=== PATIENT | male | born 1940 | race Caucasian/White ===

== ENCOUNTER 2017-12-25 03:54 | Inpatient (IN) | payer MEDICARE, OTHER ==
[~2017-12-25] VITALS: Ht 182.9 cm; Wt 98.6 kg
[~2017-12-25 03:54] MED LIST: ASPI-1265 PO; ATOR20TA66 PO; Clopidogrel Bisulfate PO; HUM7525 SQ; LANTUS SUBCUT; METO25TA6 PO; MULT-1179 PO; NITR0.4T51 SL
[2017-12-25] MEDS ORDERED: aspirin 81mg tab.chew PO ONE (04:05)
[2017-12-25] MEDS ORDERED: nitroGLYCERIN 0.4mg SUBLingual tab SL PRN (04:05)
[2017-12-25] MEDS ORDERED: iohexol 350MG/ML 100ml bottle IV ONE (04:28)
[2017-12-25 04:35] LABS: BASOPHILS % (AUTO) 0 % (0-1); EOSINOPHILS # (AUTO) 0.2 X10'3 (0-0.9); EOSINOPHILS % (AUTO) 1.7 % (0-6); HEMATOCRIT 45.3 % (42.0-52.0); HEMOGLOBIN 15.8 g/dl (14.0-17.9); LYMPHOCYTES # (AUTO) 2.6 X10'3 (1.1-4.8); LYMPHOCYTES % (AUTO) 23.7 % (21-51); MEAN CORPUSCULAR HEMOGLOBIN 31.3 PG (27.0-31.0); MEAN CORPUSCULAR VOLUME 89.5 FL (78-98); MEAN PLATELET VOLUME 9.8 FL (7.4-10.4); MONOCYTES # (AUTO) 0.8 X10'3 (0-0.9); NEUTROPHILS # (AUTO) 7.3 X10'3 (1.8-7.7); NEUTROPHILS % (AUTO) 67.6 % (42-75); PLATELET COUNT 217 X10'3 (140-440); RED BLOOD COUNT 5.06 X10'6 (4.70-6.10); RED CELL DISTRIBUTION WIDTH 13.4 % (11.5-14.5); WHITE BLOOD COUNT 10.9 X10'3 (4.5-11.0)
[2017-12-25 05:09] LABS: ALANINE AMINOTRANSFERASE 20 U/L (12-78); ALBUMIN 2.9 G/DL (3.4-5.0); ALBUMIN/GLOBULIN RATIO 0.8 (1.1-1.5); ALKALINE PHOSPHATASE 81 IU/L (46-116); ANION GAP 10 (8-16); ASPARTATE AMINO TRANSFERASE 38 U/L (10-37); BILIRUBIN,TOTAL 0.7 MG/DL (0.1-1.0); BLOOD UREA NITROGEN 15 MG/DL (7-18); CALCIUM 8.3 MG/DL (8.5-10.1); CHLORIDE 95 MMOL/L (99-107); CREATININE 1.15 MG/DL (0.60-1.10); GLUCOSE 384 MG/DL (70-104); POTASSIUM 3.7 MMOL/L (3.5-5.1); SODIUM 130 MMOL/L (135-145); TOTAL CARBON DIOXIDE 24.6 MMOL/L (24-32); TOTAL PROTEIN 6.4 G/DL (6.4-8.2); eGFR 62 ML/MIN
[2017-12-25] MEDS ORDERED: heparin 10,000 units/1 ML INJ IV ONE (05:40)
[2017-12-25] MEDS ORDERED: MESSAGE TO PHARMACY PO ONE (05:50)
[2017-12-25] MEDS ORDERED: bisacodyl 10mg suppository rectal RC PRN (05:50)
[2017-12-25] MEDS ORDERED: mag hydrox/Alum hydrox/simeth 30ml oral suspension PO PRN (05:50)
[2017-12-25] MEDS ORDERED: magnesium hydroxide 30ml (MOM) UD suspension PO PRN (05:50)
[2017-12-25] MEDS ORDERED: acetaminophen 650mg rectal suppository RC PRN (05:50)
[2017-12-25] MEDS ORDERED: metoclopramide 5 mg/ml inj IV PRN (05:50)
[2017-12-25] MEDS ORDERED: HYDROmorphone inj. 0.5 MG/0.5 ML DISP.SYRIN IV PRN ×2 (05:50)
[2017-12-25] MEDS ORDERED: acetaminophen 325mg tablet PO PRN ×2 (05:50)
[2017-12-25] MEDS ORDERED: ondansetron/PF 4mg/2ml inj IV PRN (05:50)
[2017-12-25] MEDS ORDERED: dextrose ORAL solution 15 GM/59 ML bottle PO PRN ×2 (05:50)
[2017-12-25] MEDS ORDERED: HYDROcodone/acetaminophen 10/325mg tab PO PRN (05:50)
[2017-12-25] MEDS ORDERED: morphine 2 MG/ML inj. syringe IV PRN ×2 (05:50)
[2017-12-25] MEDS ORDERED: dextrose 50%-water 50ml dispensing syringe IV PRN ×2 (05:50)
[2017-12-25] MEDS ORDERED: diphenhydrAMINE 50 mg/ml inj IV PRN (05:50)
[2017-12-25] MEDS ORDERED: diphenhydrAMINE 25mg capsule PO PRN (05:50)
[2017-12-25] MEDS ORDERED: glucagon, human recombinant 1mg kit SUBCUT PRN (05:50)
[2017-12-25] MEDS: normal saline 1000ml 1,000 ML IV SCH ×2 (05:59→15:46)
[2017-12-25] MEDS ORDERED: atorvastatin 20mg tablet PO SCH (08:00)
[2017-12-25] MEDS: docusate sod 100mg capsule PO SCH ×2 (08:34→19:45)
[2017-12-25] MEDS: pantoprazole 40 MG vial IV SCH (08:35)
[2017-12-25] MEDS ORDERED: NO HOME MEDS (08:37)
[2017-12-25 08:39] LABS: CLARITY,URINE CLEAR (Clear); COLOR,URINE YELLOW (Yellow); GLUCOSE, URINE >=1000 mg/dl (Neg); KETONES,URINE 15 mg/dl (Neg); LEUKOCYTE ESTERASE ,URINE NEGATIVE (Neg); NITRITES, URINE NEGATIVE (Neg); OCCULT BLOOD,URINE NEGATIVE (Neg); PH,URINE 5.5 (4.8-8.0); PROTEIN,URINE NEGATIVE (Neg); UROBILINOGEN,URINE 0.2 E.U/dL (0.2-1.0)
[2017-12-25 08:41] LABS: UA COLLECTION TYPE CLN CATCH MIDSTREAM
[2017-12-25 08:46] LABS: MAGNESIUM 1.6 MG/DL (1.5-2.4); PHOSPHORUS 3.1 MG/DL (2.3-4.5)
[2017-12-25 09:08] LABS: MUCUS STRANDS FEW /LPF (Neg); SQUAMOUS EPITHELIAL CELL,UR MANY /LPF (FEW)
[2017-12-25 09:10] LABS: BACTERIA,URINE FEW /HPF (Neg); RBC,URINE 0-2 /HPF (0-2); WBC,URINE 0-4 /HPF (0-4)
[2017-12-25 09:11] LABS: YEAST FEW /HPF (NEGATIVE)
[2017-12-25 09:17] LABS: HEMOGLOBIN A1C 10.7 % (4.5-6.2)
[2017-12-25] MEDS: insulin Lispro (HumaLOG) vial - multi-dose SQ SCH ×3 (09:29→22:19)
[2017-12-25 11:38] LABS: PROTHROMBIN TIME 10.4 SECONDS (9.0-12.0)
[2017-12-25 12:35] VITALS: BP 122/80
[2017-12-25 15:00] VITALS: BP 114/79
[2017-12-25 19:00] VITALS: BP 115/82
[2017-12-25] MEDS: heparin 10,000 units/1 ML INJ IV PRN (19:42)
[2017-12-25] MEDS ORDERED: temazepam 15mg capsule PO PRN (21:00)
[2017-12-25] MEDS: sodium chloride 0.45% 1,000 ML IV SCH (22:21)
[2017-12-25 23:00] VITALS: BP 117/78
[2017-12-26] MEDS: HYDROcodone/acetaminophen 5mg/325mg tablet PO PRN ×2 (01:40→08:23)
[2017-12-26 03:00] VITALS: BP 126/89
[2017-12-26] MEDS: sodium chloride 0.45% 1,000 ML IV SCH ×3 (03:00→10:48)
[2017-12-26] MEDS: heparin 10,000 units/1 ML INJ IV PRN ×2 (03:00→10:41)
[2017-12-26 06:00] VITALS: BP 108/75
[2017-12-26 06:11] LABS: BASOPHILS % (AUTO) 0.3 % (0-1); EOSINOPHILS # (AUTO) 0.1 X10'3 (0-0.9); EOSINOPHILS % (AUTO) 1.4 % (0-6); HEMATOCRIT 39.7 % (42.0-52.0); HEMOGLOBIN 13.6 g/dl (14.0-17.9); LYMPHOCYTES % (AUTO) 23.4 % (21-51); MEAN CORPUSCULAR HEMOGLOBIN 31.2 PG (27.0-31.0); MEAN CORPUSCULAR HGB CONC 34.2 % (33.0-36.5); MEAN CORPUSCULAR VOLUME 91.3 FL (78-98); MEAN PLATELET VOLUME 10.8 FL (7.4-10.4); MONOCYTES # (AUTO) 0.8 X10'3 (0-0.9); MONOCYTES % (AUTO) 8.7 % (2-12); NEUTROPHILS # (AUTO) 5.8 X10'3 (1.8-7.7); NEUTROPHILS % (AUTO) 66.2 % (42-75); PLATELET COUNT 199 X10'3 (140-440); RED BLOOD COUNT 4.35 X10'6 (4.70-6.10); RED CELL DISTRIBUTION WIDTH 14.1 % (11.5-14.5); WHITE BLOOD COUNT 8.7 X10'3 (4.5-11.0)
[2017-12-26 06:26] LABS: ALANINE AMINOTRANSFERASE 21 U/L (12-78); ALBUMIN 2.7 G/DL (3.4-5.0); ALBUMIN/GLOBULIN RATIO 0.7 (1.1-1.5); ALKALINE PHOSPHATASE 64 IU/L (46-116); ANION GAP 12 (8-16); ASPARTATE AMINO TRANSFERASE 30 U/L (10-37); BILIRUBIN,TOTAL 0.9 MG/DL (0.1-1.0); BLOOD UREA NITROGEN 13 MG/DL (7-18); BUN/CREATININE RATIO 12.9 (5.4-32.0); CALCIUM 8.8 MG/DL (8.5-10.1); CHLORIDE 99 MMOL/L (99-107); CHOL/HDL RATIO 2.8 (0.00-4.99); CHOLESTEROL 185 MG/DL (0-200); CREATININE 1.01 MG/DL (0.60-1.10); GLUCOSE 267 MG/DL (70-104); HDL CHOLESTEROL 66 MG/DL (35-60); LDL CHOLESTEROL 113 MG/DL (50-100); POTASSIUM 3.7 MMOL/L (3.5-5.1); SODIUM 133 MMOL/L (135-145); TOTAL CARBON DIOXIDE 22.3 MMOL/L (24-32); TOTAL PROTEIN 6.4 G/DL (6.4-8.2); TRIGLYCERIDES 73 MG/DL (20-135); eGFR 72 ML/MIN
[2017-12-26] MEDS ORDERED: atorvastatin 20mg tablet PO SCH (07:10)
[2017-12-26] MEDS ORDERED: metoprolol tartrate 12.5mg (1/2 tablet) PO SCH (08:00)
[2017-12-26] MEDS: aspirin 81mg tab.chew PO SCH (08:19)
[2017-12-26] MEDS: clopidogrel 75mg tablet PO SCH (08:20)
[2017-12-26] MEDS: docusate sod 100mg capsule PO SCH ×2 (08:21→20:00)
[2017-12-26] MEDS: pantoprazole 40 MG vial IV SCH (08:24)
[2017-12-26] MEDS: insulin Lispro (HumaLOG) vial - multi-dose SQ SCH ×3 (08:29→19:54)
[2017-12-26 09:49] LABS: PARTIAL THROMBOPLASTIN TIME 44 SECONDS (22-32)
[2017-12-26 11:00] VITALS: BP 91/62
[2017-12-26 15:00] VITALS: BP 111/72
[2017-12-26 19:00] VITALS: BP 173/80
[2017-12-26] MEDS: carVEDilol 3.125mg tablet PO SCH (19:43)
[2017-12-26] MEDS ORDERED: lisinopril 5mg tablet PO SCH (21:00)
[2017-12-26 23:00] VITALS: BP 103/69
[2017-12-27 03:00] VITALS: BP 82/58
[2017-12-27 07:00] VITALS: BP 94/63
[2017-12-27 07:19] LABS: BASOPHILS # (AUTO) 0.1 X10'3 (0-0.2); BASOPHILS % (AUTO) 1.9 % (0-1); EOSINOPHILS # (AUTO) 0.1 X10'3 (0-0.9); EOSINOPHILS % (AUTO) 1.9 % (0-6); HEMOGLOBIN 12.7 g/dl (14.0-17.9); LYMPHOCYTES # (AUTO) 1.8 X10'3 (1.1-4.8); LYMPHOCYTES % (AUTO) 24.9 % (21-51); MEAN CORPUSCULAR HGB CONC 34.3 % (33.0-36.5); MEAN CORPUSCULAR VOLUME 90.3 FL (78-98); MEAN PLATELET VOLUME 10.4 FL (7.4-10.4); MONOCYTES # (AUTO) 0.8 X10'3 (0-0.9); MONOCYTES % (AUTO) 10.7 % (2-12); NEUTROPHILS # (AUTO) 4.3 X10'3 (1.8-7.7); NEUTROPHILS % (AUTO) 60.6 % (42-75); PLATELET COUNT 196 X10'3 (140-440); RED CELL DISTRIBUTION WIDTH 13.7 % (11.5-14.5)
[2017-12-27 07:40] LABS: ALANINE AMINOTRANSFERASE 27 U/L (12-78); ALBUMIN 2.4 G/DL (3.4-5.0); ALBUMIN/GLOBULIN RATIO 0.6 (1.1-1.5); ALKALINE PHOSPHATASE 100 IU/L (46-116); ANION GAP 12 (8-16); ASPARTATE AMINO TRANSFERASE 22 U/L (10-37); BILIRUBIN,TOTAL 0.7 MG/DL (0.1-1.0); BLOOD UREA NITROGEN 18 MG/DL (7-18); BUN/CREATININE RATIO 13.2 (5.4-32.0); CALCIUM 8.8 MG/DL (8.5-10.1); CHLORIDE 101 MMOL/L (99-107); CREATININE 1.36 MG/DL (0.60-1.10); GLUCOSE 194 MG/DL (70-104); POTASSIUM 3.8 MMOL/L (3.5-5.1); SODIUM 135 MMOL/L (135-145); TOTAL CARBON DIOXIDE 21.9 MMOL/L (24-32); TOTAL PROTEIN 6.3 G/DL (6.4-8.2); eGFR 51 ML/MIN
[2017-12-27] MEDS ORDERED: atorvastatin 20mg tablet PO SCH (08:00)
[2017-12-27] MEDS: carVEDilol 3.125mg tablet PO SCH (08:00)
[2017-12-27] MEDS: insulin Lispro (HumaLOG) vial - multi-dose SQ SCH ×2 (08:15→14:12)
[2017-12-27] MEDS: pantoprazole 40 MG vial IV SCH (08:16)
[2017-12-27] MEDS: docusate sod 100mg capsule PO SCH (08:16)
[2017-12-27] MEDS: aspirin 81mg tab.chew PO SCH (08:17)
[2017-12-27] MEDS: clopidogrel 75mg tablet PO SCH (08:18)
[2017-12-27 08:20] VITALS: BP 94/60
[2017-12-27 11:00] VITALS: BP 87/56
[2017-12-27] MEDS ORDERED: ASPI-1265 PO (11:54)
[2017-12-27] MEDS ORDERED: CLOP75TA35 PO (11:54)
[2017-12-27] MEDS ORDERED: COR3.125T PO (11:54)
[2017-12-27] MEDS ORDERED: LISI-642 PO (11:54)
[2017-12-27] MEDS ORDERED: ATOR20TA66 PO (11:54)
[2017-12-27] MEDS ORDERED: METF-950 PO (11:57)
[2017-12-27] MEDS ORDERED: GLIM1TAB PO (11:58)
[2017-12-27] MEDS ORDERED: SAXA5TAB PO (11:58)
== END 2017-12-27 14:40 | disposition home or self-care (01) | DRG 281 ==
LOC: ER 03:55 → ED HOLD 05:46 → PCU 3S 12:25 → CMPBEDREQ 12-26 19:43
PROVIDERS: ADMIT Family Medicine; ATTEND Family Medicine
PROC: B32T1ZZ Computerized Tomography (CT Scan) of Left Pulmonary Artery using Low Osmolar Contrast (ICD-10-PCS; principal; 2017-12-25)
PROC: B3201ZZ Computerized Tomography (CT Scan) of Thoracic Aorta using Low Osmolar Contrast (ICD-10-PCS; 2017-12-25)
PROC: B32S1ZZ Computerized Tomography (CT Scan) of Right Pulmonary Artery using Low Osmolar Contrast (ICD-10-PCS; 2017-12-25)
DX: I21.4 Non-ST elevation (NSTEMI) myocardial infarction (principal); E87.1 Hypo-osmolality and hyponatremia; E11.65 Type 2 diabetes mellitus with hyperglycemia; E78.5 Hyperlipidemia, unspecified; I08.3 Combined rheumatic disorders of mitral, aortic and tricuspid valves; I25.5 Ischemic cardiomyopathy; N28.9 Disorder of kidney and ureter, unspecified; G89.29 Other chronic pain; Z60.2 Problems related to living alone; Z53.20 Procedure and treatment not carried out because of patient's decision for unspecified reasons; M54.9 Dorsalgia, unspecified; I10 Essential (primary) hypertension; I25.10 Atherosclerotic heart disease of native coronary artery without angina pectoris; I25.2 Old myocardial infarction; Z79.4 Long term (current) use of insulin; Z91.14 Patient's other noncompliance with medication regimen; Z91.19 Patient's noncompliance with other medical treatment and regimen; Z79.899 Other long term (current) drug therapy; Z79.82 Long term (current) use of aspirin; Z79.84 Long term (current) use of oral hypoglycemic drugs; Z86.73 Personal history of transient ischemic attack (TIA), and cerebral infarction without residual deficits; Z82.49 Family history of ischemic heart disease and other diseases of the circulatory system
CPT/HCPCS: 36415; 71045; 71275; 74175; 80053; 80061; 81001; 82948; 83036; 83735; 83880; 84100; 84484; 85025; 85610; 85730; 87070; 93306; 99291; C9113; J1644; J7030; Q9967

== ENCOUNTER 2018-01-23 11:44 | Emergency (ER) | payer OTHER ==
[~2018-01-23] VITALS: Ht 185.4 cm; Wt 96.6 kg
[~2018-01-23 11:44] MED LIST changes: +CLOP75TA35 PO; +COR3.125T PO; -Clopidogrel Bisulfate PO; +GLIM1TAB PO; -HUM7525 SQ; -LANTUS SUBCUT; +LISI-642 PO; +METF-950 PO; -METO25TA6 PO; -MULT-1179 PO; -NITR0.4T51 SL; +SAXA5TAB PO
[2018-01-23 11:48] VITALS: BP 127/88
== END 2018-01-23 12:42 | disposition home or self-care (01) ==
LOC: ER 11:44
DX: I25.10 Atherosclerotic heart disease of native coronary artery without angina pectoris (principal); E78.00 Pure hypercholesterolemia, unspecified; I10 Essential (primary) hypertension; E11.9 Type 2 diabetes mellitus without complications; G89.29 Other chronic pain; I25.2 Old myocardial infarction; Z76.0 Encounter for issue of repeat prescription; Z79.82 Long term (current) use of aspirin; Z79.84 Long term (current) use of oral hypoglycemic drugs; Z79.899 Other long term (current) drug therapy
CPT/HCPCS: 99281

== ENCOUNTER 2018-12-30 00:15 | Inpatient (IN) | payer OTHER ==
[~2018-12-30] VITALS: Ht 182.9 cm; Wt 107.6 kg
[2018-12-30] VITALS (19 sets, daily range): BP systolic 74–100; BP diastolic 44–63
[~2018-12-30 00:15] MED LIST changes: -METF-950 PO
[2018-12-30] MEDS ORDERED: normal saline 1000ml 1,000 ML IV ONE (00:25)
[2018-12-30 00:58] LABS: PARTIAL THROMBOPLASTIN TIME 22 SECONDS (22-32)
[2018-12-30 01:01] LABS: LACTIC SEPSIS 2.4 MMOL/L (0.4-2.0)
[2018-12-30 01:05] LABS: BASOPHILS % (AUTO) 0.4 % (0-1); EOSINOPHILS % (AUTO) 0 % (0-6); HEMATOCRIT 49.4 % (42.0-52.0); HEMOGLOBIN 15.9 g/dl (14.0-17.9); LYMPHOCYTES # (AUTO) 0.5 X10'3 (1.1-4.8); LYMPHOCYTES % (AUTO) 4.9 % (21-51); MEAN CORPUSCULAR HEMOGLOBIN 31.2 PG (27.0-31.0); MEAN CORPUSCULAR HGB CONC 32.2 g/dL (33.0-36.5); MEAN CORPUSCULAR VOLUME 96.8 FL (78-98); MEAN PLATELET VOLUME 10.7 FL (7.4-10.4); MONOCYTES # (AUTO) 1.2 X10'3 (0-0.9); MONOCYTES % (AUTO) 11.5 % (2-12); NEUTROPHILS # (AUTO) 8.6 X10'3 (1.8-7.7); NEUTROPHILS % (AUTO) 83.2 % (42-75); PLATELET COUNT 179 X10'3 (140-440); RED CELL DISTRIBUTION WIDTH 15.2 % (11.5-14.5); WHITE BLOOD COUNT 10.3 X10'3 (4.5-11.0)
[2018-12-30 01:08] LABS: ALANINE AMINOTRANSFERASE 16 U/L (12-78); ALBUMIN 2.5 G/DL (3.4-5.0); ALBUMIN/GLOBULIN RATIO 0.6 (1.1-1.5); ALKALINE PHOSPHATASE 83 IU/L (46-116); ANION GAP 27 (8-16); ASPARTATE AMINO TRANSFERASE 12 U/L (10-37); BILIRUBIN,TOTAL 0.6 MG/DL (0.1-1.0); BLOOD UREA NITROGEN 133 MG/DL (7-18); BUN/CREATININE RATIO 23.9 (5.4-32.0); CALCIUM 8.3 MG/DL (8.5-10.1); CHLORIDE 112 MMOL/L (99-107); CREATINE KINASE 78 U/L (39-308); CREATININE 5.56 MG/DL (0.60-1.10); POTASSIUM 4.8 MMOL/L (3.5-5.1); SODIUM 148 MMOL/L (135-145); TOTAL PROTEIN 6.4 G/DL (6.4-8.2); TROPONIN I < 0.04 NG/ML (0.0-0.05); eGFR 10 ML/MIN
[2018-12-30 01:30] LABS: GLUCOSE 1144 MG/DL (70-104); TOTAL CARBON DIOXIDE 9.5 MMOL/L (24-32)
[2018-12-30] MEDS ORDERED: sodium bicarbonate (8.4%) inj. 100 MEQ in dextrose 5% water 500ml 500 ML IV PRN ×2 (01:32→02:58)
[2018-12-30] MEDS ORDERED: potassium CL 20mEq in D5-1/2NS 1,000 ML IV PRN ×2 (01:32→02:58)
[2018-12-30] MEDS ORDERED: sodium bicarbonate (8.4%) inj. 50 MEQ in dextrose 5% water 500ml 250 ML IV PRN ×2 (01:32→02:58)
[2018-12-30] MEDS ORDERED: normal saline 1000ml 1,000 ML IV SCH (01:32)
[2018-12-30] MEDS ORDERED: insulin regular, DKA only 100 UNIT in normal saline 100ml IV soln 99 ML IV ONE ×2 (01:32)
[2018-12-30] MEDS ORDERED: insulin regular, human 10 units/0.1 ml syringe IV PRN ×2 (01:35→03:00)
[2018-12-30] MEDS ORDERED: potassium Cl 20 mEq SR tablet PO PRN ×6 (01:35→03:00)
[2018-12-30] MEDS ORDERED: sodium phosphate inj. 30 MMOL in dextrose 5%-water 250 ML IV PRN ×2 (01:35→03:00)
[2018-12-30] MEDS ORDERED: sodium phosphate inj. 15 MMOL in dextrose 5%-water 150 ML IV PRN (01:35)
[2018-12-30] MEDS ORDERED: potassium CL 10mEq/100ml bag 100 ML IV PRN ×5 (01:35→03:00)
[2018-12-30] MEDS ORDERED: Neutra Phos packet PO PRN ×2 (01:35→03:00)
[2018-12-30 01:40] LABS: ABG HCO3 6.3 mmol/L (22.0-26.0); ABG OXYGEN SATURATION 95.8 % (95-98); ABG PCO2 (T) 14.8 mmHg (35.0-45.0); ABG PH (T) 7.247 (7.350-7.450); ABG PO2 (T) 88.5 mmHg (83-108); FCOHb 0.7 % (0.5-1.5); FLOW 4 L/min; FMetHb 0.4 % (0.3-1.12); FO2Hb 94.7 % (94-100); PATIENT TEMPERATURE 36.9; RESPIRATORY RATE (OBSERVED) 24 b/min
[2018-12-30] MEDS ORDERED: aspirin 300mg supp.rect RC ONE (02:35)
[2018-12-30 02:51] LABS: URINE AMPHETAMINE SCREEN NEGATIVE (Neg); URINE BARBITUATE SCREEN NEGATIVE (Neg); URINE BENZODIAZEPINES SCREEN NEGATIVE (Neg); URINE CANNABINOID SCREEN NEGATIVE (Neg); URINE COCAINE SCREEN NEGATIVE (Neg); URINE METHADONE SCREEN NEGATIVE (Neg); URINE OPIATE SCREEN NEGATIVE (Neg); URINE PHENCYCLIDINE SCREEN NEGATIVE (Neg)
[2018-12-30 02:53] LABS: CLARITY,URINE CLEAR (Clear); COLOR,URINE YELLOW (Yellow); GLUCOSE, URINE >=1000 mg/dl (Neg); KETONES,URINE 15 mg/dl (Neg); LEUKOCYTE ESTERASE ,URINE NEGATIVE (Neg); NITRITES, URINE NEGATIVE (Neg); OCCULT BLOOD,URINE LARGE (Neg); PH,URINE 5.5 (4.8-8.0); PROTEIN,URINE NEGATIVE (Neg); UROBILINOGEN,URINE 0.2 E.U/dL (0.2-1.0)
[2018-12-30] MEDS: normal saline 1000ml 1,000 ML IV SCH ×3 (02:58→11:17)
[2018-12-30] MEDS ORDERED: insulin regular, DKA only 100 UNIT in normal saline 100ml IV soln 99 ML IV SCH ×6 (02:58→19:20)
[2018-12-30 03:00] LABS: UA COLLECTION TYPE FOLEY CATH
[2018-12-30] MEDS ORDERED: acetaminophen 650mg rectal suppository RC PRN (03:00)
[2018-12-30] MEDS ORDERED: K, MAG and/or Phos replacement - Verify level? MC SCH (03:00)
[2018-12-30] MEDS ORDERED: morphine 4 MG/ML inj SYRINge IV PRN (03:00)
[2018-12-30] MEDS ORDERED: acetaminophen 325mg tablet PO PRN ×2 (03:00)
[2018-12-30] MEDS ORDERED: morphine 2 MG/ML inj. syringe IV PRN (03:00)
[2018-12-30 03:06] LABS: FINE GRANULAR CAST 0-3 /LPF (NEGATIVE); HYALINE CASTS 0-3 /LPF (NEGATIVE)
[2018-12-30 03:08] LABS: BACTERIA,URINE NONE SEEN /HPF (Neg); SQUAMOUS EPITHELIAL CELL,UR NONE SEEN /LPF (FEW); WBC,URINE 0-4 /HPF (0-4)
[2018-12-30 03:09] LABS: MUCUS STRANDS MODERATE /LPF (Neg)
[2018-12-30 03:42] LABS: ALBUMIN 2.7 G/DL (3.4-5.0); ANION GAP 28 (8-16); BLOOD UREA NITROGEN 133 MG/DL (7-18); BUN/CREATININE RATIO 24.7 (5.4-32.0); CALCIUM 8.7 MG/DL (8.5-10.1); CHLORIDE 113 MMOL/L (99-107); CREATININE 5.38 MG/DL (0.60-1.10); SODIUM 150 MMOL/L (135-145); eGFR 10 ML/MIN
[2018-12-30 03:46] LABS: POTASSIUM 4.4 MMOL/L (3.5-5.1)
[2018-12-30] MEDS ORDERED: albuterol 2.5 MG/3 ML nebule NEB PRN (03:55)
[2018-12-30 04:08] LABS: GLUCOSE 1001 MG/DL (70-104)
[2018-12-30 04:09] LABS: TOTAL CARBON DIOXIDE 8.7 MMOL/L (24-32)
[2018-12-30 04:34] LABS: BURR CELLS 1+; LARGE PLATELETS FEW; PLATELET ESTIMATE NORMAL
[2018-12-30 05:03] LABS: ALBUMIN 2.6 G/DL (3.4-5.0); ANION GAP 26 (8-16); BLOOD UREA NITROGEN 135 MG/DL (7-18); BUN/CREATININE RATIO 24.9 (5.4-32.0); CALCIUM 8.6 MG/DL (8.5-10.1); CHLORIDE 115 MMOL/L (99-107); CREATININE 5.42 MG/DL (0.60-1.10); POTASSIUM 3.7 MMOL/L (3.5-5.1); SODIUM 151 MMOL/L (135-145); eGFR 10 ML/MIN
[2018-12-30 05:08] LABS: GLUCOSE 911 MG/DL (70-104); TOTAL CARBON DIOXIDE 10.2 MMOL/L (24-32)
--- NOTE | 2018-12-30 05:15 | NUR ---
Patient in room ICU 2039. I have received report from ED RN Shanna and had the opportunity to ask questions and assume patient care. Pt arrived via gurney from ED with no belongings. Attached to bedside monitor, VSS, with NS infusing at 250 and Insulin at 5 units per DKA protocol through right AC PIV. Left sided facial droop noted with no noted movements with left sided arm or leg. Pt is moving right arm, squeezing with right hand and blinking eyes on command, PERRL at 3mm. No noted movements of right leg. Daughter and granddaughter at bedside, all questions and concerns addressed.
[2018-12-30 06:22] LABS: HEMOGLOBIN A1C 10.6 % (4.5-6.2)
--- NOTE | 2018-12-30 06:38 | NUR ---
Problems reprioritized. Patient report given, questions answered & plan of care reviewed with VLADISLAV Romero.
--- NOTE | 2018-12-30 06:46 | NUR ---
Patient in room ICU 2039. I have received report from VLADISLAV Hardy and had the opportunity to ask questions and assume patient care.
--- NOTE | 2018-12-30 06:48 | NUR ---
Contacted Nancy with Stroke Team to update her regarding patient deficit to left side. Not responding to questions and area of insult on head CT. She stated she will be in later and was rather irritated that this was non-emergent, as I woke her up with the page.
[2018-12-30] MEDS: potassium Cl 20mEq in NS 1,000 ML IV SCH ×2 (07:01→09:31)
--- NOTE | 2018-12-30 07:11 | NUR ---
Hiral called asking for the stroke nurse phone number. I informed him that I have already spoken to Nancy with Stroke Team and that she stated she will be in later to assess him. No further orders nor directions received.
[2018-12-30 07:55] LABS: ALBUMIN 2.6 G/DL (3.4-5.0); ANION GAP 24 (8-16); BLOOD UREA NITROGEN 132 MG/DL (7-18); BUN/CREATININE RATIO 24.1 (5.4-32.0); CALCIUM 8.7 MG/DL (8.5-10.1); CHLORIDE 117 MMOL/L (99-107); CREATININE 5.47 MG/DL (0.60-1.10); POTASSIUM 3.4 MMOL/L (3.5-5.1); SODIUM 154 MMOL/L (135-145); eGFR 10 ML/MIN
[2018-12-30] MEDS ORDERED: etomidate 2mg/ml inj. ONE ×3 (08:00)
[2018-12-30] MEDS ORDERED: sod chloride 0.9% 10ml flush syringe IV ONE (08:00)
[2018-12-30] MEDS ORDERED: rocuronium 10mg/ml inj IV ONE ×4 (08:00)
[2018-12-30] MEDS ORDERED: 0.9 % SODIUM CHLORIDE 10 ML VIAL ONE (08:00)
[2018-12-30] MEDS ORDERED: LIDOcaine 2% 5ml jelly ONE (08:00)
[2018-12-30] MEDS ORDERED: K and/or MAG REPLACEMENT MC SCH (08:00)
[2018-12-30] MEDS: K and/or MAG REPLACEMENT MC SCH (08:00)
[2018-12-30] MEDS ORDERED: LIDOcaine 2% (20 mg/ml) 5ml cardiac syringe ONE (08:00)
[2018-12-30 08:09] LABS: GLUCOSE 769 MG/DL (70-104); TOTAL CARBON DIOXIDE 13.3 MMOL/L (24-32)
[2018-12-30 08:39] LABS: ALBUMIN 2.7 G/DL (3.4-5.0); ANION GAP 20 (8-16); BLOOD UREA NITROGEN 130 MG/DL (7-18); BUN/CREATININE RATIO 23.7 (5.4-32.0); CALCIUM 8.7 MG/DL (8.5-10.1); CHLORIDE 119 MMOL/L (99-107); CREATININE 5.48 MG/DL (0.60-1.10); PHOSPHORUS 5.5 MG/DL (2.3-4.5); POTASSIUM 3.8 MMOL/L (3.5-5.1); SODIUM 153 MMOL/L (135-145); eGFR 10 ML/MIN
[2018-12-30] MEDS: pantoprazole 40 MG vial IV SCH (08:39)
[2018-12-30] MEDS: heparin, porcine 5000 units/ml vial SQ SCH ×2 (08:39→20:18)
[2018-12-30 08:41] LABS: GLUCOSE 685 MG/DL (70-104); TOTAL CARBON DIOXIDE 14.4 MMOL/L (24-32)
--- NOTE | 2018-12-30 09:46 | NUR ---
DM consult: Pt with A1c 10.6. Pt BIB EMS after being found in home by [employer] while performing a welfare check. 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 Pt nonverbal and obtunded per physical assessment, education not appropriate at this time. Noted that A1c is fairly stable with last documented A1c of 10.7 in December of last year. Pt currently NPO. Niranjan 12 however skin intact per physical assessment. No documented LBM at this time. Will continue to follow. Recommendations: 1) Advance to heart healthy CHO controlled diet as medically indicated 2) DM education prior to discharge once stable 3) Wt per rx Addendum: 12/30/18 at [address] Amended: Links added.
[2018-12-30] MEDS ORDERED: LISI-604 PO (10:21)
[2018-12-30] MEDS ORDERED: ATOR40TA71 PO (10:23)
[2018-12-30] MEDS ORDERED: CARV3.126 PO (10:23)
[2018-12-30] MEDS ORDERED: GLIM1TAB3 PO (10:23)
[2018-12-30] MEDS ORDERED: ASPI-611 PO (10:23)
[2018-12-30] MEDS ORDERED: CLOP75TA8 PO (10:25)
[2018-12-30] MEDS ORDERED: SAXA5TAB PO (10:25)
[2018-12-30 11:17] LABS: ALBUMIN 2.5 G/DL (3.4-5.0); ANION GAP 18 (8-16); BLOOD UREA NITROGEN 131 MG/DL (7-18); BUN/CREATININE RATIO 24.1 (5.4-32.0); CALCIUM 8.1 MG/DL (8.5-10.1); CHLORIDE 122 MMOL/L (99-107); CREATININE 5.43 MG/DL (0.60-1.10); POTASSIUM 4.1 MMOL/L (3.5-5.1); eGFR 10 ML/MIN
[2018-12-30 11:22] LABS: GLUCOSE 591 MG/DL (70-104); SODIUM 156 MMOL/L (135-145)
[2018-12-30] MEDS: sodium chloride 0.45% 1,000 ML IV SCH ×3 (12:25→23:38)
[2018-12-30 12:37] LABS: CLARITY,URINE CLOUDY (Clear); COLOR,URINE YELLOW (Yellow); GLUCOSE, URINE >=1000 mg/dl (Neg); KETONES,URINE TRACE mg/dl (Neg); LEUKOCYTE ESTERASE ,URINE NEGATIVE (Neg); NITRITES, URINE NEGATIVE (Neg); OCCULT BLOOD,URINE LARGE (Neg); PROTEIN,URINE 30 mg/dl (Neg)
[2018-12-30 12:39] LABS: UA COLLECTION TYPE NON-SPECIFIED
[2018-12-30 12:45] LABS: RBC,URINE 20-50 /HPF (0-2)
[2018-12-30 12:46] LABS: BACTERIA,URINE FEW /HPF (Neg); MUCUS STRANDS NONE SEEN /LPF (Neg); SQUAMOUS EPITHELIAL CELL,UR MODERATE /LPF (FEW); TRANSITIONAL EPI CELLS,URINE FEW /HPF
[2018-12-30 12:47] LABS: HYALINE CASTS 0-3 /LPF (NEGATIVE)
[2018-12-30 12:48] LABS: CELLULAR CAST 0-4 /LPF (NEGATIVE)
[2018-12-30 13:06] LABS: UA EOSINOPHILS NO EOS /HPF
[2018-12-30 14:47] LABS: ALBUMIN 2.4 G/DL (3.4-5.0); ANION GAP 17 (8-16); BLOOD UREA NITROGEN 131 MG/DL (7-18); BUN/CREATININE RATIO 24.8 (5.4-32.0); CALCIUM 8.5 MG/DL (8.5-10.1); CHLORIDE 123 MMOL/L (99-107); CREATININE 5.28 MG/DL (0.60-1.10); PHOSPHORUS 4.9 MG/DL (2.3-4.5); POTASSIUM 4.2 MMOL/L (3.5-5.1); TOTAL CARBON DIOXIDE 17.5 MMOL/L (24-32); eGFR 11 ML/MIN
[2018-12-30 14:53] LABS: GLUCOSE 475 MG/DL (70-104); SODIUM 157 MMOL/L (135-145)
--- NOTE | 2018-12-30 15:48 | NUR ---
Per Dr. Sykes, once BG gets below 250, okay to follow regular insulin gtt protocol. Per , pt not in DKA and does not want to follow DKA protocol
--- NOTE | 2018-12-30 15:51 | NUR ---
Dr. Sykes aware of increasing NA of 157. No new orders at this time.
[2018-12-30 17:05] LABS: ABG BASE EXCESS -8.9 mmol/L (-2.0-3.0); ABG HCO3 14.2 mmol/L (22.0-26.0); ABG PH (T) 7.371 (7.350-7.450); ABG PO2 (T) 80.7 mmHg (83-108); ALLEN'S TEST Positive; FCOHb 0.8 % (0.5-1.5); FLOW 5 L/min; FMetHb 0.4 % (0.3-1.12); FO2Hb 95.5 % (94-100)
[2018-12-30 17:06] LABS: ABG OXYGEN SATURATION 96.7 % (95-98)
[2018-12-30] MEDS ORDERED: midazolam 2 mg/2 ml injection ONE (17:34)
[2018-12-30] MEDS ORDERED: midazolam 100mg in NS 100ml 100 ML IV PRN (17:34)
[2018-12-30] MEDS ORDERED: FENTANYL-0.9 % NACL/PF 100 ML IV PRN (17:34)
[2018-12-30] MEDS ORDERED: fentaNYL/PF 50MCG/1 ML 2ML syringe IV PRN (17:35)
[2018-12-30] MEDS ORDERED: ipratropium/albuterol 3ml nebule NEB PRN (17:35)
[2018-12-30] MEDS ORDERED: etomidate 2mg/ml inj. IV ONE (17:35)
[2018-12-30] MEDS ORDERED: midazolam 2 mg/2 ml injection IV ONE (17:35)
--- NOTE | 2018-12-30 17:54 | NUR ---
1654: family at bedside, calling for RN because pt stopped breathing. Upon assessment, pt was apneic. Pt's eyes open but unresponsive to any stimuli. Code called, ambu bag initiated, pt spontaneously began breathing again. Lowest sat recorded 90%. Pt has been tachypneic all day with MD aware. ER MD at bedside and updated on pt. Lung sounds clear, CXR ordered and unremarkable. Dr. Sykes called and updated by Dr. Harris. Dr. Sykes came back to assess pt and decided to intubate to avoid respiratory fatigue. Intubation time 1745. 8 tube, 22 at the teeth. Pt given a total of 40mg etomidate. 250cc fluid bolus given for decreased BP. Fent and versed gtts ordered. Pt stable. Additional CXR obtained.
--- NOTE | 2018-12-30 18:24 | NUR ---
Problems reprioritized. Patient report given, questions answered & plan of care reviewed with VLADISALV Hardy.
--- NOTE | 2018-12-30 18:30 | NUR ---
Patient in room ICU 2039. I have received report from VLADISLAV Romero and had the opportunity to ask questions and assume patient care.
[2018-12-30 18:33] LABS: ALBUMIN 2.3 G/DL (3.4-5.0); ANION GAP 19 (8-16); BLOOD UREA NITROGEN 131 MG/DL (7-18); BUN/CREATININE RATIO 25.9 (5.4-32.0); CALCIUM 8.5 MG/DL (8.5-10.1); CHLORIDE 123 MMOL/L (99-107); CREATININE 5.06 MG/DL (0.60-1.10); GLUCOSE 358 MG/DL (70-104); POTASSIUM 4.4 MMOL/L (3.5-5.1); TOTAL CARBON DIOXIDE 16.4 MMOL/L (24-32); eGFR 11 ML/MIN
[2018-12-30 18:46] LABS: ABG BASE EXCESS -9.9 mmol/L (-2.0-3.0); ABG HCO3 13.7 mmol/L (22.0-26.0); ABG OXYGEN SATURATION 98.7 % (95-98); ABG PCO2 (T) 26.7 mmHg (35.0-45.0); ABG PH (T) 7.332 (7.350-7.450); ABG PO2 (T) 167.8 mmHg (83-108); ALLEN'S TEST Positive; FCOHb 0.3 % (0.5-1.5); FMetHb 0.5 % (0.3-1.12); FO2Hb 97.9 % (94-100); MINUTE VOLUME 14 L/min; PATIENT TEMPERATURE 37.9; PEEP 5 cm H2O; RESPIRATORY RATE 20 b/min; RESPIRATORY RATE (OBSERVED) 23 b/min; TIDAL VOLUME 400 mL; TOTAL HEMOGLOBIN 16.1 G/dl (14.0-17.9)
[2018-12-30 18:48] LABS: SODIUM 158 MMOL/L (135-145)
[2018-12-30] MEDS: ipratropium/albuterol 3ml nebule NEB SCH ×2 (18:48→22:47)
[2018-12-30] MEDS ORDERED: insulin Lispro (HumaLOG) vial - multi-dose SQ PRN (19:40)
[2018-12-30] MEDS: insulin regular, human 100 UNIT in normal saline 100ml IV soln 99 ML IV SCH ×2 (19:40)
[2018-12-30] MEDS ORDERED: dextrose 50%-water 50ml dispensing syringe IV PRN (19:40)
[2018-12-30] MEDS ORDERED: albumin (human) 25% 100 ML IV solution IV ONE (20:10)
[2018-12-30] MEDS ORDERED: albumin (human) 25% 100ml IV 200 ML IV ONE (20:10)
--- NOTE | 2018-12-30 21:09 | NUR ---
In to round on pt, he has deteriorated through out the day, requiring intubation this evening. Called Jacob Kruse to recommend repeat CT.
[2018-12-31] VITALS (24 sets, daily range): BP systolic 63–105; BP diastolic 39–63
[2018-12-31] MEDS ORDERED: NORepinephrine 8mg/ 250ml NS 250 ML IV ONE (00:06)
[2018-12-31] MEDS ORDERED: normal saline 1000ml 1,000 ML IVB ONE (00:28)
--- NOTE | 2018-12-31 01:45 | NUR ---
Per NICO Hope, tranfuse Levo through PIV to maintain BP
[2018-12-31] MEDS: NORepinephrine 8mg/ 250ml NS 250 ML IV PRN ×3 (01:57→20:19)
[2018-12-31 02:31] LABS: ABG BASE EXCESS -14.6 mmol/L (-2.0-3.0); ABG HCO3 10.8 mmol/L (22.0-26.0); ABG OXYGEN SATURATION 94.6 % (95-98); ABG PH (T) 7.253 (7.350-7.450); ABG PO2 (T) 74.9 mmHg (83-108); ALLEN'S TEST Positive; FCOHb 0.3 % (0.5-1.5); FMetHb 0.4 % (0.3-1.12); FO2Hb 93.9 % (94-100); MINUTE VOLUME 15 L/min; PATIENT TEMPERATURE 36.9; PEEP 5 cm H2O; RESPIRATORY RATE 20 b/min; RESPIRATORY RATE (OBSERVED) 36 b/min; TIDAL VOLUME 400 mL; TOTAL HEMOGLOBIN 13.7 G/dl (14.0-17.9)
[2018-12-31] MEDS ORDERED: sodium bicarbonate (8.4%) inj. 1 MEQ/ML ML ONE (02:35)
[2018-12-31] MEDS: ipratropium/albuterol 3ml nebule NEB SCH ×6 (02:39→23:19)
[2018-12-31] MEDS ORDERED: normal saline 500ml IV soln 500 ML IV ONE (02:45)
[2018-12-31] MEDS ORDERED: sodium bicarbonate (8.4%) 1 mEq/ml syringe IV ONE (02:45)
[2018-12-31 02:46] LABS: BASOPHILS % (AUTO) 0.2 % (0-1); EOSINOPHILS % (AUTO) 0.2 % (0-6); HEMATOCRIT 38.2 % (42.0-52.0); HEMOGLOBIN 12.8 g/dl (14.0-17.9); LYMPHOCYTES # (AUTO) 0.7 X10'3 (1.1-4.8); MEAN CORPUSCULAR HEMOGLOBIN 31.1 PG (27.0-31.0); MEAN CORPUSCULAR HGB CONC 33.6 g/dL (33.0-36.5); MEAN CORPUSCULAR VOLUME 92.4 FL (78-98); MEAN PLATELET VOLUME 9.8 FL (7.4-10.4); MONOCYTES # (AUTO) 0.3 X10'3 (0-0.9); MONOCYTES % (AUTO) 6.7 % (2-12); NEUTROPHILS # (AUTO) 3.8 X10'3 (1.8-7.7); NEUTROPHILS % (AUTO) 77.9 % (42-75); PLATELET COUNT 97 X10'3 (140-440); RED BLOOD COUNT 4.13 X10'6 (4.70-6.10); RED CELL DISTRIBUTION WIDTH 14.5 % (11.5-14.5); WHITE BLOOD COUNT 4.9 X10'3 (4.5-11.0)
[2018-12-31 02:56] LABS: GLUCOSE 206 MG/DL (70-104)
[2018-12-31 02:57] LABS: ALANINE AMINOTRANSFERASE 163 U/L (12-78); ALBUMIN 2.5 G/DL (3.4-5.0); ALBUMIN/GLOBULIN RATIO 0.9 (1.1-1.5); ALKALINE PHOSPHATASE 382 IU/L (46-116); ANION GAP 22 (8-16); ASPARTATE AMINO TRANSFERASE 482 U/L (10-37); BILIRUBIN,TOTAL 2.1 MG/DL (0.1-1.0); BLOOD UREA NITROGEN 125 MG/DL (7-18); BUN/CREATININE RATIO 23.5 (5.4-32.0); CALCIUM 7.7 MG/DL (8.5-10.1); CHLORIDE 122 MMOL/L (99-107); CREATININE 5.31 MG/DL (0.60-1.10); MAGNESIUM 2.4 MG/DL (1.5-2.4); PHOSPHORUS 4.6 MG/DL (2.3-4.5); POTASSIUM 3.4 MMOL/L (3.5-5.1); TOTAL PROTEIN 5.4 G/DL (6.4-8.2); eGFR 11 ML/MIN
[2018-12-31 03:08] LABS: SODIUM 156 MMOL/L (135-145); TOTAL CARBON DIOXIDE 11.6 MMOL/L (24-32)
--- NOTE | 2018-12-31 06:30 | NUR ---
Problems reprioritized. Patient report given, questions answered & plan of care reviewed with VLADISLAV Byrd.
--- NOTE | 2018-12-31 06:46 | NUR ---
Patient in room ICU 2039. I have received report from Hayley LOOMIS and had the opportunity to ask questions and assume patient care.
[2018-12-31] MEDS: heparin, porcine 5000 units/ml vial SQ SCH ×2 (07:23→21:01)
[2018-12-31] MEDS: pantoprazole 40 MG vial IV SCH (07:23)
[2018-12-31 07:39] LABS: ANISOCYTOSIS 1+; PLATELET ESTIMATE DECREASED; TOTAL CELLS COUNTED 100
--- NOTE | 2018-12-31 07:44 | NUR ---
Called daughter to obtain consent for CVL placement. Voicemail box is full.
[2018-12-31] MEDS: K and/or MAG REPLACEMENT MC SCH (08:00)
--- NOTE | 2018-12-31 08:14 | NUR ---
Telephone consent obtained from daughter Kamala Issa for CVL placement.
--- NOTE | 2018-12-31 09:38 | NUR ---
RIJ CVL placed by Dr. Sykes. Will replace K+ per Dr. Sykes.
[2018-12-31] MEDS: potassium CL 10mEq/100ml bag 100 ML IV PRN ×4 (09:42→14:46)
[2018-12-31] MEDS: sodium chloride 0.45% 1,000 ML IV SCH ×3 (09:43→21:02)
--- NOTE | 2018-12-31 10:31 | NUR ---
Dr. Sykes here
--- NOTE | 2018-12-31 10:31 | NUR ---
Dr. Sykes here to place dialysis catheter and art line.
--- NOTE | 2018-12-31 11:16 | NUR ---
TDC placed to right femoral per Dr. Sykes.
[2018-12-31 11:51] LABS: OXYGEN SATURATION (MIXED VEN) 80.3 % (60-80); PO2 MIXED VENOUS (TEMP COR) 44.9 mmHg (35-46)
[2018-12-31] MEDS: insulin regular, human 100 UNIT in normal saline 100ml IV soln 99 ML IV SCH ×2 (11:55)
[2018-12-31] MEDS ORDERED: calcium chloride inj. 1,000 MG in normal saline 100ml IV soln 100 ML IV PRN (12:30)
[2018-12-31] MEDS: Duosol 4K/3 Ca (w/calcium) 5,000 ML HE SCH ×3 (12:45→19:55)
[2018-12-31] MEDS ORDERED: vancomycin/NS 1 GM ADD-VANTAGE 250 ML IV PRN (13:25)
[2018-12-31] MEDS ORDERED: vancomycin/NS 1 GM ADD-VANTAGE 250 ML IV ONE (14:00)
[2018-12-31 14:17] LABS: BASOPHILS % (AUTO) 0.4 % (0-1); EOSINOPHILS # (AUTO) 0.1 X10'3 (0-0.9); EOSINOPHILS % (AUTO) 1.7 % (0-6); HEMATOCRIT 40.7 % (42.0-52.0); HEMOGLOBIN 13.6 g/dl (14.0-17.9); LYMPHOCYTES # (AUTO) 0.5 X10'3 (1.1-4.8); LYMPHOCYTES % (AUTO) 10.4 % (21-51); MEAN CORPUSCULAR HEMOGLOBIN 30.7 PG (27.0-31.0); MEAN CORPUSCULAR HGB CONC 33.4 g/dL (33.0-36.5); MEAN CORPUSCULAR VOLUME 92.1 FL (78-98); MONOCYTES # (AUTO) 0.2 X10'3 (0-0.9); MONOCYTES % (AUTO) 4.3 % (2-12); NEUTROPHILS # (AUTO) 3.9 X10'3 (1.8-7.7); NEUTROPHILS % (AUTO) 83.2 % (42-75); PLATELET COUNT 87 X10'3 (140-440); RED BLOOD COUNT 4.42 X10'6 (4.70-6.10); RED CELL DISTRIBUTION WIDTH 14.5 % (11.5-14.5); WHITE BLOOD COUNT 4.7 X10'3 (4.5-11.0)
[2018-12-31 14:29] LABS: ALBUMIN 2.4 G/DL (3.4-5.0); ANION GAP 19 (8-16); BLOOD UREA NITROGEN 119 MG/DL (7-18); BUN/CREATININE RATIO 24.4 (5.4-32.0); CALCIUM 7.7 MG/DL (8.5-10.1); CHLORIDE 120 MMOL/L (99-107); CREATININE 4.87 MG/DL (0.60-1.10); GLUCOSE 118 MG/DL (70-104); MAGNESIUM 2.3 MG/DL (1.5-2.4); SODIUM 154 MMOL/L (135-145); TOTAL CARBON DIOXIDE 15.4 MMOL/L (24-32); eGFR 12 ML/MIN
[2018-12-31 14:58] LABS: TOTAL CELLS COUNTED 100
[2018-12-31 14:59] LABS: LARGE PLATELETS FEW; PLATELET ESTIMATE DECREASED
[2018-12-31] MEDS: piperacillin/tazo 3.375gm/50ml 50 ML IV SCH ×2 (15:01→16:40)
[2018-12-31 15:27] LABS: BASOPHILS % (AUTO) 0.3 % (0-1); EOSINOPHILS # (AUTO) 0.1 X10'3 (0-0.9); EOSINOPHILS % (AUTO) 1.9 % (0-6); HEMATOCRIT 41.4 % (42.0-52.0); HEMOGLOBIN 13.8 g/dl (14.0-17.9); LYMPHOCYTES # (AUTO) 0.5 X10'3 (1.1-4.8); LYMPHOCYTES % (AUTO) 11.8 % (21-51); MEAN CORPUSCULAR HEMOGLOBIN 30.8 PG (27.0-31.0); MEAN CORPUSCULAR HGB CONC 33.4 g/dL (33.0-36.5); MEAN CORPUSCULAR VOLUME 92.1 FL (78-98); MEAN PLATELET VOLUME 10.1 FL (7.4-10.4); MONOCYTES # (AUTO) 0.2 X10'3 (0-0.9); MONOCYTES % (AUTO) 4.9 % (2-12); NEUTROPHILS # (AUTO) 3.2 X10'3 (1.8-7.7); NEUTROPHILS % (AUTO) 81.1 % (42-75); PLATELET COUNT 86 X10'3 (140-440); RED BLOOD COUNT 4.49 X10'6 (4.70-6.10); RED CELL DISTRIBUTION WIDTH 14.8 % (11.5-14.5); WHITE BLOOD COUNT 3.9 X10'3 (4.5-11.0)
[2018-12-31 15:33] LABS: ALBUMIN 2.4 G/DL (3.4-5.0); ANION GAP 16 (8-16); BLOOD UREA NITROGEN 112 MG/DL (7-18); BUN/CREATININE RATIO 23.3 (5.4-32.0); CALCIUM 7.5 MG/DL (8.5-10.1); CHLORIDE 120 MMOL/L (99-107); GLUCOSE 131 MG/DL (70-104); MAGNESIUM 2.1 MG/DL (1.5-2.4); PHOSPHORUS 4.4 MG/DL (2.3-4.5); POTASSIUM 4.2 MMOL/L (3.5-5.1); SODIUM 153 MMOL/L (135-145); TOTAL CARBON DIOXIDE 16.6 MMOL/L (24-32); eGFR 12 ML/MIN
[2018-12-31] MEDS: normal saline 1000ml 1,000 ML IV SCH ×8 (15:33→18:20)
--- NOTE | 2018-12-31 15:35 | NUR ---
2L NS boluses ordered. Pt. began to sound "wet" on right lung. Dr. Sykes notified. Stated to infuse the second NS 1L bag per order.
[2018-12-31 16:25] LABS: BASOPHILS % (AUTO) 0.2 % (0-1); EOSINOPHILS # (AUTO) 0.1 X10'3 (0-0.9); EOSINOPHILS % (AUTO) 1.8 % (0-6); HEMATOCRIT 41.2 % (42.0-52.0); HEMOGLOBIN 13.7 g/dl (14.0-17.9); LYMPHOCYTES # (AUTO) 0.4 X10'3 (1.1-4.8); LYMPHOCYTES % (AUTO) 11.1 % (21-51); MEAN CORPUSCULAR HEMOGLOBIN 30.6 PG (27.0-31.0); MEAN CORPUSCULAR HGB CONC 33.2 g/dL (33.0-36.5); MEAN CORPUSCULAR VOLUME 92.1 FL (78-98); MEAN PLATELET VOLUME 9.8 FL (7.4-10.4); MONOCYTES # (AUTO) 0.2 X10'3 (0-0.9); MONOCYTES % (AUTO) 6.2 % (2-12); NEUTROPHILS % (AUTO) 80.7 % (42-75); PLATELET COUNT 85 X10'3 (140-440); RED BLOOD COUNT 4.47 X10'6 (4.70-6.10); RED CELL DISTRIBUTION WIDTH 14.8 % (11.5-14.5); WHITE BLOOD COUNT 3.7 X10'3 (4.5-11.0)
[2018-12-31 16:29] LABS: ALBUMIN 2.2 G/DL (3.4-5.0); ANION GAP 16 (8-16); BLOOD UREA NITROGEN 104 MG/DL (7-18); BUN/CREATININE RATIO 23.5 (5.4-32.0); CALCIUM 7.2 MG/DL (8.5-10.1); CHLORIDE 120 MMOL/L (99-107); CREATININE 4.43 MG/DL (0.60-1.10); GLUCOSE 138 MG/DL (70-104); MAGNESIUM 1.9 MG/DL (1.5-2.4); PHOSPHORUS 4.5 MG/DL (2.3-4.5); POTASSIUM 4.2 MMOL/L (3.5-5.1); SODIUM 152 MMOL/L (135-145); TOTAL CARBON DIOXIDE 16.1 MMOL/L (24-32); eGFR 13 ML/MIN
[2018-12-31 17:45] LABS: ALBUMIN 2.2 G/DL (3.4-5.0); ANION GAP 17 (8-16); BLOOD UREA NITROGEN 99 MG/DL (7-18); CALCIUM 7.3 MG/DL (8.5-10.1); CHLORIDE 118 MMOL/L (99-107); CREATININE 4.12 MG/DL (0.60-1.10); GLUCOSE 148 MG/DL (70-104); MAGNESIUM 1.9 MG/DL (1.5-2.4); PHOSPHORUS 4.4 MG/DL (2.3-4.5); POTASSIUM 4.3 MMOL/L (3.5-5.1); SODIUM 151 MMOL/L (135-145); TOTAL CARBON DIOXIDE 16.1 MMOL/L (24-32); eGFR 14 ML/MIN
[2018-12-31 17:47] LABS: BASOPHILS % (AUTO) 0.3 % (0-1); EOSINOPHILS % (AUTO) 1.2 % (0-6); HEMATOCRIT 41.7 % (42.0-52.0); HEMOGLOBIN 13.8 g/dl (14.0-17.9); LYMPHOCYTES # (AUTO) 0.4 X10'3 (1.1-4.8); LYMPHOCYTES % (AUTO) 10.4 % (21-51); MEAN CORPUSCULAR HEMOGLOBIN 30.8 PG (27.0-31.0); MEAN CORPUSCULAR VOLUME 93.2 FL (78-98); MEAN PLATELET VOLUME 10.2 FL (7.4-10.4); MONOCYTES # (AUTO) 0.2 X10'3 (0-0.9); MONOCYTES % (AUTO) 7.1 % (2-12); NEUTROPHILS # (AUTO) 2.8 X10'3 (1.8-7.7); PLATELET COUNT 81 X10'3 (140-440); RED BLOOD COUNT 4.47 X10'6 (4.70-6.10); RED CELL DISTRIBUTION WIDTH 14.7 % (11.5-14.5); WHITE BLOOD COUNT 3.5 X10'3 (4.5-11.0)
--- NOTE | 2018-12-31 18:31 | NUR ---
Problems reprioritized. Patient report given, questions answered & plan of care reviewed with KP LOOMIS.
--- NOTE | 2018-12-31 18:32 | NUR ---
Problems reprioritized. Patient report given, questions answered & plan of care reviewed with Pilar Max.
[2018-12-31] MEDS: mineral oil/petrolatum ophthal oint EACHEYE SCH (21:10)
[2018-12-31 23:22] LABS: BASOPHILS % (AUTO) 0.5 % (0-1); EOSINOPHILS # (AUTO) 0.1 X10'3 (0-0.9); EOSINOPHILS % (AUTO) 3.8 % (0-6); HEMATOCRIT 42.9 % (42.0-52.0); HEMOGLOBIN 14.3 g/dl (14.0-17.9); LYMPHOCYTES # (AUTO) 0.3 X10'3 (1.1-4.8); LYMPHOCYTES % (AUTO) 13.9 % (21-51); MEAN CORPUSCULAR HEMOGLOBIN 30.5 PG (27.0-31.0); MEAN CORPUSCULAR HGB CONC 33.4 g/dL (33.0-36.5); MEAN CORPUSCULAR VOLUME 91.4 FL (78-98); MEAN PLATELET VOLUME 9.8 FL (7.4-10.4); MONOCYTES # (AUTO) 0.1 X10'3 (0-0.9); MONOCYTES % (AUTO) 3.8 % (2-12); NEUTROPHILS # (AUTO) 1.9 X10'3 (1.8-7.7); PLATELET COUNT 69 X10'3 (140-440); RED BLOOD COUNT 4.69 X10'6 (4.70-6.10); RED CELL DISTRIBUTION WIDTH 14.8 % (11.5-14.5); WHITE BLOOD COUNT 2.4 X10'3 (4.5-11.0)
[2018-12-31 23:24] LABS: ALBUMIN 2.1 G/DL (3.4-5.0); ANION GAP 15 (8-16); BLOOD UREA NITROGEN 75 MG/DL (7-18); BUN/CREATININE RATIO 23.4 (5.4-32.0); CALCIUM 7.6 MG/DL (8.5-10.1); CHLORIDE 114 MMOL/L (99-107); GLUCOSE 115 MG/DL (70-104); MAGNESIUM 1.8 MG/DL (1.5-2.4); POTASSIUM 4.3 MMOL/L (3.5-5.1); SODIUM 147 MMOL/L (135-145); TOTAL CARBON DIOXIDE 17.8 MMOL/L (24-32); eGFR 19 ML/MIN
[2019-01-01] VITALS (24 sets, daily range): BP systolic 10–102; BP diastolic 48–58
[2019-01-01] MEDS: piperacillin/tazo 3.375gm/50ml 50 ML IV SCH ×4 (00:56→23:55)
[2019-01-01] MEDS: NORepinephrine 8mg/ 250ml NS 250 ML IV PRN ×4 (02:10→20:27)
[2019-01-01] MEDS: sodium chloride 0.45% 1,000 ML IV SCH ×4 (02:10→17:58)
[2019-01-01] MEDS: mineral oil/petrolatum ophthal oint EACHEYE SCH ×4 (02:11→20:29)
[2019-01-01] MEDS: Duosol 4K/3 Ca (w/calcium) 5,000 ML HE SCH ×14 (02:11→20:28)
[2019-01-01] MEDS ORDERED: VANCOMYCIN LEVEL IV ONE (03:00)
[2019-01-01] MEDS: ipratropium/albuterol 3ml nebule NEB SCH ×6 (03:29→22:41)
[2019-01-01 03:46] LABS: ABG BASE EXCESS -9.8 mmol/L (-2.0-3.0); ABG OXYGEN SATURATION 93.3 % (95-98); ABG PCO2 (T) 29.4 mmHg (35.0-45.0); ABG PH (T) 7.322 (7.350-7.450); ABG PO2 (T) 59.1 mmHg (83-108); FCOHb 0.3 % (0.5-1.5); FMetHb 0.3 % (0.3-1.12); FO2Hb 92.7 % (94-100); MINUTE VOLUME 14 L/min; PEEP 5 cm H2O; RESPIRATORY RATE 20 b/min; RESPIRATORY RATE (OBSERVED) 26 b/min; TIDAL VOLUME 400 mL; TOTAL HEMOGLOBIN 15.8 G/dl (14.0-17.9)
[2019-01-01 05:24] LABS: ANION GAP 17 (8-16); BLOOD UREA NITROGEN 62 MG/DL (7-18); BUN/CREATININE RATIO 23.8 (5.4-32.0); CALCIUM 8.5 MG/DL (8.5-10.1); CHLORIDE 108 MMOL/L (99-107); GLUCOSE 159 MG/DL (70-104); MAGNESIUM 1.8 MG/DL (1.5-2.4); POTASSIUM 4.8 MMOL/L (3.5-5.1); SODIUM 143 MMOL/L (135-145); TOTAL CARBON DIOXIDE 17.6 MMOL/L (24-32); eGFR 24 ML/MIN
[2019-01-01 05:38] LABS: BASOPHILS % (AUTO) 0.2 % (0-1); EOSINOPHILS # (AUTO) 0.1 X10'3 (0-0.9); EOSINOPHILS % (AUTO) 4.1 % (0-6); HEMATOCRIT 41.2 % (42.0-52.0); HEMOGLOBIN 13.9 g/dl (14.0-17.9); LYMPHOCYTES # (AUTO) 0.4 X10'3 (1.1-4.8); LYMPHOCYTES % (AUTO) 13.3 % (21-51); MEAN CORPUSCULAR HEMOGLOBIN 30.8 PG (27.0-31.0); MEAN CORPUSCULAR HGB CONC 33.8 g/dL (33.0-36.5); MEAN CORPUSCULAR VOLUME 91.2 FL (78-98); MEAN PLATELET VOLUME 9.5 FL (7.4-10.4); MONOCYTES # (AUTO) 0.2 X10'3 (0-0.9); MONOCYTES % (AUTO) 6.3 % (2-12); NEUTROPHILS % (AUTO) 76.1 % (42-75); PLATELET COUNT 59 X10'3 (140-440); RED BLOOD COUNT 4.51 X10'6 (4.70-6.10); RED CELL DISTRIBUTION WIDTH 14.8 % (11.5-14.5); WHITE BLOOD COUNT 2.6 X10'3 (4.5-11.0)
--- NOTE | 2019-01-01 06:23 | NUR ---
Problems reprioritized. Patient report given, questions answered & plan of care reviewed with Lizzie/Rochelle RNs.
--- NOTE | 2019-01-01 07:10 | NUR ---
Patient in room ICU 2039. I have received report from Parisa LOOMIS and had the opportunity to ask questions and assume patient care. Addendum: 01/01/19 at 0710 by Rochelle Man RN Amended: Links added.
[2019-01-01] MEDS: K and/or MAG REPLACEMENT MC SCH (07:16)
[2019-01-01] MEDS: pantoprazole 40 MG vial IV SCH (07:20)
[2019-01-01 07:28] LABS: ALANINE AMINOTRANSFERASE 128 U/L (12-78); ALBUMIN/GLOBULIN RATIO 0.6 (1.1-1.5); ALKALINE PHOSPHATASE 347 IU/L (46-116); ASPARTATE AMINO TRANSFERASE 344 U/L (10-37); BILIRUBIN,TOTAL 4.1 MG/DL (0.1-1.0); TOTAL PROTEIN 5.4 G/DL (6.4-8.2); VANCOMYCIN,RANDOM 6.5 UG/ML
[2019-01-01] MEDS: heparin, porcine 5000 units/ml vial SQ SCH ×2 (08:00→18:54)
[2019-01-01 08:01] LABS: LARGE PLATELETS FEW; NUCLEATED RED BLOOD CELLS 3 /100WBC (0-0); PLATELET ESTIMATE DECREASED; TOTAL CELLS COUNTED 100
[2019-01-01 08:02] LABS: ANISOCYTOSIS 1+
[2019-01-01] MEDS ORDERED: vancomycin/NS 1 GM ADD-VANTAGE 250 ML IV ONE (09:00)
[2019-01-01] MEDS ORDERED: UNABLE TO OBTAIN (09:28)
--- NOTE | 2019-01-01 10:23 | NUR ---
Notes from rounds: MRI will be on hold for today. Insulin gtt will be stopped and pt. will start Hyperglycemia Protocol. Will start trickle tube feeds. Relistor will be added to meds, Heparin subcut. will be held due to platelets of 59.
--- NOTE | 2019-01-01 11:02 | NUR ---
TF Consult: Trickle TF to start today per MD at rounds using renal formula or equivalent on CVVH. Pt remains intubated MAP 62 on pressors. LBM 12/31. Per pharmacy pt has not had any meds refilled in a year. Daughter reports pt believes hermes will cure him instead of meds; upon home visit lots of ice cream and sugary foods in fridge. Bilateral pleural effusions present per RN. Changing from insulin drip to PO. Per MD relistor to start w/ nutrition since receiving opiates. Will monitor for trickle TF tolerance; recs below. Recommendations: 1. Trickle OGTF per MD using Vital High Protein at 30ml/hr goal; to provide 720ml fluid, 605ml free water, 702 kcals, and 63g protein. 2. additional free water per food cart attendant on CVVH 3. IF to advance TF; rec Vital High protein at 85ml/hr goal; to provide 2040ml fluid, 2040kcals, 1714ml free water, and 179g protein. 4. prealbumin Q /; daily wts 5. opioid antagonist per MD on opiates 6. routine bowel care 7. upon extubation; advance diet per MD to heart healthy/carb controlled Addendum: 01/01/19 at [address] Amended: Links added.
[2019-01-01 11:13] LABS: BASOPHILS % (AUTO) 0.3 % (0-1); EOSINOPHILS # (AUTO) 0.3 X10'3 (0-0.9); EOSINOPHILS % (AUTO) 6.3 % (0-6); HEMATOCRIT 39.4 % (42.0-52.0); HEMOGLOBIN 13.4 g/dl (14.0-17.9); LYMPHOCYTES # (AUTO) 0.5 X10'3 (1.1-4.8); LYMPHOCYTES % (AUTO) 12.1 % (21-51); MEAN CORPUSCULAR HEMOGLOBIN 31.1 PG (27.0-31.0); MEAN CORPUSCULAR VOLUME 91.5 FL (78-98); MEAN PLATELET VOLUME 9.3 FL (7.4-10.4); MONOCYTES # (AUTO) 0.2 X10'3 (0-0.9); MONOCYTES % (AUTO) 3.8 % (2-12); NEUTROPHILS # (AUTO) 3.3 X10'3 (1.8-7.7); NEUTROPHILS % (AUTO) 77.5 % (42-75); RED CELL DISTRIBUTION WIDTH 14.5 % (11.5-14.5); WHITE BLOOD COUNT 4.2 X10'3 (4.5-11.0)
[2019-01-01 11:26] LABS: ALBUMIN 1.8 G/DL (3.4-5.0); ANION GAP 15 (8-16); BLOOD UREA NITROGEN 48 MG/DL (7-18); BUN/CREATININE RATIO 21.1 (5.4-32.0); CALCIUM 7.5 MG/DL (8.5-10.1); CHLORIDE 107 MMOL/L (99-107); CREATININE 2.27 MG/DL (0.60-1.10); GLUCOSE 115 MG/DL (70-104); LDL CHOLESTEROL 45 MG/DL (50-100); MAGNESIUM 1.6 MG/DL (1.5-2.4); PHOSPHORUS 2.9 MG/DL (2.3-4.5); POTASSIUM 4.5 MMOL/L (3.5-5.1); SODIUM 142 MMOL/L (135-145); TOTAL CARBON DIOXIDE 19.9 MMOL/L (24-32); eGFR 28 ML/MIN
[2019-01-01 11:35] LABS: PLATELET COUNT 47 X10'3 (140-440)
[2019-01-01] MEDS ORDERED: acetaminophen 325mg tablet OGT PRN (11:40)
[2019-01-01] MEDS ORDERED: glucagon, human recombinant 1mg kit SUBCUT PRN (11:40)
[2019-01-01] MEDS ORDERED: dextrose ORAL solution 15 GM/59 ML bottle NG PRN ×2 (11:40)
--- NOTE | 2019-01-01 11:41 | NUR ---
TF started. Fentanyl and Versed have been off since 1029. Pt. is not waking up.
[2019-01-01] MEDS ORDERED: acetaminophen 325mg tablet NG PRN (11:43)
[2019-01-01] MEDS ORDERED: Neutra Phos packet NG PRN (11:51)
[2019-01-01] MEDS ORDERED: POTASSIUM BICARB 20meq eff tab 20 MEQ TABLET.EFF PO PRN (11:55)
[2019-01-01] MEDS ORDERED: POTASSIUM BICARB 20meq eff tab 20 MEQ TABLET.EFF NG PRN ×2 (11:55)
[2019-01-01] MEDS: methylnaltrexone br 12mg/0.6ml inj***SubQ only SQ SCH (11:56)
[2019-01-01 12:21] LABS: PREALBUMIN 9.6 MG/DL (19-36)
--- NOTE | 2019-01-01 13:20 | NUR ---
Dtr. at bedside. Reiterated to RN that she wants everything done for patient (her father) as "he is a fighter and not ready to give up." RN reminded dtr. that pt. is a full code.
--- NOTE | 2019-01-01 14:43 | NUR ---
Pt. remains off sedation (Fentanyl and Versed). Still remains unresponsive. CVVH continues. Dtr. and a niece at bedside. Weaning Levophed slowly.
[2019-01-01 17:20] LABS: BASOPHILS % (AUTO) 0.3 % (0-1); EOSINOPHILS # (AUTO) 0.2 X10'3 (0-0.9); EOSINOPHILS % (AUTO) 4.6 % (0-6); HEMATOCRIT 39.8 % (42.0-52.0); HEMOGLOBIN 13.3 g/dl (14.0-17.9); LYMPHOCYTES # (AUTO) 0.5 X10'3 (1.1-4.8); LYMPHOCYTES % (AUTO) 9.7 % (21-51); MEAN CORPUSCULAR HEMOGLOBIN 30.8 PG (27.0-31.0); MEAN CORPUSCULAR HGB CONC 33.6 g/dL (33.0-36.5); MEAN CORPUSCULAR VOLUME 91.7 FL (78-98); MONOCYTES # (AUTO) 0.3 X10'3 (0-0.9); MONOCYTES % (AUTO) 5.6 % (2-12); NEUTROPHILS # (AUTO) 4.1 X10'3 (1.8-7.7); NEUTROPHILS % (AUTO) 79.8 % (42-75); RED BLOOD COUNT 4.34 X10'6 (4.70-6.10); RED CELL DISTRIBUTION WIDTH 14.6 % (11.5-14.5); WHITE BLOOD COUNT 5.2 X10'3 (4.5-11.0)
[2019-01-01 17:21] LABS: ALBUMIN 1.8 G/DL (3.4-5.0); ANION GAP 16 (8-16); BLOOD UREA NITROGEN 40 MG/DL (7-18); BUN/CREATININE RATIO 20.1 (5.4-32.0); CALCIUM 7.7 MG/DL (8.5-10.1); CHLORIDE 105 MMOL/L (99-107); CREATININE 1.99 MG/DL (0.60-1.10); GLUCOSE 124 MG/DL (70-104); MAGNESIUM 1.6 MG/DL (1.5-2.4); PHOSPHORUS 3.2 MG/DL (2.3-4.5); POTASSIUM 5.1 MMOL/L (3.5-5.1); SODIUM 138 MMOL/L (135-145); TOTAL CARBON DIOXIDE 17.4 MMOL/L (24-32); eGFR 33 ML/MIN
[2019-01-01 17:46] LABS: PLATELET COUNT 43 X10'3 (140-440)
--- NOTE | 2019-01-01 18:34 | NUR ---
Patient in room ICU 2039. I have received report from Lizzie/Rochelle RNs and had the opportunity to ask questions and assume patient care. Patient in bed, intubated with all sedation off at this time. Patient not responsive to an stimulus, pupils pinpoint and sluggish. HR in 110s in sinus tachycardia, BP at 94/58 via arterial line and on 18mcg/kg/min of levophed. Patient on A/C VC mode on ventilator and saturating at 98% on 40% FIO2, breathing at 27 breaths/min. Will continue to monitor patient closely.
--- NOTE | 2019-01-01 19:34 | NUR ---
Daughter Kamala states that her cousin, Marjorie Eastman, is to be 2nd contact to make decisions if she (Kamala) is unable to be contacted. States family members may not visit or have patient information without password "[employer]". Marjorie' name and number in patient chart.
[2019-01-01] MEDS: insulin glargine (Lantus) pen - multi-dose SQ SCH (20:28)
--- NOTE | 2019-01-01 21:23 | NUR ---
Notified Jacob Uriah that patient's MAP is barely maintaining MAP of 60 on 25mcg of levophed. Informed him that pt's albumin has been 1.8. New orders received for albumin, will administer as ordered.
[2019-01-01] MEDS ORDERED: albumin (human) 25% 100 ML IV solution IV ONE (21:25)
[2019-01-01] MEDS ORDERED: albumin (human) 25% 100ml IV 200 ML IV ONE (21:27)
[2019-01-01 23:23] LABS: BASOPHILS % (AUTO) 0.5 % (0-1); EOSINOPHILS # (AUTO) 0.1 X10'3 (0-0.9); EOSINOPHILS % (AUTO) 1.4 % (0-6); HEMATOCRIT 36.9 % (42.0-52.0); HEMOGLOBIN 12.4 g/dl (14.0-17.9); LYMPHOCYTES # (AUTO) 0.3 X10'3 (1.1-4.8); LYMPHOCYTES % (AUTO) 4.7 % (21-51); MEAN CORPUSCULAR HEMOGLOBIN 30.7 PG (27.0-31.0); MEAN CORPUSCULAR HGB CONC 33.7 g/dL (33.0-36.5); MEAN CORPUSCULAR VOLUME 90.9 FL (78-98); MEAN PLATELET VOLUME 9.1 FL (7.4-10.4); MONOCYTES # (AUTO) 0.4 X10'3 (0-0.9); MONOCYTES % (AUTO) 6.2 % (2-12); NEUTROPHILS % (AUTO) 87.2 % (42-75); RED BLOOD COUNT 4.06 X10'6 (4.70-6.10); RED CELL DISTRIBUTION WIDTH 14.6 % (11.5-14.5); WHITE BLOOD COUNT 6.8 X10'3 (4.5-11.0)
[2019-01-01 23:33] LABS: ALBUMIN 2.6 G/DL (3.4-5.0); ANION GAP 21 (8-16); BLOOD UREA NITROGEN 34 MG/DL (7-18); BUN/CREATININE RATIO 18.1 (5.4-32.0); CHLORIDE 100 MMOL/L (99-107); CREATININE 1.88 MG/DL (0.60-1.10); GLUCOSE 128 MG/DL (70-104); MAGNESIUM 1.7 MG/DL (1.5-2.4); SODIUM 137 MMOL/L (135-145); TOTAL CARBON DIOXIDE 15.6 MMOL/L (24-32); eGFR 35 ML/MIN
[2019-01-01 23:36] LABS: PHOSPHORUS 3.1 MG/DL (2.3-4.5); POTASSIUM 5.5 MMOL/L (3.5-5.1)
[2019-01-01 23:37] LABS: PLATELET COUNT 38 X10'3 (140-440)
--- NOTE | 2019-01-01 23:50 | NUR ---
Notified Jacob Kruse that patient is now at 27mcg/hr of levophed with MAP maintaining below 65, currently 60-63. Informed him that CVP is now at 16 and that patient is being kept even for fluid removal. No new orders received at this time, will increase levophed to max dose of 30mcg/hr and monitor BP closely. Addendum: 01/02/19 at 0024 by Parisa Fischer RN Notified Jacob Kruse that levophed now at 30 mcg/hr and MAP maintaining below 65, currently at 61. New order received for vasopressin drip. Will administer as ordered.
[2019-01-02] VITALS (26 sets, daily range): BP systolic 81–107; BP diastolic 46–55
[2019-01-02] MEDS: vasopressin inj. 20 UNIT in normal saline 100ml IV soln 39 ML IV SCH ×3 (00:46→14:03)
[2019-01-02] MEDS: sodium chloride 0.45% 1,000 ML IV SCH ×2 (01:14→07:32)
[2019-01-02] MEDS: mineral oil/petrolatum ophthal oint EACHEYE SCH ×4 (02:41→20:22)
[2019-01-02] MEDS: VANCOMYCIN LEVEL IV SCH (02:42)
[2019-01-02] MEDS: ipratropium/albuterol 3ml nebule NEB SCH ×6 (03:21→22:54)
[2019-01-02 03:31] LABS: ABG BASE EXCESS -12.1 mmol/L (-2.0-3.0); ABG OXYGEN SATURATION 94.2 % (95-98); ABG PCO2 (T) 27.7 mmHg (35.0-45.0); ABG PH (T) 7.289 (7.350-7.450); FCOHb 0.5 % (0.5-1.5); FMetHb 0.1 % (0.3-1.12); FO2Hb 93.6 % (94-100); MINUTE VOLUME 13 L/min; PATIENT TEMPERATURE 36.6; PEEP 5 cm H2O; RESPIRATORY RATE 20 b/min; RESPIRATORY RATE (OBSERVED) 24 b/min; TIDAL VOLUME 400 mL; TOTAL HEMOGLOBIN 13.8 G/dl (14.0-17.9)
[2019-01-02] MEDS: Duosol 4K/3 Ca (w/calcium) 5,000 ML HE SCH ×4 (03:33→08:32)
[2019-01-02] MEDS ORDERED: metoprolol tartrate 1mg/ml inj IV ONE ×2 (03:50→03:51)
[2019-01-02] MEDS ORDERED: sodium bicarbonate (8.4%) inj. 1 MEQ/ML ML ONE (04:10)
--- NOTE | 2019-01-02 04:26 | NUR ---
0400:HR went into afib in 150s-160s, BP maintaining with MAP of 70. Notified Jacob Kruse, new order received for 4mg lopressor 0405:1mg lopressor given, BP dropped to 60s systolically. Vasopressin increased to 2.4mcg/hr, notified Jacob Kruse 0415:Order received for 1amp bicarb. Administered as ordered. 0420: BP now 84/54 with MAP 64 after bicarb administration. HR in atrial fibrillation in 110s-120s. Keeping fluid removal even on CVVH
[2019-01-02 04:32] LABS: BASOPHILS % (AUTO) 0.3 % (0-1); EOSINOPHILS # (AUTO) 0.1 X10'3 (0-0.9); EOSINOPHILS % (AUTO) 1.3 % (0-6); HEMATOCRIT 37.9 % (42.0-52.0); HEMOGLOBIN 12.6 g/dl (14.0-17.9); LYMPHOCYTES # (AUTO) 0.8 X10'3 (1.1-4.8); LYMPHOCYTES % (AUTO) 11.7 % (21-51); MEAN CORPUSCULAR HGB CONC 33.4 g/dL (33.0-36.5); MEAN CORPUSCULAR VOLUME 92.8 FL (78-98); MEAN PLATELET VOLUME 8.7 FL (7.4-10.4); MONOCYTES # (AUTO) 0.3 X10'3 (0-0.9); NEUTROPHILS # (AUTO) 5.7 X10'3 (1.8-7.7); NEUTROPHILS % (AUTO) 82.7 % (42-75); RED BLOOD COUNT 4.08 X10'6 (4.70-6.10); RED CELL DISTRIBUTION WIDTH 14.4 % (11.5-14.5); WHITE BLOOD COUNT 6.8 X10'3 (4.5-11.0)
[2019-01-02 04:38] LABS: ALANINE AMINOTRANSFERASE 93 U/L (12-78); ALBUMIN 2.4 G/DL (3.4-5.0); ALKALINE PHOSPHATASE 399 IU/L (46-116); ANION GAP 22 (8-16); ASPARTATE AMINO TRANSFERASE 212 U/L (10-37); BLOOD UREA NITROGEN 29 MG/DL (7-18); BUN/CREATININE RATIO 16.1 (5.4-32.0); CALCIUM 8.1 MG/DL (8.5-10.1); CHLORIDE 101 MMOL/L (99-107); GLUCOSE 143 MG/DL (70-104); MAGNESIUM 1.9 MG/DL (1.5-2.4); SODIUM 138 MMOL/L (135-145); VANCOMYCIN,RANDOM 8.1 UG/ML; eGFR 37 ML/MIN
[2019-01-02 04:42] LABS: ALBUMIN/GLOBULIN RATIO 0.7 (1.1-1.5); PHOSPHORUS 3.9 MG/DL (2.3-4.5); TOTAL PROTEIN 5.7 G/DL (6.4-8.2)
[2019-01-02 04:44] LABS: POTASSIUM 6.1 MMOL/L (3.5-5.1)
[2019-01-02 04:45] LABS: PLATELET COUNT 35 X10'3 (140-440); TOTAL CARBON DIOXIDE 14.7 MMOL/L (24-32)
[2019-01-02] MEDS: NORepinephrine 8mg/ 250ml NS 250 ML IV PRN ×6 (05:00→21:49)
--- NOTE | 2019-01-02 05:00 | NUR ---
Critical labs reviewed with Jacob Kruse (K 6.1, CO2 14.7, plt 35). Also informed Jacob that patient's HR remains in atrial fibrillation with rate between 110s to 150s. New order received to start amiodarone drip with initial loading dose, states to watch BP closely and to stop the infusion if BP drops. Will administer and monitor patient closely.
[2019-01-02] MEDS ORDERED: amiodarone/D5 360MG/200ML BAG 200 ML IV ONE (05:02)
[2019-01-02 05:04] LABS: TOTAL CELLS COUNTED 100
[2019-01-02] MEDS ORDERED: amiodarone 150mg/dext, iso-os 100 ML IV ONE ×2 (05:04→05:05)
[2019-01-02 05:05] LABS: NUCLEATED RED BLOOD CELLS 1 /100WBC (0-0); PLATELET ESTIMATE DECREASED
[2019-01-02 05:06] LABS: LARGE PLATELETS MODERATE
[2019-01-02] MEDS: amiodarone/D5 360MG/200ML BAG 200 ML IV SCH ×2 (05:15→11:05)
--- NOTE | 2019-01-02 05:41 | NUR ---
Patient's BP dropped to 70s/40s after initial bolus of amiodarone and during 2nd dose of amiodarone. Stopped infusion, notified Jacob Kruse that amiodarone had to be stopped. Informed him of current BP with MAP between 60-65 with HR still in atrial fibrillation with rate between 90s and 120s. No new orders received at this time, will continue to monitor patient.
--- NOTE | 2019-01-02 06:20 | NUR ---
Problems reprioritized. Patient report given, questions answered & plan of care reviewed with Kristina/Rochelle RNs. BP now at 98/52 still on max pressors, has converted back to sinus rhythm with HR in 90s.
--- NOTE | 2019-01-02 06:38 | NUR ---
Patient in room ICU 2039. I have received report from Parisa LOOMIS and had the opportunity to ask questions and assume patient care. Addendum: 01/02/19 at 0638 by Angelica Salmeron RN Amended: Links added.
[2019-01-02] MEDS ORDERED: vancomycin/NS 1 GM ADD-VANTAGE 250 ML IV ONE (06:55)
--- NOTE | 2019-01-02 06:56 | NUR ---
RN called dtr. re. pt's deteriorating condition.
[2019-01-02] MEDS: pantoprazole 40 MG vial IV SCH (07:16)
[2019-01-02] MEDS: K and/or MAG REPLACEMENT MC SCH (07:21)
[2019-01-02] MEDS: heparin, porcine 5000 units/ml vial SQ SCH ×2 (07:23→19:14)
[2019-01-02] MEDS: piperacillin/tazo 3.375gm/50ml 50 ML IV SCH ×2 (07:35→15:38)
--- NOTE | 2019-01-02 07:41 | NUR ---
Dtr. at bedside now.
--- NOTE | 2019-01-02 07:54 | NUR ---
Donor network notified Ref#[id number]
[2019-01-02] MEDS ORDERED: NORepinephrine 8mg/ 250ml NS 250 ML IV ONE ×4 (08:12→18:48)
[2019-01-02] MEDS: bicarb dialysis sol 2K+/3 Ca2+ 5,000 ML HE SCH ×9 (09:05→23:35)
--- NOTE | 2019-01-02 10:26 | NUR ---
industrial machine system technician here.
--- NOTE | 2019-01-02 10:28 | NUR ---
Patient's two nieces and a nephew were present for critical care rounds. Plan: obtain EEG, start Reglan as pt. is not tolerating his TF, continue other current treatment.
[2019-01-02] MEDS ORDERED: acetaminophen 325mg tablet NG PRN (10:33)
[2019-01-02 11:16] LABS: BASOPHILS % (AUTO) 0.2 % (0-1); EOSINOPHILS % (AUTO) 0.6 % (0-6); HEMATOCRIT 38.1 % (42.0-52.0); HEMOGLOBIN 12.7 g/dl (14.0-17.9); LYMPHOCYTES # (AUTO) 0.6 X10'3 (1.1-4.8); LYMPHOCYTES % (AUTO) 8.7 % (21-51); MEAN CORPUSCULAR HGB CONC 33.3 g/dL (33.0-36.5); MEAN CORPUSCULAR VOLUME 92.8 FL (78-98); MEAN PLATELET VOLUME 9.4 FL (7.4-10.4); MONOCYTES # (AUTO) 0.5 X10'3 (0-0.9); NEUTROPHILS # (AUTO) 5.4 X10'3 (1.8-7.7); NEUTROPHILS % (AUTO) 83.5 % (42-75); RED CELL DISTRIBUTION WIDTH 14.8 % (11.5-14.5); WHITE BLOOD COUNT 6.5 X10'3 (4.5-11.0)
[2019-01-02 11:19] LABS: ALBUMIN 2.3 G/DL (3.4-5.0); ANION GAP 23 (8-16); BLOOD UREA NITROGEN 29 MG/DL (7-18); BUN/CREATININE RATIO 16.1 (5.4-32.0); CALCIUM 8.1 MG/DL (8.5-10.1); CHLORIDE 100 MMOL/L (99-107); GLUCOSE 142 MG/DL (70-104); MAGNESIUM 2.4 MG/DL (1.5-2.4); PHOSPHORUS 4.4 MG/DL (2.3-4.5); POTASSIUM 5.5 MMOL/L (3.5-5.1); SODIUM 137 MMOL/L (135-145); eGFR 37 ML/MIN
[2019-01-02 11:20] LABS: PARTIAL THROMBOPLASTIN TIME 43 SECONDS (22-32); PLATELET COUNT 35 X10'3 (140-440)
[2019-01-02 11:23] LABS: TOTAL CARBON DIOXIDE 14.3 MMOL/L (24-32)
[2019-01-02] MEDS: metoclopramide 5 mg/ml inj IV SCH ×2 (13:47→20:21)
--- NOTE | 2019-01-02 14:18 | NUR ---
Tube feeding turned back on for residual <300.
--- NOTE | 2019-01-02 14:44 | NUR ---
Dtr. Wray at bedside. States patient's brother is coming to town to see him.
--- NOTE | 2019-01-02 14:59 | NUR ---
at bedside with daughter.
[2019-01-02 17:02] LABS: BASOPHILS % (AUTO) 0.6 % (0-1); EOSINOPHILS # (AUTO) 0.1 X10'3 (0-0.9); EOSINOPHILS % (AUTO) 1.7 % (0-6); HEMOGLOBIN 12.4 g/dl (14.0-17.9); LYMPHOCYTES # (AUTO) 0.4 X10'3 (1.1-4.8); LYMPHOCYTES % (AUTO) 5.8 % (21-51); MEAN CORPUSCULAR HEMOGLOBIN 30.6 PG (27.0-31.0); MEAN CORPUSCULAR HGB CONC 33.5 g/dL (33.0-36.5); MEAN CORPUSCULAR VOLUME 91.4 FL (78-98); MEAN PLATELET VOLUME 8.9 FL (7.4-10.4); MONOCYTES # (AUTO) 0.5 X10'3 (0-0.9); MONOCYTES % (AUTO) 6.9 % (2-12); NEUTROPHILS # (AUTO) 5.7 X10'3 (1.8-7.7); RED BLOOD COUNT 4.04 X10'6 (4.70-6.10); RED CELL DISTRIBUTION WIDTH 15.1 % (11.5-14.5); WHITE BLOOD COUNT 6.7 X10'3 (4.5-11.0)
[2019-01-02 17:08] LABS: ALBUMIN 2.1 G/DL (3.4-5.0); ANION GAP 23 (8-16); BLOOD UREA NITROGEN 29 MG/DL (7-18); BUN/CREATININE RATIO 16.5 (5.4-32.0); CHLORIDE 100 MMOL/L (99-107); CREATININE 1.76 MG/DL (0.60-1.10); GLUCOSE 172 MG/DL (70-104); SODIUM 136 MMOL/L (135-145); eGFR 38 ML/MIN
[2019-01-02 17:09] LABS: PLATELET COUNT 37 X10'3 (140-440)
[2019-01-02 17:10] LABS: PHOSPHORUS 4.4 MG/DL (2.3-4.5); POTASSIUM 5.1 MMOL/L (3.5-5.1)
[2019-01-02 17:12] LABS: TOTAL CARBON DIOXIDE 12.6 MMOL/L (24-32)
[2019-01-02 17:30] LABS: ABG BASE EXCESS -13.1 mmol/L (-2.0-3.0); ABG OXYGEN SATURATION 96.6 % (95-98); FCOHb 0.1 % (0.5-1.5); FMetHb 0.3 % (0.3-1.12); FO2Hb 96.2 % (94-100); MINUTE VOLUME 10 L/min; PEEP 5 cm H2O; RESPIRATORY RATE 20 b/min; RESPIRATORY RATE (OBSERVED) 25 b/min; TIDAL VOLUME 400 mL; TOTAL HEMOGLOBIN 13.1 G/dl (14.0-17.9)
[2019-01-02 17:48] LABS: D-DIMER 4.22 MG/L FEU (0-0.50); PARTIAL THROMBOPLASTIN TIME 42 SECONDS (22-32)
[2019-01-02 18:01] LABS: PLATELET COUNT 37 X10'3 (140-440)
--- NOTE | 2019-01-02 18:24 | NUR ---
Problems reprioritized. Patient report given, questions answered & plan of care reviewed with Parisa LOOMIS.
--- NOTE | 2019-01-02 18:30 | NUR ---
Patient in room ICU 2039. I have received report from Rochelle/Kristina RNs and had the opportunity to ask questions and assume patient care. Patient intubated, saturating at 99% on 40% FIO2 on A/C VC vent settings, breathing at 25 breaths/min. BP MAP between 60-65 on 45mcg/hr of levophed and 4.8 ml/hr of vasopressin. Patient not any sedation, not responding to any stimulus. Niece Kelle and her at bedside at this time. CVVH infusing without complications.
[2019-01-02] MEDS: pantoprazole 40MG/NS 100ML BAG 100 ML IV SCH (18:50)
[2019-01-02] MEDS: insulin glargine (Lantus) pen - multi-dose SQ SCH (21:00)
[2019-01-02 23:24] LABS: ALBUMIN 2.2 G/DL (3.4-5.0); ANION GAP 22 (8-16); BLOOD UREA NITROGEN 27 MG/DL (7-18); BUN/CREATININE RATIO 14.6 (5.4-32.0); CALCIUM 8.3 MG/DL (8.5-10.1); CHLORIDE 94 MMOL/L (99-107); CREATININE 1.85 MG/DL (0.60-1.10); GLUCOSE 156 MG/DL (70-104); SODIUM 131 MMOL/L (135-145); TOTAL CARBON DIOXIDE 15.4 MMOL/L (24-32); eGFR 36 ML/MIN
[2019-01-02 23:27] LABS: POTASSIUM 4.3 MMOL/L (3.5-5.1)
[2019-01-02 23:36] LABS: BASOPHILS % (AUTO) 0.5 % (0-1); EOSINOPHILS # (AUTO) 0.1 X10'3 (0-0.9); EOSINOPHILS % (AUTO) 1.1 % (0-6); HEMATOCRIT 36.1 % (42.0-52.0); LYMPHOCYTES # (AUTO) 0.5 X10'3 (1.1-4.8); LYMPHOCYTES % (AUTO) 6.7 % (21-51); MEAN CORPUSCULAR HEMOGLOBIN 30.6 PG (27.0-31.0); MEAN CORPUSCULAR HGB CONC 33.3 g/dL (33.0-36.5); MEAN PLATELET VOLUME 8.9 FL (7.4-10.4); MONOCYTES # (AUTO) 0.6 X10'3 (0-0.9); MONOCYTES % (AUTO) 8.1 % (2-12); NEUTROPHILS # (AUTO) 6.3 X10'3 (1.8-7.7); NEUTROPHILS % (AUTO) 83.6 % (42-75); PLATELET COUNT 116 X10'3 (140-440); RED BLOOD COUNT 3.92 X10'6 (4.70-6.10); RED CELL DISTRIBUTION WIDTH 14.8 % (11.5-14.5); WHITE BLOOD COUNT 7.5 X10'3 (4.5-11.0)
[2019-01-03] VITALS (24 sets, daily range): BP systolic 94–115; BP diastolic 46–60
[2019-01-03] MEDS: vasopressin inj. 20 UNIT in normal saline 100ml IV soln 39 ML IV SCH ×2 (00:26→19:18)
[2019-01-03] MEDS: piperacillin/tazo 3.375gm/50ml 50 ML IV SCH ×4 (00:27→23:42)
[2019-01-03] MEDS: NORepinephrine 8mg/ 250ml NS 250 ML IV PRN ×5 (00:51→19:18)
[2019-01-03] MEDS: mineral oil/petrolatum ophthal oint EACHEYE SCH ×4 (02:00→19:33)
[2019-01-03] MEDS: ipratropium/albuterol 3ml nebule NEB SCH ×6 (02:56→23:14)
[2019-01-03] MEDS: VANCOMYCIN LEVEL IV SCH (03:00)
[2019-01-03 03:11] LABS: ABG BASE EXCESS -14.1 mmol/L (-2.0-3.0); ABG HCO3 12.3 mmol/L (22.0-26.0); ABG OXYGEN SATURATION 96.7 % (95-98); ABG PCO2 (T) 30.8 mmHg (35.0-45.0); ABG PO2 (T) 95.6 mmHg (83-108); FCOHb 0.3 % (0.5-1.5); FMetHb 0.2 % (0.3-1.12); FO2Hb 96.2 % (94-100); MINUTE VOLUME 9 L/min; PATIENT TEMPERATURE 36.9; PEEP 5 cm H2O; RESPIRATORY RATE 20 b/min; RESPIRATORY RATE (OBSERVED) 23 b/min; TIDAL VOLUME 400 mL; TOTAL HEMOGLOBIN 12.9 G/dl (14.0-17.9)
[2019-01-03 04:38] LABS: BASOPHILS % (AUTO) 0.5 % (0-1); EOSINOPHILS # (AUTO) 0.1 X10'3 (0-0.9); HEMATOCRIT 36.6 % (42.0-52.0); HEMOGLOBIN 12.2 g/dl (14.0-17.9); LYMPHOCYTES # (AUTO) 0.9 X10'3 (1.1-4.8); LYMPHOCYTES % (AUTO) 10.1 % (21-51); MEAN CORPUSCULAR HGB CONC 33.3 g/dL (33.0-36.5); MEAN CORPUSCULAR VOLUME 93.1 FL (78-98); MEAN PLATELET VOLUME 8.9 FL (7.4-10.4); MONOCYTES # (AUTO) 0.8 X10'3 (0-0.9); MONOCYTES % (AUTO) 9.1 % (2-12); NEUTROPHILS # (AUTO) 6.8 X10'3 (1.8-7.7); NEUTROPHILS % (AUTO) 79.3 % (42-75); PLATELET COUNT 108 X10'3 (140-440); RED BLOOD COUNT 3.93 X10'6 (4.70-6.10); WHITE BLOOD COUNT 8.6 X10'3 (4.5-11.0)
[2019-01-03] MEDS: pantoprazole 40MG/NS 100ML BAG 100 ML IV SCH ×5 (04:50→20:50)
[2019-01-03 04:55] LABS: ALANINE AMINOTRANSFERASE 443 U/L (12-78); ALBUMIN 2.1 G/DL (3.4-5.0); ALKALINE PHOSPHATASE 596 IU/L (46-116); ANION GAP 25 (8-16); BLOOD UREA NITROGEN 26 MG/DL (7-18); BUN/CREATININE RATIO 14.7 (5.4-32.0); CALCIUM 8.5 MG/DL (8.5-10.1); CHLORIDE 99 MMOL/L (99-107); CREATININE 1.77 MG/DL (0.60-1.10); GLUCOSE 155 MG/DL (70-104); SODIUM 137 MMOL/L (135-145); eGFR 37 ML/MIN
[2019-01-03 04:59] LABS: ALBUMIN/GLOBULIN RATIO 0.6 (1.1-1.5); ASPARTATE AMINO TRANSFERASE 1221 U/L (10-37); PHOSPHORUS 4.1 MG/DL (2.3-4.5); POTASSIUM 4.4 MMOL/L (3.5-5.1); TOTAL PROTEIN 5.7 G/DL (6.4-8.2)
[2019-01-03 05:00] LABS: TOTAL CARBON DIOXIDE 13.4 MMOL/L (24-32)
--- NOTE | 2019-01-03 05:06 | NUR ---
Notified Jacob Kruse regarding patient's critical CO2 of 13.4. No new orders received at this time.
[2019-01-03 05:07] LABS: VANCOMYCIN,RANDOM 9.9 UG/ML
[2019-01-03] MEDS: metoclopramide 5 mg/ml inj IV SCH ×4 (05:27→19:32)
[2019-01-03] MEDS: bicarb dialysis sol 2K+/3 Ca2+ 5,000 ML HE SCH ×11 (05:59→23:47)
--- NOTE | 2019-01-03 06:31 | NUR ---
Problems reprioritized. Patient report given, questions answered & plan of care reviewed with Kristina LOOMIS.
--- NOTE | 2019-01-03 06:36 | NUR ---
Patient in room ICU 2039. I have received report from Parisa LOOMIS and had the opportunity to ask questions and assume patient care. Patient laying in bed with eyes closed, soto to gravity, CVVH running, vasopresin, protonix, and levophed infusing to L central line, art line in place dressing clean dry and intact, se in place dressing clean dry and intact. vital signs stable, no signs of distress will continue to monitor
[2019-01-03] MEDS ORDERED: vancomycin/NS 1 GM ADD-VANTAGE 250 ML IV ONE (06:50)
[2019-01-03] MEDS: methylnaltrexone br 12mg/0.6ml inj***SubQ only SQ SCH (07:54)
[2019-01-03] MEDS: heparin, porcine 5000 units/ml vial SQ SCH ×2 (07:55→20:00)
[2019-01-03] MEDS: K and/or MAG REPLACEMENT MC SCH (08:36)
[2019-01-03] MEDS ORDERED: bisacodyl 10mg suppository rectal RC STA (10:42)
[2019-01-03 11:37] LABS: BASOPHILS # (AUTO) 0.1 X10'3 (0-0.2); BASOPHILS % (AUTO) 0.5 % (0-1); EOSINOPHILS # (AUTO) 0.1 X10'3 (0-0.9); EOSINOPHILS % (AUTO) 0.7 % (0-6); HEMATOCRIT 36.7 % (42.0-52.0); HEMOGLOBIN 12.1 g/dl (14.0-17.9); LYMPHOCYTES # (AUTO) 1.2 X10'3 (1.1-4.8); LYMPHOCYTES % (AUTO) 12.8 % (21-51); MEAN CORPUSCULAR HEMOGLOBIN 30.9 PG (27.0-31.0); MEAN CORPUSCULAR VOLUME 93.6 FL (78-98); MEAN PLATELET VOLUME 9.2 FL (7.4-10.4); MONOCYTES # (AUTO) 0.7 X10'3 (0-0.9); MONOCYTES % (AUTO) 7.6 % (2-12); NEUTROPHILS # (AUTO) 7.5 X10'3 (1.8-7.7); NEUTROPHILS % (AUTO) 78.4 % (42-75); PLATELET COUNT 97 X10'3 (140-440); RED BLOOD COUNT 3.92 X10'6 (4.70-6.10); RED CELL DISTRIBUTION WIDTH 15.3 % (11.5-14.5); WHITE BLOOD COUNT 9.5 X10'3 (4.5-11.0)
[2019-01-03 11:48] LABS: ANION GAP 22 (8-16); BLOOD UREA NITROGEN 24 MG/DL (7-18); BUN/CREATININE RATIO 13.9 (5.4-32.0); CALCIUM 8.3 MG/DL (8.5-10.1); CHLORIDE 101 MMOL/L (99-107); CREATININE 1.73 MG/DL (0.60-1.10); GLUCOSE 154 MG/DL (70-104); MAGNESIUM 2.1 MG/DL (1.5-2.4); PHOSPHORUS 4.4 MG/DL (2.3-4.5); POTASSIUM 4.2 MMOL/L (3.5-5.1); SODIUM 136 MMOL/L (135-145); eGFR 38 ML/MIN
--- NOTE | 2019-01-03 11:56 | NUR ---
During rounds Dr. Haskins ordered and ammonia level, ducolax suppository, abdominal ultra sound and to start tube feeds at a trickle rate of 20ml/hr. no other new orders
[2019-01-03 11:57] LABS: TOTAL CARBON DIOXIDE 13.5 MMOL/L (24-32)
--- NOTE | 2019-01-03 12:18 | NUR ---
received a critical co2 level of 13.5, notified Dr. Haskins, he stated he will order a bicarb drip. No other new orders at this time
--- NOTE | 2019-01-03 12:35 | NUR ---
WOC attempted to see pt, was advised by primary RN pt is in highly volatile state and IV infusion line is tenuous. Was advised to not turn pt at this time but that pt would possibly be recieving suppository later today. Will attempt to visualize skin at that time.
[2019-01-03] MEDS: sodium bicarbonate inj. 50 ML in dextrose 5%-water 1,000 ML IV SCH (12:54)
[2019-01-03] MEDS: insulin regular, human vial - multi-dose SQ SCH ×2 (14:22→20:55)
--- NOTE | 2019-01-03 16:41 | NUR ---
tube feed residual 150, 10ml of tube feed,140 blood, notified Dr. Haskins he instructed me to stop the tube feed and draw an H/H. no other new orders at this time
[2019-01-03 16:49] LABS: BASOPHILS % (AUTO) 0.2 % (0-1); EOSINOPHILS # (AUTO) 0.1 X10'3 (0-0.9); HEMATOCRIT 36.7 % (42.0-52.0); HEMOGLOBIN 12.1 g/dl (14.0-17.9); LYMPHOCYTES % (AUTO) 10.3 % (21-51); MEAN CORPUSCULAR HEMOGLOBIN 30.8 PG (27.0-31.0); MEAN CORPUSCULAR HGB CONC 32.9 g/dL (33.0-36.5); MEAN CORPUSCULAR VOLUME 93.5 FL (78-98); MEAN PLATELET VOLUME 8.9 FL (7.4-10.4); MONOCYTES # (AUTO) 0.9 X10'3 (0-0.9); MONOCYTES % (AUTO) 9.5 % (2-12); NEUTROPHILS # (AUTO) 7.8 X10'3 (1.8-7.7); PLATELET COUNT 85 X10'3 (140-440); RED BLOOD COUNT 3.92 X10'6 (4.70-6.10); RED CELL DISTRIBUTION WIDTH 14.8 % (11.5-14.5); WHITE BLOOD COUNT 9.8 X10'3 (4.5-11.0)
[2019-01-03 16:53] LABS: ALBUMIN 1.9 G/DL (3.4-5.0); ANION GAP 24 (8-16); BLOOD UREA NITROGEN 23 MG/DL (7-18); BUN/CREATININE RATIO 12.7 (5.4-32.0); CALCIUM 8.5 MG/DL (8.5-10.1); CHLORIDE 100 MMOL/L (99-107); CREATININE 1.81 MG/DL (0.60-1.10); GLUCOSE 172 MG/DL (70-104); SODIUM 137 MMOL/L (135-145); eGFR 36 ML/MIN
[2019-01-03 16:54] LABS: PHOSPHORUS 4.5 MG/DL (2.3-4.5); POTASSIUM 4.2 MMOL/L (3.5-5.1)
[2019-01-03 17:45] LABS: ABG BASE EXCESS -13.7 mmol/L (-2.0-3.0); ABG HCO3 13.7 mmol/L (22.0-26.0); ABG OXYGEN SATURATION 96.3 % (95-98); ABG PCO2 (T) 37.4 mmHg (35.0-45.0); ABG PH (T) 7.183 (7.350-7.450); ABG PO2 (T) 91.9 mmHg (83-108); FCOHb 0.1 % (0.5-1.5); FMetHb 0.2 % (0.3-1.12); MINUTE VOLUME 9 L/min; PEEP 5 cm H2O; RESPIRATORY RATE 20 b/min; RESPIRATORY RATE (OBSERVED) 23 b/min; TIDAL VOLUME 400 mL; TOTAL HEMOGLOBIN 13.2 G/dl (14.0-17.9)
--- NOTE | 2019-01-03 18:49 | NUR ---
Patient in room ICU 2039. I have received report and had the opportunity to ask questions and assume patient care.
--- NOTE | 2019-01-03 18:49 | NUR ---
Patient in room ICU 2039. I have received report from richard morales and had the opportunity to ask questions and assume patient care.
[2019-01-03] MEDS ORDERED: fentaNYL/PF 50MCG/1 ML 2ML syringe ONE (19:03)
[2019-01-03] MEDS ORDERED: LIDOcaine Viscous 15ml cup ONE (19:03)
[2019-01-03] MEDS ORDERED: MIDAZolam 5mg/5ml vial ONE (19:03)
--- NOTE | 2019-01-03 19:20 | NUR ---
gi lab called for pt having endoscopy at bedside for bleeding. consent form in pt chart
[2019-01-03] MEDS: lactobacillus rhamnosus 10,000 MMU CELLS/CAPSULE PO SCH (19:33)
--- NOTE | 2019-01-03 20:15 | NUR ---
endoscopy cancelled per GI md. md stahl notified.
--- NOTE | 2019-01-03 20:30 | NUR ---
was told in report that mylamaryse wanted heparin held for today due to low platelet. no order to hold heparin recorded. clarified with TSERING Kruse to hold heparin for decreasing platelet count
[2019-01-03] MEDS: insulin glargine (Lantus) pen - multi-dose SQ SCH (20:56)
[2019-01-03 23:16] LABS: BASOPHILS % (AUTO) 0.2 % (0-1); EOSINOPHILS # (AUTO) 0.1 X10'3 (0-0.9); EOSINOPHILS % (AUTO) 0.6 % (0-6); HEMOGLOBIN 12.2 g/dl (14.0-17.9); LYMPHOCYTES # (AUTO) 0.7 X10'3 (1.1-4.8); MEAN CORPUSCULAR HEMOGLOBIN 30.7 PG (27.0-31.0); MEAN CORPUSCULAR VOLUME 93.1 FL (78-98); MONOCYTES # (AUTO) 0.9 X10'3 (0-0.9); MONOCYTES % (AUTO) 8.4 % (2-12); NEUTROPHILS # (AUTO) 8.9 X10'3 (1.8-7.7); NEUTROPHILS % (AUTO) 83.8 % (42-75); PLATELET COUNT 73 X10'3 (140-440); RED BLOOD COUNT 3.98 X10'6 (4.70-6.10); RED CELL DISTRIBUTION WIDTH 15.1 % (11.5-14.5); WHITE BLOOD COUNT 10.6 X10'3 (4.5-11.0)
[2019-01-03 23:27] LABS: ALBUMIN 1.9 G/DL (3.4-5.0); ANION GAP 23 (8-16); BLOOD UREA NITROGEN 23 MG/DL (7-18); BUN/CREATININE RATIO 13.2 (5.4-32.0); CALCIUM 8.3 MG/DL (8.5-10.1); CHLORIDE 99 MMOL/L (99-107); CREATININE 1.74 MG/DL (0.60-1.10); GLUCOSE 185 MG/DL (70-104); MAGNESIUM 1.9 MG/DL (1.5-2.4); SODIUM 136 MMOL/L (135-145); eGFR 38 ML/MIN
[2019-01-03 23:30] LABS: PHOSPHORUS 3.9 MG/DL (2.3-4.5); POTASSIUM 3.9 MMOL/L (3.5-5.1); TOTAL CARBON DIOXIDE 14.3 MMOL/L (24-32)
[2019-01-04] VITALS (24 sets, daily range): BP systolic 100–121; BP diastolic 55–66
[2019-01-04] MEDS: bicarb dialysis sol 2K+/3 Ca2+ 5,000 ML HE SCH ×15 (01:13→21:40)
[2019-01-04] MEDS: pantoprazole 40MG/NS 100ML BAG 100 ML IV SCH ×5 (01:33→23:00)
[2019-01-04] MEDS: mineral oil/petrolatum ophthal oint EACHEYE SCH ×4 (01:35→19:41)
[2019-01-04] MEDS: metoclopramide 5 mg/ml inj IV SCH ×4 (01:35→19:42)
[2019-01-04] MEDS: NORepinephrine 8mg/ 250ml NS 250 ML IV PRN ×5 (01:35→21:41)
[2019-01-04] MEDS: VANCOMYCIN LEVEL IV SCH (02:15)
[2019-01-04] MEDS: insulin regular, human vial - multi-dose SQ SCH (02:18)
--- NOTE | 2019-01-04 03:19 | NUR ---
cvvh filter clotted off. continuous miner operator helper dailysis nurse notified.
[2019-01-04] MEDS: ipratropium/albuterol 3ml nebule NEB SCH ×6 (03:31→23:03)
[2019-01-04] MEDS: vasopressin inj. 20 UNIT in normal saline 100ml IV soln 39 ML IV SCH (04:42)
[2019-01-04 05:41] LABS: ABG BASE EXCESS -12.2 mmol/L (-2.0-3.0); ABG HCO3 12.7 mmol/L (22.0-26.0); ABG OXYGEN SATURATION 97.3 % (95-98); ABG PH (T) 7.292 (7.350-7.450); ABG PO2 (T) 96.4 mmHg (83-108); FMetHb 0.3 % (0.3-1.12); MINUTE VOLUME 11 L/min; PATIENT TEMPERATURE 37.2; PEEP 5 cm H2O; RESPIRATORY RATE 20 b/min; RESPIRATORY RATE (OBSERVED) 25 b/min; TIDAL VOLUME 400 mL; TOTAL HEMOGLOBIN 12.4 G/dl (14.0-17.9)
[2019-01-04 06:10] LABS: BASOPHILS % (AUTO) 0.4 % (0-1); EOSINOPHILS # (AUTO) 0.1 X10'3 (0-0.9); EOSINOPHILS % (AUTO) 0.8 % (0-6); HEMATOCRIT 34.4 % (42.0-52.0); HEMOGLOBIN 11.5 g/dl (14.0-17.9); LYMPHOCYTES # (AUTO) 0.8 X10'3 (1.1-4.8); LYMPHOCYTES % (AUTO) 7.9 % (21-51); MEAN CORPUSCULAR HEMOGLOBIN 30.6 PG (27.0-31.0); MEAN CORPUSCULAR HGB CONC 33.4 g/dL (33.0-36.5); MEAN CORPUSCULAR VOLUME 91.7 FL (78-98); MEAN PLATELET VOLUME 8.9 FL (7.4-10.4); MONOCYTES % (AUTO) 9.6 % (2-12); NEUTROPHILS # (AUTO) 8.2 X10'3 (1.8-7.7); NEUTROPHILS % (AUTO) 81.3 % (42-75); PLATELET COUNT 61 X10'3 (140-440); RED BLOOD COUNT 3.76 X10'6 (4.70-6.10); RED CELL DISTRIBUTION WIDTH 14.6 % (11.5-14.5)
[2019-01-04 06:24] LABS: ALANINE AMINOTRANSFERASE 316 U/L (12-78); ALBUMIN 1.6 G/DL (3.4-5.0); ALBUMIN/GLOBULIN RATIO 0.5 (1.1-1.5); ALKALINE PHOSPHATASE 855 IU/L (46-116); ANION GAP 22 (8-16); ASPARTATE AMINO TRANSFERASE 630 U/L (10-37); BILIRUBIN,TOTAL 6.4 MG/DL (0.1-1.0); BLOOD UREA NITROGEN 25 MG/DL (7-18); BUN/CREATININE RATIO 12.6 (5.4-32.0); CALCIUM 7.7 MG/DL (8.5-10.1); CHLORIDE 101 MMOL/L (99-107); CREATININE 1.99 MG/DL (0.60-1.10); GLUCOSE 190 MG/DL (70-104); MAGNESIUM 1.8 MG/DL (1.5-2.4); PHOSPHORUS 3.4 MG/DL (2.3-4.5); POTASSIUM 3.7 MMOL/L (3.5-5.1); PREALBUMIN 4.7 MG/DL (19-36); SODIUM 136 MMOL/L (135-145); TOTAL PROTEIN 5.1 G/DL (6.4-8.2); eGFR 33 ML/MIN
--- NOTE | 2019-01-04 06:30 | NUR ---
Patient in room ICU 2039. I have received report from VLADISLAV Nur and had the opportunity to ask questions and assume patient care.
[2019-01-04 06:32] LABS: TOTAL CARBON DIOXIDE 12.8 MMOL/L (24-32)
[2019-01-04] MEDS: piperacillin/tazo 3.375gm/50ml 50 ML IV SCH ×3 (07:22→23:57)
[2019-01-04] MEDS: sodium bicarbonate inj. 50 ML in dextrose 5%-water 1,000 ML IV SCH ×2 (07:23→19:41)
[2019-01-04] MEDS: lactobacillus rhamnosus 10,000 MMU CELLS/CAPSULE PO SCH ×2 (07:23→19:42)
[2019-01-04] MEDS: heparin, porcine 5000 units/ml vial SQ SCH (08:00)
[2019-01-04] MEDS: K and/or MAG REPLACEMENT MC SCH (08:00)
[2019-01-04] MEDS: insulin Lispro (HumaLOG) vial - multi-dose SQ SCH ×3 (08:20→19:50)
[2019-01-04 08:51] LABS: NUCLEATED RED BLOOD CELLS 1 /100WBC (0-0); TOTAL CELLS COUNTED 100
[2019-01-04 08:58] LABS: HYPOGRANULAR PLATELETS FEW; LARGE PLATELETS FEW; PLATELET ESTIMATE DECREASED
[2019-01-04 08:59] LABS: TOXIC GRANULATION 1+
--- NOTE | 2019-01-04 09:00 | NUR ---
Dr. Haskins aware of critical CO2 12.8. Order to increase bicarb gtt to 100ml/hr
[2019-01-04 11:07] LABS: BASOPHILS % (AUTO) 0.3 % (0-1); EOSINOPHILS # (AUTO) 0.1 X10'3 (0-0.9); EOSINOPHILS % (AUTO) 0.9 % (0-6); HEMATOCRIT 34.7 % (42.0-52.0); HEMOGLOBIN 11.8 g/dl (14.0-17.9); LYMPHOCYTES # (AUTO) 0.5 X10'3 (1.1-4.8); LYMPHOCYTES % (AUTO) 5.7 % (21-51); MEAN CORPUSCULAR HEMOGLOBIN 30.8 PG (27.0-31.0); MEAN CORPUSCULAR HGB CONC 33.9 g/dL (33.0-36.5); MEAN CORPUSCULAR VOLUME 90.9 FL (78-98); MEAN PLATELET VOLUME 8.9 FL (7.4-10.4); MONOCYTES % (AUTO) 10.4 % (2-12); NEUTROPHILS # (AUTO) 7.9 X10'3 (1.8-7.7); NEUTROPHILS % (AUTO) 82.7 % (42-75); PLATELET COUNT 56 X10'3 (140-440); RED BLOOD COUNT 3.82 X10'6 (4.70-6.10); RED CELL DISTRIBUTION WIDTH 14.4 % (11.5-14.5); WHITE BLOOD COUNT 9.5 X10'3 (4.5-11.0)
[2019-01-04 11:24] LABS: ALBUMIN 1.7 G/DL (3.4-5.0); ANION GAP 21 (8-16); BLOOD UREA NITROGEN 22 MG/DL (7-18); BUN/CREATININE RATIO 12.7 (5.4-32.0); CHLORIDE 100 MMOL/L (99-107); CREATININE 1.73 MG/DL (0.60-1.10); GLUCOSE 181 MG/DL (70-104); MAGNESIUM 1.8 MG/DL (1.5-2.4); SODIUM 137 MMOL/L (135-145); TOTAL CARBON DIOXIDE 15.6 MMOL/L (24-32); eGFR 38 ML/MIN
[2019-01-04 11:31] LABS: PHOSPHORUS 2.8 MG/DL (2.3-4.5); POTASSIUM 3.3 MMOL/L (3.5-5.1)
[2019-01-04] MEDS: potassium Cl 20mEq/100mL bag 100 ML IV PRN ×4 (11:43→19:42)
[2019-01-04 17:24] LABS: EOSINOPHILS # (AUTO) 0.1 X10'3 (0-0.9); HEMOGLOBIN 11.8 g/dl (14.0-17.9); RED CELL DISTRIBUTION WIDTH 14.2 % (11.5-14.5)
[2019-01-04 17:26] LABS: BASOPHILS % (AUTO) 0.5 % (0-1); EOSINOPHILS % (AUTO) 0.8 % (0-6); HEMATOCRIT 34.2 % (42.0-52.0); LYMPHOCYTES # (AUTO) 1.1 X10'3 (1.1-4.8); LYMPHOCYTES % (AUTO) 11.1 % (21-51); MEAN CORPUSCULAR HEMOGLOBIN 31.3 PG (27.0-31.0); MEAN CORPUSCULAR HGB CONC 34.4 g/dL (33.0-36.5); MEAN CORPUSCULAR VOLUME 91.1 FL (78-98); MEAN PLATELET VOLUME 10.2 FL (7.4-10.4); MONOCYTES % (AUTO) 9.8 % (2-12); NEUTROPHILS # (AUTO) 7.7 X10'3 (1.8-7.7); NEUTROPHILS % (AUTO) 77.8 % (42-75); PLATELET COUNT 52 X10'3 (140-440); RED BLOOD COUNT 3.76 X10'6 (4.70-6.10); WHITE BLOOD COUNT 9.8 X10'3 (4.5-11.0)
[2019-01-04 17:36] LABS: ALBUMIN 1.6 G/DL (3.4-5.0); ANION GAP 15 (8-16); BLOOD UREA NITROGEN 21 MG/DL (7-18); BUN/CREATININE RATIO 12.8 (5.4-32.0); CALCIUM 8.1 MG/DL (8.5-10.1); CHLORIDE 100 MMOL/L (99-107); CREATININE 1.64 MG/DL (0.60-1.10); GLUCOSE 201 MG/DL (70-104); MAGNESIUM 1.6 MG/DL (1.5-2.4); SODIUM 134 MMOL/L (135-145); TOTAL CARBON DIOXIDE 18.8 MMOL/L (24-32); eGFR 41 ML/MIN
[2019-01-04 17:39] LABS: PHOSPHORUS 2.3 MG/DL (2.3-4.5); POTASSIUM 3.4 MMOL/L (3.5-5.1)
--- NOTE | 2019-01-04 18:05 | NUR ---
Problems reprioritized. Patient report given, questions answered & plan of care reviewed with VLADISLAV Nur.
--- NOTE | 2019-01-04 18:24 | NUR ---
Patient in room ICU 2039. I have received report from kenzie mroales and had the opportunity to ask questions and assume patient care.
--- NOTE | 2019-01-04 19:00 | NUR ---
pt is intubated and not on sedation. pt is unresponsive. cvvh running per md orders. art line and cvp transduced and zeroed with good waveform. vital signs are stable. will continue to monitor.
[2019-01-04] MEDS: insulin glargine (Lantus) pen - multi-dose SQ SCH (19:53)
[2019-01-04 23:06] LABS: BASOPHILS # (AUTO) 0.1 X10'3 (0-0.2); BASOPHILS % (AUTO) 0.8 % (0-1); EOSINOPHILS # (AUTO) 0.1 X10'3 (0-0.9); EOSINOPHILS % (AUTO) 0.8 % (0-6); HEMATOCRIT 34.1 % (42.0-52.0); HEMOGLOBIN 11.6 g/dl (14.0-17.9); LYMPHOCYTES # (AUTO) 0.9 X10'3 (1.1-4.8); LYMPHOCYTES % (AUTO) 9.5 % (21-51); MEAN CORPUSCULAR HEMOGLOBIN 30.6 PG (27.0-31.0); MEAN CORPUSCULAR VOLUME 89.9 FL (78-98); MEAN PLATELET VOLUME 9.5 FL (7.4-10.4); MONOCYTES # (AUTO) 0.7 X10'3 (0-0.9); MONOCYTES % (AUTO) 7.6 % (2-12); NEUTROPHILS # (AUTO) 7.3 X10'3 (1.8-7.7); NEUTROPHILS % (AUTO) 81.3 % (42-75); RED CELL DISTRIBUTION WIDTH 14.2 % (11.5-14.5)
[2019-01-04 23:08] LABS: PLATELET COUNT 49 X10'3 (140-440)
[2019-01-04 23:20] LABS: ALANINE AMINOTRANSFERASE 283 U/L (12-78); ALBUMIN 1.6 G/DL (3.4-5.0); ANION GAP 18 (8-16); ASPARTATE AMINO TRANSFERASE 517 U/L (10-37); BILIRUBIN,TOTAL 7.6 MG/DL (0.1-1.0); BLOOD UREA NITROGEN 20 MG/DL (7-18); CALCIUM 8.1 MG/DL (8.5-10.1); CHLORIDE 100 MMOL/L (99-107); CREATININE 1.66 MG/DL (0.60-1.10); GLUCOSE 187 MG/DL (70-104); SODIUM 136 MMOL/L (135-145); TOTAL CARBON DIOXIDE 18.5 MMOL/L (24-32); eGFR 40 ML/MIN
[2019-01-04 23:21] LABS: ALBUMIN/GLOBULIN RATIO 0.4 (1.1-1.5); POTASSIUM 3.5 MMOL/L (3.5-5.1); TOTAL PROTEIN 5.2 G/DL (6.4-8.2)
[2019-01-04 23:46] LABS: ALKALINE PHOSPHATASE 1069 IU/L (46-116)
[2019-01-05] VITALS (24 sets, daily range): BP systolic 99–113; BP diastolic 57–67
[2019-01-05] MEDS: bicarb dialysis sol 2K+/3 Ca2+ 5,000 ML HE SCH ×14 (00:09→19:28)
[2019-01-05] MEDS: pantoprazole 40MG/NS 100ML BAG 100 ML IV SCH ×5 (01:00→21:07)
[2019-01-05] MEDS: potassium Cl 20mEq/100mL bag 100 ML IV PRN ×4 (01:00→13:29)
[2019-01-05] MEDS: metoclopramide 5 mg/ml inj IV SCH ×4 (02:12→19:29)
[2019-01-05] MEDS: mineral oil/petrolatum ophthal oint EACHEYE SCH ×4 (02:12→19:29)
[2019-01-05] MEDS: insulin Lispro (HumaLOG) vial - multi-dose SQ SCH ×3 (02:20→14:08)
[2019-01-05] MEDS: ipratropium/albuterol 3ml nebule NEB SCH ×6 (02:57→23:49)
[2019-01-05] MEDS: VANCOMYCIN LEVEL IV SCH (03:00)
[2019-01-05 03:10] LABS: ABG BASE EXCESS -5.9 mmol/L (-2.0-3.0); ABG HCO3 17.1 mmol/L (22.0-26.0); ABG OXYGEN SATURATION 96.9 % (95-98); ABG PCO2 (T) 26.6 mmHg (35.0-45.0); ABG PH (T) 7.425 (7.350-7.450); ABG PO2 (T) 78.9 mmHg (83-108); FCOHb 0.4 % (0.5-1.5); FMetHb 0.1 % (0.3-1.12); FO2Hb 96.4 % (94-100); MINUTE VOLUME 12 L/min; PATIENT TEMPERATURE 36.6; PEEP 5 cm H2O; RESPIRATORY RATE 20 b/min; RESPIRATORY RATE (OBSERVED) 25 b/min; TIDAL VOLUME 400 mL; TOTAL HEMOGLOBIN 12.3 G/dl (14.0-17.9)
[2019-01-05] MEDS: NORepinephrine 8mg/ 250ml NS 250 ML IV PRN ×4 (04:03→20:14)
--- NOTE | 2019-01-05 04:20 | NUR ---
pt daughter called and requested that the pt wears his hat especially in the morning when they come to visit.
[2019-01-05 05:35] LABS: ALANINE AMINOTRANSFERASE 274 U/L (12-78); ALBUMIN 1.6 G/DL (3.4-5.0); ANION GAP 16 (8-16); ASPARTATE AMINO TRANSFERASE 496 U/L (10-37); BASOPHILS # (AUTO) 0.1 X10'3 (0-0.2); BASOPHILS % (AUTO) 0.6 % (0-1); BLOOD UREA NITROGEN 19 MG/DL (7-18); BUN/CREATININE RATIO 11.2 (5.4-32.0); CALCIUM 8.2 MG/DL (8.5-10.1); CHLORIDE 101 MMOL/L (99-107); EOSINOPHILS # (AUTO) 0.1 X10'3 (0-0.9); EOSINOPHILS % (AUTO) 0.7 % (0-6); GLUCOSE 182 MG/DL (70-104); HEMATOCRIT 33.2 % (42.0-52.0); HEMOGLOBIN 11.5 g/dl (14.0-17.9); LYMPHOCYTES % (AUTO) 10.3 % (21-51); MAGNESIUM 1.7 MG/DL (1.5-2.4); MEAN CORPUSCULAR HEMOGLOBIN 30.9 PG (27.0-31.0); MEAN CORPUSCULAR HGB CONC 34.8 g/dL (33.0-36.5); MEAN CORPUSCULAR VOLUME 88.8 FL (78-98); MEAN PLATELET VOLUME 9.3 FL (7.4-10.4); MONOCYTES # (AUTO) 0.7 X10'3 (0-0.9); MONOCYTES % (AUTO) 7.5 % (2-12); NEUTROPHILS # (AUTO) 7.7 X10'3 (1.8-7.7); NEUTROPHILS % (AUTO) 80.9 % (42-75); POTASSIUM 3.7 MMOL/L (3.5-5.1); RED BLOOD COUNT 3.73 X10'6 (4.70-6.10); RED CELL DISTRIBUTION WIDTH 14.1 % (11.5-14.5); SODIUM 136 MMOL/L (135-145); TOTAL CARBON DIOXIDE 19.5 MMOL/L (24-32); VANCOMYCIN,RANDOM 7.3 UG/ML; WHITE BLOOD COUNT 9.5 X10'3 (4.5-11.0); eGFR 39 ML/MIN
[2019-01-05 05:38] LABS: PLATELET COUNT 45 X10'3 (140-440)
[2019-01-05 05:52] LABS: ALBUMIN/GLOBULIN RATIO 0.5 (1.1-1.5); ALKALINE PHOSPHATASE 1196 IU/L (46-116); PHOSPHORUS 1.5 MG/DL (2.3-4.5); TOTAL PROTEIN 5.1 G/DL (6.4-8.2)
[2019-01-05] MEDS: sodium bicarbonate inj. 50 ML in dextrose 5%-water 1,000 ML IV SCH ×3 (06:05→17:04)
[2019-01-05] MEDS ORDERED: vancomycin/NS 1 GM ADD-VANTAGE 250 ML IV ONE (06:25)
[2019-01-05] MEDS: piperacillin/tazo 3.375gm/50ml 50 ML IV SCH (07:30)
[2019-01-05] MEDS: lactobacillus rhamnosus 10,000 MMU CELLS/CAPSULE PO SCH ×2 (07:30→19:29)
[2019-01-05] MEDS: methylnaltrexone br 12mg/0.6ml inj***SubQ only SQ SCH (07:31)
[2019-01-05] MEDS: K and/or MAG REPLACEMENT MC SCH (08:00)
[2019-01-05] MEDS: sodium phosphate inj. 30 MMOL in normal saline 250ml IV soln 250 ML IV PRN (08:09)
[2019-01-05 11:23] LABS: BASOPHILS # (AUTO) 0.1 X10'3 (0-0.2); BASOPHILS % (AUTO) 1.1 % (0-1); EOSINOPHILS # (AUTO) 0.1 X10'3 (0-0.9); HEMATOCRIT 33.8 % (42.0-52.0); HEMOGLOBIN 11.9 g/dl (14.0-17.9); LYMPHOCYTES # (AUTO) 2.1 X10'3 (1.1-4.8); LYMPHOCYTES % (AUTO) 21.4 % (21-51); MEAN CORPUSCULAR HEMOGLOBIN 31.3 PG (27.0-31.0); MEAN CORPUSCULAR HGB CONC 35.1 g/dL (33.0-36.5); MEAN CORPUSCULAR VOLUME 89.1 FL (78-98); MEAN PLATELET VOLUME 9.4 FL (7.4-10.4); MONOCYTES # (AUTO) 0.8 X10'3 (0-0.9); MONOCYTES % (AUTO) 7.8 % (2-12); NEUTROPHILS # (AUTO) 6.8 X10'3 (1.8-7.7); NEUTROPHILS % (AUTO) 68.7 % (42-75); RED BLOOD COUNT 3.79 X10'6 (4.70-6.10); WHITE BLOOD COUNT 9.8 X10'3 (4.5-11.0)
[2019-01-05 11:34] LABS: ALBUMIN 1.6 G/DL (3.4-5.0); ANION GAP 13 (8-16); BLOOD UREA NITROGEN 17 MG/DL (7-18); BUN/CREATININE RATIO 11.3 (5.4-32.0); CALCIUM 8.1 MG/DL (8.5-10.1); CHLORIDE 102 MMOL/L (99-107); GLUCOSE 165 MG/DL (70-104); MAGNESIUM 1.5 MG/DL (1.5-2.4); SODIUM 137 MMOL/L (135-145); TOTAL CARBON DIOXIDE 22.4 MMOL/L (24-32); eGFR 45 ML/MIN
[2019-01-05 11:39] LABS: PHOSPHORUS 2.1 MG/DL (2.3-4.5); POTASSIUM 3.1 MMOL/L (3.5-5.1)
[2019-01-05 11:57] LABS: PLATELET COUNT 43 X10'3 (140-440)
--- NOTE | 2019-01-05 14:12 | NUR ---
TF Consult for Trickle tube feeding to run at 10 ml/hr, discussed at rounds by bedside RN. Pt remains intubated, on pressors. Last BM was a smear on 01/04. Patient is receiving reglan and relistor, had also received dulcolax. Pt was having very high gastric residuals up to 650 ml, was 150 ml on last check 01/03. Patient has not been able to have nutrition needs met with tube feedings since admission six days ago. Recommend post pyloric tube feedings past the stomach to aid in TF tolerance, discussed with MD. Patient has very high protein needs in view of intubation and CVVH. If post pyloric feedings are not feasible patient would then benefit from TPN to meet needs. Recommendations: 1. Trickle OGTF per MD using Vital High Protein at 10ml/hr goal; to provide 240 ml volume, 175ml free water, 432 kcals, and 19g protein. 2. additional free water per drum cleaner on CVVH 3. When tube feeding is advanced past trickle rate, patient would benefit form Vital High protein at 85ml/hr goal; to provide 2040ml fluid, 2040kcals, 1714ml free water, and 179g protein. 4. prealbumin Q /; daily wts 5. routine bowel care 6. Patient may benefit form post pyloric tube feedings in view of unable to advance previously d/t high GRV Addendum: 01/05/19 at [address] Amended: Links added.
--- NOTE | 2019-01-05 16:00 | NUR ---
Pt's RR increased from low-mid 20s to low-mid 30s. Sustained for approx [address] Haskins at bedside to assess. No change in breath sounds. Unsure if it is CVA related or pt was waking up. 1mg ativan administered per MD orders for comfort. Got ABG, pt alkalotic. Serum CO2 increasing to normal range. No change in RR. Pt has continued to have elevated RR since 1600.
[2019-01-05] MEDS ORDERED: LORazepam 2 mg/ml vial IV ONE (16:50)
[2019-01-05 17:00] LABS: ABG BASE EXCESS -2.6 mmol/L (-2.0-3.0); ABG OXYGEN SATURATION 97.9 % (95-98); ABG PCO2 (T) 28.9 mmHg (35.0-45.0); ABG PH (T) 7.459 (7.350-7.450); ABG PO2 (T) 92.6 mmHg (83-108); FCOHb 0.5 % (0.5-1.5); FMetHb 0.1 % (0.3-1.12); FO2Hb 97.3 % (94-100); MINUTE VOLUME 15 L/min; PEEP 7 cm H2O; RESPIRATORY RATE 24 b/min; RESPIRATORY RATE (OBSERVED) 34 b/min; TIDAL VOLUME 471 mL; TOTAL HEMOGLOBIN 12.9 G/dl (14.0-17.9)
[2019-01-05 17:08] LABS: HEMOGLOBIN 12.1 g/dl (14.0-17.9)
[2019-01-05 17:10] LABS: HEMATOCRIT 34.7 % (42.0-52.0); MEAN CORPUSCULAR HEMOGLOBIN 31.3 PG (27.0-31.0); MEAN CORPUSCULAR VOLUME 89.4 FL (78-98); MEAN PLATELET VOLUME 9.6 FL (7.4-10.4); RED BLOOD COUNT 3.88 X10'6 (4.70-6.10); RED CELL DISTRIBUTION WIDTH 14.1 % (11.5-14.5); WHITE BLOOD COUNT 10.5 X10'3 (4.5-11.0)
[2019-01-05 17:19] LABS: ALBUMIN 1.7 G/DL (3.4-5.0); ANION GAP 15 (8-16); BLOOD UREA NITROGEN 17 MG/DL (7-18); BUN/CREATININE RATIO 11.3 (5.4-32.0); CALCIUM 8.2 MG/DL (8.5-10.1); CHLORIDE 100 MMOL/L (99-107); GLUCOSE 191 MG/DL (70-104); MAGNESIUM 1.6 MG/DL (1.5-2.4); SODIUM 137 MMOL/L (135-145); eGFR 45 ML/MIN
[2019-01-05 17:23] LABS: PHOSPHORUS 2.2 MG/DL (2.3-4.5); POTASSIUM 3.5 MMOL/L (3.5-5.1)
[2019-01-05 17:37] LABS: PLATELET COUNT 44 X10'3 (140-440)
[2019-01-05 18:20] LABS: TOTAL CELLS COUNTED 100
[2019-01-05 18:23] LABS: PLATELET ESTIMATE DECREASED
[2019-01-05 18:28] LABS: GIANT PLATELET FEW; LARGE PLATELETS FEW
--- NOTE | 2019-01-05 18:30 | NUR ---
Paged PICC RN x2 between approx 2-3pm once Dr Haskins had signed PICC consent. Did not get response. At 1645, called mau mann to see if PICC RN was in house today. According to mau mann, she left at 2pm and Genia, other PICC RN was covering until 1600. As of now, pt will be unable to get picc placed until tuesday.
--- NOTE | 2019-01-05 18:32 | NUR ---
Patient in room ICU 2039. I have received report and had the opportunity to ask questions and assume patient care.
--- NOTE | 2019-01-05 18:32 | NUR ---
Problems reprioritized. Patient report given, questions answered & plan of care reviewed with VLADISLAV Nur.
--- NOTE | 2019-01-05 19:09 | NUR ---
pt is intubated and not on sedation. pt is unresponsive. cvvh running per md orders. art line and cvp transduced and zeroed with good waveform. lung sounds are clear and diminished throughout. tube feeding started at a rate of 10 ml per hr. bowel sounds remain hypoactive, pt is passing flatus. linear DTI noted to medial back on day shift, wound care orders followed, continuing to turn pt q2h. vital signs are stable. will continue to monitor.
[2019-01-05] MEDS: insulin regular, human vial - multi-dose SQ SCH (19:44)
[2019-01-05] MEDS: insulin glargine (Lantus) pen - multi-dose SQ SCH (19:45)
[2019-01-05 23:21] LABS: BASOPHILS # (AUTO) 0.1 X10'3 (0-0.2); BASOPHILS % (AUTO) 0.6 % (0-1); EOSINOPHILS % (AUTO) 0.3 % (0-6); HEMATOCRIT 33.5 % (42.0-52.0); HEMOGLOBIN 11.7 g/dl (14.0-17.9); LYMPHOCYTES # (AUTO) 1.2 X10'3 (1.1-4.8); LYMPHOCYTES % (AUTO) 12.1 % (21-51); MEAN CORPUSCULAR HEMOGLOBIN 31.2 PG (27.0-31.0); MEAN CORPUSCULAR HGB CONC 34.8 g/dL (33.0-36.5); MEAN CORPUSCULAR VOLUME 89.5 FL (78-98); MEAN PLATELET VOLUME 10.2 FL (7.4-10.4); MONOCYTES # (AUTO) 0.5 X10'3 (0-0.9); MONOCYTES % (AUTO) 5.2 % (2-12); NEUTROPHILS # (AUTO) 8.3 X10'3 (1.8-7.7); NEUTROPHILS % (AUTO) 81.8 % (42-75); RED BLOOD COUNT 3.74 X10'6 (4.70-6.10); RED CELL DISTRIBUTION WIDTH 14.3 % (11.5-14.5); WHITE BLOOD COUNT 10.1 X10'3 (4.5-11.0)
[2019-01-05 23:26] LABS: PLATELET COUNT 41 X10'3 (140-440)
[2019-01-05 23:30] LABS: ALANINE AMINOTRANSFERASE 243 U/L (12-78); ALBUMIN 1.5 G/DL (3.4-5.0); ANION GAP 14 (8-16); ASPARTATE AMINO TRANSFERASE 412 U/L (10-37); BILIRUBIN,TOTAL 9.1 MG/DL (0.1-1.0); BLOOD UREA NITROGEN 17 MG/DL (7-18); BUN/CREATININE RATIO 11.3 (5.4-32.0); CHLORIDE 100 MMOL/L (99-107); CREATININE 1.51 MG/DL (0.60-1.10); GLUCOSE 192 MG/DL (70-104); SODIUM 136 MMOL/L (135-145); TOTAL CARBON DIOXIDE 21.7 MMOL/L (24-32); eGFR 45 ML/MIN
[2019-01-05 23:34] LABS: ALBUMIN/GLOBULIN RATIO 0.4 (1.1-1.5); POTASSIUM 3.4 MMOL/L (3.5-5.1); TOTAL PROTEIN 5.1 G/DL (6.4-8.2)
[2019-01-06] VITALS (24 sets, daily range): BP systolic 98–116; BP diastolic 42–69
[2019-01-06 00:08] LABS: ALKALINE PHOSPHATASE 1425 IU/L (46-116)
[2019-01-06] MEDS: metoclopramide 5 mg/ml inj IV SCH ×4 (01:07→20:51)
[2019-01-06] MEDS: mineral oil/petrolatum ophthal oint EACHEYE SCH ×4 (01:07→20:51)
[2019-01-06] MEDS: pantoprazole 40MG/NS 100ML BAG 100 ML IV SCH ×6 (01:07→20:59)
[2019-01-06] MEDS: potassium Cl 20mEq/100mL bag 100 ML IV PRN ×3 (01:07→18:13)
[2019-01-06] MEDS: insulin regular, human vial - multi-dose SQ SCH ×4 (02:14→20:55)
[2019-01-06] MEDS: bicarb dialysis sol 2K+/3 Ca2+ 5,000 ML HE SCH ×15 (02:15→23:27)
[2019-01-06] MEDS: ipratropium/albuterol 3ml nebule NEB SCH ×6 (03:06→23:34)
[2019-01-06 03:20] LABS: ABG BASE EXCESS -0.6 mmol/L (-2.0-3.0); ABG HCO3 22.1 mmol/L (22.0-26.0); ABG OXYGEN SATURATION 95.7 % (95-98); ABG PCO2 (T) 30.7 mmHg (35.0-45.0); ABG PH (T) 7.475 (7.350-7.450); FCOHb 0.9 % (0.5-1.5); FMetHb 0.1 % (0.3-1.12); FO2Hb 94.7 % (94-100); MINUTE VOLUME 12 L/min; PEEP 5 cm H2O; RESPIRATORY RATE 18 b/min; RESPIRATORY RATE (OBSERVED) 27 b/min; TIDAL VOLUME 400 mL; TOTAL HEMOGLOBIN 12.7 G/dl (14.0-17.9)
--- NOTE | 2019-01-06 03:38 | NUR ---
cvvh down due to clot. operations support manager dialysis nurse notified.
[2019-01-06] MEDS: vasopressin inj. 20 UNIT in normal saline 100ml IV soln 39 ML IV SCH (04:20)
--- NOTE | 2019-01-06 05:15 | NUR ---
numerical control operator dialysis nurse at bedside to replace cvvh filter
--- NOTE | 2019-01-06 06:21 | NUR ---
Patient in room ICU 2039. I have received report from Liudmila LOOMIS and had the opportunity to ask questions and assume patient care.
[2019-01-06 06:39] LABS: HEMATOCRIT 33.3 % (42.0-52.0); HEMOGLOBIN 11.6 g/dl (14.0-17.9)
[2019-01-06 06:42] LABS: ALANINE AMINOTRANSFERASE 233 U/L (12-78); ALBUMIN 1.5 G/DL (3.4-5.0); ANION GAP 11 (8-16); ASPARTATE AMINO TRANSFERASE 385 U/L (10-37); BILIRUBIN,TOTAL 9.4 MG/DL (0.1-1.0); BLOOD UREA NITROGEN 18 MG/DL (7-18); BUN/CREATININE RATIO 10.9 (5.4-32.0); CHLORIDE 101 MMOL/L (99-107); CREATININE 1.65 MG/DL (0.60-1.10); GLUCOSE 177 MG/DL (70-104); MAGNESIUM 1.6 MG/DL (1.5-2.4); MEAN CORPUSCULAR HEMOGLOBIN 30.6 PG (27.0-31.0); MEAN CORPUSCULAR HGB CONC 34.7 g/dL (33.0-36.5); MEAN CORPUSCULAR VOLUME 88.2 FL (78-98); MEAN PLATELET VOLUME 10.4 FL (7.4-10.4); RED BLOOD COUNT 3.78 X10'6 (4.70-6.10); RED CELL DISTRIBUTION WIDTH 14.6 % (11.5-14.5); SODIUM 134 MMOL/L (135-145); TOTAL CARBON DIOXIDE 22.5 MMOL/L (24-32); WHITE BLOOD COUNT 10.1 X10'3 (4.5-11.0); eGFR 41 ML/MIN
[2019-01-06 07:05] LABS: PLATELET COUNT 43 X10'3 (140-440)
[2019-01-06] MEDS: NORepinephrine 8mg/ 250ml NS 250 ML IV PRN ×2 (07:13→20:56)
[2019-01-06 07:28] LABS: ALBUMIN/GLOBULIN RATIO 0.4 (1.1-1.5); ALKALINE PHOSPHATASE 1402 IU/L (46-116); PHOSPHORUS 1.7 MG/DL (2.3-4.5); POTASSIUM 3.8 MMOL/L (3.5-5.1); TOTAL PROTEIN 5.1 G/DL (6.4-8.2)
[2019-01-06] MEDS: lactobacillus rhamnosus 10,000 MMU CELLS/CAPSULE PO SCH ×2 (07:37→20:51)
[2019-01-06 07:46] LABS: ANISOCYTOSIS 1+; PLATELET ESTIMATE DECREASED; TOTAL CELLS COUNTED 100; TOXIC GRANULATION 2+
[2019-01-06] MEDS: K and/or MAG REPLACEMENT MC SCH (08:00)
[2019-01-06] MEDS ORDERED: sodium phosphate inj. 15 MMOL in dextrose 5%-water 150 ML IV ONE (08:05)
[2019-01-06] MEDS ORDERED: sodium phosphate inj. 15 MMOL in dextrose 5%-water 250 ML IV ONE (09:05)
[2019-01-06 11:18] LABS: BASOPHILS # (AUTO) 0.1 X10'3 (0-0.2); HEMATOCRIT 33.8 % (42.0-52.0); WHITE BLOOD COUNT 11.2 X10'3 (4.5-11.0)
[2019-01-06 11:20] LABS: ALBUMIN 1.6 G/DL (3.4-5.0); ANION GAP 10 (8-16); BASOPHILS % (AUTO) 0.9 % (0-1); BLOOD UREA NITROGEN 17 MG/DL (7-18); BUN/CREATININE RATIO 10.8 (5.4-32.0); CALCIUM 8.1 MG/DL (8.5-10.1); CHLORIDE 100 MMOL/L (99-107); CREATININE 1.57 MG/DL (0.60-1.10); EOSINOPHILS # (AUTO) 0.1 X10'3 (0-0.9); EOSINOPHILS % (AUTO) 0.5 % (0-6); GLUCOSE 192 MG/DL (70-104); HEMOGLOBIN 11.7 g/dl (14.0-17.9); LYMPHOCYTES # (AUTO) 0.5 X10'3 (1.1-4.8); LYMPHOCYTES % (AUTO) 4.3 % (21-51); MAGNESIUM 1.4 MG/DL (1.5-2.4); MEAN CORPUSCULAR HEMOGLOBIN 30.7 PG (27.0-31.0); MEAN CORPUSCULAR HGB CONC 34.5 g/dL (33.0-36.5); MEAN CORPUSCULAR VOLUME 89.1 FL (78-98); MEAN PLATELET VOLUME 10.7 FL (7.4-10.4); MONOCYTES # (AUTO) 0.5 X10'3 (0-0.9); MONOCYTES % (AUTO) 4.8 % (2-12); NEUTROPHILS % (AUTO) 89.5 % (42-75); RED CELL DISTRIBUTION WIDTH 14.4 % (11.5-14.5); SODIUM 135 MMOL/L (135-145); TOTAL CARBON DIOXIDE 25.5 MMOL/L (24-32); eGFR 43 ML/MIN
[2019-01-06 11:21] LABS: PHOSPHORUS 1.8 MG/DL (2.3-4.5); POTASSIUM 3.4 MMOL/L (3.5-5.1)
[2019-01-06 11:22] LABS: PLATELET COUNT 45 X10'3 (140-440)
--- NOTE | 2019-01-06 11:28 | NUR ---
F/u: VAIBHAV d/w RN regarding post-pyloric feeds as well as stool softener per MD approval given GRV 275 on 10ml/hr trickle feeds. Post-pyloric feeds would improve TF tolerance. Will continue to monitor. Addendum: 01/06/19 at [address] Amended: Links added.
[2019-01-06 12:04] LABS: PLATELET ESTIMATE DECREASED; TOTAL CELLS COUNTED 100
[2019-01-06 12:05] LABS: HYPOCHROMASIA 1+; POLYCHROMASIA FEW
[2019-01-06] MEDS: sodium bicarbonate inj. 50 ML in dextrose 5%-water 1,000 ML IV SCH ×2 (12:55→23:03)
[2019-01-06] MEDS ORDERED: epiNEPHrine 1 mg/ml inj ONE (15:23)
[2019-01-06 16:43] LABS: BASOPHILS # (AUTO) 0.1 X10'3 (0-0.2); HEMOGLOBIN 11.3 g/dl (14.0-17.9); MEAN PLATELET VOLUME 10.4 FL (7.4-10.4); WHITE BLOOD COUNT 10.6 X10'3 (4.5-11.0)
[2019-01-06 16:45] LABS: BASOPHILS % (AUTO) 1.3 % (0-1); EOSINOPHILS # (AUTO) 0.1 X10'3 (0-0.9); EOSINOPHILS % (AUTO) 0.6 % (0-6); HEMATOCRIT 32.1 % (42.0-52.0); LYMPHOCYTES # (AUTO) 0.6 X10'3 (1.1-4.8); LYMPHOCYTES % (AUTO) 5.6 % (21-51); MEAN CORPUSCULAR HEMOGLOBIN 31.4 PG (27.0-31.0); MEAN CORPUSCULAR HGB CONC 35.3 g/dL (33.0-36.5); MEAN CORPUSCULAR VOLUME 89.2 FL (78-98); MONOCYTES # (AUTO) 0.6 X10'3 (0-0.9); MONOCYTES % (AUTO) 5.7 % (2-12); NEUTROPHILS # (AUTO) 9.2 X10'3 (1.8-7.7); NEUTROPHILS % (AUTO) 86.8 % (42-75); RED CELL DISTRIBUTION WIDTH 14.3 % (11.5-14.5)
[2019-01-06 16:54] LABS: PLATELET COUNT 44 X10'3 (140-440)
[2019-01-06 16:56] LABS: ALBUMIN 1.5 G/DL (3.4-5.0); ANION GAP 10 (8-16); BLOOD UREA NITROGEN 16 MG/DL (7-18); BUN/CREATININE RATIO 10.3 (5.4-32.0); CHLORIDE 100 MMOL/L (99-107); CREATININE 1.56 MG/DL (0.60-1.10); GLUCOSE 212 MG/DL (70-104); MAGNESIUM 1.5 MG/DL (1.5-2.4); SODIUM 135 MMOL/L (135-145); TOTAL CARBON DIOXIDE 25.5 MMOL/L (24-32); eGFR 43 ML/MIN
[2019-01-06 16:57] LABS: PHOSPHORUS 2.2 MG/DL (2.3-4.5); POTASSIUM 3.1 MMOL/L (3.5-5.1)
[2019-01-06] MEDS: insulin glargine (Lantus) pen - multi-dose SQ SCH (20:53)
--- NOTE | 2019-01-06 21:40 | NUR ---
1944..CVVH machine clotted, seamer panty hose notified.
--- NOTE | 2019-01-06 21:40 | NUR ---
183..Patient in room ICU 2039. I have received report from Beto LOOMIS and had the opportunity to ask questions and assume patient care.
--- NOTE | 2019-01-06 21:41 | NUR ---
1999..Assessment as noted. Family at bedside.
--- NOTE | 2019-01-06 21:42 | NUR ---
2100..CVVH in progress, no other changes noted.
[2019-01-06 23:32] LABS: HEMOGLOBIN 11.2 g/dl (14.0-17.9); WHITE BLOOD COUNT 11.1 X10'3 (4.5-11.0)
[2019-01-06 23:34] LABS: HEMATOCRIT 32.5 % (42.0-52.0); MEAN CORPUSCULAR HEMOGLOBIN 30.7 PG (27.0-31.0); MEAN CORPUSCULAR HGB CONC 34.4 g/dL (33.0-36.5); MEAN CORPUSCULAR VOLUME 89.2 FL (78-98); MEAN PLATELET VOLUME 10.7 FL (7.4-10.4); RED BLOOD COUNT 3.65 X10'6 (4.70-6.10); RED CELL DISTRIBUTION WIDTH 14.6 % (11.5-14.5)
[2019-01-06 23:37] LABS: PLATELET COUNT 47 X10'3 (140-440)
[2019-01-06 23:44] LABS: ALBUMIN 1.5 G/DL (3.4-5.0); ANION GAP 10 (8-16); BLOOD UREA NITROGEN 15 MG/DL (7-18); BUN/CREATININE RATIO 9.9 (5.4-32.0); CALCIUM 7.9 MG/DL (8.5-10.1); CHLORIDE 100 MMOL/L (99-107); CREATININE 1.51 MG/DL (0.60-1.10); GLUCOSE 184 MG/DL (70-104); MAGNESIUM 1.5 MG/DL (1.5-2.4); SODIUM 134 MMOL/L (135-145); TOTAL CARBON DIOXIDE 23.6 MMOL/L (24-32); eGFR 45 ML/MIN
[2019-01-06 23:52] LABS: PHOSPHORUS 1.8 MG/DL (2.3-4.5); PLATELET ESTIMATE DECREASED; POTASSIUM 3.5 MMOL/L (3.5-5.1); TOTAL CELLS COUNTED 100
[2019-01-06 23:53] LABS: ANISOCYTOSIS 1+; POLYCHROMASIA FEW
[2019-01-07] VITALS (23 sets, daily range): BP systolic 90–112; BP diastolic 53–67
[2019-01-07] MEDS: potassium Cl 20mEq/100mL bag 100 ML IV PRN ×5 (00:12→12:59)
--- NOTE | 2019-01-07 00:20 | NUR ---
0000..No changes noted, cvvh continues.
[2019-01-07] MEDS: bicarb dialysis sol 2K+/3 Ca2+ 5,000 ML HE SCH ×11 (01:10→17:04)
[2019-01-07] MEDS: pantoprazole 40MG/NS 100ML BAG 100 ML IV SCH ×4 (01:52→20:43)
[2019-01-07] MEDS: magnesium 4gm in 100ml NS 100 ML IV PRN (01:53)
[2019-01-07] MEDS: mineral oil/petrolatum ophthal oint EACHEYE SCH ×4 (01:54→20:44)
[2019-01-07] MEDS: metoclopramide 5 mg/ml inj IV SCH ×4 (01:56→20:43)
[2019-01-07] MEDS: insulin regular, human vial - multi-dose SQ SCH ×2 (02:05→09:03)
[2019-01-07] MEDS: ipratropium/albuterol 3ml nebule NEB SCH ×6 (03:22→23:18)
[2019-01-07 03:35] LABS: ABG HCO3 23.7 mmol/L (22.0-26.0); ABG OXYGEN SATURATION 93.7 % (95-98); ABG PCO2 (T) 33.5 mmHg (35.0-45.0); ABG PH (T) 7.463 (7.350-7.450); ABG PO2 (T) 58.8 mmHg (83-108); FCOHb 0.4 % (0.5-1.5); FMetHb 0.3 % (0.3-1.12); MINUTE VOLUME 10 L/min; PATIENT TEMPERATURE 35.8; PEEP 5 cm H2O; RESPIRATORY RATE 18 b/min; RESPIRATORY RATE (OBSERVED) 22 b/min; TIDAL VOLUME 400 mL
--- NOTE | 2019-01-07 04:49 | NUR ---
0400..No changes noted.
[2019-01-07 04:56] LABS: HEMATOCRIT 32.4 % (42.0-52.0); HEMOGLOBIN 11.3 g/dl (14.0-17.9); MEAN PLATELET VOLUME 10.7 FL (7.4-10.4); RED CELL DISTRIBUTION WIDTH 14.3 % (11.5-14.5)
[2019-01-07 04:58] LABS: MEAN CORPUSCULAR HEMOGLOBIN 30.8 PG (27.0-31.0); MEAN CORPUSCULAR HGB CONC 34.8 g/dL (33.0-36.5); MEAN CORPUSCULAR VOLUME 88.3 FL (78-98); PLATELET COUNT 54 X10'3 (140-440); RED BLOOD COUNT 3.67 X10'6 (4.70-6.10); WHITE BLOOD COUNT 12.2 X10'3 (4.5-11.0)
[2019-01-07 05:09] LABS: ALANINE AMINOTRANSFERASE 170 U/L (12-78); ALBUMIN 1.5 G/DL (3.4-5.0); ANION GAP 9 (8-16); ASPARTATE AMINO TRANSFERASE 216 U/L (10-37); BILIRUBIN,TOTAL 8.4 MG/DL (0.1-1.0); BLOOD UREA NITROGEN 14 MG/DL (7-18); BUN/CREATININE RATIO 9.7 (5.4-32.0); CHLORIDE 101 MMOL/L (99-107); CREATININE 1.45 MG/DL (0.60-1.10); GLUCOSE 160 MG/DL (70-104); MAGNESIUM 2.4 MG/DL (1.5-2.4); SODIUM 134 MMOL/L (135-145); TOTAL CARBON DIOXIDE 24.1 MMOL/L (24-32); eGFR 47 ML/MIN
[2019-01-07 05:14] LABS: ALBUMIN/GLOBULIN RATIO 0.4 (1.1-1.5); PHOSPHORUS 1.6 MG/DL (2.3-4.5); POTASSIUM 3.7 MMOL/L (3.5-5.1); TOTAL PROTEIN 5.1 G/DL (6.4-8.2)
[2019-01-07 05:23] LABS: ALKALINE PHOSPHATASE 1279 IU/L (46-116); ANISOCYTOSIS 1+; PLATELET ESTIMATE DECREASED; TOTAL CELLS COUNTED 100
[2019-01-07 05:24] LABS: POLYCHROMASIA FEW
--- NOTE | 2019-01-07 06:19 | NUR ---
9220..Problems reprioritized. Patient report given, questions answered & plan of care reviewed with Deep LOOMIS.
[2019-01-07] MEDS: sodium phosphate inj. 15 MMOL in dextrose 5%-water 150 ML IV PRN (07:59)
[2019-01-07] MEDS: lactobacillus rhamnosus 10,000 MMU CELLS/CAPSULE PO SCH ×2 (08:00→20:43)
[2019-01-07] MEDS: K and/or MAG REPLACEMENT MC SCH (08:00)
[2019-01-07] MEDS: methylnaltrexone br 12mg/0.6ml inj***SubQ only SQ SCH (08:56)
[2019-01-07] MEDS: sodium bicarbonate inj. 50 ML in dextrose 5%-water 1,000 ML IV SCH ×2 (09:05→19:01)
[2019-01-07 11:59] LABS: HEMOGLOBIN 11.6 g/dl (14.0-17.9); WHITE BLOOD COUNT 12.8 X10'3 (4.5-11.0)
[2019-01-07 12:01] LABS: HEMATOCRIT 34.3 % (42.0-52.0); MEAN CORPUSCULAR HEMOGLOBIN 29.9 PG (27.0-31.0); MEAN CORPUSCULAR HGB CONC 33.7 g/dL (33.0-36.5); MEAN CORPUSCULAR VOLUME 88.7 FL (78-98); MEAN PLATELET VOLUME 11.3 FL (7.4-10.4); RED BLOOD COUNT 3.86 X10'6 (4.70-6.10); RED CELL DISTRIBUTION WIDTH 14.6 % (11.5-14.5)
[2019-01-07 12:07] LABS: PLATELET COUNT 48 X10'3 (140-440)
[2019-01-07 12:14] LABS: ANION GAP 9 (8-16); CHLORIDE 100 MMOL/L (99-107); SODIUM 135 MMOL/L (135-145); TOTAL CARBON DIOXIDE 26.2 MMOL/L (24-32)
[2019-01-07 12:20] LABS: ANISOCYTOSIS 1+; LARGE PLATELETS FEW; NUCLEATED RED BLOOD CELLS 1 /100WBC (0-0); PLATELET ESTIMATE DECREASED; TOTAL CELLS COUNTED 100
[2019-01-07 12:37] LABS: ALBUMIN 1.4 G/DL (3.4-5.0); BLOOD UREA NITROGEN 13 MG/DL (7-18); BUN/CREATININE RATIO 9.9 (5.4-32.0); CALCIUM 7.9 MG/DL (8.5-10.1); CREATININE 1.31 MG/DL (0.60-1.10); GLUCOSE 178 MG/DL (70-104); MAGNESIUM 1.9 MG/DL (1.5-2.4); PHOSPHORUS 3.6 MG/DL (2.3-4.5); POTASSIUM 3.6 MMOL/L (3.5-5.1); eGFR 53 ML/MIN
[2019-01-07] MEDS: NORepinephrine 8mg/ 250ml NS 250 ML IV PRN (13:28)
[2019-01-07] MEDS: vasopressin inj. 20 UNIT in normal saline 100ml IV soln 39 ML IV SCH (13:40)
[2019-01-07 17:52] LABS: HEMOGLOBIN 11.1 g/dl (14.0-17.9); MEAN CORPUSCULAR HEMOGLOBIN 30.5 PG (27.0-31.0)
[2019-01-07 17:54] LABS: HEMATOCRIT 32.4 % (42.0-52.0); MEAN CORPUSCULAR HGB CONC 34.4 g/dL (33.0-36.5); MEAN CORPUSCULAR VOLUME 88.6 FL (78-98); MEAN PLATELET VOLUME 10.8 FL (7.4-10.4); RED BLOOD COUNT 3.65 X10'6 (4.70-6.10); RED CELL DISTRIBUTION WIDTH 14.4 % (11.5-14.5); WHITE BLOOD COUNT 15.3 X10'3 (4.5-11.0)
[2019-01-07 17:58] LABS: PLATELET COUNT 45 X10'3 (140-440)
[2019-01-07 18:09] LABS: ANISOCYTOSIS 1+; LARGE PLATELETS FEW; PLATELET ESTIMATE DECREASED; TOTAL CELLS COUNTED 100
[2019-01-07 18:14] LABS: ALBUMIN 1.4 G/DL (3.4-5.0); ANION GAP 8 (8-16); BLOOD UREA NITROGEN 13 MG/DL (7-18); BUN/CREATININE RATIO 9.4 (5.4-32.0); CALCIUM 7.8 MG/DL (8.5-10.1); CHLORIDE 101 MMOL/L (99-107); CREATININE 1.39 MG/DL (0.60-1.10); GLUCOSE 182 MG/DL (70-104); MAGNESIUM 1.8 MG/DL (1.5-2.4); SODIUM 134 MMOL/L (135-145); eGFR 49 ML/MIN
--- NOTE | 2019-01-07 18:30 | NUR ---
I have received report and assumed care of pt. pt resting in bed rise and fall of chest cavity equile and symmetrical, CVVH in place, Levophed drip in place to keep MAP greater then 65. pt does not seem to respond to verbal stimuli.
--- NOTE | 2019-01-07 18:35 | NUR ---
All vasoactive medication going threw CVL. CVP and Arterial lines are transduced wave form acceptable
[2019-01-07] MEDS: insulin glargine (Lantus) pen - multi-dose SQ SCH (21:00)
--- NOTE | 2019-01-07 21:15 | NUR ---
Spoke to Elizabeth Woodard Over OPHTHALMIC PATHOLOGIST regarding pts glucose coverage. Due to pts tube feedings being on hold secondary high residules, pt will not be covered with insulin until he meets protocol for coverage.
[2019-01-07] MEDS: [UNRECOGNIZED DRUG - REMARK] IV SCH ×3 (22:34→22:36)
[2019-01-07 23:26] LABS: HEMOGLOBIN 11.3 g/dl (14.0-17.9); MEAN CORPUSCULAR HEMOGLOBIN 30.2 PG (27.0-31.0); RED BLOOD COUNT 3.74 X10'6 (4.70-6.10)
[2019-01-07 23:28] LABS: HEMATOCRIT 33.2 % (42.0-52.0); MEAN CORPUSCULAR HGB CONC 34.1 g/dL (33.0-36.5); MEAN CORPUSCULAR VOLUME 88.8 FL (78-98); MEAN PLATELET VOLUME 10.3 FL (7.4-10.4); RED CELL DISTRIBUTION WIDTH 14.3 % (11.5-14.5); WHITE BLOOD COUNT 15.1 X10'3 (4.5-11.0)
[2019-01-07 23:34] LABS: ALBUMIN 1.4 G/DL (3.4-5.0); ANION GAP 10 (8-16); BLOOD UREA NITROGEN 12 MG/DL (7-18); BUN/CREATININE RATIO 9.8 (5.4-32.0); CALCIUM 7.8 MG/DL (8.5-10.1); CHLORIDE 100 MMOL/L (99-107); CREATININE 1.23 MG/DL (0.60-1.10); GLUCOSE 152 MG/DL (70-104); MAGNESIUM 1.7 MG/DL (1.5-2.4); SODIUM 135 MMOL/L (135-145); TOTAL CARBON DIOXIDE 25.5 MMOL/L (24-32); eGFR 57 ML/MIN
[2019-01-07 23:35] LABS: PLATELET COUNT 46 X10'3 (140-440)
[2019-01-07 23:38] LABS: PHOSPHORUS 3.1 MG/DL (2.3-4.5); POTASSIUM 3.5 MMOL/L (3.5-5.1)
[2019-01-08] VITALS (24 sets, daily range): BP systolic 87–107; BP diastolic 49–66
[2019-01-08 00:14] LABS: ANISOCYTOSIS 1+; LARGE PLATELETS FEW; NUCLEATED RED BLOOD CELLS 1 /100WBC (0-0); PLATELET ESTIMATE DECREASED; TOTAL CELLS COUNTED 100
[2019-01-08] MEDS: potassium Cl 20mEq/100mL bag 100 ML IV PRN ×3 (00:28→13:33)
[2019-01-08] MEDS: NORepinephrine 8mg/ 250ml NS 250 ML IV PRN ×3 (01:54→17:59)
[2019-01-08] MEDS: mineral oil/petrolatum ophthal oint EACHEYE SCH ×4 (02:00→19:53)
--- NOTE | 2019-01-08 02:55 | NUR ---
cvvh down rfp writer contacted and on her way in
[2019-01-08] MEDS: pantoprazole 40MG/NS 100ML BAG 100 ML IV SCH ×2 (03:15→07:58)
[2019-01-08] MEDS: [UNRECOGNIZED DRUG - REMARK] IV SCH ×6 (03:23→13:47)
[2019-01-08] MEDS: ipratropium/albuterol 3ml nebule NEB SCH ×6 (03:27→23:05)
[2019-01-08] MEDS: metoclopramide 5 mg/ml inj IV SCH ×4 (03:52→19:34)
--- NOTE | 2019-01-08 04:15 | NUR ---
cvvh back running. no changes in pts condition noted
[2019-01-08 04:21] LABS: ABG BASE EXCESS -2.1 mmol/L (-2.0-3.0); ABG OXYGEN SATURATION 95.3 % (95-98); ABG PH (T) 7.426 (7.350-7.450); ABG PO2 (T) 65.6 mmHg (83-108); FCOHb 0.4 % (0.5-1.5); FMetHb 0.3 % (0.3-1.12); FO2Hb 94.6 % (94-100); MINUTE VOLUME 12 L/min; PEEP 5 cm H2O; RESPIRATORY RATE 18 b/min; RESPIRATORY RATE (OBSERVED) 22 b/min; TIDAL VOLUME 500 mL; TOTAL HEMOGLOBIN 11.8 G/dl (14.0-17.9)
[2019-01-08 05:37] LABS: MEAN CORPUSCULAR HEMOGLOBIN 30.8 PG (27.0-31.0); MEAN CORPUSCULAR HGB CONC 34.5 g/dL (33.0-36.5); MEAN CORPUSCULAR VOLUME 89.4 FL (78-98); MEAN PLATELET VOLUME 10.6 FL (7.4-10.4); RED BLOOD COUNT 3.57 X10'6 (4.70-6.10); RED CELL DISTRIBUTION WIDTH 14.4 % (11.5-14.5); WHITE BLOOD COUNT 15.1 X10'3 (4.5-11.0)
[2019-01-08 05:39] LABS: PLATELET COUNT 43 X10'3 (140-440)
[2019-01-08 05:47] LABS: ALANINE AMINOTRANSFERASE 118 U/L (12-78); ALBUMIN 1.4 G/DL (3.4-5.0); ALKALINE PHOSPHATASE 997 IU/L (46-116); ANION GAP 12 (8-16); ASPARTATE AMINO TRANSFERASE 121 U/L (10-37); BILIRUBIN,TOTAL 7.6 MG/DL (0.1-1.0); BLOOD UREA NITROGEN 13 MG/DL (7-18); BUN/CREATININE RATIO 10.1 (5.4-32.0); CALCIUM 7.7 MG/DL (8.5-10.1); CHLORIDE 100 MMOL/L (99-107); CREATININE 1.29 MG/DL (0.60-1.10); GLUCOSE 174 MG/DL (70-104); MAGNESIUM 1.7 MG/DL (1.5-2.4); PREALBUMIN 7.5 MG/DL (19-36); SODIUM 135 MMOL/L (135-145); TOTAL CARBON DIOXIDE 23.5 MMOL/L (24-32); eGFR 54 ML/MIN
[2019-01-08 05:49] LABS: ALBUMIN/GLOBULIN RATIO 0.4 (1.1-1.5); PHOSPHORUS 2.8 MG/DL (2.3-4.5); POTASSIUM 4.1 MMOL/L (3.5-5.1); TOTAL PROTEIN 5.1 G/DL (6.4-8.2)
--- NOTE | 2019-01-08 06:17 | NUR ---
report given to rec rn plan of care reviewed
--- NOTE | 2019-01-08 06:30 | NUR ---
Received report and assumed care of patient. plan of care review
[2019-01-08 06:52] LABS: LARGE PLATELETS FEW; NUCLEATED RED BLOOD CELLS 2 /100WBC (0-0); PLATELET ESTIMATE DECREASED; TOTAL CELLS COUNTED 100
[2019-01-08 06:53] LABS: ANISOCYTOSIS 1+
[2019-01-08] MEDS: lactobacillus rhamnosus 10,000 MMU CELLS/CAPSULE PO SCH ×2 (07:53→19:34)
[2019-01-08] MEDS: K and/or MAG REPLACEMENT MC SCH (08:00)
[2019-01-08 11:39] LABS: HEMOGLOBIN 10.9 g/dl (14.0-17.9)
[2019-01-08 11:43] LABS: HEMATOCRIT 31.5 % (42.0-52.0); MEAN CORPUSCULAR HEMOGLOBIN 30.9 PG (27.0-31.0); MEAN CORPUSCULAR HGB CONC 34.6 g/dL (33.0-36.5); MEAN CORPUSCULAR VOLUME 89.3 FL (78-98); MEAN PLATELET VOLUME 10.7 FL (7.4-10.4); PLATELET COUNT 57 X10'3 (140-440); RED BLOOD COUNT 3.53 X10'6 (4.70-6.10); RED CELL DISTRIBUTION WIDTH 14.4 % (11.5-14.5); WHITE BLOOD COUNT 15.5 X10'3 (4.5-11.0)
[2019-01-08 11:45] LABS: ALBUMIN 1.4 G/DL (3.4-5.0); ANION GAP 9 (8-16); BLOOD UREA NITROGEN 12 MG/DL (7-18); BUN/CREATININE RATIO 8.7 (5.4-32.0); CALCIUM 7.9 MG/DL (8.5-10.1); CHLORIDE 99 MMOL/L (99-107); CREATININE 1.38 MG/DL (0.60-1.10); GLUCOSE 203 MG/DL (70-104); MAGNESIUM 1.7 MG/DL (1.5-2.4); SODIUM 134 MMOL/L (135-145); TOTAL CARBON DIOXIDE 25.8 MMOL/L (24-32); eGFR 50 ML/MIN
[2019-01-08 11:47] LABS: PHOSPHORUS 2.5 MG/DL (2.3-4.5); POTASSIUM 3.8 MMOL/L (3.5-5.1)
[2019-01-08] MEDS: SODIUM BICARBONATE IV SCH (12:00)
[2019-01-08] MEDS: DEXTROSE IV SCH (12:00)
[2019-01-08] MEDS: WATER IV SCH (12:00)
--- NOTE | 2019-01-08 12:20 | NUR ---
Reassessment: patient needs nutrition. Trickle tube feeding at 10 ml/hr not tolerated, not able to meet nutrition needs since admission. Patient intubated, on pressors. Yesterday maxed on both vasopressin and levophed. MAP is over 65 today. Receiving relistor and reglan. Last bowel movement 01/08 was a smear, had four smears since admission with no significant bowel movement, received one dose of dulcolax, may benefit from additional bowel. Continues to have high gasric residuals. Receiving sodium bicarbonate with dextrose. Pt was having high gastric residuals up to 450 ml, was 300 ml on last check 01/08. Recommend post pyloric tube feedings past the stomach to aid in TF tolerance, discussed with MD. Patient has very high protein needs in view of intubation and CVVH. If post pyloric feedings are not feasible patient would then benefit from TPN to meet needs. All discussed at rounds. Recommendations: 1. Trickle OGTF per MD using Vital High Protein at 10ml/hr goal; to provide 240 ml volume, 175ml free water, 432 kcals, and 19g protein. 2. additional free water per medical radiation therapist on CVVH 3. When tube feeding is advanced past trickle rate, patient would benefit from Vital High protein at 85ml/hr goal; to provide 2040ml fluid, 2040kcals, 1714ml free water, and 179g protein. 4. prealbumin Q /; daily wts 5. routine bowel care 6. Patient may benefit form post pyloric tube feedings in view of unable to advance previously d/t high GRV 7. If TPN, recommend continuous 2:1 TPN using Clinimix non-E at 120 ml/hr to provide total volume of 2880, 2045 cals, 144 gm protein, 432 gm dextrose, 2.95 mg/kg/min CHO loading. 8. IF TPN, recommend separate 20% intralipids to run for 12 hours daily to provide 15 ml/hr, 180 ml total and 36 grams lipids. Addendum: 01/08/19 at [address] Amended: Links added.
[2019-01-08] MEDS: magnesium 4gm in 100ml NS 100 ML IV PRN (12:48)
[2019-01-08 12:49] LABS: LARGE PLATELETS MODERATE; PLATELET ESTIMATE DECREASED
[2019-01-08] MEDS: insulin regular, human vial - multi-dose SQ SCH (14:55)
[2019-01-08 17:49] LABS: HEMOGLOBIN 10.7 g/dl (14.0-17.9); MEAN CORPUSCULAR VOLUME 89.9 FL (78-98)
[2019-01-08 17:51] LABS: HEMATOCRIT 31.1 % (42.0-52.0); MEAN CORPUSCULAR HEMOGLOBIN 30.8 PG (27.0-31.0); MEAN CORPUSCULAR HGB CONC 34.3 g/dL (33.0-36.5); MEAN PLATELET VOLUME 10.9 FL (7.4-10.4); PLATELET COUNT 65 X10'3 (140-440); RED BLOOD COUNT 3.47 X10'6 (4.70-6.10); RED CELL DISTRIBUTION WIDTH 14.8 % (11.5-14.5); WHITE BLOOD COUNT 14.6 X10'3 (4.5-11.0)
[2019-01-08 17:58] LABS: ALBUMIN 1.3 G/DL (3.4-5.0); ANION GAP 10 (8-16); BLOOD UREA NITROGEN 12 MG/DL (7-18); BUN/CREATININE RATIO 8.9 (5.4-32.0); CALCIUM 7.9 MG/DL (8.5-10.1); CHLORIDE 100 MMOL/L (99-107); CREATININE 1.35 MG/DL (0.60-1.10); GLUCOSE 196 MG/DL (70-104); MAGNESIUM 2.4 MG/DL (1.5-2.4); SODIUM 135 MMOL/L (135-145); TOTAL CARBON DIOXIDE 24.9 MMOL/L (24-32); eGFR 51 ML/MIN
[2019-01-08] MEDS: bicarb dialysis sol 2K+/3 Ca2+ 5,000 ML HE SCH ×5 (18:00→21:34)
[2019-01-08 18:16] LABS: GIANT PLATELET FEW; LARGE PLATELETS MODERATE; NUCLEATED RED BLOOD CELLS 7 /100WBC (0-0); PLATELET ESTIMATE DECREASED; TOTAL CELLS COUNTED 100; TOXIC GRANULATION 3+
[2019-01-08 18:17] LABS: ANISOCYTOSIS 1+
[2019-01-08 18:18] LABS: POLYCHROMASIA 1+; TARGET CELLS 1+
--- NOTE | 2019-01-08 18:25 | NUR ---
Patient in room ICU 2039. I have received report from Lizzie LOOMIS and had the opportunity to ask questions and assume patient care.
[2019-01-08] MEDS: sodium phosphate inj. 15 MMOL in dextrose 5%-water 150 ML IV PRN (19:26)
[2019-01-08] MEDS: pantoprazole 40 MG vial IV SCH (19:34)
[2019-01-08] MEDS: insulin glargine (Lantus) pen - multi-dose SQ SCH (20:50)
[2019-01-08] MEDS: insulin Lispro (HumaLOG) vial - multi-dose SQ SCH (20:52)
[2019-01-08 23:37] LABS: HEMOGLOBIN 10.5 g/dl (14.0-17.9)
[2019-01-08 23:39] LABS: HEMATOCRIT 30.2 % (42.0-52.0); MEAN CORPUSCULAR HEMOGLOBIN 30.8 PG (27.0-31.0); MEAN CORPUSCULAR HGB CONC 34.7 g/dL (33.0-36.5); MEAN CORPUSCULAR VOLUME 88.9 FL (78-98); MEAN PLATELET VOLUME 10.7 FL (7.4-10.4); PLATELET COUNT 62 X10'3 (140-440); RED CELL DISTRIBUTION WIDTH 14.8 % (11.5-14.5); WHITE BLOOD COUNT 13.9 X10'3 (4.5-11.0)
[2019-01-09] VITALS (25 sets, daily range): BP systolic 84–129; BP diastolic 45–77
[2019-01-09 00:11] LABS: TOTAL CELLS COUNTED 100
[2019-01-09 00:12] LABS: ANISOCYTOSIS 1+; PLATELET ESTIMATE DECREASED; POLYCHROMASIA 1+; TOXIC VACUOLATION 1+
[2019-01-09 00:13] LABS: GIANT PLATELET FEW; TARGET CELLS 2+; TOXIC GRANULATION 2+
[2019-01-09 00:14] LABS: LARGE PLATELETS MODERATE
[2019-01-09 00:21] LABS: ALBUMIN 1.3 G/DL (3.4-5.0); ANION GAP 10 (8-16); BLOOD UREA NITROGEN 11 MG/DL (7-18); BUN/CREATININE RATIO 9.1 (5.4-32.0); CALCIUM 7.6 MG/DL (8.5-10.1); CHLORIDE 100 MMOL/L (99-107); CREATININE 1.21 MG/DL (0.60-1.10); GLUCOSE 217 MG/DL (70-104); PHOSPHORUS 2.7 MG/DL (2.3-4.5); POTASSIUM 3.6 MMOL/L (3.5-5.1); SODIUM 134 MMOL/L (135-145); TOTAL CARBON DIOXIDE 24.4 MMOL/L (24-32); eGFR 58 ML/MIN
[2019-01-09] MEDS: NORepinephrine 8mg/ 250ml NS 250 ML IV PRN ×3 (00:22→18:47)
[2019-01-09] MEDS: DEXTROSE IV SCH ×3 (00:23→19:25)
[2019-01-09] MEDS: WATER IV SCH ×3 (00:23→19:25)
[2019-01-09] MEDS: SODIUM BICARBONATE IV SCH ×3 (00:23→19:25)
[2019-01-09] MEDS: potassium Cl 20mEq/100mL bag 100 ML IV PRN ×3 (00:53→07:11)
[2019-01-09] MEDS: mineral oil/petrolatum ophthal oint EACHEYE SCH ×4 (01:55→20:43)
[2019-01-09] MEDS: metoclopramide 5 mg/ml inj IV SCH ×4 (01:55→20:43)
[2019-01-09] MEDS: insulin Lispro (HumaLOG) vial - multi-dose SQ SCH (02:07)
[2019-01-09] MEDS: ipratropium/albuterol 3ml nebule NEB SCH ×6 (03:19→23:08)
[2019-01-09 03:31] LABS: ABG BASE EXCESS -1.3 mmol/L (-2.0-3.0); ABG HCO3 23.2 mmol/L (22.0-26.0); ABG OXYGEN SATURATION 93.5 % (95-98); ABG PCO2 (T) 36.9 mmHg (35.0-45.0); ABG PH (T) 7.413 (7.350-7.450); FCOHb 0.3 % (0.5-1.5); FO2Hb 93.2 % (94-100); MINUTE VOLUME 10 L/min; PATIENT TEMPERATURE 36.2; PEEP 5 cm H2O; RESPIRATORY RATE 18 b/min; RESPIRATORY RATE (OBSERVED) 22 b/min; TIDAL VOLUME 400 mL; TOTAL HEMOGLOBIN 11.2 G/dl (14.0-17.9)
[2019-01-09 05:32] LABS: HEMATOCRIT 29.7 % (42.0-52.0); HEMOGLOBIN 10.3 g/dl (14.0-17.9); MEAN CORPUSCULAR HGB CONC 34.5 g/dL (33.0-36.5); RED BLOOD COUNT 3.33 X10'6 (4.70-6.10)
[2019-01-09 05:36] LABS: BASOPHILS % (AUTO) 0.3 % (0-1); EOSINOPHILS % (AUTO) 0.1 % (0-6); LYMPHOCYTES # (AUTO) 0.3 X10'3 (1.1-4.8); LYMPHOCYTES % (AUTO) 2.5 % (21-51); MEAN CORPUSCULAR HEMOGLOBIN 30.8 PG (27.0-31.0); MEAN CORPUSCULAR VOLUME 89.1 FL (78-98); MEAN PLATELET VOLUME 10.9 FL (7.4-10.4); MONOCYTES # (AUTO) 1.4 X10'3 (0-0.9); MONOCYTES % (AUTO) 10.3 % (2-12); NEUTROPHILS # (AUTO) 11.6 X10'3 (1.8-7.7); NEUTROPHILS % (AUTO) 86.8 % (42-75); PLATELET COUNT 67 X10'3 (140-440); RED CELL DISTRIBUTION WIDTH 15.1 % (11.5-14.5); WHITE BLOOD COUNT 13.3 X10'3 (4.5-11.0)
[2019-01-09] MEDS: bicarb dialysis sol 2K+/3 Ca2+ 5,000 ML HE SCH ×12 (05:37→18:55)
[2019-01-09 06:04] LABS: ALANINE AMINOTRANSFERASE 81 U/L (12-78); ALBUMIN 1.3 G/DL (3.4-5.0); ALKALINE PHOSPHATASE 738 IU/L (46-116); ANION GAP 10 (8-16); ASPARTATE AMINO TRANSFERASE 75 U/L (10-37); BILIRUBIN,TOTAL 6.6 MG/DL (0.1-1.0); BLOOD UREA NITROGEN 11 MG/DL (7-18); BUN/CREATININE RATIO 9.6 (5.4-32.0); CALCIUM 7.7 MG/DL (8.5-10.1); CHLORIDE 102 MMOL/L (99-107); CREATININE 1.14 MG/DL (0.60-1.10); GLUCOSE 185 MG/DL (70-104); SODIUM 135 MMOL/L (135-145); eGFR 62 ML/MIN
[2019-01-09 06:07] LABS: MAGNESIUM 1.8 MG/DL (1.5-2.4)
[2019-01-09 06:14] LABS: ALBUMIN/GLOBULIN RATIO 0.4 (1.1-1.5); PHOSPHORUS 2.2 MG/DL (2.3-4.5); POTASSIUM 3.7 MMOL/L (3.5-5.1); TOTAL PROTEIN 4.9 G/DL (6.4-8.2)
--- NOTE | 2019-01-09 06:18 | NUR ---
Student documentation: I have reviewed and agree with all interventions, assessments performed and documented by [facility]. Student Medication Administration: For this medication-pass time frame, all medication were reviewed, dispensed, administered and documented per hospital policy by [facility]. Problems reprioritized. Patient report given, questions answered & plan of care reviewed with Michael LOOMIS.
[2019-01-09 07:01] LABS: LARGE PLATELETS MODERATE; PLATELET ESTIMATE DECREASED
[2019-01-09 07:02] LABS: ANISOCYTOSIS 1+; POLYCHROMASIA 1+
[2019-01-09] MEDS: pantoprazole 40 MG vial IV SCH ×2 (07:11→20:43)
[2019-01-09] MEDS: methylnaltrexone br 12mg/0.6ml inj***SubQ only SQ SCH (07:11)
[2019-01-09] MEDS: K and/or MAG REPLACEMENT MC SCH (08:00)
[2019-01-09] MEDS: sodium phosphate inj. 30 MMOL in normal saline 250ml IV soln 250 ML IV PRN (08:02)
[2019-01-09] MEDS: lactobacillus rhamnosus 10,000 MMU CELLS/CAPSULE PO SCH ×2 (08:02→20:43)
--- NOTE | 2019-01-09 08:10 | NUR ---
Allowing pt to run a little positive on CVVH. He is not tolerating UF rate of 175mL/hr. UF rate decreased to 100 mL/hr. BP responded to rate decrease. Levophed increased from 14 mcg/min to 16 mcg/min. Pt maintaining MAP 60-62. Gastric residuals dark and have a strong fecal smell. Bowel sounds are absent. Dr. Haskins was in to round this morning and is aware. Pt is awake and alert and following commands and nodding head appropriately. He has left hemiparesis.
[2019-01-09] MEDS: insulin regular, human vial - multi-dose SQ SCH ×3 (08:45→20:51)
--- NOTE | 2019-01-09 11:24 | NUR ---
TPN consult, patient has PICC. Trickle tube feeding at 10 ml/hr not tolerated, not able to meet nutrition needs since admission. Discussed that patient may benefit from post-pyloric feedings with Student Admissions Clerk and bedside nurse, discussed today that patient's bowel sounds are absent and in view of this enteral feedings may not be feasible. Patient has OG tube into stomach. Patient intubated, on pressors. MAP is over 60. Receiving relistor and reglan. Last bowel movement 01/08 was a smear, had four smears since admission with no significant bowel movement, discussed at rounds; pt received one dose of dulcolax, may benefit from additional bowel care. Continues to have high gastric residuals. Receiving sodium bicarbonate with dextrose. Patient has very high protein needs in view of intubation and dialysis, pt now has femoral dialysis catheter. In view of enteral feedings not feasible patient would then benefit from TPN to meet needs. All discussed at rounds with RN, pharmacy, and Student Admissions Clerk. Recommendations: 1. continuous 2:1 TPN using Clinimix non-E at 120 ml/hr to provide total volume of 2880, 2045 cals, 144 gm protein, 432 gm dextrose, 2.95 mg/kg/min CHO loading. 2. Separate 20% intralipids to run for 12 hours daily to provide 15 ml/hr, 180 ml total and 36 grams lipids. 3. Trickle OGTF per MD using Vital High Protein at 10ml/hr goal; to provide 240 ml volume, 175ml free water, 432 kcals, and 19g protein. Patient may benefit form post pyloric tube feedings in view of unable to advance previously d/t high GRV 4. additional free water per dobby looms pegger on CVVH 5. IF tube feeding is able to be advanced past trickle rate when he can tolerate it, patient would benefit from Vital High protein at 85ml/hr goal; to provide 2040ml fluid, 2040kcals, 1714ml free water, and 179g protein. 6. prealbumin Q /; daily wts 7. routine bowel care, patient only having smears since admission, no significant bowel movement Addendum: 01/09/19 at [address] Amended: Links added. Addendum: 01/09/19 at [address] Recommendations: 1. continuous 2:1 TPN using Clinimix non-E 5/15 at 120 ml/hr to provide total volume of 2880, 2045 cals, 144 gm protein, 432 gm dextrose, 2.95 mg/kg/min CHO loading. 2. Separate 20% intralipids to run for 12 hours daily to provide 15 ml/hr, 180 ml total and 36 grams lipids. 3. Trickle OGTF per MD using Vital High Protein at 10ml/hr goal; to provide 240 ml volume, 175ml free water, 432 kcals, and 19g protein. Patient may benefit form post pyloric tube feedings in view of unable to advance previously d/t high GRV 4. additional free water per dobby looms pegger on CVVH 5. IF tube feeding is able to be advanced past trickle rate when he can tolerate it, patient would benefit from Vital High protein at 85ml/hr goal; to provide 2040ml fluid, 2040kcals, 1714ml free water, and 179g protein. 6. prealbumin Q /; daily wts 7. routine bowel care, patient only having smears since admission, no significant bowel movement
[2019-01-09 12:04] LABS: BASOPHILS % (AUTO) 0.3 % (0-1); EOSINOPHILS % (AUTO) 0.1 % (0-6); HEMOGLOBIN 10.3 g/dl (14.0-17.9); LYMPHOCYTES # (AUTO) 1.4 X10'3 (1.1-4.8); MEAN CORPUSCULAR HEMOGLOBIN 30.5 PG (27.0-31.0); MEAN CORPUSCULAR HGB CONC 34.2 g/dL (33.0-36.5); MEAN PLATELET VOLUME 10.1 FL (7.4-10.4); MONOCYTES # (AUTO) 0.7 X10'3 (0-0.9); MONOCYTES % (AUTO) 4.9 % (2-12); NEUTROPHILS # (AUTO) 11.5 X10'3 (1.8-7.7); NEUTROPHILS % (AUTO) 84.7 % (42-75); PLATELET COUNT 72 X10'3 (140-440); RED BLOOD COUNT 3.37 X10'6 (4.70-6.10); RED CELL DISTRIBUTION WIDTH 14.9 % (11.5-14.5); WHITE BLOOD COUNT 13.6 X10'3 (4.5-11.0)
[2019-01-09 12:11] LABS: ALBUMIN 1.3 G/DL (3.4-5.0); ANION GAP 9 (8-16); BLOOD UREA NITROGEN 9 MG/DL (7-18); BUN/CREATININE RATIO 7.8 (5.4-32.0); CALCIUM 7.7 MG/DL (8.5-10.1); CHLORIDE 101 MMOL/L (99-107); CREATININE 1.15 MG/DL (0.60-1.10); GLUCOSE 159 MG/DL (70-104); MAGNESIUM 1.7 MG/DL (1.5-2.4); SODIUM 135 MMOL/L (135-145); TOTAL CARBON DIOXIDE 24.6 MMOL/L (24-32); eGFR 62 ML/MIN
[2019-01-09 12:19] LABS: PHOSPHORUS 2.9 MG/DL (2.3-4.5); POTASSIUM 3.5 MMOL/L (3.5-5.1)
[2019-01-09] MEDS ORDERED: Dextrose 10%-water IV solution 1,000 ML IV PRN (12:22)
[2019-01-09] MEDS: K, MAG and/or Phos replacement - Verify level? MC SCH (12:25)
[2019-01-09] MEDS ORDERED: sodium phosphate inj. 30 MMOL in dextrose 5%-water 250 ML IV PRN (12:25)
[2019-01-09] MEDS ORDERED: Neutra Phos packet PO PRN (12:25)
[2019-01-09] MEDS ORDERED: magnesium 4gm in 100ml NS 100 ML IV PRN (12:25)
[2019-01-09] MEDS ORDERED: sodium phosphate inj. 15 MMOL in dextrose 5%-water 150 ML IV PRN (12:25)
[2019-01-09] MEDS ORDERED: potassium Cl 20 mEq SR tablet PO PRN ×2 (12:25)
[2019-01-09] MEDS ORDERED: magnesium Cl slow-release 64mg tablet PO PRN (12:25)
[2019-01-09] MEDS ORDERED: potassium Cl 20mEq/100mL bag 100 ML IV PRN (12:25)
[2019-01-09] MEDS ORDERED: magnesium 2GM in 50ml NS 50 ML IV PRN (12:25)
[2019-01-09 12:39] LABS: NUCLEATED RED BLOOD CELLS 5 /100WBC (0-0); PLATELET ESTIMATE DECREASED; TOTAL CELLS COUNTED 100
[2019-01-09 12:40] LABS: TARGET CELLS 1+
[2019-01-09 12:43] LABS: LARGE PLATELETS MODERATE; POLYCHROMASIA 1+
[2019-01-09] MEDS ORDERED: TRACE ELEMENT IV SCH (15:00)
[2019-01-09] MEDS ORDERED: [UNRECOGNIZED DRUG - OTHER] IV SCH (15:00)
[2019-01-09] MEDS ORDERED: AMINO ACID IV SCH (15:00)
[2019-01-09 15:54] LABS: BASOPHILS % (AUTO) 0.3 % (0-1); EOSINOPHILS % (AUTO) 0.2 % (0-6); HEMATOCRIT 28.8 % (42.0-52.0); HEMOGLOBIN 9.9 g/dl (14.0-17.9); LYMPHOCYTES # (AUTO) 1.1 X10'3 (1.1-4.8); LYMPHOCYTES % (AUTO) 8.5 % (21-51); MEAN CORPUSCULAR HEMOGLOBIN 30.4 PG (27.0-31.0); MEAN CORPUSCULAR HGB CONC 34.3 g/dL (33.0-36.5); MEAN CORPUSCULAR VOLUME 88.8 FL (78-98); MEAN PLATELET VOLUME 10.2 FL (7.4-10.4); MONOCYTES # (AUTO) 0.7 X10'3 (0-0.9); MONOCYTES % (AUTO) 5.8 % (2-12); NEUTROPHILS # (AUTO) 10.8 X10'3 (1.8-7.7); NEUTROPHILS % (AUTO) 85.2 % (42-75); PLATELET COUNT 71 X10'3 (140-440); RED BLOOD COUNT 3.24 X10'6 (4.70-6.10); RED CELL DISTRIBUTION WIDTH 14.7 % (11.5-14.5); WHITE BLOOD COUNT 12.6 X10'3 (4.5-11.0)
--- NOTE | 2019-01-09 15:58 | NUR ---
@1515 Nxstage CVVH down, some blood returned to pt. Disconnected from pt Dialysis catheter, flushed per policy. Dr stahl notified, stunner animal notified. Also notified dr Stahl of 200ml flush added back to pt to return blood.
[2019-01-09] MEDS: MVI, adult No.4 with vit. K 10 ML in dextrose 5% water 500ml 490 ML IV SCH ×2 (16:00)
--- NOTE | 2019-01-09 18:20 | NUR ---
Problems reprioritized. Patient report given, questions answered & plan of care reviewed with VLADISLAV Gaona.
--- NOTE | 2019-01-09 18:30 | NUR ---
Patient in room ICU 2039. I have received report from Nasima LOOMIS and had the opportunity to ask questions and assume patient care.
[2019-01-09] MEDS: fat emulsion IV bag 180 ML IV SCH (19:55)
--- NOTE | 2019-01-09 20:00 | NUR ---
HOB 10 degrees, femoral art line in groin. Addendum: 01/09/19 at 2126 by Candelaria Motley RN Amended: Links added.
[2019-01-09] MEDS: insulin glargine (Lantus) pen - multi-dose SQ SCH (20:53)
--- NOTE | 2019-01-09 22:15 | NUR ---
Case dialysis catheter d/c'd per MD order, cannula intact. Manual hold for 20 minutes until hemostasis achieved. Site soft, no obvious signs/symptoms of bleeding or hematoma. Occlusive dressing applied to arterial line insertion site. Pressure dressing applied to Case site.
[2019-01-10] VITALS (24 sets, daily range): BP systolic 90–119; BP diastolic 51–62
[2019-01-10] MEDS: mineral oil/petrolatum ophthal oint EACHEYE SCH ×4 (02:37→20:20)
[2019-01-10] MEDS: metoclopramide 5 mg/ml inj IV SCH ×4 (02:37→20:20)
[2019-01-10] MEDS: insulin regular, human vial - multi-dose SQ SCH ×4 (02:42→20:42)
[2019-01-10 02:51] LABS: HEMOGLOBIN 9.6 g/dl (14.0-17.9); MEAN PLATELET VOLUME 10.3 FL (7.4-10.4)
[2019-01-10 02:52] LABS: HEMATOCRIT 27.4 % (42.0-52.0); MEAN CORPUSCULAR HEMOGLOBIN 30.9 PG (27.0-31.0); MEAN CORPUSCULAR HGB CONC 34.9 g/dL (33.0-36.5); MEAN CORPUSCULAR VOLUME 88.5 FL (78-98); PLATELET COUNT 130 X10'3 (140-440); RED CELL DISTRIBUTION WIDTH 14.7 % (11.5-14.5); WHITE BLOOD COUNT 11.9 X10'3 (4.5-11.0)
[2019-01-10] MEDS: ipratropium/albuterol 3ml nebule NEB SCH ×5 (03:04→23:17)
[2019-01-10 03:09] LABS: ALANINE AMINOTRANSFERASE 63 U/L (12-78); ALBUMIN 1.2 G/DL (3.4-5.0); ALKALINE PHOSPHATASE 726 IU/L (46-116); ANION GAP 11 (8-16); ASPARTATE AMINO TRANSFERASE 74 U/L (10-37); BILIRUBIN,TOTAL 6.4 MG/DL (0.1-1.0); BLOOD UREA NITROGEN 16 MG/DL (7-18); BUN/CREATININE RATIO 8.5 (5.4-32.0); CALCIUM 7.7 MG/DL (8.5-10.1); CHLORIDE 99 MMOL/L (99-107); CREATININE 1.88 MG/DL (0.60-1.10); GLUCOSE 286 MG/DL (70-104); MAGNESIUM 1.9 MG/DL (1.5-2.4); PREALBUMIN 6.8 MG/DL (19-36); SODIUM 133 MMOL/L (135-145); eGFR 35 ML/MIN
[2019-01-10 03:10] LABS: ALBUMIN/GLOBULIN RATIO 0.3 (1.1-1.5); PHOSPHORUS 2.8 MG/DL (2.3-4.5); POTASSIUM 3.6 MMOL/L (3.5-5.1)
[2019-01-10 03:11] LABS: TRIGLYCERIDES 225 MG/DL (20-135)
[2019-01-10 03:21] LABS: ABG BASE EXCESS -2.2 mmol/L (-2.0-3.0); ABG HCO3 20.1 mmol/L (22.0-26.0); ABG OXYGEN SATURATION 97.3 % (95-98); ABG PCO2 (T) 26.4 mmHg (35.0-45.0); FCOHb 0.3 % (0.5-1.5); FMetHb 0.3 % (0.3-1.12); FO2Hb 96.7 % (94-100); MINUTE VOLUME 8 L/min; PATIENT TEMPERATURE 36.7; PEEP 5 cm H2O; RESPIRATORY RATE (OBSERVED) 22 b/min; TOTAL HEMOGLOBIN 10.3 G/dl (14.0-17.9)
--- NOTE | 2019-01-10 03:37 | NUR ---
Current labs reviewed, Elizabeth Morales updated. No new orders at this time. Titrating Levophed to keep MAP greater than 65. Will continue to monitor closely.
[2019-01-10] MEDS: NORepinephrine 8mg/ 250ml NS 250 ML IV PRN ×2 (03:41→12:39)
[2019-01-10 03:44] LABS: TOTAL CELLS COUNTED 100
[2019-01-10 03:45] LABS: PLATELET ESTIMATE DECREASED
[2019-01-10 03:46] LABS: ANISOCYTOSIS 1+; POLYCHROMASIA FEW; TARGET CELLS 2+
--- NOTE | 2019-01-10 06:26 | NUR ---
Problems reprioritized. Patient report given, questions answered & plan of care reviewed with Amy LOOMIS.
[2019-01-10] MEDS: pantoprazole 40 MG vial IV SCH ×2 (07:46→20:39)
[2019-01-10] MEDS: lactobacillus rhamnosus 10,000 MMU CELLS/CAPSULE PO SCH ×2 (07:47→20:20)
[2019-01-10] MEDS: K, MAG and/or Phos replacement - Verify level? MC SCH (08:00)
[2019-01-10] MEDS: K and/or MAG REPLACEMENT MC SCH (08:00)
[2019-01-10] MEDS ORDERED: MIDAZolam 5mg/ml 2ml vial IV ONE ×3 (13:40→15:30)
[2019-01-10] MEDS ORDERED: morphine 4 MG/ML inj SYRINge ONE (13:47)
[2019-01-10] MEDS ORDERED: phenylephrine inj 20 MG in normal saline 250ml IV soln 250 ML IV PRN (14:15)
--- NOTE | 2019-01-10 14:30 | NUR ---
Pt. required 20 of etomidate, 10 of versed and 50 of rocuronium while getting reintubated for biting down on the tube.
[2019-01-10 15:11] LABS: ABG BASE EXCESS -5.9 mmol/L (-2.0-3.0); ABG HCO3 21.1 mmol/L (22.0-26.0); ABG OXYGEN SATURATION 90.9 % (95-98); ABG PCO2 (T) 48.2 mmHg (35.0-45.0); ABG PH (T) 7.259 (7.350-7.450); ABG PO2 (T) 66.9 mmHg (83-108); FCOHb 0.2 % (0.5-1.5); FMetHb 0.3 % (0.3-1.12); FO2Hb 90.4 % (94-100); PEEP 5 cm H2O; RESPIRATORY RATE 18 b/min; RESPIRATORY RATE (OBSERVED) 18 b/min; TIDAL VOLUME 400 mL; TOTAL HEMOGLOBIN 11.2 G/dl (14.0-17.9)
[2019-01-10] MEDS ORDERED: midazolam 2 mg/2 ml injection IV ONE (15:25)
[2019-01-10] MEDS: MVI, adult No.4 with vit. K 10 ML in dextrose 5% water 500ml 490 ML IV SCH ×2 (17:31)
[2019-01-10] MEDS: [UNRECOGNIZED DRUG - OTHER] IV SCH (17:32)
[2019-01-10] MEDS: TRACE ELEMENT IV SCH (17:32)
[2019-01-10] MEDS: AMINO ACID IV SCH (17:32)
--- NOTE | 2019-01-10 17:52 | NUR ---
PATIENT PUT ON EASY CUFF MANOMATER DUE TO CUFF LEAK Addendum: 01/10/19 at 1753 by Carmen Ford RT Amended: Links added.
--- NOTE | 2019-01-10 18:20 | NUR ---
Patient in room CICU 2011. I have received report and had the opportunity to ask questions and assume patient care.
--- NOTE | 2019-01-10 19:00 | NUR ---
pt intubated and not sedated. pt is obtunded. pt has a big cuff leak in the et tube. pt had his tube exchanged on day shift, however new tube has a cuff leak. spo2 is 99%. lung sounds are course and diminished throughout. abdominal sounds are hypoactive. dti to midline posterior back. heels, elbows and coccyx intact, blanchable, free from breakdown. vital signs stable at this time. will continue to monitor
[2019-01-10] MEDS: fat emulsion IV bag 180 ML IV SCH (20:21)
[2019-01-10] MEDS: insulin glargine (Lantus) pen - multi-dose SQ SCH (20:44)
[2019-01-10] MEDS ORDERED: dexmedetomidin/NS 400mcg/100ml 100 ML IV SCH (21:55)
[2019-01-10] MEDS ORDERED: LORazepam 2 mg/ml vial IV ONE (21:55)
--- NOTE | 2019-01-10 21:55 | NUR ---
pt respiratory rate increased and maintained at 36 breaths per minute. spo2 decreased to 91% and is on 100% fio2. heart rate increased to 116 sinus tachy. pt is biting his et tube. pt eyes open spontaneously however pt is not responsive or making purposeful movements. called anny to report pt being agitated and restless. orders for ativan and a precedex drip received.
[2019-01-11] VITALS (26 sets, daily range): BP systolic 90–115; BP diastolic 50–63
[2019-01-11] MEDS ORDERED: midazolam 100mg in NS 100ml 100 ML IV PRN (00:40)
[2019-01-11] MEDS ORDERED: FENTANYL-0.9 % NACL/PF 100 ML IV PRN (00:40)
--- NOTE | 2019-01-11 00:45 | NUR ---
pt had a cuff leak in the et tube. md mcguire called for a rapid intubation for tube exchange because pt spo2 dropped to 78% and maintained 0052 md verbal order for 20 mg etomidate [id number] mg rocuronium iv push. 0056 etomidate and rocuronium pushed. 7.5 et tube exchanged for a 8 et tube. et tube 24 at the teeth with anchor fast in place. et tube placement verified through cxr
[2019-01-11 00:51] LABS: ABG BASE EXCESS -7.8 mmol/L (-2.0-3.0); ABG HCO3 19.6 mmol/L (22.0-26.0); ABG PCO2 (T) 50.1 mmHg (35.0-45.0); ABG PH (T) 7.215 (7.350-7.450); ABG PO2 (T) 51.6 mmHg (83-108); FCOHb 0.2 % (0.5-1.5); FMetHb 0.2 % (0.3-1.12); FO2Hb 80.7 % (94-100); MINUTE VOLUME 9 L/min; PATIENT TEMPERATURE 37.8; PEEP 8 cm H2O; RESPIRATORY RATE 20 b/min; RESPIRATORY RATE (OBSERVED) 33 b/min; TOTAL HEMOGLOBIN 10.7 G/dl (14.0-17.9)
[2019-01-11] MEDS: metoclopramide 5 mg/ml inj IV SCH ×4 (01:46→19:15)
[2019-01-11] MEDS: mineral oil/petrolatum ophthal oint EACHEYE SCH ×4 (01:46→19:15)
[2019-01-11] MEDS: insulin regular, human vial - multi-dose SQ SCH ×4 (02:08→19:34)
[2019-01-11 02:16] LABS: BASOPHILS # (AUTO) 0.1 X10'3 (0-0.2); BASOPHILS % (AUTO) 0.6 % (0-1); EOSINOPHILS # (AUTO) 0.1 X10'3 (0-0.9); EOSINOPHILS % (AUTO) 0.6 % (0-6); HEMATOCRIT 30.3 % (42.0-52.0); HEMOGLOBIN 10.2 g/dl (14.0-17.9); LYMPHOCYTES # (AUTO) 0.9 X10'3 (1.1-4.8); MEAN CORPUSCULAR HEMOGLOBIN 31.1 PG (27.0-31.0); MEAN CORPUSCULAR HGB CONC 33.7 g/dL (33.0-36.5); MEAN CORPUSCULAR VOLUME 92.3 FL (78-98); MONOCYTES # (AUTO) 0.5 X10'3 (0-0.9); MONOCYTES % (AUTO) 4.4 % (2-12); NEUTROPHILS # (AUTO) 8.9 X10'3 (1.8-7.7); NEUTROPHILS % (AUTO) 85.4 % (42-75); PLATELET COUNT 131 X10'3 (140-440); RED BLOOD COUNT 3.29 X10'6 (4.70-6.10); WHITE BLOOD COUNT 10.4 X10'3 (4.5-11.0)
[2019-01-11 02:22] LABS: ALANINE AMINOTRANSFERASE 60 U/L (12-78); ALBUMIN 1.1 G/DL (3.4-5.0); ALKALINE PHOSPHATASE 729 IU/L (46-116); ANION GAP 8 (8-16); ASPARTATE AMINO TRANSFERASE 88 U/L (10-37); BILIRUBIN,TOTAL 6.1 MG/DL (0.1-1.0); BLOOD UREA NITROGEN 40 MG/DL (7-18); BUN/CREATININE RATIO 13.8 (5.4-32.0); CALCIUM 7.4 MG/DL (8.5-10.1); CHLORIDE 96 MMOL/L (99-107); CREATININE 2.89 MG/DL (0.60-1.10); GLUCOSE 172 MG/DL (70-104); MAGNESIUM 1.6 MG/DL (1.5-2.4); POTASSIUM 3.4 MMOL/L (3.5-5.1); SODIUM 128 MMOL/L (135-145); eGFR 21 ML/MIN
[2019-01-11 02:23] LABS: ALBUMIN/GLOBULIN RATIO 0.3 (1.1-1.5); PHOSPHORUS 3.5 MG/DL (2.3-4.5); TOTAL PROTEIN 5.3 G/DL (6.4-8.2); TRIGLYCERIDES 174 MG/DL (20-135)
[2019-01-11] MEDS: ipratropium/albuterol 3ml nebule NEB SCH ×6 (02:59→23:15)
[2019-01-11 03:04] LABS: BANDS% (MANUAL) 5 % (0-10); LYMPHOCYTES % (MANUAL) 11 % (21-51); METAMYLEOCYTES% (MANUAL) 2 % (0-0); MONOCYTES % (MANUAL) 6 % (2-12); NEUTROPHILS % (MANUAL) 76 % (42-75); NUCLEATED RED BLOOD CELLS 2 /100WBC (0-0); PLATELET ESTIMATE DECREASED; TOTAL CELLS COUNTED 100
[2019-01-11 03:05] LABS: HYPOCHROMASIA 1+
[2019-01-11] MEDS: NORepinephrine 8mg/ 250ml NS 250 ML IV PRN ×4 (03:12→16:25)
[2019-01-11 03:16] LABS: ABG BASE EXCESS -9.4 mmol/L (-2.0-3.0); ABG HCO3 19.9 mmol/L (22.0-26.0); ABG OXYGEN SATURATION 93.8 % (95-98); ABG PCO2 (T) 61.4 mmHg (35.0-45.0); ABG PH (T) 7.131 (7.350-7.450); ABG PO2 (T) 82.4 mmHg (83-108); FCOHb 0.3 % (0.5-1.5); FMetHb 0.3 % (0.3-1.12); FO2Hb 93.2 % (94-100); MINUTE VOLUME 9 L/min; PATIENT TEMPERATURE 37.3; PEEP 12 cm H2O; RESPIRATORY RATE 20 b/min; RESPIRATORY RATE (OBSERVED) 20 b/min; TIDAL VOLUME 400 mL; TOTAL HEMOGLOBIN 11.1 G/dl (14.0-17.9)
[2019-01-11] MEDS: potassium Cl 20mEq/100mL bag 100 ML IV PRN ×4 (03:47→18:10)
--- NOTE | 2019-01-11 04:01 | NUR ---
Given in report that a tube exchange was done wtih Dr. Haskins at the end of dayshi yesterday evening, and that the pt still had a big cuff leak. An attempt was made to repair the cuff. Pt found at the beginning of my shift with a size 7.5 et tube, not an 8 as was previously charted. More attempts by myself to keep air in the et tube cuff was made, however pt kept alarming for low tidal volumes and had a couple of episodes of SPO2 dropping. I was paged at 0035 due to pt's sats dropping and maintaining in the low 80's to high 70's. Upon RT arrival, RN's at bedside ambu bagging the pt in an attempt to increase SPO2. Dr. Martinez was called in the ER to do another et tube exchange, which was done successfully with a size 8 et tube, 24 at the teeth. Et tube cuff is intact and pt is maintaining tidal volumes on the vent. Sats were not coming up so we increased the pt's peep to 12, per Leida Morales NP. ABG's show the pt has improved oxygenation but is still not adequate for being on 100% and a peep of 12, SO2 on the abg is 93. Vent orders state to keep sats 88-90%, I turned FIO2 down to 95% as I am not too comfortable making a big decrease. Respiratory rate was increased as the pt has become more acidic, Leida Morales FILLING HAND is aware. Will cont to monitor pt and will get a repeat abg on dayshift.
[2019-01-11] MEDS: lactobacillus rhamnosus 10,000 MMU CELLS/CAPSULE PO SCH ×2 (07:43→19:15)
[2019-01-11] MEDS: pantoprazole 40 MG vial IV SCH ×2 (07:44→19:15)
[2019-01-11] MEDS: methylnaltrexone br 12mg/0.6ml inj***SubQ only SQ SCH (07:44)
[2019-01-11] MEDS: K, MAG and/or Phos replacement - Verify level? MC SCH (08:00)
[2019-01-11] MEDS: Duosol 4K/3 Ca (w/calcium) 5,000 ML HE SCH ×9 (08:35→20:56)
[2019-01-11] MEDS: TRACE ELEMENT IV SCH (09:28)
[2019-01-11] MEDS: [UNRECOGNIZED DRUG - OTHER] IV SCH (09:28)
[2019-01-11] MEDS: AMINO ACID IV SCH (09:28)
[2019-01-11 09:36] LABS: ABG BASE EXCESS -9.7 mmol/L (-2.0-3.0); ABG HCO3 18.9 mmol/L (22.0-26.0); ABG OXYGEN SATURATION 94.8 % (95-98); ABG PCO2 (T) 53.3 mmHg (35.0-45.0); ABG PH (T) 7.166 (7.350-7.450); FCOHb 0.1 % (0.5-1.5); FMetHb 0.4 % (0.3-1.12); FO2Hb 94.3 % (94-100); MINUTE VOLUME 11 L/min; PATIENT TEMPERATURE 36.7; PEEP 12 cm H2O; RESPIRATORY RATE 24 b/min; RESPIRATORY RATE (OBSERVED) 24 b/min; TIDAL VOLUME 400 mL; TOTAL HEMOGLOBIN 10.6 G/dl (14.0-17.9)
[2019-01-11 10:27] LABS: BASOPHILS # (AUTO) 0.1 X10'3 (0-0.2); BASOPHILS % (AUTO) 0.5 % (0-1); EOSINOPHILS # (AUTO) 0.1 X10'3 (0-0.9); EOSINOPHILS % (AUTO) 0.6 % (0-6); HEMATOCRIT 29.6 % (42.0-52.0); HEMOGLOBIN 9.9 g/dl (14.0-17.9); MEAN CORPUSCULAR HEMOGLOBIN 30.7 PG (27.0-31.0); MEAN CORPUSCULAR HGB CONC 33.4 g/dL (33.0-36.5); MEAN PLATELET VOLUME 10.1 FL (7.4-10.4); MONOCYTES # (AUTO) 0.6 X10'3 (0-0.9); MONOCYTES % (AUTO) 5.1 % (2-12); NEUTROPHILS # (AUTO) 10.4 X10'3 (1.8-7.7); NEUTROPHILS % (AUTO) 85.8 % (42-75); PLATELET COUNT 83 X10'3 (140-440); RED BLOOD COUNT 3.21 X10'6 (4.70-6.10); RED CELL DISTRIBUTION WIDTH 16.2 % (11.5-14.5); WHITE BLOOD COUNT 12.2 X10'3 (4.5-11.0)
[2019-01-11 10:33] LABS: PARTIAL THROMBOPLASTIN TIME 35 SECONDS (22-32)
[2019-01-11 10:53] LABS: ANION GAP 8 (8-16); BLOOD UREA NITROGEN 46 MG/DL (7-18); BUN/CREATININE RATIO 16.4 (5.4-32.0); CALCIUM 7.2 MG/DL (8.5-10.1); CHLORIDE 98 MMOL/L (99-107); GLUCOSE 149 MG/DL (70-104); MAGNESIUM 1.6 MG/DL (1.5-2.4); POTASSIUM 3.9 MMOL/L (3.5-5.1); SODIUM 128 MMOL/L (135-145); TOTAL CARBON DIOXIDE 21.7 MMOL/L (24-32); eGFR 22 ML/MIN
[2019-01-11 10:57] LABS: PHOSPHORUS 3.1 MG/DL (2.3-4.5)
[2019-01-11 11:29] LABS: BASOPHILS # (AUTO) 0.1 X10'3 (0-0.2); BASOPHILS % (AUTO) 0.5 % (0-1); EOSINOPHILS # (AUTO) 0.1 X10'3 (0-0.9); EOSINOPHILS % (AUTO) 0.9 % (0-6); HEMATOCRIT 29.4 % (42.0-52.0); HEMOGLOBIN 9.8 g/dl (14.0-17.9); LYMPHOCYTES # (AUTO) 0.9 X10'3 (1.1-4.8); LYMPHOCYTES % (AUTO) 7.5 % (21-51); MEAN CORPUSCULAR HEMOGLOBIN 30.7 PG (27.0-31.0); MEAN CORPUSCULAR HGB CONC 33.5 g/dL (33.0-36.5); MEAN CORPUSCULAR VOLUME 91.6 FL (78-98); MEAN PLATELET VOLUME 9.2 FL (7.4-10.4); MONOCYTES # (AUTO) 0.8 X10'3 (0-0.9); MONOCYTES % (AUTO) 6.5 % (2-12); NEUTROPHILS # (AUTO) 10.5 X10'3 (1.8-7.7); NEUTROPHILS % (AUTO) 84.6 % (42-75); PLATELET COUNT 84 X10'3 (140-440); RED BLOOD COUNT 3.21 X10'6 (4.70-6.10); RED CELL DISTRIBUTION WIDTH 15.8 % (11.5-14.5); WHITE BLOOD COUNT 12.4 X10'3 (4.5-11.0)
[2019-01-11 11:37] LABS: ANION GAP 9 (8-16); BLOOD UREA NITROGEN 44 MG/DL (7-18); BUN/CREATININE RATIO 16.1 (5.4-32.0); CALCIUM 7.5 MG/DL (8.5-10.1); CHLORIDE 98 MMOL/L (99-107); CREATININE 2.73 MG/DL (0.60-1.10); GLUCOSE 146 MG/DL (70-104); MAGNESIUM 1.6 MG/DL (1.5-2.4); POTASSIUM 3.9 MMOL/L (3.5-5.1); SODIUM 128 MMOL/L (135-145); TOTAL CARBON DIOXIDE 21.5 MMOL/L (24-32); eGFR 23 ML/MIN
[2019-01-11 11:38] LABS: PHOSPHORUS 2.9 MG/DL (2.3-4.5)
--- NOTE | 2019-01-11 11:39 | NUR ---
I have reviewed and agree with all medications administered and interventions performed by [facility] Student(WILFRED LINARES) Addendum: 01/11/19 at 1139 by Carmen Ford RT Amended: Links added. Addendum: 01/11/19 at 1200 by Carmen Ford RT namrata linares)
[2019-01-11 12:22] LABS: BASOPHILS % (AUTO) 0.3 % (0-1); EOSINOPHILS # (AUTO) 0.1 X10'3 (0-0.9); EOSINOPHILS % (AUTO) 0.7 % (0-6); HEMATOCRIT 29.2 % (42.0-52.0); HEMOGLOBIN 9.6 g/dl (14.0-17.9); LYMPHOCYTES % (AUTO) 7.8 % (21-51); MEAN CORPUSCULAR HEMOGLOBIN 30.3 PG (27.0-31.0); MEAN CORPUSCULAR HGB CONC 32.8 g/dL (33.0-36.5); MEAN CORPUSCULAR VOLUME 92.2 FL (78-98); MEAN PLATELET VOLUME 9.3 FL (7.4-10.4); MONOCYTES % (AUTO) 7.7 % (2-12); NEUTROPHILS # (AUTO) 10.4 X10'3 (1.8-7.7); NEUTROPHILS % (AUTO) 83.5 % (42-75); PLATELET COUNT 75 X10'3 (140-440); RED BLOOD COUNT 3.17 X10'6 (4.70-6.10); RED CELL DISTRIBUTION WIDTH 16.1 % (11.5-14.5); WHITE BLOOD COUNT 12.5 X10'3 (4.5-11.0)
[2019-01-11 12:33] LABS: ANION GAP 10 (8-16); BLOOD UREA NITROGEN 43 MG/DL (7-18); BUN/CREATININE RATIO 16.3 (5.4-32.0); CALCIUM 7.4 MG/DL (8.5-10.1); CHLORIDE 98 MMOL/L (99-107); CREATININE 2.63 MG/DL (0.60-1.10); GLUCOSE 143 MG/DL (70-104); MAGNESIUM 1.6 MG/DL (1.5-2.4); POTASSIUM 3.8 MMOL/L (3.5-5.1); SODIUM 130 MMOL/L (135-145); TOTAL CARBON DIOXIDE 21.6 MMOL/L (24-32); eGFR 24 ML/MIN
[2019-01-11 12:40] LABS: PHOSPHORUS 2.8 MG/DL (2.3-4.5)
[2019-01-11] MEDS: magnesium 4gm in 100ml NS 100 ML IV PRN (12:50)
[2019-01-11 13:27] LABS: BASOPHILS # (AUTO) 0.1 X10'3 (0-0.2); BASOPHILS % (AUTO) 0.4 % (0-1); EOSINOPHILS # (AUTO) 0.1 X10'3 (0-0.9); EOSINOPHILS % (AUTO) 0.8 % (0-6); HEMATOCRIT 28.6 % (42.0-52.0); HEMOGLOBIN 9.5 g/dl (14.0-17.9); LYMPHOCYTES # (AUTO) 1.2 X10'3 (1.1-4.8); LYMPHOCYTES % (AUTO) 9.5 % (21-51); MEAN CORPUSCULAR HEMOGLOBIN 30.7 PG (27.0-31.0); MEAN CORPUSCULAR HGB CONC 33.2 g/dL (33.0-36.5); MEAN CORPUSCULAR VOLUME 92.2 FL (78-98); MEAN PLATELET VOLUME 9.6 FL (7.4-10.4); MONOCYTES # (AUTO) 0.9 X10'3 (0-0.9); MONOCYTES % (AUTO) 7.4 % (2-12); NEUTROPHILS # (AUTO) 10.3 X10'3 (1.8-7.7); NEUTROPHILS % (AUTO) 81.9 % (42-75); PLATELET COUNT 65 X10'3 (140-440); RED BLOOD COUNT 3.11 X10'6 (4.70-6.10); RED CELL DISTRIBUTION WIDTH 15.7 % (11.5-14.5); WHITE BLOOD COUNT 12.6 X10'3 (4.5-11.0)
--- NOTE | 2019-01-11 13:27 | NUR ---
Platelets down to 75; Dr. Haskins would like to continue SQ Heparin at this time as long as patient down not appear to be bleeding. Will continue to monitor. Addendum: 01/11/19 at 1339 by Mick Hooker RN Plt down to 65; hold SQ heparin per Dr. Haskins. Continue SCDs for DVT prophylaxis
[2019-01-11 13:41] LABS: ANION GAP 10 (8-16); BLOOD UREA NITROGEN 43 MG/DL (7-18); BUN/CREATININE RATIO 16.6 (5.4-32.0); CALCIUM 7.4 MG/DL (8.5-10.1); CHLORIDE 98 MMOL/L (99-107); CREATININE 2.59 MG/DL (0.60-1.10); GLUCOSE 144 MG/DL (70-104); MAGNESIUM 1.6 MG/DL (1.5-2.4); POTASSIUM 4.1 MMOL/L (3.5-5.1); SODIUM 129 MMOL/L (135-145); TOTAL CARBON DIOXIDE 21.5 MMOL/L (24-32); eGFR 24 ML/MIN
[2019-01-11 13:49] LABS: PHOSPHORUS 2.6 MG/DL (2.3-4.5)
[2019-01-11 14:00] LABS: ANISOCYTOSIS 2+; NUCLEATED RED BLOOD CELLS 3 /100WBC (0-0); PLATELET ESTIMATE DECREASED; POLYCHROMASIA 1+; TOTAL CELLS COUNTED 100
[2019-01-11] MEDS: MVI, adult No.4 with vit. K 10 ML in dextrose 5% water 500ml 490 ML IV SCH ×2 (14:59)
[2019-01-11 15:46] LABS: ABG BASE EXCESS -6.6 mmol/L (-2.0-3.0); ABG OXYGEN SATURATION 99.1 % (95-98); ABG PCO2 (T) 43.8 mmHg (35.0-45.0); ABG PH (T) 7.275 (7.350-7.450); ABG PO2 (T) 161.3 mmHg (83-108); FCOHb 0.3 % (0.5-1.5); FMetHb 0.1 % (0.3-1.12); FO2Hb 98.7 % (94-100); MINUTE VOLUME 10 L/min; PATIENT TEMPERATURE 36.7; PEEP 12 cm H2O; RESPIRATORY RATE 20 b/min; RESPIRATORY RATE (OBSERVED) 26 b/min; TIDAL VOLUME 400 mL; TOTAL HEMOGLOBIN 10.2 G/dl (14.0-17.9)
[2019-01-11] MEDS: CefTRIAXone/D5W-Rocephin 1gm 50 ML IV SCH (16:23)
[2019-01-11 17:54] LABS: ANION GAP 9 (8-16); BLOOD UREA NITROGEN 39 MG/DL (7-18); CALCIUM 7.5 MG/DL (8.5-10.1); CHLORIDE 98 MMOL/L (99-107); GLUCOSE 159 MG/DL (70-104); MAGNESIUM 2.1 MG/DL (1.5-2.4); POTASSIUM 3.8 MMOL/L (3.5-5.1); SODIUM 129 MMOL/L (135-145); TOTAL CARBON DIOXIDE 21.8 MMOL/L (24-32)
[2019-01-11 17:56] LABS: BASOPHILS % (AUTO) 0.5 % (0-1); EOSINOPHILS # (AUTO) 0.1 X10'3 (0-0.9); EOSINOPHILS % (AUTO) 1.3 % (0-6); HEMATOCRIT 28.3 % (42.0-52.0); HEMOGLOBIN 9.4 g/dl (14.0-17.9); LYMPHOCYTES # (AUTO) 0.8 X10'3 (1.1-4.8); MEAN CORPUSCULAR HEMOGLOBIN 30.8 PG (27.0-31.0); MEAN CORPUSCULAR HGB CONC 33.4 g/dL (33.0-36.5); MEAN CORPUSCULAR VOLUME 92.3 FL (78-98); MEAN PLATELET VOLUME 8.5 FL (7.4-10.4); MONOCYTES # (AUTO) 0.9 X10'3 (0-0.9); MONOCYTES % (AUTO) 8.5 % (2-12); NEUTROPHILS # (AUTO) 9.1 X10'3 (1.8-7.7); NEUTROPHILS % (AUTO) 82.7 % (42-75); PLATELET COUNT 52 X10'3 (140-440); RED BLOOD COUNT 3.06 X10'6 (4.70-6.10); RED CELL DISTRIBUTION WIDTH 15.9 % (11.5-14.5); WHITE BLOOD COUNT 11.1 X10'3 (4.5-11.0)
[2019-01-11 17:59] LABS: BUN/CREATININE RATIO 17.3 (5.4-32.0); CREATININE 2.26 MG/DL (0.60-1.10); PHOSPHORUS 2.1 MG/DL (2.3-4.5); eGFR 28 ML/MIN
--- NOTE | 2019-01-11 18:22 | NUR ---
Problems reprioritized. Patient report given, questions answered & plan of care reviewed with Liudmila LOOMIS.
--- NOTE | 2019-01-11 18:27 | NUR ---
Patient in room CICU 2011. I have received report from colt morales and had the opportunity to ask questions and assume patient care.
--- NOTE | 2019-01-11 19:00 | NUR ---
pt is intubated and not on sedation at this time. pt remains unresponsive. cvvh running with an order to take 50 ml off per hour. lung sounds are course and diminished throughout. pt receiving tpn and lipids. dti to midline posterior back. wound care orders being followed. heels elbows and coccyx intact blanchable, free from breakdown. vital signs stable at this time. pt shows no signs and symptoms of distress. will continue to monitor.
[2019-01-11] MEDS: fat emulsion IV bag 180 ML IV SCH (19:15)
[2019-01-11] MEDS: insulin glargine (Lantus) pen - multi-dose SQ SCH (19:35)
[2019-01-11] MEDS ORDERED: heparin, porcine 5000 units/ml vial SQ SCH (20:00)
[2019-01-11] MEDS: sodium phosphate inj. 30 MMOL in normal saline 250ml IV soln 250 ML IV PRN (21:18)
[2019-01-12] VITALS (25 sets, daily range): BP systolic 90–108; BP diastolic 52–61
[2019-01-12] MEDS: Duosol 4K/3 Ca (w/calcium) 5,000 ML HE SCH ×9 (00:29→16:44)
[2019-01-12] MEDS: NORepinephrine 8mg/ 250ml NS 250 ML IV PRN ×3 (00:30→16:19)
[2019-01-12 00:50] LABS: BASOPHILS % (AUTO) 0.3 % (0-1); EOSINOPHILS # (AUTO) 0.2 X10'3 (0-0.9); EOSINOPHILS % (AUTO) 1.5 % (0-6); HEMATOCRIT 28.2 % (42.0-52.0); HEMOGLOBIN 9.6 g/dl (14.0-17.9); LYMPHOCYTES # (AUTO) 0.4 X10'3 (1.1-4.8); LYMPHOCYTES % (AUTO) 3.3 % (21-51); MEAN CORPUSCULAR HEMOGLOBIN 30.8 PG (27.0-31.0); MEAN CORPUSCULAR HGB CONC 33.9 g/dL (33.0-36.5); MEAN CORPUSCULAR VOLUME 90.9 FL (78-98); MEAN PLATELET VOLUME 8.6 FL (7.4-10.4); MONOCYTES % (AUTO) 9.5 % (2-12); NEUTROPHILS # (AUTO) 9.4 X10'3 (1.8-7.7); NEUTROPHILS % (AUTO) 85.4 % (42-75); RED BLOOD COUNT 3.11 X10'6 (4.70-6.10); RED CELL DISTRIBUTION WIDTH 15.9 % (11.5-14.5)
[2019-01-12 01:00] LABS: PLATELET COUNT 41 X10'3 (140-440)
[2019-01-12 01:08] LABS: ALANINE AMINOTRANSFERASE 49 U/L (12-78); ALKALINE PHOSPHATASE 520 IU/L (46-116); ANION GAP 7 (8-16); ASPARTATE AMINO TRANSFERASE 71 U/L (10-37); BILIRUBIN,TOTAL 5.4 MG/DL (0.1-1.0); BLOOD UREA NITROGEN 35 MG/DL (7-18); BUN/CREATININE RATIO 18.8 (5.4-32.0); CALCIUM 7.8 MG/DL (8.5-10.1); CHLORIDE 100 MMOL/L (99-107); CREATININE 1.86 MG/DL (0.60-1.10); GLUCOSE 110 MG/DL (70-104); MAGNESIUM 1.9 MG/DL (1.5-2.4); POTASSIUM 3.9 MMOL/L (3.5-5.1); SODIUM 130 MMOL/L (135-145); TOTAL CARBON DIOXIDE 23.4 MMOL/L (24-32); eGFR 35 ML/MIN
[2019-01-12 01:09] LABS: ALBUMIN/GLOBULIN RATIO 0.3 (1.1-1.5); PHOSPHORUS 2.3 MG/DL (2.3-4.5)
[2019-01-12] MEDS: mineral oil/petrolatum ophthal oint EACHEYE SCH ×4 (01:11→20:14)
[2019-01-12] MEDS: metoclopramide 5 mg/ml inj IV SCH ×4 (01:11→20:14)
[2019-01-12 01:29] LABS: BANDS% (MANUAL) 9 % (0-10); EOSINOPHILS % (MANUAL) 1 % (0-6); LYMPHOCYTES % (MANUAL) 4 % (21-51); METAMYLEOCYTES% (MANUAL) 2 % (0-0); MONOCYTES % (MANUAL) 2 % (2-12); NEUTROPHILS % (MANUAL) 81 % (42-75); REACTIVE LYMPHOCYTES % 1 % (0-0); TOTAL CELLS COUNTED 100
[2019-01-12 01:30] LABS: HYPOCHROMASIA 1+; PLATELET ESTIMATE DECREASED; TARGET CELLS FEW
[2019-01-12] MEDS: insulin regular, human vial - multi-dose SQ SCH ×4 (02:05→20:17)
[2019-01-12] MEDS: ipratropium/albuterol 3ml nebule NEB SCH ×6 (03:23→23:04)
--- NOTE | 2019-01-12 03:30 | NUR ---
platelets ordered and infused due to low platelet level of 41
[2019-01-12] MEDS: potassium Cl 20mEq/100mL bag 100 ML IV PRN ×4 (04:01→20:00)
[2019-01-12 04:06] LABS: ABG BASE EXCESS -2.9 mmol/L (-2.0-3.0); ABG HCO3 23.5 mmol/L (22.0-26.0); ABG OXYGEN SATURATION 97.1 % (95-98); ABG PCO2 (T) 46.8 mmHg (35.0-45.0); ABG PH (T) 7.316 (7.350-7.450); ABG PO2 (T) 86.9 mmHg (83-108); FCOHb 0.3 % (0.5-1.5); FMetHb 0.3 % (0.3-1.12); FO2Hb 96.5 % (94-100); MINUTE VOLUME 14 L/min; PATIENT TEMPERATURE 36.4; PEEP 10 cm H2O; RESPIRATORY RATE 20 b/min; RESPIRATORY RATE (OBSERVED) 29 b/min; TIDAL VOLUME 400 mL; TOTAL HEMOGLOBIN 10.2 G/dl (14.0-17.9)
[2019-01-12 05:42] LABS: BASOPHILS # (AUTO) 0.1 X10'3 (0-0.2); BASOPHILS % (AUTO) 0.5 % (0-1); EOSINOPHILS # (AUTO) 0.2 X10'3 (0-0.9); EOSINOPHILS % (AUTO) 1.4 % (0-6); HEMATOCRIT 27.8 % (42.0-52.0); HEMOGLOBIN 9.4 g/dl (14.0-17.9); LYMPHOCYTES # (AUTO) 0.4 X10'3 (1.1-4.8); LYMPHOCYTES % (AUTO) 3.5 % (21-51); MEAN CORPUSCULAR HEMOGLOBIN 30.6 PG (27.0-31.0); MEAN CORPUSCULAR HGB CONC 33.8 g/dL (33.0-36.5); MEAN CORPUSCULAR VOLUME 90.8 FL (78-98); MEAN PLATELET VOLUME 8.2 FL (7.4-10.4); MONOCYTES # (AUTO) 1.3 X10'3 (0-0.9); NEUTROPHILS # (AUTO) 9.7 X10'3 (1.8-7.7); NEUTROPHILS % (AUTO) 83.6 % (42-75); PLATELET COUNT 73 X10'3 (140-440); RED BLOOD COUNT 3.06 X10'6 (4.70-6.10); WHITE BLOOD COUNT 11.6 X10'3 (4.5-11.0)
[2019-01-12 05:54] LABS: ALBUMIN 1.1 G/DL (3.4-5.0); ANION GAP 9 (8-16); BLOOD UREA NITROGEN 34 MG/DL (7-18); BUN/CREATININE RATIO 20.4 (5.4-32.0); CALCIUM 7.9 MG/DL (8.5-10.1); CHLORIDE 100 MMOL/L (99-107); CREATININE 1.67 MG/DL (0.60-1.10); GLUCOSE 106 MG/DL (70-104); MAGNESIUM 1.8 MG/DL (1.5-2.4); POTASSIUM 4.6 MMOL/L (3.5-5.1); SODIUM 133 MMOL/L (135-145); TOTAL CARBON DIOXIDE 23.6 MMOL/L (24-32); eGFR 40 ML/MIN
[2019-01-12 06:12] LABS: PHOSPHORUS 2.3 MG/DL (2.3-4.5)
[2019-01-12 07:26] LABS: TOTAL CELLS COUNTED 100
[2019-01-12 07:27] LABS: ANISOCYTOSIS 1+; HYPOCHROMASIA 1+; NUCLEATED RED BLOOD CELLS 1 /100WBC (0-0); PLATELET ESTIMATE DECREASED; POLYCHROMASIA 1+
[2019-01-12 07:28] LABS: TARGET CELLS 1+
[2019-01-12] MEDS: CefTRIAXone/D5W-Rocephin 1gm 50 ML IV SCH (07:34)
[2019-01-12] MEDS: pantoprazole 40 MG vial IV SCH ×2 (07:35→20:14)
[2019-01-12] MEDS: lactobacillus rhamnosus 10,000 MMU CELLS/CAPSULE PO SCH ×2 (07:35→20:14)
[2019-01-12] MEDS: K, MAG and/or Phos replacement - Verify level? MC SCH (08:00)
[2019-01-12] MEDS: sodium phosphate inj. 30 MMOL in normal saline 250ml IV soln 250 ML IV PRN (08:04)
--- NOTE | 2019-01-12 08:45 | NUR ---
Increased resp rate in the low 30s; patient over breathing vent. Dr. Haskins at beside. Orders to decrease PEEP from 10 to 8.
[2019-01-12 12:20] LABS: BASOPHILS # (AUTO) 0.1 X10'3 (0-0.2); BASOPHILS % (AUTO) 0.5 % (0-1); EOSINOPHILS # (AUTO) 0.1 X10'3 (0-0.9); EOSINOPHILS % (AUTO) 1.2 % (0-6); HEMATOCRIT 26.2 % (42.0-52.0); HEMOGLOBIN 8.8 g/dl (14.0-17.9); LYMPHOCYTES # (AUTO) 0.7 X10'3 (1.1-4.8); LYMPHOCYTES % (AUTO) 6.6 % (21-51); MEAN CORPUSCULAR HEMOGLOBIN 31.1 PG (27.0-31.0); MEAN CORPUSCULAR HGB CONC 33.6 g/dL (33.0-36.5); MEAN CORPUSCULAR VOLUME 92.4 FL (78-98); MEAN PLATELET VOLUME 9.5 FL (7.4-10.4); MONOCYTES # (AUTO) 1.2 X10'3 (0-0.9); MONOCYTES % (AUTO) 10.7 % (2-12); PLATELET COUNT 66 X10'3 (140-440); RED BLOOD COUNT 2.84 X10'6 (4.70-6.10); RED CELL DISTRIBUTION WIDTH 16.4 % (11.5-14.5); WHITE BLOOD COUNT 11.1 X10'3 (4.5-11.0)
[2019-01-12 13:45] LABS: ALBUMIN 1.1 G/DL (3.4-5.0); ANION GAP 10 (8-16); BLOOD UREA NITROGEN 31 MG/DL (7-18); BUN/CREATININE RATIO 20.1 (5.4-32.0); CALCIUM 7.4 MG/DL (8.5-10.1); CHLORIDE 101 MMOL/L (99-107); CREATININE 1.54 MG/DL (0.60-1.10); GLUCOSE 90 MG/DL (70-104); MAGNESIUM 1.6 MG/DL (1.5-2.4); POTASSIUM 4.2 MMOL/L (3.5-5.1); SODIUM 134 MMOL/L (135-145); TOTAL CARBON DIOXIDE 22.8 MMOL/L (24-32); eGFR 44 ML/MIN
[2019-01-12 13:47] LABS: PHOSPHORUS 2.6 MG/DL (2.3-4.5)
[2019-01-12] MEDS: magnesium 4gm in 100ml NS 100 ML IV PRN (14:41)
[2019-01-12] MEDS: MVI, adult No.4 with vit. K 10 ML in dextrose 5% water 500ml 490 ML IV SCH ×2 (14:54)
[2019-01-12] MEDS: AMINO ACID IV SCH ×2 (15:00→17:58)
[2019-01-12] MEDS: [UNRECOGNIZED DRUG - OTHER] IV SCH ×2 (15:00→17:58)
[2019-01-12] MEDS: TRACE ELEMENT IV SCH ×2 (15:00→17:58)
--- NOTE | 2019-01-12 15:31 | NUR ---
Tube feeding consult: Trickle tube feeding was previously held d/t absent bowel sounds. Today patient has hypoactive bowel sounds and per MD restart trickle tube feeding at 10 ml/hr, discussed at critical care rounds. TPN tolerated at goal rate. Receiving relistor and reglan. Last bowel movement 01/12 was a smear, had eight smears since admission with no significant bowel movement, discussed at rounds; pt received one dose of dulcolax, may benefit from additional bowel care. Patient has very high protein needs in view of intubation and dialysis, pt now has femoral dialysis catheter. Patient's weight has increased since admission likely r/t fluids, patient has severe edema: right foot 4+ pitting, bilateral hand 4+ pitting, scrotum 3+, bilateral generalized 3+ pitting. Will continue to follow. Recommendations: 1. continuous 2:1 TPN using Clinimix non-E 15 at 120 ml/hr to provide total volume of 2880, 2045 cals, 144 gm protein, 432 gm dextrose, 2.95 mg/kg/min CHO loading. 2. Separate 20% intralipids to run for 12 hours daily to provide 15 ml/hr, 180 ml total and 36 grams lipids. 3. Trickle OGTF per MD using Vital High Protein at 10ml/hr goal; to provide 240 ml volume, 175ml free water, 432 kcals, and 19g protein. Patient may benefit form post pyloric tube feedings in view of unable to advance previously d/t high GRV 4. additional free water per sheriffs on CVVH 5. IF tube feeding is able to be advanced past trickle rate when he can tolerate it, patient would benefit from Vital High protein at 85ml/hr goal; to provide 2040ml fluid, 2040kcals, 1714ml free water, and 179g protein. 6. prealbumin Q /; daily wts 7. routine bowel care, patient only having smears since admission, no significant bowel movement Addendum: 01/12/19 at [address] Amended: Links added.
[2019-01-12 18:05] LABS: ANION GAP 6 (8-16); BLOOD UREA NITROGEN 30 MG/DL (7-18); CHLORIDE 101 MMOL/L (99-107); CREATININE 1.43 MG/DL (0.60-1.10); GLUCOSE 118 MG/DL (70-104); MAGNESIUM 2.3 MG/DL (1.5-2.4); PHOSPHORUS 2.1 MG/DL (2.3-4.5); POTASSIUM 3.9 MMOL/L (3.5-5.1); SODIUM 132 MMOL/L (135-145); TOTAL CARBON DIOXIDE 24.9 MMOL/L (24-32); eGFR 48 ML/MIN
[2019-01-12 18:19] LABS: BASOPHILS % (AUTO) 0.4 % (0-1); EOSINOPHILS # (AUTO) 0.1 X10'3 (0-0.9); EOSINOPHILS % (AUTO) 1.2 % (0-6); HEMATOCRIT 25.9 % (42.0-52.0); HEMOGLOBIN 8.8 g/dl (14.0-17.9); LYMPHOCYTES # (AUTO) 1.4 X10'3 (1.1-4.8); LYMPHOCYTES % (AUTO) 12.8 % (21-51); MEAN CORPUSCULAR HEMOGLOBIN 31.2 PG (27.0-31.0); MEAN CORPUSCULAR HGB CONC 34.1 g/dL (33.0-36.5); MEAN CORPUSCULAR VOLUME 91.5 FL (78-98); MEAN PLATELET VOLUME 9.6 FL (7.4-10.4); MONOCYTES % (AUTO) 9.3 % (2-12); NEUTROPHILS # (AUTO) 8.6 X10'3 (1.8-7.7); NEUTROPHILS % (AUTO) 76.3 % (42-75); PLATELET COUNT 65 X10'3 (140-440); RED BLOOD COUNT 2.83 X10'6 (4.70-6.10); RED CELL DISTRIBUTION WIDTH 16.3 % (11.5-14.5); WHITE BLOOD COUNT 11.3 X10'3 (4.5-11.0)
--- NOTE | 2019-01-12 18:24 | NUR ---
Problems reprioritized. Patient report given, questions answered & plan of care reviewed with Liudmila LOOMIS.
--- NOTE | 2019-01-12 18:26 | NUR ---
Patient in room CICU 2011. I have received report from colt morales and had the opportunity to ask questions and assume patient care.
--- NOTE | 2019-01-12 19:10 | NUR ---
pt is intubated and not on sedation. pt is awake and moving arms bilaterally, movements are not purposeful, not following commands. cvvh running with an order to take 50 ml off per hour. lung sounds are course and diminished throughout. pt receiving tpn and lipids. tube feeding started at 10ml/hr. no bowel movement as of yet. bowel sounds remain hypoactive. dti to midline posterior back. wound care orders being followed. heels elbows and coccyx intact blanchable, free from breakdown. vital signs stable at this time. pt shows no signs and symptoms of distress. will continue to monitor.
[2019-01-12] MEDS: fat emulsion IV bag 180 ML IV SCH (20:00)
[2019-01-12] MEDS: insulin glargine (Lantus) pen - multi-dose SQ SCH (20:23)
--- NOTE | 2019-01-12 21:16 | NUR ---
cvvh filter being changed by dialysis. blood returned to patient. lines changed using sterile technique
[2019-01-13] VITALS (24 sets, daily range): BP systolic 82–115; BP diastolic 47–65
[2019-01-13] MEDS: Duosol 4K/3 Ca (w/calcium) 5,000 ML HE SCH ×12 (00:11→23:30)
[2019-01-13] MEDS: NORepinephrine 8mg/ 250ml NS 250 ML IV PRN ×3 (00:12→18:32)
[2019-01-13 00:51] LABS: EOSINOPHILS # (AUTO) 0.1 X10'3 (0-0.9)
[2019-01-13 00:53] LABS: BASOPHILS % (AUTO) 0.2 % (0-1); EOSINOPHILS % (AUTO) 0.8 % (0-6); HEMATOCRIT 26.5 % (42.0-52.0); LYMPHOCYTES # (AUTO) 0.9 X10'3 (1.1-4.8); LYMPHOCYTES % (AUTO) 7.7 % (21-51); MEAN CORPUSCULAR HEMOGLOBIN 31.1 PG (27.0-31.0); MEAN CORPUSCULAR VOLUME 91.3 FL (78-98); MEAN PLATELET VOLUME 10.5 FL (7.4-10.4); MONOCYTES # (AUTO) 0.8 X10'3 (0-0.9); MONOCYTES % (AUTO) 7.1 % (2-12); NEUTROPHILS # (AUTO) 9.8 X10'3 (1.8-7.7); NEUTROPHILS % (AUTO) 84.2 % (42-75); PLATELET COUNT 68 X10'3 (140-440); RED CELL DISTRIBUTION WIDTH 15.8 % (11.5-14.5); WHITE BLOOD COUNT 11.7 X10'3 (4.5-11.0)
[2019-01-13 01:00] LABS: ALBUMIN 1.1 G/DL (3.4-5.0); ANION GAP 7 (8-16); BLOOD UREA NITROGEN 29 MG/DL (7-18); BUN/CREATININE RATIO 20.9 (5.4-32.0); CALCIUM 7.4 MG/DL (8.5-10.1); CHLORIDE 102 MMOL/L (99-107); CREATININE 1.39 MG/DL (0.60-1.10); GLUCOSE 87 MG/DL (70-104); MAGNESIUM 1.9 MG/DL (1.5-2.4); POTASSIUM 4.1 MMOL/L (3.5-5.1); SODIUM 133 MMOL/L (135-145); TOTAL CARBON DIOXIDE 24.4 MMOL/L (24-32); eGFR 49 ML/MIN
[2019-01-13 01:03] LABS: PHOSPHORUS 2.3 MG/DL (2.3-4.5)
[2019-01-13] MEDS: metoclopramide 5 mg/ml inj IV SCH ×4 (02:12→20:22)
[2019-01-13] MEDS: mineral oil/petrolatum ophthal oint EACHEYE SCH ×4 (02:12→20:22)
[2019-01-13] MEDS: insulin regular, human vial - multi-dose SQ SCH ×4 (02:17→20:18)
[2019-01-13] MEDS: ipratropium/albuterol 3ml nebule NEB SCH ×6 (02:38→23:14)
[2019-01-13 03:05] LABS: ABG BASE EXCESS -0.7 mmol/L (-2.0-3.0); ABG HCO3 24.2 mmol/L (22.0-26.0); ABG OXYGEN SATURATION 96.1 % (95-98); ABG PCO2 (T) 41.2 mmHg (35.0-45.0); ABG PH (T) 7.388 (7.350-7.450); ABG PO2 (T) 77.4 mmHg (83-108); FCOHb 0.8 % (0.5-1.5); FMetHb 0.3 % (0.3-1.12); MINUTE VOLUME 16 L/min; PATIENT TEMPERATURE 37.3; PEEP 8 cm H2O; RESPIRATORY RATE 20 b/min; RESPIRATORY RATE (OBSERVED) 29 b/min; TIDAL VOLUME 400 mL; TOTAL HEMOGLOBIN 9.7 G/dl (14.0-17.9)
[2019-01-13 05:49] LABS: BASOPHILS # (AUTO) 0.1 X10'3 (0-0.2); BASOPHILS % (AUTO) 0.7 % (0-1); EOSINOPHILS # (AUTO) 0.1 X10'3 (0-0.9); EOSINOPHILS % (AUTO) 0.8 % (0-6); HEMOGLOBIN 8.8 g/dl (14.0-17.9); LYMPHOCYTES # (AUTO) 1.2 X10'3 (1.1-4.8); MEAN CORPUSCULAR HGB CONC 33.9 g/dL (33.0-36.5); MEAN CORPUSCULAR VOLUME 91.3 FL (78-98); MEAN PLATELET VOLUME 10.3 FL (7.4-10.4); MONOCYTES # (AUTO) 1.2 X10'3 (0-0.9); MONOCYTES % (AUTO) 9.6 % (2-12); NEUTROPHILS # (AUTO) 9.5 X10'3 (1.8-7.7); NEUTROPHILS % (AUTO) 78.9 % (42-75); PLATELET COUNT 75 X10'3 (140-440); RED BLOOD COUNT 2.85 X10'6 (4.70-6.10); RED CELL DISTRIBUTION WIDTH 15.8 % (11.5-14.5); WHITE BLOOD COUNT 12.1 X10'3 (4.5-11.0)
[2019-01-13 05:56] LABS: ALBUMIN 1.1 G/DL (3.4-5.0); ANION GAP 8 (8-16); BLOOD UREA NITROGEN 28 MG/DL (7-18); BUN/CREATININE RATIO 21.1 (5.4-32.0); CALCIUM 7.6 MG/DL (8.5-10.1); CHLORIDE 101 MMOL/L (99-107); CREATININE 1.33 MG/DL (0.60-1.10); GLUCOSE 90 MG/DL (70-104); MAGNESIUM 1.8 MG/DL (1.5-2.4); PHOSPHORUS 2.1 MG/DL (2.3-4.5); POTASSIUM 4.2 MMOL/L (3.5-5.1); SODIUM 133 MMOL/L (135-145); TOTAL CARBON DIOXIDE 24.5 MMOL/L (24-32); eGFR 52 ML/MIN
[2019-01-13] MEDS: sodium phosphate inj. 30 MMOL in normal saline 250ml IV soln 250 ML IV PRN ×2 (06:36→21:33)
[2019-01-13] MEDS: CefTRIAXone/D5W-Rocephin 1gm 50 ML IV SCH (07:37)
[2019-01-13] MEDS: pantoprazole 40 MG vial IV SCH ×2 (07:37→20:22)
[2019-01-13] MEDS: methylnaltrexone br 12mg/0.6ml inj***SubQ only SQ SCH (07:37)
[2019-01-13] MEDS: lactobacillus rhamnosus 10,000 MMU CELLS/CAPSULE PO SCH ×2 (07:37→20:23)
[2019-01-13] MEDS: K, MAG and/or Phos replacement - Verify level? MC SCH (08:00)
[2019-01-13 09:25] LABS: NUCLEATED RED BLOOD CELLS 2 /100WBC (0-0); TOTAL CELLS COUNTED 100
[2019-01-13 09:32] LABS: PLATELET ESTIMATE DECREASED
[2019-01-13 09:33] LABS: GIANT PLATELET FEW; HYPOCHROMASIA 1+; POLYCHROMASIA 1+; SCHISTOCYTES FEW; TARGET CELLS 1+
[2019-01-13] MEDS: AMINO ACID IV SCH (10:04)
[2019-01-13] MEDS: [UNRECOGNIZED DRUG - OTHER] IV SCH (10:04)
[2019-01-13] MEDS: TRACE ELEMENT IV SCH (10:04)
[2019-01-13 12:28] LABS: ALBUMIN 1.1 G/DL (3.4-5.0); ANION GAP 7 (8-16); BLOOD UREA NITROGEN 28 MG/DL (7-18); BUN/CREATININE RATIO 22.6 (5.4-32.0); CALCIUM 7.4 MG/DL (8.5-10.1); CHLORIDE 102 MMOL/L (99-107); CREATININE 1.24 MG/DL (0.60-1.10); GLUCOSE 77 MG/DL (70-104); MAGNESIUM 1.7 MG/DL (1.5-2.4); SODIUM 134 MMOL/L (135-145); TOTAL CARBON DIOXIDE 25.2 MMOL/L (24-32); eGFR 56 ML/MIN
[2019-01-13 12:32] LABS: BASOPHILS % (AUTO) 0.2 % (0-1); EOSINOPHILS # (AUTO) 0.1 X10'3 (0-0.9); EOSINOPHILS % (AUTO) 0.8 % (0-6); HEMATOCRIT 25.2 % (42.0-52.0); HEMOGLOBIN 8.6 g/dl (14.0-17.9); LYMPHOCYTES # (AUTO) 1.1 X10'3 (1.1-4.8); LYMPHOCYTES % (AUTO) 9.3 % (21-51); MEAN CORPUSCULAR HEMOGLOBIN 31.1 PG (27.0-31.0); MEAN CORPUSCULAR HGB CONC 34.1 g/dL (33.0-36.5); MEAN CORPUSCULAR VOLUME 91.3 FL (78-98); MEAN PLATELET VOLUME 10.9 FL (7.4-10.4); MONOCYTES # (AUTO) 1.1 X10'3 (0-0.9); MONOCYTES % (AUTO) 9.7 % (2-12); NEUTROPHILS # (AUTO) 9.1 X10'3 (1.8-7.7); PLATELET COUNT 82 X10'3 (140-440); RED BLOOD COUNT 2.76 X10'6 (4.70-6.10); RED CELL DISTRIBUTION WIDTH 16.2 % (11.5-14.5); WHITE BLOOD COUNT 11.4 X10'3 (4.5-11.0)
[2019-01-13 12:40] LABS: PHOSPHORUS 2.8 MG/DL (2.3-4.5)
[2019-01-13] MEDS: magnesium 4gm in 100ml NS 100 ML IV PRN (13:03)
[2019-01-13] MEDS: dextrose 50%-water 50ml dispensing syringe IV PRN ×2 (13:23→18:20)
--- NOTE | 2019-01-13 15:27 | NUR ---
Patient's mentation wavering: Able to track voices and nod/shake to simple yes/no questions and close eyes on demand. Patient unable to intentionally move extremities. Patient continues to be drowsy as well. Tolerating spontaneous breathing; able to drop PEEP from [address]ask[address].
--- NOTE | 2019-01-13 16:56 | NUR ---
Tube feeding residuals increased to 400ml; up from 300ml. Dr. Haskins notified and would like to hold tube feeding until patient is closer off of pressors; patient on Reglan and Relistor.
[2019-01-13] MEDS: calcium chloride inj. 1,100 MG in Duosol 4k/NO Calcium 5,000 ML IV SCH ×4 (18:00→22:06)
[2019-01-13 18:03] LABS: ANION GAP 5 (8-16); BLOOD UREA NITROGEN 26 MG/DL (7-18); BUN/CREATININE RATIO 22.2 (5.4-32.0); CALCIUM 8.3 MG/DL (8.5-10.1); CHLORIDE 103 MMOL/L (99-107); CREATININE 1.17 MG/DL (0.60-1.10); GLUCOSE 51 MG/DL (70-104); MAGNESIUM 2.9 MG/DL (1.5-2.4); POTASSIUM 3.7 MMOL/L (3.5-5.1); SODIUM 133 MMOL/L (135-145); eGFR 60 ML/MIN
[2019-01-13 18:07] LABS: PHOSPHORUS 1.8 MG/DL (2.3-4.5)
[2019-01-13 18:16] LABS: BASOPHILS # (AUTO) 0.1 X10'3 (0-0.2); BASOPHILS % (AUTO) 1.2 % (0-1); EOSINOPHILS # (AUTO) 0.1 X10'3 (0-0.9); EOSINOPHILS % (AUTO) 0.6 % (0-6); HEMATOCRIT 25.2 % (42.0-52.0); HEMOGLOBIN 8.7 g/dl (14.0-17.9); LYMPHOCYTES # (AUTO) 1.1 X10'3 (1.1-4.8); LYMPHOCYTES % (AUTO) 10.7 % (21-51); MEAN CORPUSCULAR HEMOGLOBIN 31.4 PG (27.0-31.0); MEAN CORPUSCULAR HGB CONC 34.4 g/dL (33.0-36.5); MEAN CORPUSCULAR VOLUME 91.3 FL (78-98); MEAN PLATELET VOLUME 8.8 FL (7.4-10.4); MONOCYTES # (AUTO) 0.9 X10'3 (0-0.9); MONOCYTES % (AUTO) 8.3 % (2-12); NEUTROPHILS # (AUTO) 8.4 X10'3 (1.8-7.7); NEUTROPHILS % (AUTO) 79.2 % (42-75); PLATELET COUNT 71 X10'3 (140-440); RED BLOOD COUNT 2.76 X10'6 (4.70-6.10); RED CELL DISTRIBUTION WIDTH 16.3 % (11.5-14.5); WHITE BLOOD COUNT 10.5 X10'3 (4.5-11.0)
--- NOTE | 2019-01-13 18:17 | NUR ---
Problems reprioritized. Patient report given, questions answered & plan of care reviewed with Susy LOOMIS.
[2019-01-13] MEDS: potassium Cl 20mEq/100mL bag 100 ML IV PRN ×2 (18:29→19:35)
--- NOTE | 2019-01-13 18:30 | NUR ---
Patient in room CICU 2011. I have received report from Mick LOOMIS and had the opportunity to ask questions and assume patient care.
[2019-01-13] MEDS: insulin glargine (Lantus) pen - multi-dose SQ SCH (20:17)
[2019-01-13] MEDS: fat emulsion IV bag 180 ML IV SCH (20:23)
--- NOTE | 2019-01-13 21:03 | NUR ---
Pt having episodes of low BS. Treated and was low again. Discussed with Arthur Kruse NP, holding Insulin - Fast and long acting at this time, until pt remeets with high sugars. TPN running.
[2019-01-14] VITALS (23 sets, daily range): BP systolic 79–127; BP diastolic 44–97
[2019-01-14] MEDS: Duosol 4K/3 Ca (w/calcium) 5,000 ML HE SCH ×2 (00:56→02:22)
[2019-01-14 00:59] LABS: BASOPHILS # (AUTO) 0.1 X10'3 (0-0.2); BASOPHILS % (AUTO) 0.7 % (0-1); EOSINOPHILS # (AUTO) 0.1 X10'3 (0-0.9); EOSINOPHILS % (AUTO) 0.6 % (0-6); HEMATOCRIT 25.8 % (42.0-52.0); HEMOGLOBIN 8.7 g/dl (14.0-17.9); LYMPHOCYTES # (AUTO) 0.7 X10'3 (1.1-4.8); LYMPHOCYTES % (AUTO) 5.9 % (21-51); MEAN CORPUSCULAR HEMOGLOBIN 30.6 PG (27.0-31.0); MEAN CORPUSCULAR HGB CONC 33.7 g/dL (33.0-36.5); MEAN PLATELET VOLUME 9.1 FL (7.4-10.4); MONOCYTES % (AUTO) 8.5 % (2-12); NEUTROPHILS # (AUTO) 10.3 X10'3 (1.8-7.7); NEUTROPHILS % (AUTO) 84.3 % (42-75); PLATELET COUNT 74 X10'3 (140-440); RED BLOOD COUNT 2.84 X10'6 (4.70-6.10); RED CELL DISTRIBUTION WIDTH 15.9 % (11.5-14.5); WHITE BLOOD COUNT 12.2 X10'3 (4.5-11.0)
[2019-01-14 01:18] LABS: ALBUMIN 1.1 G/DL (3.4-5.0); ANION GAP 8 (8-16); BLOOD UREA NITROGEN 27 MG/DL (7-18); BUN/CREATININE RATIO 22.1 (5.4-32.0); CALCIUM 7.5 MG/DL (8.5-10.1); CHLORIDE 103 MMOL/L (99-107); CREATININE 1.22 MG/DL (0.60-1.10); GLUCOSE 137 MG/DL (70-104); MAGNESIUM 1.9 MG/DL (1.5-2.4); POTASSIUM 4.6 MMOL/L (3.5-5.1); SODIUM 133 MMOL/L (135-145); TOTAL CARBON DIOXIDE 22.1 MMOL/L (24-32); eGFR 57 ML/MIN
[2019-01-14] MEDS: NORepinephrine 8mg/ 250ml NS 250 ML IV PRN ×5 (01:38→23:49)
[2019-01-14] MEDS: metoclopramide 5 mg/ml inj IV SCH ×4 (01:38→21:20)
[2019-01-14] MEDS: mineral oil/petrolatum ophthal oint EACHEYE SCH ×4 (01:38→21:20)
[2019-01-14 01:40] LABS: PHOSPHORUS 2.7 MG/DL (2.3-4.5)
[2019-01-14] MEDS: AMINO ACID IV SCH ×2 (03:12→20:43)
[2019-01-14] MEDS: [UNRECOGNIZED DRUG - OTHER] IV SCH ×2 (03:12→20:43)
[2019-01-14] MEDS: TRACE ELEMENT IV SCH ×2 (03:12→20:43)
--- NOTE | 2019-01-14 03:15 | NUR ---
Received report from VLADISLAV Galan. Assuming care. Per report, patient has been on vent settings of AC 20, +5, 400 all of her shift. These are the settings i am receiving the patient on. Nerologically, patient does not follow commands but appears to make eye contact at times. some spontaneous movement of RUE > LUE. [place]. Eyes open all the time, lacrilube to eyes. # 8 ETT 24 cm at teeth, 25 cm at lip. No resp distress, Lungs are coarse rhonchi throughout, diminished in bases R>L. Sxn for small amount creamy yellow. Weak cough but present. OGT to LWS brown bilious in tubing. Right IJ madeleine, dressing 01/11, Right femoral pamela, dsg 01/09, Right upper arm PICC, Drsg 01/11, back intact, optifoam dressing to right ear, Big toes appeared mottled, right foot> left. Heels assessed. CDI - no breakdown. Levofed infusing at 16 ug/min, TPN infusing and lipids all via PICC. Art line and CVP Leveled and zerod. See CVVH flowsheet for net numbers.
[2019-01-14] MEDS: ipratropium/albuterol 3ml nebule NEB SCH ×6 (03:19→23:33)
[2019-01-14 03:56] LABS: ABG BASE EXCESS -3.6 mmol/L (-2.0-3.0); ABG HCO3 20.3 mmol/L (22.0-26.0); ABG PH (T) 7.399 (7.350-7.450); ABG PO2 (T) 75.6 mmHg (83-108); FCOHb 0.6 % (0.5-1.5); FLOW 45 L/min; FMetHb 0.3 % (0.3-1.12); FO2Hb 94.1 % (94-100); MINUTE VOLUME 14 L/min; PATIENT TEMPERATURE 38.1; PEEP 5 cm H2O; RESPIRATORY RATE 20 b/min; RESPIRATORY RATE (OBSERVED) 34 b/min; TIDAL VOLUME 400 mL; TOTAL HEMOGLOBIN 9.5 G/dl (14.0-17.9)
[2019-01-14] MEDS: calcium chloride inj. 1,100 MG in Duosol 4k/NO Calcium 5,000 ML IV SCH ×13 (04:29→22:52)
[2019-01-14 06:02] LABS: BASOPHILS % (AUTO) 0.3 % (0-1); EOSINOPHILS # (AUTO) 0.1 X10'3 (0-0.9); EOSINOPHILS % (AUTO) 0.5 % (0-6); HEMATOCRIT 25.3 % (42.0-52.0); HEMOGLOBIN 8.5 g/dl (14.0-17.9); LYMPHOCYTES # (AUTO) 0.5 X10'3 (1.1-4.8); LYMPHOCYTES % (AUTO) 4.5 % (21-51); MEAN CORPUSCULAR HGB CONC 33.7 g/dL (33.0-36.5); MEAN CORPUSCULAR VOLUME 92.2 FL (78-98); MEAN PLATELET VOLUME 8.7 FL (7.4-10.4); MONOCYTES # (AUTO) 1.2 X10'3 (0-0.9); MONOCYTES % (AUTO) 10.4 % (2-12); NEUTROPHILS % (AUTO) 84.3 % (42-75); PLATELET COUNT 69 X10'3 (140-440); RED BLOOD COUNT 2.74 X10'6 (4.70-6.10); RED CELL DISTRIBUTION WIDTH 16.9 % (11.5-14.5); WHITE BLOOD COUNT 11.8 X10'3 (4.5-11.0)
--- NOTE | 2019-01-14 06:26 | NUR ---
Patient in room CICU 2011. I have received report from VLADISLAV Quinones and had the opportunity to ask questions and assume patient care.
[2019-01-14 06:47] LABS: ANION GAP 10 (8-16); BLOOD UREA NITROGEN 27 MG/DL (7-18); BUN/CREATININE RATIO 22.5 (5.4-32.0); CALCIUM 7.6 MG/DL (8.5-10.1); CHLORIDE 103 MMOL/L (99-107); GLUCOSE 237 MG/DL (70-104); MAGNESIUM 2.1 MG/DL (1.5-2.4); POTASSIUM 4.8 MMOL/L (3.5-5.1); SODIUM 132 MMOL/L (135-145); TOTAL CARBON DIOXIDE 19.2 MMOL/L (24-32); eGFR 59 ML/MIN
[2019-01-14 06:48] LABS: PHOSPHORUS 2.5 MG/DL (2.3-4.5)
[2019-01-14 07:16] LABS: ANISOCYTOSIS 1+; PLATELET ESTIMATE DECREASED; TOTAL CELLS COUNTED 100
[2019-01-14] MEDS: K, MAG and/or Phos replacement - Verify level? MC SCH (08:00)
[2019-01-14] MEDS: lactobacillus rhamnosus 10,000 MMU CELLS/CAPSULE PO SCH ×2 (08:32→20:00)
[2019-01-14] MEDS: pantoprazole 40 MG vial IV SCH ×2 (08:32→21:20)
[2019-01-14] MEDS: CefTRIAXone/D5W-Rocephin 1gm 50 ML IV SCH (08:32)
[2019-01-14] MEDS: insulin regular, human vial - multi-dose SQ SCH ×3 (09:07→20:53)
--- NOTE | 2019-01-14 10:42 | NUR ---
Dr. Haskins in to round. Informed him of worsening metabolic acidosis.
[2019-01-14 11:51] LABS: ABG BASE EXCESS -8.4 mmol/L (-2.0-3.0); ABG OXYGEN SATURATION 95.5 % (95-98); ABG PCO2 (T) 28.9 mmHg (35.0-45.0); ABG PH (T) 7.361 (7.350-7.450); ABG PO2 (T) 76.9 mmHg (83-108); FCOHb 0.3 % (0.5-1.5); FMetHb 0.3 % (0.3-1.12); FO2Hb 94.9 % (94-100); MINUTE VOLUME 15 L/min; PEEP 5 cm H2O; RESPIRATORY RATE (OBSERVED) 31 b/min; TIDAL VOLUME 395 mL; TOTAL HEMOGLOBIN 9.5 G/dl (14.0-17.9)
[2019-01-14 11:54] LABS: BASOPHILS % (AUTO) 0.2 % (0-1); EOSINOPHILS % (AUTO) 0.4 % (0-6); HEMATOCRIT 26.1 % (42.0-52.0); HEMOGLOBIN 8.8 g/dl (14.0-17.9); LYMPHOCYTES % (AUTO) 9.9 % (21-51); MEAN CORPUSCULAR HEMOGLOBIN 30.9 PG (27.0-31.0); MEAN CORPUSCULAR HGB CONC 33.5 g/dL (33.0-36.5); MEAN CORPUSCULAR VOLUME 92.3 FL (78-98); MEAN PLATELET VOLUME 8.9 FL (7.4-10.4); MONOCYTES # (AUTO) 0.7 X10'3 (0-0.9); MONOCYTES % (AUTO) 6.7 % (2-12); NEUTROPHILS # (AUTO) 8.2 X10'3 (1.8-7.7); NEUTROPHILS % (AUTO) 82.8 % (42-75); PLATELET COUNT 78 X10'3 (140-440); RED BLOOD COUNT 2.83 X10'6 (4.70-6.10); RED CELL DISTRIBUTION WIDTH 16.1 % (11.5-14.5); WHITE BLOOD COUNT 9.8 X10'3 (4.5-11.0)
[2019-01-14 12:10] LABS: ALBUMIN 1.1 G/DL (3.4-5.0); ANION GAP 12 (8-16); BLOOD UREA NITROGEN 29 MG/DL (7-18); BUN/CREATININE RATIO 22.7 (5.4-32.0); CALCIUM 7.7 MG/DL (8.5-10.1); CHLORIDE 103 MMOL/L (99-107); CREATININE 1.28 MG/DL (0.60-1.10); GLUCOSE 220 MG/DL (70-104); MAGNESIUM 2.1 MG/DL (1.5-2.4); POTASSIUM 4.3 MMOL/L (3.5-5.1); SODIUM 131 MMOL/L (135-145); TOTAL CARBON DIOXIDE 16.4 MMOL/L (24-32); eGFR 54 ML/MIN
[2019-01-14 12:12] LABS: PHOSPHORUS 1.8 MG/DL (2.3-4.5)
[2019-01-14] MEDS ORDERED: diatr meglu/diatrizoate 30ml oral sol.-(3 dose) bottle PO SCH (12:50)
[2019-01-14] MEDS: sodium bicarbonate (8.4%) inj. 75 MEQ in dextrose 5% water 500ml 500 ML IV SCH ×2 (13:49→21:20)
--- NOTE | 2019-01-14 14:05 | NUR ---
CVVH taken down by HD nurse.
--- NOTE | 2019-01-14 14:05 | NUR ---
Pt off unit to CT.
[2019-01-14] MEDS ORDERED: iohexol 300mg/ml 100ml inj. ONE (14:07)
--- NOTE | 2019-01-14 14:30 | NUR ---
Return from CT. ETT 24 cm, volumes 350-400 mL. Pt is desaturating to SpO2 76%. Pt recovered with manual ventilation. Lung sounds coarse bilaterally. ETT suction tenacious yellow secretions.
--- NOTE | 2019-01-14 15:15 | NUR ---
Pulled back NG tube 4 cm after speaking with radiologist. LIWS left off. Pt FIO2 up to 70%, maintaining O2 sat 88-90%. Lung sounds remain coarse.
--- NOTE | 2019-01-14 15:44 | NUR ---
CVVH back up.
--- NOTE | 2019-01-14 15:47 | NUR ---
Called JOSE Tomas. Reported pt condition requested that she come in to assess pt. CXR ordered. Lung sounds remain coarse, pt on AC mode overbreathing rate 29bpm over 20 bpm, PEEP 5, FIO2 70%. Pt is on 20 mcg/min Levophed with arterial pressure 90/50 (64). He is no longer following verbal commands.
--- NOTE | 2019-01-14 16:15 | NUR ---
JOSE Tomas in to assess pt.
--- NOTE | 2019-01-14 16:37 | NUR ---
Received verbal order from Lg Tomas to increase PEEP to 7.5. RT has been notified. KUB has been ordered to determin e NG position. Levophed titrated down to 18 mcg/min BP 87/47 (61). Lung sounds have improved. Pt's daughter called and was upset when told that her father cannot legally consent, call transferred to Charge Nurse.
[2019-01-14] MEDS: sodium phosphate inj. 30 MMOL in normal saline 250ml IV soln 250 ML IV PRN (16:54)
--- NOTE | 2019-01-14 17:08 | NUR ---
Pt has been started on ARDs protocol. Pt oxygenating better, SpO2 97%. Condition otherwise unchanged.
--- NOTE | 2019-01-14 17:47 | NUR ---
OG tube discontinued.
[2019-01-14 18:00] LABS: BASOPHILS # (AUTO) 0.1 X10'3 (0-0.2); BASOPHILS % (AUTO) 1.5 % (0-1); EOSINOPHILS % (AUTO) 0.3 % (0-6); HEMATOCRIT 26.3 % (42.0-52.0); HEMOGLOBIN 8.8 g/dl (14.0-17.9); LYMPHOCYTES % (AUTO) 13.7 % (21-51); MEAN CORPUSCULAR HEMOGLOBIN 30.9 PG (27.0-31.0); MEAN CORPUSCULAR HGB CONC 33.4 g/dL (33.0-36.5); MEAN CORPUSCULAR VOLUME 92.6 FL (78-98); MEAN PLATELET VOLUME 9.3 FL (7.4-10.4); MONOCYTES # (AUTO) 0.3 X10'3 (0-0.9); MONOCYTES % (AUTO) 3.7 % (2-12); NEUTROPHILS # (AUTO) 5.9 X10'3 (1.8-7.7); NEUTROPHILS % (AUTO) 80.8 % (42-75); PLATELET COUNT 85 X10'3 (140-440); RED BLOOD COUNT 2.84 X10'6 (4.70-6.10); RED CELL DISTRIBUTION WIDTH 16.6 % (11.5-14.5); WHITE BLOOD COUNT 7.3 X10'3 (4.5-11.0)
[2019-01-14 18:01] LABS: ABG BASE EXCESS -9.8 mmol/L (-2.0-3.0); ABG HCO3 16.4 mmol/L (22.0-26.0); ABG OXYGEN SATURATION 89.2 % (95-98); ABG PCO2 (T) 36.8 mmHg (35.0-45.0); ABG PH (T) 7.266 (7.350-7.450); ABG PO2 (T) 62.9 mmHg (83-108); ALLEN'S TEST Negative; FCOHb 0.3 % (0.5-1.5); FMetHb 0.1 % (0.3-1.12); FO2Hb 88.8 % (94-100); TOTAL HEMOGLOBIN 9.6 G/dl (14.0-17.9)
[2019-01-14 18:12] LABS: ALBUMIN 1.1 G/DL (3.4-5.0); ANION GAP 8 (8-16); BLOOD UREA NITROGEN 30 MG/DL (7-18); BUN/CREATININE RATIO 24.6 (5.4-32.0); CALCIUM 7.7 MG/DL (8.5-10.1); CHLORIDE 104 MMOL/L (99-107); CREATININE 1.22 MG/DL (0.60-1.10); GLUCOSE 116 MG/DL (70-104); MAGNESIUM 2.1 MG/DL (1.5-2.4); POTASSIUM 4.3 MMOL/L (3.5-5.1); SODIUM 132 MMOL/L (135-145); TOTAL CARBON DIOXIDE 19.9 MMOL/L (24-32); eGFR 57 ML/MIN
--- NOTE | 2019-01-14 18:14 | NUR ---
Problems reprioritized. Patient report given, questions answered & plan of care reviewed with VLADISLAV Quinones and VLADISLAV Coy.
[2019-01-14 18:17] LABS: PHOSPHORUS 2.3 MG/DL (2.3-4.5)
--- NOTE | 2019-01-14 18:30 | NUR ---
Patient in room CICU 2011. I have received report from Michael LOOMIS and had the opportunity to ask questions and assume patient care along with Joni LOOMIS.
--- NOTE | 2019-01-14 21:00 | NUR ---
around 2099 i called pharmacy because i needed to hang lipids along with the TPN. the pharmacist stated that the lipids get run through the filter, and the TPN can be run without a filter. therefore, will place filter on lipids per pharmacist.
[2019-01-14] MEDS: insulin glargine (Lantus) pen - multi-dose SQ SCH (21:01)
[2019-01-14] MEDS: fat emulsion IV bag 180 ML IV SCH (21:20)
--- NOTE | 2019-01-14 22:14 | NUR ---
patient was just transferred from icu bed to [facility] with RT and 4 RN's. No complications. PATIENT TOLERATED THE TRANSFER WITHOUT COMPLICATIONS. CURRENTLY 30 DEGREES ROTATION TO EACH SIDE, NO STOP TIME AT CENTER. pER BED CONTROL, PATIENT STAYS ON EACH SIDE 7 SECONDS. TOLERATING AT THIS POINT. WILL CONTINUE TO MONITOR. ALL TUBING AND LINES RE-ASSESSED AND ARE SECURE.
[2019-01-14] MEDS: morphine 4 MG/ML inj SYRINge IV PRN (23:17)
[2019-01-14] MEDS: propofol 1000mg/100ml bottle 100 ML IV SCH (23:22)
[2019-01-15] VITALS (24 sets, daily range): BP systolic 91–117; BP diastolic 43–56
[2019-01-15 01:08] LABS: EOSINOPHILS % (AUTO) 0.3 % (0-6); HEMOGLOBIN 8.9 g/dl (14.0-17.9); NEUTROPHILS # (AUTO) 10.3 X10'3 (1.8-7.7)
[2019-01-15 01:10] LABS: BASOPHILS # (AUTO) 0.1 X10'3 (0-0.2); BASOPHILS % (AUTO) 0.6 % (0-1); HEMATOCRIT 26.8 % (42.0-52.0); LYMPHOCYTES # (AUTO) 0.9 X10'3 (1.1-4.8); LYMPHOCYTES % (AUTO) 7.6 % (21-51); MEAN CORPUSCULAR HEMOGLOBIN 30.6 PG (27.0-31.0); MEAN CORPUSCULAR HGB CONC 33.1 g/dL (33.0-36.5); MEAN CORPUSCULAR VOLUME 92.3 FL (78-98); MEAN PLATELET VOLUME 9.3 FL (7.4-10.4); MONOCYTES # (AUTO) 0.9 X10'3 (0-0.9); MONOCYTES % (AUTO) 7.5 % (2-12); PLATELET COUNT 85 X10'3 (140-440); RED BLOOD COUNT 2.91 X10'6 (4.70-6.10); RED CELL DISTRIBUTION WIDTH 16.6 % (11.5-14.5); WHITE BLOOD COUNT 12.3 X10'3 (4.5-11.0)
[2019-01-15 01:21] LABS: ALBUMIN 1.1 G/DL (3.4-5.0); ANION GAP 8 (8-16); BLOOD UREA NITROGEN 29 MG/DL (7-18); BUN/CREATININE RATIO 26.4 (5.4-32.0); CHLORIDE 104 MMOL/L (99-107); GLUCOSE 74 MG/DL (70-104); PHOSPHORUS 2.7 MG/DL (2.3-4.5); POTASSIUM 4.1 MMOL/L (3.5-5.1); SODIUM 132 MMOL/L (135-145); TOTAL CARBON DIOXIDE 19.7 MMOL/L (24-32); eGFR 65 ML/MIN
[2019-01-15] MEDS: mineral oil/petrolatum ophthal oint EACHEYE SCH ×4 (02:25→20:32)
[2019-01-15] MEDS: metoclopramide 5 mg/ml inj IV SCH ×4 (02:27→20:30)
[2019-01-15] MEDS: ipratropium/albuterol 3ml nebule NEB SCH ×6 (03:04→23:03)
[2019-01-15 03:16] LABS: ABG BASE EXCESS -7.1 mmol/L (-2.0-3.0); ABG HCO3 17.5 mmol/L (22.0-26.0); ABG OXYGEN SATURATION 96.1 % (95-98); ABG PCO2 (T) 32.1 mmHg (35.0-45.0); ABG PH (T) 7.355 (7.350-7.450); FCOHb 0.3 % (0.5-1.5); FMetHb 0.3 % (0.3-1.12); FO2Hb 95.5 % (94-100); PATIENT TEMPERATURE 37.1; PEEP 8 cm H2O; RESPIRATORY RATE 20 b/min; RESPIRATORY RATE (OBSERVED) 27 b/min; TIDAL VOLUME 475 mL; TOTAL HEMOGLOBIN 9.6 G/dl (14.0-17.9)
[2019-01-15] MEDS: morphine 4 MG/ML inj SYRINge IV PRN (03:42)
[2019-01-15] MEDS: sodium bicarbonate (8.4%) inj. 75 MEQ in dextrose 5% water 500ml 500 ML IV SCH ×3 (03:45→20:32)
[2019-01-15] MEDS: calcium chloride inj. 1,100 MG in Duosol 4k/NO Calcium 5,000 ML IV SCH ×11 (04:42→20:10)
[2019-01-15] MEDS: NORepinephrine 8mg/ 250ml NS 250 ML IV PRN ×4 (04:44→20:32)
--- NOTE | 2019-01-15 05:18 | NUR ---
OGT PLACED. GASTRIC GREEN DRAINAGE, GOOD PLACEMENT BY AUSCULTATION. KUB ADDED TO AM CXR FOR CONFIRMATION
[2019-01-15 06:06] LABS: BASOPHILS # (AUTO) 0.1 X10'3 (0-0.2); BASOPHILS % (AUTO) 0.4 % (0-1); EOSINOPHILS % (AUTO) 0.2 % (0-6); HEMOGLOBIN 8.7 g/dl (14.0-17.9); LYMPHOCYTES % (AUTO) 7.8 % (21-51); MEAN CORPUSCULAR HEMOGLOBIN 30.8 PG (27.0-31.0); MEAN CORPUSCULAR HGB CONC 33.5 g/dL (33.0-36.5); MEAN CORPUSCULAR VOLUME 92.2 FL (78-98); MEAN PLATELET VOLUME 9.2 FL (7.4-10.4); MONOCYTES # (AUTO) 1.1 X10'3 (0-0.9); MONOCYTES % (AUTO) 8.3 % (2-12); NEUTROPHILS # (AUTO) 10.6 X10'3 (1.8-7.7); NEUTROPHILS % (AUTO) 83.3 % (42-75); PLATELET COUNT 86 X10'3 (140-440); RED BLOOD COUNT 2.82 X10'6 (4.70-6.10); RED CELL DISTRIBUTION WIDTH 16.6 % (11.5-14.5); WHITE BLOOD COUNT 12.8 X10'3 (4.5-11.0)
[2019-01-15 06:11] LABS: ALBUMIN 1.1 G/DL (3.4-5.0); ANION GAP 8 (8-16); BLOOD UREA NITROGEN 27 MG/DL (7-18); CALCIUM 7.8 MG/DL (8.5-10.1); CHLORIDE 104 MMOL/L (99-107); CREATININE 1.08 MG/DL (0.60-1.10); GLUCOSE 155 MG/DL (70-104); POTASSIUM 4.2 MMOL/L (3.5-5.1); PREALBUMIN 6.7 MG/DL (19-36); SODIUM 131 MMOL/L (135-145); TOTAL CARBON DIOXIDE 18.6 MMOL/L (24-32); eGFR 66 ML/MIN
[2019-01-15 06:24] LABS: PHOSPHORUS 2.3 MG/DL (2.3-4.5); TRIGLYCERIDES 157 MG/DL (20-135)
--- NOTE | 2019-01-15 06:30 | NUR ---
Patient in room CICU 2011. I have received report from VLADISLAV Quinones and had the opportunity to ask questions and assume patient care.
[2019-01-15 06:33] LABS: NUCLEATED RED BLOOD CELLS 5 /100WBC (0-0); TOTAL CELLS COUNTED 100
[2019-01-15 06:34] LABS: ANISOCYTOSIS 1+; LARGE PLATELETS MODERATE; PLATELET ESTIMATE DECREASED
[2019-01-15 07:24] LABS: ANISOCYTOSIS 1+; NUCLEATED RED BLOOD CELLS 3 /100WBC (0-0); PLATELET ESTIMATE DECREASED; TOTAL CELLS COUNTED 100
[2019-01-15 07:25] LABS: POLYCHROMASIA 1+; TOXIC GRANULATION 1+
[2019-01-15 07:26] LABS: SCHISTOCYTES FEW
[2019-01-15] MEDS: CefTRIAXone/D5W-Rocephin 1gm 50 ML IV SCH (07:54)
[2019-01-15] MEDS: lactobacillus rhamnosus 10,000 MMU CELLS/CAPSULE PO SCH (07:55)
[2019-01-15] MEDS: pantoprazole 40 MG vial IV SCH ×2 (07:55→20:30)
[2019-01-15] MEDS: methylnaltrexone br 12mg/0.6ml inj***SubQ only SQ SCH (08:30)
[2019-01-15 08:31] LABS: ABG BASE EXCESS -7.4 mmol/L (-2.0-3.0); ABG HCO3 17.2 mmol/L (22.0-26.0); ABG OXYGEN SATURATION 96.5 % (95-98); ABG PCO2 (T) 31.2 mmHg (35.0-45.0); ABG PH (T) 7.358 (7.350-7.450); ABG PO2 (T) 82.4 mmHg (83-108); FCOHb 0.4 % (0.5-1.5); FMetHb 0.3 % (0.3-1.12); FO2Hb 95.8 % (94-100); MINUTE VOLUME 12 L/min; PEEP 5 cm H2O; RESPIRATORY RATE 20 b/min; RESPIRATORY RATE (OBSERVED) 20 b/min; TIDAL VOLUME 575 mL; TOTAL HEMOGLOBIN 9.4 G/dl (14.0-17.9)
[2019-01-15] MEDS: insulin regular, human vial - multi-dose SQ SCH ×3 (08:36→21:37)
[2019-01-15] MEDS: K, MAG and/or Phos replacement - Verify level? MC SCH (08:56)
[2019-01-15] MEDS: propofol 1000mg/100ml bottle 100 ML IV SCH ×2 (09:38→20:04)
--- NOTE | 2019-01-15 12:28 | NUR ---
Rotorest broken down. Pt skin assessed by wound RN. All dressings changed. Pt SpO2 decreased to 92% while supine, slow to recover.
--- NOTE | 2019-01-15 13:45 | NUR ---
Dr. Haskins at bedside to perform bronchoscopy.
--- NOTE | 2019-01-15 13:55 | NUR ---
Bronchoscopy complete. Pt tolerated well. New arterial line requested, Dr. Haskins unable to place line at this time.
--- NOTE | 2019-01-15 13:58 | NUR ---
Reassessment: Patient's trickle tube feedings are being held. Continues to receive nutrition through TPN. Patient now on rotorest. Pending eventual trach and PEG. Only smears since admission. Continues relistor and reglan. Patient has very high protein needs in view of intubation and dialysis, pt now has femoral dialysis catheter. Patient's weight has increased since admission likely r/t fluids, patient has severe edema: right foot 4+ pitting, bilateral hand 4+ pitting, scrotum 3+, bilateral generalized 3+ pitting. Will continue to follow. Recommendations: 1. continuous 2:1 TPN using Clinimix non-E 5/15 at 120 ml/hr to provide total volume of 2880, 2045 cals, 144 gm protein, 432 gm dextrose, 2.95 mg/kg/min CHO loading. 2. Separate 20% intralipids to run for 12 hours daily to provide 15 ml/hr, 180 ml total and 36 grams lipids. 3. Resume as indicated Trickle OGTF per MD using Vital High Protein at 10ml/hr goal; to provide 240 ml volume, 175ml free water, 432 kcals, and 19g protein. Patient may benefit form post pyloric tube feedings in view of unable to advance previously d/t high GRV 4. additional free water per reed press feeder on CVVH 5. IF tube feeding is able to be advanced past trickle rate when he can tolerate it, patient would benefit from Vital High protein at 85ml/hr goal; to provide 2040ml fluid, 2040kcals, 1714ml free water, and 179g protein. 6. prealbumin Q /; daily wts 7. routine bowel care, patient only having smears since admission, no significant bowel movement Addendum: 01/15/19 at [address] Amended: Links added.
[2019-01-15 14:22] LABS: BASOPHILS # (AUTO) 0.1 X10'3 (0-0.2); BASOPHILS % (AUTO) 0.9 % (0-1); EOSINOPHILS % (AUTO) 0.3 % (0-6); HEMATOCRIT 26.1 % (42.0-52.0); HEMOGLOBIN 8.6 g/dl (14.0-17.9); LYMPHOCYTES # (AUTO) 1.5 X10'3 (1.1-4.8); LYMPHOCYTES % (AUTO) 13.1 % (21-51); MEAN CORPUSCULAR HEMOGLOBIN 30.8 PG (27.0-31.0); MEAN CORPUSCULAR HGB CONC 32.8 g/dL (33.0-36.5); MEAN CORPUSCULAR VOLUME 94.1 FL (78-98); MEAN PLATELET VOLUME 10.1 FL (7.4-10.4); MONOCYTES # (AUTO) 0.9 X10'3 (0-0.9); MONOCYTES % (AUTO) 7.3 % (2-12); NEUTROPHILS # (AUTO) 9.1 X10'3 (1.8-7.7); NEUTROPHILS % (AUTO) 78.4 % (42-75); PLATELET COUNT 91 X10'3 (140-440); RED BLOOD COUNT 2.77 X10'6 (4.70-6.10); RED CELL DISTRIBUTION WIDTH 17.3 % (11.5-14.5); WHITE BLOOD COUNT 11.6 X10'3 (4.5-11.0)
[2019-01-15 14:26] LABS: ALBUMIN 1.2 G/DL (3.4-5.0); ANION GAP 10 (8-16); BLOOD UREA NITROGEN 26 MG/DL (7-18); BUN/CREATININE RATIO 24.1 (5.4-32.0); CHLORIDE 102 MMOL/L (99-107); CREATININE 1.08 MG/DL (0.60-1.10); GLUCOSE 203 MG/DL (70-104); POTASSIUM 3.9 MMOL/L (3.5-5.1); SODIUM 131 MMOL/L (135-145); TOTAL CARBON DIOXIDE 19.1 MMOL/L (24-32); eGFR 66 ML/MIN
[2019-01-15 14:29] LABS: PHOSPHORUS 1.9 MG/DL (2.3-4.5)
[2019-01-15] MEDS: [UNRECOGNIZED DRUG - OTHER] IV SCH (14:34)
[2019-01-15] MEDS: AMINO ACID IV SCH (14:34)
[2019-01-15] MEDS: TRACE ELEMENT IV SCH (14:34)
[2019-01-15 14:58] LABS: ANISOCYTOSIS 1+; LARGE PLATELETS FEW; PLATELET ESTIMATE DECREASED
[2019-01-15 14:59] LABS: POLYCHROMASIA 2+
[2019-01-15 15:56] LABS: ABG BASE EXCESS -8.9 mmol/L (-2.0-3.0); ABG HCO3 17.5 mmol/L (22.0-26.0); ABG OXYGEN SATURATION 93.6 % (95-98); ABG PCO2 (T) 39.6 mmHg (35.0-45.0); ABG PH (T) 7.263 (7.350-7.450); ABG PO2 (T) 72.2 mmHg (83-108); FCOHb 0.5 % (0.5-1.5); FMetHb 0.3 % (0.3-1.12); FO2Hb 92.9 % (94-100); MINUTE VOLUME 11 L/min; PEEP 5 cm H2O; RESPIRATORY RATE 20 b/min; RESPIRATORY RATE (OBSERVED) 23 b/min; TIDAL VOLUME 475 mL; TOTAL HEMOGLOBIN 9.4 G/dl (14.0-17.9)
[2019-01-15] MEDS: sodium phosphate inj. 30 MMOL in normal saline 250ml IV soln 250 ML IV PRN (16:25)
[2019-01-15 17:01] LABS: ABG BASE EXCESS -8.6 mmol/L (-2.0-3.0); ABG HCO3 18.1 mmol/L (22.0-26.0); ABG OXYGEN SATURATION 96.6 % (95-98); ABG PCO2 (T) 42.2 mmHg (35.0-45.0); ABG PO2 (T) 92.4 mmHg (83-108); FCOHb 0.5 % (0.5-1.5); FMetHb 0.3 % (0.3-1.12); FO2Hb 95.8 % (94-100); MINUTE VOLUME 11 L/min; PEEP 8 cm H2O; RESPIRATORY RATE 20 b/min; RESPIRATORY RATE (OBSERVED) 23 b/min; TIDAL VOLUME 475 mL; TOTAL HEMOGLOBIN 9.7 G/dl (14.0-17.9)
[2019-01-15 17:45] LABS: BASOPHILS # (AUTO) 0.1 X10'3 (0-0.2); BASOPHILS % (AUTO) 0.6 % (0-1); EOSINOPHILS # (AUTO) 0.1 X10'3 (0-0.9); EOSINOPHILS % (AUTO) 0.6 % (0-6); HEMOGLOBIN 8.5 g/dl (14.0-17.9); LYMPHOCYTES # (AUTO) 1.5 X10'3 (1.1-4.8); LYMPHOCYTES % (AUTO) 14.7 % (21-51); MEAN CORPUSCULAR HEMOGLOBIN 30.8 PG (27.0-31.0); MEAN CORPUSCULAR HGB CONC 32.8 g/dL (33.0-36.5); MEAN CORPUSCULAR VOLUME 93.9 FL (78-98); MEAN PLATELET VOLUME 9.5 FL (7.4-10.4); MONOCYTES # (AUTO) 0.8 X10'3 (0-0.9); MONOCYTES % (AUTO) 7.7 % (2-12); NEUTROPHILS % (AUTO) 76.4 % (42-75); PLATELET COUNT 91 X10'3 (140-440); RED BLOOD COUNT 2.77 X10'6 (4.70-6.10); RED CELL DISTRIBUTION WIDTH 17.4 % (11.5-14.5); WHITE BLOOD COUNT 10.4 X10'3 (4.5-11.0)
--- NOTE | 2019-01-15 17:45 | NUR ---
Pt beginning to have frequent PVCs. Labs pending. Vent mode has been changed to A/C-PRVC and PEEP increased to 8, FIO2 increased to 45%. Pt has been trending acidotic. Currently overbreathing vent 26 bpm over set rate of 20 bpm.
[2019-01-15 17:53] LABS: ALBUMIN 1.1 G/DL (3.4-5.0); ANION GAP 10 (8-16); BLOOD UREA NITROGEN 26 MG/DL (7-18); BUN/CREATININE RATIO 25.5 (5.4-32.0); CHLORIDE 102 MMOL/L (99-107); CREATININE 1.02 MG/DL (0.60-1.10); GLUCOSE 147 MG/DL (70-104); POTASSIUM 3.7 MMOL/L (3.5-5.1); SODIUM 131 MMOL/L (135-145); eGFR 71 ML/MIN
[2019-01-15 17:56] LABS: PHOSPHORUS 2.4 MG/DL (2.3-4.5)
[2019-01-15 18:05] LABS: ABG HCO3 15.9 mmol/L (22.0-26.0); ABG OXYGEN SATURATION 94.9 % (95-98); ABG PCO2 (T) 34.9 mmHg (35.0-45.0); ABG PH (T) 7.277 (7.350-7.450); ABG PO2 (T) 77.4 mmHg (83-108); FCOHb 0.2 % (0.5-1.5); FMetHb 0.3 % (0.3-1.12); FO2Hb 94.4 % (94-100); MINUTE VOLUME 13 L/min; PEEP 8 cm H2O; RESPIRATORY RATE 20 b/min; RESPIRATORY RATE (OBSERVED) 27 b/min; TIDAL VOLUME 475 mL; TOTAL HEMOGLOBIN 9.5 G/dl (14.0-17.9)
--- NOTE | 2019-01-15 18:16 | NUR ---
Problems reprioritized. Patient report given, questions answered & plan of care reviewed with VLADISLAV Quinones.
[2019-01-15] MEDS: lactobacillus rhamnosus 10,000 MMU CELLS/CAPSULE OGT SCH (20:00)
[2019-01-15] MEDS: fat emulsion IV bag 180 ML IV SCH (20:32)
[2019-01-15] MEDS: insulin glargine (Lantus) pen - multi-dose SQ SCH (21:36)
[2019-01-15] MEDS: bicarb dialysis sol 2K+/3 Ca2+ 5,000 ML HE SCH ×2 (21:44→21:45)
[2019-01-16] VITALS (24 sets, daily range): BP systolic 81–115; BP diastolic 42–65
[2019-01-16 00:50] LABS: BASOPHILS % (AUTO) 0.4 % (0-1); EOSINOPHILS # (AUTO) 0.1 X10'3 (0-0.9); EOSINOPHILS % (AUTO) 1.1 % (0-6); HEMATOCRIT 26.3 % (42.0-52.0); HEMOGLOBIN 8.5 g/dl (14.0-17.9); LYMPHOCYTES # (AUTO) 0.7 X10'3 (1.1-4.8); MEAN CORPUSCULAR HEMOGLOBIN 30.5 PG (27.0-31.0); MEAN CORPUSCULAR HGB CONC 32.5 g/dL (33.0-36.5); MEAN CORPUSCULAR VOLUME 93.6 FL (78-98); MEAN PLATELET VOLUME 9.7 FL (7.4-10.4); MONOCYTES # (AUTO) 0.4 X10'3 (0-0.9); MONOCYTES % (AUTO) 3.8 % (2-12); NEUTROPHILS # (AUTO) 8.9 X10'3 (1.8-7.7); NEUTROPHILS % (AUTO) 87.7 % (42-75); PLATELET COUNT 88 X10'3 (140-440); RED BLOOD COUNT 2.81 X10'6 (4.70-6.10); RED CELL DISTRIBUTION WIDTH 17.5 % (11.5-14.5); WHITE BLOOD COUNT 10.2 X10'3 (4.5-11.0)
[2019-01-16 01:09] LABS: ALBUMIN 1.1 G/DL (3.4-5.0); ANION GAP 10 (8-16); BLOOD UREA NITROGEN 25 MG/DL (7-18); BUN/CREATININE RATIO 26.3 (5.4-32.0); CHLORIDE 102 MMOL/L (99-107); CREATININE 0.95 MG/DL (0.60-1.10); GLUCOSE 95 MG/DL (70-104); MAGNESIUM 1.7 MG/DL (1.5-2.4); PHOSPHORUS 2.2 MG/DL (2.3-4.5); POTASSIUM 3.1 MMOL/L (3.5-5.1); SODIUM 133 MMOL/L (135-145); TOTAL CARBON DIOXIDE 20.9 MMOL/L (24-32); eGFR 77 ML/MIN
[2019-01-16] MEDS: metoclopramide 5 mg/ml inj IV SCH ×4 (02:17→19:45)
[2019-01-16] MEDS: morphine 4 MG/ML inj SYRINge IV PRN (02:17)
[2019-01-16] MEDS: dextrose 50%-water 50ml dispensing syringe IV PRN (02:18)
[2019-01-16] MEDS: mineral oil/petrolatum ophthal oint EACHEYE SCH ×4 (02:18→19:45)
[2019-01-16] MEDS: NORepinephrine 8mg/ 250ml NS 250 ML IV PRN ×3 (02:24→17:44)
[2019-01-16 02:43] LABS: ANISOCYTOSIS 1+; LARGE PLATELETS MODERATE; PLATELET ESTIMATE DECREASED; POLYCHROMASIA FEW; TARGET CELLS FEW
[2019-01-16] MEDS: potassium Cl 20mEq/100mL bag 100 ML IV PRN ×5 (02:47→23:58)
[2019-01-16] MEDS: sodium phosphate inj. 30 MMOL in normal saline 250ml IV soln 250 ML IV PRN (03:14)
[2019-01-16] MEDS: sodium bicarbonate (8.4%) inj. 75 MEQ in dextrose 5% water 500ml 500 ML IV SCH ×3 (03:15→21:17)
[2019-01-16] MEDS: ipratropium/albuterol 3ml nebule NEB SCH ×6 (03:36→23:13)
[2019-01-16 04:01] LABS: ABG BASE EXCESS -7.4 mmol/L (-2.0-3.0); ABG HCO3 18.5 mmol/L (22.0-26.0); ABG OXYGEN SATURATION 95.2 % (95-98); ABG PCO2 (T) 38.3 mmHg (35.0-45.0); ABG PO2 (T) 79.2 mmHg (83-108); FCOHb 0.2 % (0.5-1.5); FMetHb 0.3 % (0.3-1.12); FO2Hb 94.7 % (94-100); MINUTE VOLUME 11 L/min; PATIENT TEMPERATURE 36.7; PEEP 8 cm H2O; RESPIRATORY RATE 20 b/min; RESPIRATORY RATE (OBSERVED) 23 b/min; TIDAL VOLUME 475 mL; TOTAL HEMOGLOBIN 9.5 G/dl (14.0-17.9)
[2019-01-16] MEDS ORDERED: heparin 1,000 units/ml 10ml inj HE ONE ×2 (04:20)
[2019-01-16] MEDS: [UNRECOGNIZED DRUG - OTHER] IV SCH ×2 (04:48→22:42)
[2019-01-16] MEDS: TRACE ELEMENT IV SCH ×2 (04:48→22:42)
[2019-01-16] MEDS: AMINO ACID IV SCH ×2 (04:48→22:42)
[2019-01-16 05:58] LABS: BASOPHILS % (AUTO) 0.3 % (0-1); EOSINOPHILS # (AUTO) 0.2 X10'3 (0-0.9); EOSINOPHILS % (AUTO) 1.7 % (0-6); HEMATOCRIT 26.8 % (42.0-52.0); HEMOGLOBIN 8.8 g/dl (14.0-17.9); LYMPHOCYTES # (AUTO) 0.9 X10'3 (1.1-4.8); LYMPHOCYTES % (AUTO) 7.6 % (21-51); MEAN CORPUSCULAR HEMOGLOBIN 30.9 PG (27.0-31.0); MEAN CORPUSCULAR VOLUME 93.8 FL (78-98); MEAN PLATELET VOLUME 9.8 FL (7.4-10.4); MONOCYTES # (AUTO) 0.8 X10'3 (0-0.9); MONOCYTES % (AUTO) 6.2 % (2-12); NEUTROPHILS # (AUTO) 10.4 X10'3 (1.8-7.7); NEUTROPHILS % (AUTO) 84.2 % (42-75); PLATELET COUNT 95 X10'3 (140-440); RED BLOOD COUNT 2.85 X10'6 (4.70-6.10); RED CELL DISTRIBUTION WIDTH 17.3 % (11.5-14.5)
[2019-01-16] MEDS: propofol 1000mg/100ml bottle 100 ML IV SCH ×2 (06:00→18:34)
--- NOTE | 2019-01-16 06:35 | NUR ---
Patient in room CICU 2011. I have received report from VLADISLAV Quinones and had the opportunity to ask questions and assume patient care.
[2019-01-16 06:45] LABS: NUCLEATED RED BLOOD CELLS 24 /100WBC (0-0); PLATELET ESTIMATE DECREASED; TOTAL CELLS COUNTED 100
[2019-01-16 06:46] LABS: ANISOCYTOSIS 1+; POLYCHROMASIA 2+
[2019-01-16 06:47] LABS: HYPOCHROMASIA 1+
[2019-01-16 06:52] LABS: WHITE BLOOD COUNT 10.8 X10'3 (4.5-11.0)
[2019-01-16 07:02] LABS: ALBUMIN 1.1 G/DL (3.4-5.0); ANION GAP 11 (8-16); BLOOD UREA NITROGEN 28 MG/DL (7-18); BUN/CREATININE RATIO 27.5 (5.4-32.0); CHLORIDE 101 MMOL/L (99-107); CREATININE 1.02 MG/DL (0.60-1.10); GLUCOSE 118 MG/DL (70-104); POTASSIUM 3.7 MMOL/L (3.5-5.1); SODIUM 132 MMOL/L (135-145); TOTAL CARBON DIOXIDE 20.1 MMOL/L (24-32); eGFR 71 ML/MIN
[2019-01-16] MEDS: pantoprazole 40 MG vial IV SCH ×2 (07:49→19:45)
[2019-01-16] MEDS: lactobacillus rhamnosus 10,000 MMU CELLS/CAPSULE OGT SCH ×2 (07:49→19:45)
[2019-01-16] MEDS: CefTRIAXone/D5W-Rocephin 1gm 50 ML IV SCH (07:49)
[2019-01-16] MEDS: K, MAG and/or Phos replacement - Verify level? MC SCH (07:50)
[2019-01-16] MEDS: insulin regular, human vial - multi-dose SQ SCH ×3 (08:03→20:43)
[2019-01-16] MEDS: bicarb dialysis sol 2K+/3 Ca2+ 5,000 ML HE SCH ×5 (09:15→22:48)
--- NOTE | 2019-01-16 10:20 | NUR ---
CVVH back up.
--- NOTE | 2019-01-16 10:55 | NUR ---
Bed rotation held and propofol stopped for sedation vacation.
--- NOTE | 2019-01-16 11:32 | NUR ---
Pt unresponsive. Bed rotation restarted.
--- NOTE | 2019-01-16 11:54 | NUR ---
Pt able to squeeze with right hand when asked. Response is slow and weak, but consistent. Propofol gtt restarted at half dose. Titrating Levophed down. Currently at 26 mcg/min, MAP is 66.
[2019-01-16 11:55] LABS: BASOPHILS # (AUTO) 0.1 X10'3 (0-0.2); BASOPHILS % (AUTO) 0.7 % (0-1); EOSINOPHILS # (AUTO) 0.1 X10'3 (0-0.9); HEMATOCRIT 26.2 % (42.0-52.0); HEMOGLOBIN 8.6 g/dl (14.0-17.9); LYMPHOCYTES # (AUTO) 1.8 X10'3 (1.1-4.8); LYMPHOCYTES % (AUTO) 14.3 % (21-51); MEAN CORPUSCULAR HEMOGLOBIN 30.9 PG (27.0-31.0); MEAN CORPUSCULAR HGB CONC 32.8 g/dL (33.0-36.5); MEAN CORPUSCULAR VOLUME 94.1 FL (78-98); MEAN PLATELET VOLUME 9.3 FL (7.4-10.4); MONOCYTES # (AUTO) 0.6 X10'3 (0-0.9); MONOCYTES % (AUTO) 4.5 % (2-12); NEUTROPHILS # (AUTO) 10.1 X10'3 (1.8-7.7); NEUTROPHILS % (AUTO) 79.5 % (42-75); PLATELET COUNT 91 X10'3 (140-440); RED BLOOD COUNT 2.78 X10'6 (4.70-6.10); RED CELL DISTRIBUTION WIDTH 17.5 % (11.5-14.5); WHITE BLOOD COUNT 12.7 X10'3 (4.5-11.0)
[2019-01-16 12:06] LABS: ALBUMIN 1.1 G/DL (3.4-5.0); ANION GAP 9 (8-16); BLOOD UREA NITROGEN 32 MG/DL (7-18); BUN/CREATININE RATIO 28.8 (5.4-32.0); CHLORIDE 101 MMOL/L (99-107); CREATININE 1.11 MG/DL (0.60-1.10); GLUCOSE 201 MG/DL (70-104); MAGNESIUM 1.6 MG/DL (1.5-2.4); POTASSIUM 3.6 MMOL/L (3.5-5.1); SODIUM 131 MMOL/L (135-145); TOTAL CARBON DIOXIDE 21.5 MMOL/L (24-32); eGFR 64 ML/MIN
[2019-01-16 12:07] LABS: PHOSPHORUS 3.2 MG/DL (2.3-4.5)
[2019-01-16 12:17] LABS: ANISOCYTOSIS 1+; NUCLEATED RED BLOOD CELLS 7 /100WBC (0-0); PLATELET ESTIMATE DECREASED; POLYCHROMASIA 2+; TOTAL CELLS COUNTED 100
--- NOTE | 2019-01-16 13:15 | NUR ---
Bed broken down, skin assessed, all dressings CDI. Lotion applied to pt's skin. Left great toe becoming darker. Pt tolerated well.
[2019-01-16] MEDS ORDERED: acetaminophen 325mg/10.15ml oral unit dose solution PEG PRN ×2 (13:50→13:51)
[2019-01-16] MEDS ORDERED: dextrose ORAL solution 15 GM/59 ML bottle PEG PRN ×2 (13:51)
[2019-01-16] MEDS ORDERED: POTASSIUM BICARB 20meq eff tab 20 MEQ TABLET.EFF PEG PRN ×2 (13:55)
[2019-01-16] MEDS ORDERED: dextrose ORAL solution 15 GM/59 ML bottle OGT PRN ×2 (13:58)
[2019-01-16] MEDS ORDERED: acetaminophen 325mg/10.15ml oral unit dose solution OGT PRN (13:58)
--- NOTE | 2019-01-16 13:58 | NUR ---
reassessment: Pt remains on rotorest now off ARDS protocol per MD. MAP 58-59 at this time w/ OG to suction. TF held r/t 400ml residuals 01/13 per continuous improvement coordinator request. Pt would benefit from post-pyloric feeds once more stable to optimize EN delivery. Only having smears since admit 17 days; notified; pt is on relistor and reglan. TPN at goal and tolerating. PALB 6.7; significant edema persists w/ consistent negative fluid balance on CVVH. Will continue to monitor. Recommendations: 1. continuous 2:1 TPN using Clinimix non-E 08/30 at 120 ml/hr to provide total volume of 2880, 2045 cals, 144 gm protein, 432 gm dextrose, 2.95 mg/kg/min CHO loading. 2. Separate 20% intralipids to run for 12 hours daily to provide 15 ml/hr, 180 ml total and 36 grams lipids. 3. Resume as medically indicated; Trickle OGTF per MD using Vital High Protein at 10ml/hr goal; to provide 240 ml volume, 175ml free water, 432 kcals, and 19g protein. 3) Once EN; post pyloric tube feedings for optimal EN delivery and tolerance 4. additional free water per continuous improvement coordinator on CVVH 5. IF tube feeding is able to be advanced past trickle rate when he can tolerate it, patient would benefit from Vital High protein at 85ml/hr goal; to provide 2040ml fluid, 2040kcals, 1714ml free water, and 179g protein. 6. prealbumin Q /; daily wts 7. routine bowel care, patient only having smears since admission 17 days, no significant bowel movement Addendum: 01/16/19 at [address] Amended: Links added.
[2019-01-16] MEDS ORDERED: POTASSIUM BICARB 20meq eff tab 20 MEQ TABLET.EFF OGT PRN ×2 (13:59)
[2019-01-16 17:30] LABS: BASOPHILS # (AUTO) 0.1 X10'3 (0-0.2); BASOPHILS % (AUTO) 0.7 % (0-1); EOSINOPHILS # (AUTO) 0.1 X10'3 (0-0.9); HEMOGLOBIN 8.3 g/dl (14.0-17.9); LYMPHOCYTES # (AUTO) 0.9 X10'3 (1.1-4.8); LYMPHOCYTES % (AUTO) 7.6 % (21-51); MEAN CORPUSCULAR HEMOGLOBIN 30.5 PG (27.0-31.0); MEAN CORPUSCULAR VOLUME 92.6 FL (78-98); MEAN PLATELET VOLUME 9.8 FL (7.4-10.4); MONOCYTES # (AUTO) 0.6 X10'3 (0-0.9); MONOCYTES % (AUTO) 5.5 % (2-12); NEUTROPHILS # (AUTO) 9.7 X10'3 (1.8-7.7); NEUTROPHILS % (AUTO) 85.2 % (42-75); PLATELET COUNT 93 X10'3 (140-440); RED CELL DISTRIBUTION WIDTH 17.1 % (11.5-14.5); WHITE BLOOD COUNT 11.4 X10'3 (4.5-11.0)
--- NOTE | 2019-01-16 17:33 | NUR ---
Spoke with Dr. Sykes to confirm that he wants PEEP reduced to 5. Received order to reduce PEEP from 8 to 5. Also received order to discontinue Rotorest bed. RT informed of vent settings order change.
[2019-01-16] MEDS: calcium chloride inj. 1,100 MG in Duosol 4k/NO Calcium 5,000 ML IV SCH ×5 (17:40→23:24)
[2019-01-16 17:42] LABS: ANION GAP 9 (8-16); BLOOD UREA NITROGEN 30 MG/DL (7-18); BUN/CREATININE RATIO 28.3 (5.4-32.0); CHLORIDE 101 MMOL/L (99-107); CREATININE 1.06 MG/DL (0.60-1.10); GLUCOSE 162 MG/DL (70-104); MAGNESIUM 1.6 MG/DL (1.5-2.4); PHOSPHORUS 2.4 MG/DL (2.3-4.5); POTASSIUM 3.1 MMOL/L (3.5-5.1); SODIUM 132 MMOL/L (135-145); TOTAL CARBON DIOXIDE 22.3 MMOL/L (24-32); eGFR 68 ML/MIN
--- NOTE | 2019-01-16 18:23 | NUR ---
Problems reprioritized. Patient report given, questions answered & plan of care reviewed with VLADISLAV Moctezuma.
--- NOTE | 2019-01-16 18:30 | NUR ---
Patient in room CICU 2012. I have received report from Rod LOOMIS, and had the opportunity to ask questions and assume patient care.
--- NOTE | 2019-01-16 19:30 | NUR ---
PT is intubated and mechanically vented, tolerating settings well. O2 sat >95%. PT is on Rotorest bed and tolerating well. CVVH machine is running with no issues noted at this time. No s/s of distress noted at this time. Bed is locked and low. Will continue to monitor.
[2019-01-16] MEDS: fat emulsion IV bag 180 ML IV SCH (19:45)
[2019-01-16] MEDS: insulin glargine (Lantus) pen - multi-dose SQ SCH (20:44)
--- NOTE | 2019-01-16 21:45 | NUR ---
PT was transferred from [facility] bed to ICU bed. PT tolerated the move well. CVVH remains running with no issues. Bed is locked and low. Will continue to monitor.
--- NOTE | 2019-01-16 23:00 | NUR ---
PT resting with no s/s of distress noted at this time. Bed is locked and low. Will continue to monitor.
[2019-01-17] VITALS (24 sets, daily range): BP systolic 87–115; BP diastolic 46–64
[2019-01-17] MEDS: NORepinephrine 8mg/ 250ml NS 250 ML IV PRN ×5 (00:14→22:56)
[2019-01-17] MEDS: calcium chloride inj. 1,100 MG in Duosol 4k/NO Calcium 5,000 ML IV SCH ×12 (00:50→15:45)
[2019-01-17] MEDS: potassium Cl 20mEq/100mL bag 100 ML IV PRN ×5 (01:00→17:05)
[2019-01-17 01:01] LABS: BASOPHILS % (AUTO) 0.2 % (0-1); EOSINOPHILS # (AUTO) 0.2 X10'3 (0-0.9); EOSINOPHILS % (AUTO) 1.4 % (0-6); HEMATOCRIT 24.7 % (42.0-52.0); HEMOGLOBIN 8.2 g/dl (14.0-17.9); LYMPHOCYTES # (AUTO) 0.7 X10'3 (1.1-4.8); MEAN CORPUSCULAR HEMOGLOBIN 30.6 PG (27.0-31.0); MEAN CORPUSCULAR HGB CONC 33.1 g/dL (33.0-36.5); MEAN CORPUSCULAR VOLUME 92.7 FL (78-98); MEAN PLATELET VOLUME 10.2 FL (7.4-10.4); MONOCYTES # (AUTO) 0.5 X10'3 (0-0.9); MONOCYTES % (AUTO) 4.5 % (2-12); NEUTROPHILS # (AUTO) 9.3 X10'3 (1.8-7.7); NEUTROPHILS % (AUTO) 86.9 % (42-75); PLATELET COUNT 83 X10'3 (140-440); RED BLOOD COUNT 2.66 X10'6 (4.70-6.10); WHITE BLOOD COUNT 10.7 X10'3 (4.5-11.0)
[2019-01-17 01:09] LABS: ALBUMIN 0.9 G/DL (3.4-5.0); ANION GAP 7 (8-16); BLOOD UREA NITROGEN 28 MG/DL (7-18); BUN/CREATININE RATIO 26.7 (5.4-32.0); CHLORIDE 101 MMOL/L (99-107); CREATININE 1.05 MG/DL (0.60-1.10); GLUCOSE 128 MG/DL (70-104); MAGNESIUM 1.5 MG/DL (1.5-2.4); PHOSPHORUS 1.7 MG/DL (2.3-4.5); POTASSIUM 3.3 MMOL/L (3.5-5.1); SODIUM 131 MMOL/L (135-145); TOTAL CARBON DIOXIDE 22.7 MMOL/L (24-32); eGFR 68 ML/MIN
[2019-01-17 01:27] LABS: NUCLEATED RED BLOOD CELLS 8 /100WBC (0-0); TOTAL CELLS COUNTED 100
[2019-01-17 01:28] LABS: ANISOCYTOSIS 1+; PLATELET ESTIMATE DECREASED; POLYCHROMASIA 2+; TARGET CELLS 1+
--- NOTE | 2019-01-17 02:00 | NUR ---
PT resting with no s/s of distress noted at this time. Bed is locked and low. Will continue to monitor.
[2019-01-17] MEDS: mineral oil/petrolatum ophthal oint EACHEYE SCH ×4 (02:19→20:10)
[2019-01-17] MEDS: metoclopramide 5 mg/ml inj IV SCH ×4 (02:19→20:10)
[2019-01-17] MEDS: sodium phosphate inj. 30 MMOL in normal saline 250ml IV soln 250 ML IV PRN ×2 (02:20→17:31)
[2019-01-17] MEDS: insulin regular, human vial - multi-dose SQ SCH ×3 (02:21→20:42)
[2019-01-17] MEDS: ipratropium/albuterol 3ml nebule NEB SCH ×6 (02:45→23:20)
[2019-01-17] MEDS: propofol 1000mg/100ml bottle 100 ML IV SCH ×2 (02:59→17:06)
[2019-01-17 03:21] LABS: ABG BASE EXCESS -2.2 mmol/L (-2.0-3.0); ABG HCO3 22.3 mmol/L (22.0-26.0); ABG OXYGEN SATURATION 93.1 % (95-98); ABG PCO2 (T) 35.6 mmHg (35.0-45.0); ABG PH (T) 7.411 (7.350-7.450); ABG PO2 (T) 59.7 mmHg (83-108); FCOHb 0.6 % (0.5-1.5); FMetHb 0.3 % (0.3-1.12); FO2Hb 92.3 % (94-100); MINUTE VOLUME 10 L/min; PATIENT TEMPERATURE 36.3; PEEP 5 cm H2O; RESPIRATORY RATE 20 b/min; RESPIRATORY RATE (OBSERVED) 22 b/min; TIDAL VOLUME 475 mL; TOTAL HEMOGLOBIN 9.1 G/dl (14.0-17.9)
[2019-01-17] MEDS: sodium bicarbonate (8.4%) inj. 75 MEQ in dextrose 5% water 500ml 500 ML IV SCH ×4 (04:17→20:40)
[2019-01-17] MEDS: bicarb dialysis sol 2K+/3 Ca2+ 5,000 ML HE SCH ×12 (04:18→20:27)
--- NOTE | 2019-01-17 05:44 | NUR ---
Drsg to A-Line to Rt groin changed using sterile technique. PT tolerated well. Will continue to monitor.
--- NOTE | 2019-01-17 06:30 | NUR ---
Patient in room CICU 2012. I have received report from marcela and had the opportunity to ask questions and assume patient care.
[2019-01-17 06:37] LABS: BASOPHILS % (AUTO) 0.3 % (0-1); EOSINOPHILS # (AUTO) 0.1 X10'3 (0-0.9); EOSINOPHILS % (AUTO) 1.1 % (0-6); HEMATOCRIT 24.8 % (42.0-52.0); HEMOGLOBIN 8.2 g/dl (14.0-17.9); LYMPHOCYTES % (AUTO) 9.6 % (21-51); MEAN CORPUSCULAR HEMOGLOBIN 31.1 PG (27.0-31.0); MEAN CORPUSCULAR HGB CONC 33.3 g/dL (33.0-36.5); MEAN CORPUSCULAR VOLUME 93.6 FL (78-98); MEAN PLATELET VOLUME 10.5 FL (7.4-10.4); MONOCYTES # (AUTO) 0.4 X10'3 (0-0.9); NEUTROPHILS # (AUTO) 9.2 X10'3 (1.8-7.7); PLATELET COUNT 79 X10'3 (140-440); RED BLOOD COUNT 2.65 X10'6 (4.70-6.10); RED CELL DISTRIBUTION WIDTH 17.5 % (11.5-14.5); WHITE BLOOD COUNT 10.8 X10'3 (4.5-11.0)
--- NOTE | 2019-01-17 06:38 | NUR ---
Problems reprioritized. Patient report given, questions answered & plan of care reviewed with Ernestine LOOMIS.
[2019-01-17 06:52] LABS: ALBUMIN 0.9 G/DL (3.4-5.0); ANION GAP 9 (8-16); BLOOD UREA NITROGEN 26 MG/DL (7-18); CHLORIDE 101 MMOL/L (99-107); CREATININE 0.93 MG/DL (0.60-1.10); GLUCOSE 116 MG/DL (70-104); MAGNESIUM 1.5 MG/DL (1.5-2.4); PHOSPHORUS 2.1 MG/DL (2.3-4.5); SODIUM 133 MMOL/L (135-145); TOTAL CARBON DIOXIDE 23.2 MMOL/L (24-32); eGFR 79 ML/MIN
[2019-01-17 07:07] LABS: NUCLEATED RED BLOOD CELLS 2 /100WBC (0-0); PLATELET ESTIMATE DECREASED; TOTAL CELLS COUNTED 100
[2019-01-17 07:08] LABS: ANISOCYTOSIS 1+; POLYCHROMASIA 2+
[2019-01-17 07:09] LABS: GIANT PLATELET FEW; LARGE PLATELETS FEW; SCHISTOCYTES FEW; TARGET CELLS FEW
[2019-01-17] MEDS: magnesium 4gm in 100ml NS 100 ML IV PRN ×2 (07:53→16:07)
[2019-01-17] MEDS: K, MAG and/or Phos replacement - Verify level? MC SCH (08:00)
[2019-01-17] MEDS: methylnaltrexone br 12mg/0.6ml inj***SubQ only SQ SCH (08:00)
[2019-01-17] MEDS: lactobacillus rhamnosus 10,000 MMU CELLS/CAPSULE OGT SCH ×2 (08:32→20:10)
[2019-01-17] MEDS: pantoprazole 40 MG vial IV SCH ×2 (08:33→20:10)
[2019-01-17] MEDS: CefTRIAXone/D5W-Rocephin 1gm 50 ML IV SCH (08:34)
--- NOTE | 2019-01-17 09:00 | NUR ---
daughter at - updated- diprivan off. nonresponsive to commands- eyes always open. abrasion noted on posterior head
--- NOTE | 2019-01-17 11:36 | NUR ---
TF Consult: Trickle OGTF to start again per MD. MAP improving to high 60's/low 70's today. Pt is receiving reglan; now off relistor since not receiving opiates. Only smears since admit 18 days but also little enteral intake since admit. On CVVH. Will monitor for TF tolerance; recs below. Recommendations: 1. continuous 2:1 TPN using Clinimix non-E 5/15 at 120 ml/hr to provide total volume of 2880, 2045 cals, 144 gm protein, 432 gm dextrose, 2.95 mg/kg/min CHO loading. 2. Separate 20% intralipids to run for 12 hours daily to provide 15 ml/hr, 180 ml total and 36 grams lipids. 3. Trickle OGTF per MD using Vital High Protein at 10ml/hr goal; to provide 240 ml volume, 175ml free water, 432kcals, and 19g protein. 3) post pyloric tube feedings for optimal EN delivery and tolerance 4. additional free water per social media content manager on CVVH 5. IF tube feeding is able to be advanced past trickle rate when he can tolerate it, patient would benefit from Vital High protein at 85ml/hr goal; to provide 2040ml fluid, 2040kcals, 1714ml free water, and 179g protein. 6. prealbumin Q /; daily wts 7. routine bowel care, patient only having smears since admission 17 days, no significant bowel movement Addendum: 01/17/19 at [address] Amended: Links added.
[2019-01-17 12:59] LABS: BASOPHILS # (AUTO) 0.1 X10'3 (0-0.2); BASOPHILS % (AUTO) 0.5 % (0-1); EOSINOPHILS # (AUTO) 0.1 X10'3 (0-0.9); EOSINOPHILS % (AUTO) 1.2 % (0-6); HEMATOCRIT 26.1 % (42.0-52.0); HEMOGLOBIN 8.6 g/dl (14.0-17.9); LYMPHOCYTES # (AUTO) 0.8 X10'3 (1.1-4.8); LYMPHOCYTES % (AUTO) 6.9 % (21-51); MEAN CORPUSCULAR HEMOGLOBIN 30.7 PG (27.0-31.0); MEAN CORPUSCULAR VOLUME 92.8 FL (78-98); MEAN PLATELET VOLUME 9.7 FL (7.4-10.4); MONOCYTES # (AUTO) 0.6 X10'3 (0-0.9); MONOCYTES % (AUTO) 4.8 % (2-12); NEUTROPHILS # (AUTO) 10.4 X10'3 (1.8-7.7); NEUTROPHILS % (AUTO) 86.6 % (42-75); PLATELET COUNT 88 X10'3 (140-440); RED BLOOD COUNT 2.81 X10'6 (4.70-6.10); RED CELL DISTRIBUTION WIDTH 17.9 % (11.5-14.5); WHITE BLOOD COUNT 12.1 X10'3 (4.5-11.0)
[2019-01-17 13:10] LABS: ANION GAP 8 (8-16); BLOOD UREA NITROGEN 25 MG/DL (7-18); BUN/CREATININE RATIO 29.4 (5.4-32.0); CHLORIDE 102 MMOL/L (99-107); CREATININE 0.85 MG/DL (0.60-1.10); GLUCOSE 73 MG/DL (70-104); MAGNESIUM 1.7 MG/DL (1.5-2.4); PHOSPHORUS 1.7 MG/DL (2.3-4.5); POTASSIUM 3.3 MMOL/L (3.5-5.1); SODIUM 135 MMOL/L (135-145); eGFR 87 ML/MIN
[2019-01-17] MEDS: dextrose 50%-water 50ml dispensing syringe IV PRN (13:14)
[2019-01-17 13:16] LABS: NUCLEATED RED BLOOD CELLS 7 /100WBC (0-0); TOTAL CELLS COUNTED 100
[2019-01-17] MEDS: [UNRECOGNIZED DRUG - OTHER] IV SCH (13:16)
[2019-01-17] MEDS: AMINO ACID IV SCH (13:16)
[2019-01-17] MEDS: TRACE ELEMENT IV SCH (13:16)
[2019-01-17 13:18] LABS: ANISOCYTOSIS 1+; PLATELET ESTIMATE DECREASED; POLYCHROMASIA 2+; SCHISTOCYTES FEW; TARGET CELLS FEW
[2019-01-17 13:19] LABS: GIANT PLATELET FEW; LARGE PLATELETS FEW
--- NOTE | 2019-01-17 14:00 | NUR ---
pt nodding to questions yes and no- are you in pain?, daughter crying out, talking to pt, concerned because she has little money and cant access his money- is not poa. support given.
--- NOTE | 2019-01-17 15:30 | NUR ---
diprivan restarted as rr consistently 30, wide eyed- looking uncomfortable. cvvh tolerating negative 50cc off
--- NOTE | 2019-01-17 18:30 | NUR ---
Patient in room CICU 2012. I have received report from Ernestine LOOMIS, and had the opportunity to ask questions and assume patient care.
[2019-01-17 18:52] LABS: BASOPHILS # (AUTO) 0.1 X10'3 (0-0.2); BASOPHILS % (AUTO) 0.5 % (0-1); EOSINOPHILS # (AUTO) 0.1 X10'3 (0-0.9); EOSINOPHILS % (AUTO) 0.7 % (0-6); HEMATOCRIT 27.4 % (42.0-52.0); LYMPHOCYTES # (AUTO) 1.2 X10'3 (1.1-4.8); MEAN CORPUSCULAR HEMOGLOBIN 30.8 PG (27.0-31.0); MEAN CORPUSCULAR HGB CONC 32.8 g/dL (33.0-36.5); MEAN PLATELET VOLUME 9.9 FL (7.4-10.4); MONOCYTES # (AUTO) 0.8 X10'3 (0-0.9); MONOCYTES % (AUTO) 5.6 % (2-12); NEUTROPHILS # (AUTO) 12.6 X10'3 (1.8-7.7); NEUTROPHILS % (AUTO) 85.2 % (42-75); PLATELET COUNT 91 X10'3 (140-440); RED BLOOD COUNT 2.91 X10'6 (4.70-6.10); RED CELL DISTRIBUTION WIDTH 17.8 % (11.5-14.5); WHITE BLOOD COUNT 14.8 X10'3 (4.5-11.0)
[2019-01-17 19:04] LABS: ANION GAP 8 (8-16); BLOOD UREA NITROGEN 23 MG/DL (7-18); BUN/CREATININE RATIO 24.7 (5.4-32.0); CHLORIDE 101 MMOL/L (99-107); CREATININE 0.93 MG/DL (0.60-1.10); GLUCOSE 149 MG/DL (70-104); MAGNESIUM 2.4 MG/DL (1.5-2.4); PHOSPHORUS 2.1 MG/DL (2.3-4.5); SODIUM 133 MMOL/L (135-145); TOTAL CARBON DIOXIDE 24.5 MMOL/L (24-32); eGFR 79 ML/MIN
--- NOTE | 2019-01-17 19:20 | NUR ---
PT is intubated and mechanically vented, tolerating settings well, O2 sat >92%. Pt is on a sedation vacation at this time. Daughter is at bedside. PT is more awake and responsive, nods his head yes/no to simple questions and is able to squeeze with RT hand on command. Will turn the sedation on after family leaves as PT nods his head yes when asked if he wants medication to help him relax and rest. Levo is running @ 25mcg, will titrate as BP allows. Bed is locked and low. Will continue to monitor.
[2019-01-17] MEDS: fat emulsion IV bag 180 ML IV SCH (20:10)
[2019-01-17] MEDS: insulin glargine (Lantus) pen - multi-dose SQ SCH ×2 (20:41→20:59)
--- NOTE | 2019-01-17 22:30 | NUR ---
PT resting with no s/s of distress noted at this time. Will continue to monitor.
[2019-01-18] VITALS (23 sets, daily range): BP systolic 83–108; BP diastolic 45–205
[2019-01-18 01:07] LABS: EOSINOPHILS # (AUTO) 0.1 X10'3 (0-0.9); HEMOGLOBIN 8.7 g/dl (14.0-17.9); MONOCYTES # (AUTO) 0.6 X10'3 (0-0.9); PLATELET COUNT 89 X10'3 (140-440)
[2019-01-18 01:09] LABS: BASOPHILS % (AUTO) 0.4 % (0-1); EOSINOPHILS % (AUTO) 0.6 % (0-6); HEMATOCRIT 26.2 % (42.0-52.0); LYMPHOCYTES # (AUTO) 0.8 X10'3 (1.1-4.8); LYMPHOCYTES % (AUTO) 5.9 % (21-51); MEAN CORPUSCULAR HEMOGLOBIN 30.8 PG (27.0-31.0); MEAN CORPUSCULAR HGB CONC 33.1 g/dL (33.0-36.5); MEAN PLATELET VOLUME 9.8 FL (7.4-10.4); MONOCYTES % (AUTO) 4.9 % (2-12); NEUTROPHILS # (AUTO) 11.2 X10'3 (1.8-7.7); NEUTROPHILS % (AUTO) 88.2 % (42-75); RED BLOOD COUNT 2.81 X10'6 (4.70-6.10); RED CELL DISTRIBUTION WIDTH 18.3 % (11.5-14.5); WHITE BLOOD COUNT 12.7 X10'3 (4.5-11.0)
[2019-01-18 01:11] LABS: ANION GAP 6 (8-16); BLOOD UREA NITROGEN 25 MG/DL (7-18); BUN/CREATININE RATIO 25.5 (5.4-32.0); CHLORIDE 101 MMOL/L (99-107); CREATININE 0.98 MG/DL (0.60-1.10); GLUCOSE 215 MG/DL (70-104); PHOSPHORUS 2.7 MG/DL (2.3-4.5); POTASSIUM 3.4 MMOL/L (3.5-5.1); PREALBUMIN 6.2 MG/DL (19-36); SODIUM 134 MMOL/L (135-145); TOTAL CARBON DIOXIDE 27.3 MMOL/L (24-32); TRIGLYCERIDES 135 MG/DL (20-135); eGFR 74 ML/MIN
[2019-01-18 01:30] LABS: ANISOCYTOSIS 2+; BANDS% (MANUAL) 2 % (0-10); GIANT PLATELET FEW; LYMPHOCYTES % (MANUAL) 5 % (21-51); MONOCYTES % (MANUAL) 4 % (2-12); MYELOCYTES % (MANUAL) 1 % (0-0); NEUTROPHILS % (MANUAL) 87 % (42-75); NUCLEATED RED BLOOD CELLS 10 /100WBC (0-0); PLATELET ESTIMATE DECREASED; PROMYELOCYTES % (MANUAL) 1 % (0-0); TOTAL CELLS COUNTED 100; TOXIC GRANULATION 1+
--- NOTE | 2019-01-18 01:30 | NUR ---
CVVH went down. scallop cutter HD nurse notified and will be in to get it restarted.
[2019-01-18 01:31] LABS: HYPOCHROMASIA 1+; POLYCHROMASIA 1+; TARGET CELLS 2+
[2019-01-18] MEDS: Duosol 4K/3 Ca (w/calcium) 5,000 ML HE SCH ×15 (02:34→23:59)
[2019-01-18] MEDS: mineral oil/petrolatum ophthal oint EACHEYE SCH ×4 (02:53→20:08)
[2019-01-18] MEDS: metoclopramide 5 mg/ml inj IV SCH ×4 (02:53→20:08)
[2019-01-18] MEDS: insulin regular, human vial - multi-dose SQ SCH ×4 (02:56→21:01)
[2019-01-18 03:00] LABS: ANION GAP 6 (8-16); BLOOD UREA NITROGEN 25 MG/DL (7-18); CHLORIDE 101 MMOL/L (99-107); GLUCOSE 215 MG/DL (70-104); POTASSIUM 3.4 MMOL/L (3.5-5.1); SODIUM 134 MMOL/L (135-145); TOTAL CARBON DIOXIDE 27.3 MMOL/L (24-32)
[2019-01-18 03:01] LABS: BUN/CREATININE RATIO 25.5 (5.4-32.0); CALCIUM 7.5 MG/DL (8.5-10.1); CREATININE 0.98 MG/DL (0.60-1.10); eGFR 74 ML/MIN
[2019-01-18 03:08] LABS: ALANINE AMINOTRANSFERASE 46 U/L (12-78); ALKALINE PHOSPHATASE 842 IU/L (46-116); ASPARTATE AMINO TRANSFERASE 92 U/L (10-37); BILIRUBIN,TOTAL 3.2 MG/DL (0.1-1.0); TOTAL PROTEIN 5.5 G/DL (6.4-8.2)
--- NOTE | 2019-01-18 03:10 | NUR ---
CVVH back up and running. PT tolerating well. Will continue to monitor.
[2019-01-18 03:15] LABS: ALBUMIN/GLOBULIN RATIO 0.2 (1.1-1.5)
[2019-01-18] MEDS: ipratropium/albuterol 3ml nebule NEB SCH ×6 (03:19→22:51)
[2019-01-18] MEDS: potassium Cl 20mEq/100mL bag 100 ML IV PRN ×4 (03:40→12:10)
[2019-01-18 03:50] LABS: ABG BASE EXCESS -0.8 mmol/L (-2.0-3.0); ABG HCO3 23.5 mmol/L (22.0-26.0); ABG OXYGEN SATURATION 91.7 % (95-98); ABG PCO2 (T) 36.2 mmHg (35.0-45.0); ABG PH (T) 7.428 (7.350-7.450); ABG PO2 (T) 57.9 mmHg (83-108); FCOHb 0.8 % (0.5-1.5); FMetHb 0.1 % (0.3-1.12); FO2Hb 90.9 % (94-100); MINUTE VOLUME 18 L/min; PATIENT TEMPERATURE 36.3; PEEP 5 cm H2O; RESPIRATORY RATE 20 b/min; RESPIRATORY RATE (OBSERVED) 33 b/min; TIDAL VOLUME 475 mL; TOTAL HEMOGLOBIN 9.3 G/dl (14.0-17.9)
[2019-01-18] MEDS: [UNRECOGNIZED DRUG - OTHER] IV SCH (06:07)
[2019-01-18] MEDS: AMINO ACID IV SCH (06:07)
[2019-01-18] MEDS: TRACE ELEMENT IV SCH (06:07)
[2019-01-18 06:35] LABS: BASOPHILS % (AUTO) 0.3 % (0-1); EOSINOPHILS # (AUTO) 0.1 X10'3 (0-0.9); EOSINOPHILS % (AUTO) 0.5 % (0-6); HEMOGLOBIN 8.3 g/dl (14.0-17.9); LYMPHOCYTES # (AUTO) 1.2 X10'3 (1.1-4.8); LYMPHOCYTES % (AUTO) 9.6 % (21-51); MEAN CORPUSCULAR HEMOGLOBIN 31.3 PG (27.0-31.0); MEAN CORPUSCULAR HGB CONC 33.3 g/dL (33.0-36.5); MEAN CORPUSCULAR VOLUME 93.9 FL (78-98); MEAN PLATELET VOLUME 9.8 FL (7.4-10.4); MONOCYTES # (AUTO) 0.6 X10'3 (0-0.9); MONOCYTES % (AUTO) 5.1 % (2-12); NEUTROPHILS # (AUTO) 10.5 X10'3 (1.8-7.7); NEUTROPHILS % (AUTO) 84.5 % (42-75); PLATELET COUNT 89 X10'3 (140-440); RED BLOOD COUNT 2.66 X10'6 (4.70-6.10); RED CELL DISTRIBUTION WIDTH 18.3 % (11.5-14.5); WHITE BLOOD COUNT 12.4 X10'3 (4.5-11.0)
--- NOTE | 2019-01-18 06:41 | NUR ---
Problems reprioritized. Patient report given, questions answered & plan of care reviewed with Sedrick LOOMIS.
[2019-01-18 06:42] LABS: ALBUMIN 0.9 G/DL (3.4-5.0); ANION GAP 9 (8-16); BLOOD UREA NITROGEN 27 MG/DL (7-18); BUN/CREATININE RATIO 26.7 (5.4-32.0); CHLORIDE 101 MMOL/L (99-107); CREATININE 1.01 MG/DL (0.60-1.10); GLUCOSE 173 MG/DL (70-104); PHOSPHORUS 1.9 MG/DL (2.3-4.5); POTASSIUM 3.9 MMOL/L (3.5-5.1); SODIUM 133 MMOL/L (135-145); TOTAL CARBON DIOXIDE 22.8 MMOL/L (24-32); eGFR 71 ML/MIN
[2019-01-18 07:05] LABS: ANISOCYTOSIS 2+; LARGE PLATELETS FEW; NUCLEATED RED BLOOD CELLS 1 /100WBC (0-0); PLATELET ESTIMATE DECREASED; TOTAL CELLS COUNTED 100
[2019-01-18 07:06] LABS: POLYCHROMASIA 1+
[2019-01-18] MEDS: K, MAG and/or Phos replacement - Verify level? MC SCH (08:00)
[2019-01-18] MEDS: lactobacillus rhamnosus 10,000 MMU CELLS/CAPSULE OGT SCH ×2 (08:17→20:08)
[2019-01-18] MEDS: CefTRIAXone/D5W-Rocephin 1gm 50 ML IV SCH (08:17)
[2019-01-18] MEDS: pantoprazole 40 MG vial IV SCH ×2 (08:17→20:08)
[2019-01-18] MEDS: NORepinephrine 8mg/ 250ml NS 250 ML IV PRN ×3 (10:56→23:38)
[2019-01-18] MEDS: sodium bicarbonate (8.4%) inj. 75 MEQ in dextrose 5% water 500ml 500 ML IV SCH ×2 (12:19→20:08)
[2019-01-18 12:30] LABS: BASOPHILS % (AUTO) 0.3 % (0-1); EOSINOPHILS # (AUTO) 0.1 X10'3 (0-0.9); EOSINOPHILS % (AUTO) 0.4 % (0-6); HEMATOCRIT 24.8 % (42.0-52.0); HEMOGLOBIN 8.2 g/dl (14.0-17.9); LYMPHOCYTES # (AUTO) 0.9 X10'3 (1.1-4.8); LYMPHOCYTES % (AUTO) 7.1 % (21-51); MEAN CORPUSCULAR HGB CONC 32.9 g/dL (33.0-36.5); MEAN CORPUSCULAR VOLUME 94.2 FL (78-98); MEAN PLATELET VOLUME 10.3 FL (7.4-10.4); MONOCYTES # (AUTO) 0.8 X10'3 (0-0.9); MONOCYTES % (AUTO) 6.2 % (2-12); NEUTROPHILS # (AUTO) 11.1 X10'3 (1.8-7.7); PLATELET COUNT 101 X10'3 (140-440); RED BLOOD COUNT 2.63 X10'6 (4.70-6.10); RED CELL DISTRIBUTION WIDTH 18.8 % (11.5-14.5); WHITE BLOOD COUNT 12.9 X10'3 (4.5-11.0)
[2019-01-18 12:34] LABS: ALBUMIN 0.9 G/DL (3.4-5.0); ANION GAP 7 (8-16); BLOOD UREA NITROGEN 27 MG/DL (7-18); BUN/CREATININE RATIO 26.7 (5.4-32.0); CHLORIDE 102 MMOL/L (99-107); CREATININE 1.01 MG/DL (0.60-1.10); GLUCOSE 121 MG/DL (70-104); MAGNESIUM 1.7 MG/DL (1.5-2.4); PHOSPHORUS 1.6 MG/DL (2.3-4.5); POTASSIUM 4.3 MMOL/L (3.5-5.1); SODIUM 133 MMOL/L (135-145); TOTAL CARBON DIOXIDE 24.4 MMOL/L (24-32); eGFR 71 ML/MIN
[2019-01-18] MEDS: sodium phosphate inj. 30 MMOL in normal saline 250ml IV soln 250 ML IV PRN (13:09)
[2019-01-18] MEDS: magnesium 4gm in 100ml NS 100 ML IV PRN (13:12)
--- NOTE | 2019-01-18 13:43 | NUR ---
Follow up: Patient tolerating trickle tube feeding at 10 ml. Per MD at rounds, ok to advance by 10 ml as tolerated to goal rate. Discussed goal rate with bedside nurse. Recommendations: 1. continuous 2:1 TPN using Clinimix non-E 5/15 at 120 ml/hr to provide total volume of 2880, 2045 cals, 144 gm protein, 432 gm dextrose, 2.95 mg/kg/min CHO loading. 2. Separate 20% intralipids to run for 12 hours daily to provide 15 ml/hr, 180 ml total and 36 grams lipids. 3. Advance tube feeding by 10 ml q 8 hours as tolerated with Vital High protein at 85ml/hr goal; to provide 2040ml fluid, 2040kcals, 1714ml free water, and 179g protein. 4. additional free water per cold roll packer sheet iron on CVVH and low sodium 5. prealbumin Q /; daily wts 6. routine bowel care, patient only having smears since admission, no significant bowel movement Addendum: 01/18/19 at [address] Amended: Links added.
[2019-01-18 14:15] LABS: NUCLEATED RED BLOOD CELLS 3 /100WBC (0-0); PLATELET ESTIMATE DECREASED; TOTAL CELLS COUNTED 100
[2019-01-18 14:16] LABS: ANISOCYTOSIS 2+; HYPOCHROMASIA 1+
[2019-01-18 14:17] LABS: POLYCHROMASIA 2+; TARGET CELLS FEW
--- NOTE | 2019-01-18 14:28 | NUR ---
CVVH went down. Alarmed for venous air and unable to clear. medical library assistant dialysis nurse called. patient disconnected Addendum: 01/18/19 at 1549 by Sedrick Reddy RN started back up
--- NOTE | 2019-01-18 14:57 | NUR ---
Patient withdrawing during oral care and moving both arms
[2019-01-18 17:57] LABS: BASOPHILS # (AUTO) 0.1 X10'3 (0-0.2); BASOPHILS % (AUTO) 0.7 % (0-1); EOSINOPHILS % (AUTO) 0.2 % (0-6); HEMATOCRIT 24.3 % (42.0-52.0); LYMPHOCYTES # (AUTO) 1.7 X10'3 (1.1-4.8); LYMPHOCYTES % (AUTO) 11.9 % (21-51); MEAN CORPUSCULAR HEMOGLOBIN 30.8 PG (27.0-31.0); MEAN CORPUSCULAR HGB CONC 32.9 g/dL (33.0-36.5); MEAN CORPUSCULAR VOLUME 93.6 FL (78-98); MEAN PLATELET VOLUME 9.7 FL (7.4-10.4); MONOCYTES % (AUTO) 6.9 % (2-12); NEUTROPHILS # (AUTO) 11.3 X10'3 (1.8-7.7); NEUTROPHILS % (AUTO) 80.3 % (42-75); PLATELET COUNT 104 X10'3 (140-440); RED BLOOD COUNT 2.59 X10'6 (4.70-6.10); RED CELL DISTRIBUTION WIDTH 19.8 % (11.5-14.5); WHITE BLOOD COUNT 14.1 X10'3 (4.5-11.0)
[2019-01-18 18:08] LABS: ALBUMIN 0.9 G/DL (3.4-5.0); ANION GAP 7 (8-16); BLOOD UREA NITROGEN 29 MG/DL (7-18); BUN/CREATININE RATIO 26.1 (5.4-32.0); CHLORIDE 101 MMOL/L (99-107); CREATININE 1.11 MG/DL (0.60-1.10); GLUCOSE 215 MG/DL (70-104); MAGNESIUM 2.2 MG/DL (1.5-2.4); POTASSIUM 4.5 MMOL/L (3.5-5.1); SODIUM 132 MMOL/L (135-145); TOTAL CARBON DIOXIDE 23.9 MMOL/L (24-32); eGFR 64 ML/MIN
--- NOTE | 2019-01-18 18:30 | NUR ---
Patient in room CICU 2011. I have received report from Sedrick LOOMIS, and had the opportunity to ask questions and assume patient care.
--- NOTE | 2019-01-18 19:24 | NUR ---
PT is intubated and mechanically vented, tolerating settings well, O2 sat >95%. Daughter is at bedside. PT eyes are open and and to nod his head yes/no to simple questions and is able to squeeze with RT hand on command. Levo is running @ 24mcg, will attempt to titrate down as BP allows. Bed is locked and low. Will continue to monitor.
[2019-01-18] MEDS: fat emulsion IV bag 180 ML IV SCH (20:08)
[2019-01-18] MEDS: insulin glargine (Lantus) pen - multi-dose SQ SCH (20:59)
--- NOTE | 2019-01-18 22:45 | NUR ---
PT resting with no s/s of distress noted at this time. Will continue to monitor.
[2019-01-19] VITALS (24 sets, daily range): BP systolic 85–108; BP diastolic 47–57
[2019-01-19] MEDS: TRACE ELEMENT IV SCH ×2 (00:01→14:27)
[2019-01-19] MEDS: AMINO ACID IV SCH ×2 (00:01→14:27)
[2019-01-19] MEDS: [UNRECOGNIZED DRUG - OTHER] IV SCH ×2 (00:01→14:27)
[2019-01-19 01:00] LABS: BASOPHILS # (AUTO) 0.1 X10'3 (0-0.2); BASOPHILS % (AUTO) 0.5 % (0-1); EOSINOPHILS % (AUTO) 0.4 % (0-6); HEMATOCRIT 23.7 % (42.0-52.0); HEMOGLOBIN 7.9 g/dl (14.0-17.9); LYMPHOCYTES # (AUTO) 1.2 X10'3 (1.1-4.8); MEAN CORPUSCULAR HEMOGLOBIN 30.8 PG (27.0-31.0); MEAN CORPUSCULAR HGB CONC 33.3 g/dL (33.0-36.5); MEAN CORPUSCULAR VOLUME 92.4 FL (78-98); MEAN PLATELET VOLUME 9.4 FL (7.4-10.4); MONOCYTES # (AUTO) 0.9 X10'3 (0-0.9); MONOCYTES % (AUTO) 6.6 % (2-12); NEUTROPHILS # (AUTO) 10.9 X10'3 (1.8-7.7); NEUTROPHILS % (AUTO) 83.5 % (42-75); PLATELET COUNT 113 X10'3 (140-440); RED BLOOD COUNT 2.57 X10'6 (4.70-6.10); RED CELL DISTRIBUTION WIDTH 19.2 % (11.5-14.5); WHITE BLOOD COUNT 13.1 X10'3 (4.5-11.0)
[2019-01-19 01:12] LABS: ANION GAP 7 (8-16); BLOOD UREA NITROGEN 30 MG/DL (7-18); BUN/CREATININE RATIO 26.5 (5.4-32.0); CHLORIDE 101 MMOL/L (99-107); CREATININE 1.13 MG/DL (0.60-1.10); GLUCOSE 172 MG/DL (70-104); MAGNESIUM 1.9 MG/DL (1.5-2.4); PHOSPHORUS 2.1 MG/DL (2.3-4.5); SODIUM 133 MMOL/L (135-145); TOTAL CARBON DIOXIDE 24.8 MMOL/L (24-32); eGFR 63 ML/MIN
[2019-01-19 01:23] LABS: BANDS% (MANUAL) 5 % (0-10); EOSINOPHILS % (MANUAL) 1 % (0-6); LYMPHOCYTES % (MANUAL) 9 % (21-51); MONOCYTES % (MANUAL) 7 % (2-12); NEUTROPHILS % (MANUAL) 75 % (42-75); TOTAL CELLS COUNTED 100
[2019-01-19 01:24] LABS: ANISOCYTOSIS 2+; METAMYLEOCYTES% (MANUAL) 3 % (0-0); NUCLEATED RED BLOOD CELLS 2 /100WBC (0-0); PLATELET ESTIMATE DECREASED
[2019-01-19 01:25] LABS: HYPOCHROMASIA 1+; TARGET CELLS FEW; TOXIC GRANULATION 1+
--- NOTE | 2019-01-19 02:30 | NUR ---
PT resting with no s/s of distress noted at this time. Will continue to monitor.
[2019-01-19] MEDS: mineral oil/petrolatum ophthal oint EACHEYE SCH ×4 (02:47→19:25)
[2019-01-19] MEDS: metoclopramide 5 mg/ml inj IV SCH ×4 (02:47→19:24)
[2019-01-19] MEDS: insulin regular, human vial - multi-dose SQ SCH ×4 (02:54→19:39)
[2019-01-19] MEDS: ipratropium/albuterol 3ml nebule NEB SCH ×6 (02:58→23:35)
[2019-01-19 03:16] LABS: ABG BASE EXCESS -2.6 mmol/L (-2.0-3.0); ABG HCO3 21.1 mmol/L (22.0-26.0); ABG OXYGEN SATURATION 95.7 % (95-98); ABG PCO2 (T) 32.2 mmHg (35.0-45.0); ABG PH (T) 7.435 (7.350-7.450); ABG PO2 (T) 81.5 mmHg (83-108); FCOHb 0.8 % (0.5-1.5); FO2Hb 94.9 % (94-100); MINUTE VOLUME 16 L/min; PATIENT TEMPERATURE 37.3; PEEP 5 cm H2O; RESPIRATORY RATE 20 b/min; RESPIRATORY RATE (OBSERVED) 30 b/min; TIDAL VOLUME 475 mL; TOTAL HEMOGLOBIN 8.5 G/dl (14.0-17.9)
[2019-01-19] MEDS: sodium bicarbonate (8.4%) inj. 75 MEQ in dextrose 5% water 500ml 500 ML IV SCH ×4 (04:29→19:40)
[2019-01-19] MEDS: sodium phosphate inj. 30 MMOL in normal saline 250ml IV soln 250 ML IV PRN (04:30)
--- NOTE | 2019-01-19 05:40 | NUR ---
Last residual check resulted in 300ml. PT appeared to be in some discomfort, HR 102 and RR 34. PT asked if his stomach was upset and he nodded his head yes, PT was also asked if he was in pain, he nodded his head yes. FT held for now d/t nausea and will give PRN Zofran and Morphine. Will continue to monitor.
[2019-01-19] MEDS: ondansetron/PF 4mg/2ml inj IV PRN (05:58)
[2019-01-19] MEDS: morphine 4 MG/ML inj SYRINge IV PRN (05:58)
[2019-01-19] MEDS: Duosol 4K/3 Ca (w/calcium) 5,000 ML HE SCH ×11 (05:58→21:29)
[2019-01-19] MEDS: NORepinephrine 8mg/ 250ml NS 250 ML IV PRN ×3 (06:17→19:42)
[2019-01-19 06:26] LABS: BASOPHILS # (AUTO) 0.1 X10'3 (0-0.2); BASOPHILS % (AUTO) 0.7 % (0-1); EOSINOPHILS # (AUTO) 0.1 X10'3 (0-0.9); EOSINOPHILS % (AUTO) 0.4 % (0-6); HEMOGLOBIN 7.9 g/dl (14.0-17.9); LYMPHOCYTES % (AUTO) 7.2 % (21-51); MEAN CORPUSCULAR HEMOGLOBIN 31.2 PG (27.0-31.0); MEAN CORPUSCULAR HGB CONC 33.1 g/dL (33.0-36.5); MEAN CORPUSCULAR VOLUME 94.1 FL (78-98); MEAN PLATELET VOLUME 9.6 FL (7.4-10.4); MONOCYTES # (AUTO) 0.9 X10'3 (0-0.9); MONOCYTES % (AUTO) 6.4 % (2-12); NEUTROPHILS # (AUTO) 11.8 X10'3 (1.8-7.7); NEUTROPHILS % (AUTO) 85.3 % (42-75); PLATELET COUNT 111 X10'3 (140-440); RED BLOOD COUNT 2.55 X10'6 (4.70-6.10); RED CELL DISTRIBUTION WIDTH 19.9 % (11.5-14.5); WHITE BLOOD COUNT 13.9 X10'3 (4.5-11.0)
--- NOTE | 2019-01-19 06:40 | NUR ---
Problems reprioritized. Patient report given, questions answered & plan of care reviewed with Sedrick LOOMIS.
[2019-01-19 06:42] LABS: ALBUMIN 0.9 G/DL (3.4-5.0); ANION GAP 7 (8-16); BLOOD UREA NITROGEN 27 MG/DL (7-18); BUN/CREATININE RATIO 25.2 (5.4-32.0); CHLORIDE 102 MMOL/L (99-107); CREATININE 1.07 MG/DL (0.60-1.10); GLUCOSE 91 MG/DL (70-104); MAGNESIUM 1.9 MG/DL (1.5-2.4); PHOSPHORUS 2.3 MG/DL (2.3-4.5); POTASSIUM 3.7 MMOL/L (3.5-5.1); SODIUM 135 MMOL/L (135-145); TOTAL CARBON DIOXIDE 25.6 MMOL/L (24-32); eGFR 67 ML/MIN
[2019-01-19] MEDS: potassium Cl 20mEq/100mL bag 100 ML IV PRN ×2 (07:35→08:41)
[2019-01-19] MEDS: pantoprazole 40 MG vial IV SCH ×2 (07:35→19:24)
[2019-01-19] MEDS: lactobacillus rhamnosus 10,000 MMU CELLS/CAPSULE OGT SCH ×2 (07:35→19:24)
[2019-01-19] MEDS: CefTRIAXone/D5W-Rocephin 1gm 50 ML IV SCH (07:35)
[2019-01-19] MEDS: K, MAG and/or Phos replacement - Verify level? MC SCH (08:00)
[2019-01-19 12:10] LABS: BASOPHILS # (AUTO) 0.1 X10'3 (0-0.2); BASOPHILS % (AUTO) 0.4 % (0-1); EOSINOPHILS # (AUTO) 0.1 X10'3 (0-0.9); EOSINOPHILS % (AUTO) 0.3 % (0-6); HEMATOCRIT 24.8 % (42.0-52.0); HEMOGLOBIN 8.3 g/dl (14.0-17.9); LYMPHOCYTES # (AUTO) 1.1 X10'3 (1.1-4.8); LYMPHOCYTES % (AUTO) 7.3 % (21-51); MEAN CORPUSCULAR HGB CONC 33.3 g/dL (33.0-36.5); MEAN CORPUSCULAR VOLUME 93.3 FL (78-98); MEAN PLATELET VOLUME 9.9 FL (7.4-10.4); MONOCYTES # (AUTO) 1.1 X10'3 (0-0.9); MONOCYTES % (AUTO) 7.1 % (2-12); NEUTROPHILS # (AUTO) 12.7 X10'3 (1.8-7.7); NEUTROPHILS % (AUTO) 84.9 % (42-75); PLATELET COUNT 129 X10'3 (140-440); RED BLOOD COUNT 2.66 X10'6 (4.70-6.10); RED CELL DISTRIBUTION WIDTH 19.3 % (11.5-14.5)
--- NOTE | 2019-01-19 12:12 | NUR ---
GRV 55; tube feed started back up at 20
[2019-01-19 12:24] LABS: ANION GAP 7 (8-16); BLOOD UREA NITROGEN 28 MG/DL (7-18); BUN/CREATININE RATIO 28.3 (5.4-32.0); CHLORIDE 101 MMOL/L (99-107); CREATININE 0.99 MG/DL (0.60-1.10); GLUCOSE 122 MG/DL (70-104); MAGNESIUM 1.7 MG/DL (1.5-2.4); PHOSPHORUS 3.2 MG/DL (2.3-4.5); POTASSIUM 4.5 MMOL/L (3.5-5.1); SODIUM 133 MMOL/L (135-145); TOTAL CARBON DIOXIDE 25.4 MMOL/L (24-32); eGFR 73 ML/MIN
--- NOTE | 2019-01-19 12:55 | NUR ---
reassessment: Patient's tube feeding turned off this morning, gastric residuals up to 300 ml however still within normal limits. Last check at 55 ml/hr, discussed with RN recommendation to restart at previous rate of 20 ml/hr and advance as tolerated. Only having smears since admit, discussed at rounds. Per MD to keep trying tube feeds. Pt is receiving reglan. TPN at goal and tolerating. PALB 6.7; significant edema persists w/ consistent negative fluid balance on CVVH. Will continue to monitor. Recommendations: 1. continuous 2:1 TPN using Clinimix non-E 15 at 120 ml/hr to provide total volume of 2880, 2045 cals, 144 gm protein, 432 gm dextrose, 2.95 mg/kg/min CHO loading. 2. Separate 20% intralipids to run for 12 hours daily to provide 15 ml/hr, 180 ml total and 36 grams lipids. 3. Trickle OGTF per MD using Vital High Protein at 10ml/hr goal; to provide 240 ml volume, 175ml free water, 432kcals, and 19g protein. 3) post pyloric tube feedings for optimal EN delivery and tolerance 4. additional free water per maths tutor on CVVH 5. IF tube feeding is able to be advanced past trickle rate when he can tolerate it, patient would benefit from Vital High protein at 85ml/hr goal; to provide 2040ml fluid, 2040kcals, 1714ml free water, and 179g protein. 6. prealbumin Q /; daily wts 7. routine bowel care, patient only having smears since admission 17 days, no significant bowel movement Addendum: 01/19/19 at [address] Amended: Links added.
[2019-01-19 14:04] LABS: NUCLEATED RED BLOOD CELLS 5 /100WBC (0-0); PLATELET ESTIMATE DECREASED; TOTAL CELLS COUNTED 100
[2019-01-19 14:05] LABS: ANISOCYTOSIS 2+; HYPOCHROMASIA 1+; POLYCHROMASIA 2+
[2019-01-19] MEDS: magnesium 4gm in 100ml NS 100 ML IV PRN (15:40)
--- NOTE | 2019-01-19 16:11 | NUR ---
tube feed increased to 30
[2019-01-19 17:51] LABS: BASOPHILS % (AUTO) 0.3 % (0-1); EOSINOPHILS # (AUTO) 0.1 X10'3 (0-0.9); EOSINOPHILS % (AUTO) 0.4 % (0-6); HEMATOCRIT 24.6 % (42.0-52.0); LYMPHOCYTES # (AUTO) 1.5 X10'3 (1.1-4.8); LYMPHOCYTES % (AUTO) 10.8 % (21-51); MEAN CORPUSCULAR HEMOGLOBIN 30.9 PG (27.0-31.0); MEAN CORPUSCULAR HGB CONC 32.6 g/dL (33.0-36.5); MEAN CORPUSCULAR VOLUME 94.8 FL (78-98); MEAN PLATELET VOLUME 9.4 FL (7.4-10.4); MONOCYTES % (AUTO) 7.4 % (2-12); NEUTROPHILS % (AUTO) 81.1 % (42-75); PLATELET COUNT 117 X10'3 (140-440); RED CELL DISTRIBUTION WIDTH 20.7 % (11.5-14.5); WHITE BLOOD COUNT 13.6 X10'3 (4.5-11.0)
[2019-01-19 17:58] LABS: ANION GAP 5 (8-16); BLOOD UREA NITROGEN 29 MG/DL (7-18); CHLORIDE 100 MMOL/L (99-107); GLUCOSE 132 MG/DL (70-104); MAGNESIUM 2.6 MG/DL (1.5-2.4); PHOSPHORUS 2.4 MG/DL (2.3-4.5); POTASSIUM 4.4 MMOL/L (3.5-5.1); SODIUM 132 MMOL/L (135-145); TOTAL CARBON DIOXIDE 27.1 MMOL/L (24-32); eGFR 72 ML/MIN
--- NOTE | 2019-01-19 18:30 | NUR ---
Patient in room CICU 2012. I have received report from Sedrick LOOMIS and had the opportunity to ask questions and assume patient care, along with [facility] Student Nurse Orion.
[2019-01-19] MEDS: fat emulsion IV bag 180 ML IV SCH (19:25)
[2019-01-19] MEDS: insulin glargine (Lantus) pen - multi-dose SQ SCH (19:40)
[2019-01-20] VITALS (24 sets, daily range): BP systolic 83–98; BP diastolic 46–58
[2019-01-20 00:22] LABS: BASOPHILS # (AUTO) 0.1 X10'3 (0-0.2); BASOPHILS % (AUTO) 0.6 % (0-1); EOSINOPHILS # (AUTO) 0.1 X10'3 (0-0.9); EOSINOPHILS % (AUTO) 0.9 % (0-6); HEMATOCRIT 24.5 % (42.0-52.0); HEMOGLOBIN 8.1 g/dl (14.0-17.9); LYMPHOCYTES % (AUTO) 8.1 % (21-51); MEAN CORPUSCULAR HEMOGLOBIN 30.5 PG (27.0-31.0); MEAN CORPUSCULAR HGB CONC 32.8 g/dL (33.0-36.5); MEAN CORPUSCULAR VOLUME 92.9 FL (78-98); MEAN PLATELET VOLUME 9.3 FL (7.4-10.4); MONOCYTES % (AUTO) 7.5 % (2-12); NEUTROPHILS # (AUTO) 10.8 X10'3 (1.8-7.7); NEUTROPHILS % (AUTO) 82.9 % (42-75); PLATELET COUNT 126 X10'3 (140-440); RED BLOOD COUNT 2.64 X10'6 (4.70-6.10); RED CELL DISTRIBUTION WIDTH 20.3 % (11.5-14.5)
[2019-01-20 00:41] LABS: NUCLEATED RED BLOOD CELLS 3 /100WBC (0-0); PLATELET ESTIMATE DECREASED; TOTAL CELLS COUNTED 100
[2019-01-20 00:42] LABS: ANISOCYTOSIS 3+; HYPOCHROMASIA 1+; POLYCHROMASIA 1+; TARGET CELLS FEW
[2019-01-20] MEDS: metoclopramide 5 mg/ml inj IV SCH ×4 (01:36→20:19)
[2019-01-20] MEDS: mineral oil/petrolatum ophthal oint EACHEYE SCH ×4 (01:37→20:19)
[2019-01-20] MEDS: insulin regular, human vial - multi-dose SQ SCH ×4 (01:40→20:37)
[2019-01-20 01:55] LABS: ANION GAP 7 (8-16); BLOOD UREA NITROGEN 30 MG/DL (7-18); BUN/CREATININE RATIO 31.3 (5.4-32.0); CHLORIDE 99 MMOL/L (99-107); CREATININE 0.96 MG/DL (0.60-1.10); GLUCOSE 91 MG/DL (70-104); MAGNESIUM 1.8 MG/DL (1.5-2.4); POTASSIUM 4.3 MMOL/L (3.5-5.1); SODIUM 133 MMOL/L (135-145); TOTAL CARBON DIOXIDE 26.7 MMOL/L (24-32); eGFR 76 ML/MIN
[2019-01-20] MEDS: NORepinephrine 8mg/ 250ml NS 250 ML IV PRN ×3 (03:02→17:59)
[2019-01-20] MEDS: sodium bicarbonate (8.4%) inj. 75 MEQ in dextrose 5% water 500ml 500 ML IV SCH ×3 (03:02→20:43)
[2019-01-20] MEDS: Duosol 4K/3 Ca (w/calcium) 5,000 ML HE SCH ×8 (03:03→22:39)
[2019-01-20] MEDS: ipratropium/albuterol 3ml nebule NEB SCH ×6 (03:20→22:28)
[2019-01-20 03:41] LABS: ABG BASE EXCESS 0.2 mmol/L (-2.0-3.0); ABG HCO3 25.2 mmol/L (22.0-26.0); ABG OXYGEN SATURATION 92.6 % (95-98); ABG PH (T) 7.394 (7.350-7.450); ABG PO2 (T) 60.5 mmHg (83-108); FCOHb 1.1 % (0.5-1.5); FMetHb 0.3 % (0.3-1.12); FO2Hb 91.3 % (94-100); MINUTE VOLUME 13 L/min; PATIENT TEMPERATURE 36.7; PEEP 5 cm H2O; RESPIRATORY RATE 20 b/min; RESPIRATORY RATE (OBSERVED) 28 b/min; TIDAL VOLUME 475 mL; TOTAL HEMOGLOBIN 8.9 G/dl (14.0-17.9)
[2019-01-20] MEDS: sodium phosphate inj. 30 MMOL in normal saline 250ml IV soln 250 ML IV PRN ×2 (04:01→21:48)
[2019-01-20] MEDS: [UNRECOGNIZED DRUG - OTHER] IV SCH ×2 (04:24→21:48)
[2019-01-20] MEDS: AMINO ACID IV SCH ×2 (04:24→21:48)
[2019-01-20] MEDS: TRACE ELEMENT IV SCH ×2 (04:24→21:48)
[2019-01-20 05:51] LABS: BASOPHILS # (AUTO) 0.1 X10'3 (0-0.2); BASOPHILS % (AUTO) 0.4 % (0-1); EOSINOPHILS # (AUTO) 0.1 X10'3 (0-0.9); EOSINOPHILS % (AUTO) 0.7 % (0-6); HEMATOCRIT 24.1 % (42.0-52.0); LYMPHOCYTES # (AUTO) 1.1 X10'3 (1.1-4.8); LYMPHOCYTES % (AUTO) 7.9 % (21-51); MEAN CORPUSCULAR HEMOGLOBIN 31.5 PG (27.0-31.0); MEAN CORPUSCULAR HGB CONC 33.2 g/dL (33.0-36.5); MEAN CORPUSCULAR VOLUME 94.8 FL (78-98); MEAN PLATELET VOLUME 9.3 FL (7.4-10.4); NEUTROPHILS # (AUTO) 11.8 X10'3 (1.8-7.7); PLATELET COUNT 124 X10'3 (140-440); RED BLOOD COUNT 2.55 X10'6 (4.70-6.10); RED CELL DISTRIBUTION WIDTH 20.4 % (11.5-14.5); WHITE BLOOD COUNT 14.1 X10'3 (4.5-11.0)
[2019-01-20 06:12] LABS: ANION GAP 6 (8-16); BLOOD UREA NITROGEN 30 MG/DL (7-18); BUN/CREATININE RATIO 29.1 (5.4-32.0); CHLORIDE 100 MMOL/L (99-107); CREATININE 1.03 MG/DL (0.60-1.10); GLUCOSE 126 MG/DL (70-104); MAGNESIUM 1.9 MG/DL (1.5-2.4); PHOSPHORUS 2.5 MG/DL (2.3-4.5); POTASSIUM 4.5 MMOL/L (3.5-5.1); SODIUM 132 MMOL/L (135-145); TOTAL CARBON DIOXIDE 25.6 MMOL/L (24-32); eGFR 70 ML/MIN
[2019-01-20 06:24] LABS: ANISOCYTOSIS 3+; HYPOCHROMASIA 1+; NUCLEATED RED BLOOD CELLS 4 /100WBC (0-0); PLATELET ESTIMATE DECREASED; POLYCHROMASIA 1+; TARGET CELLS FEW; TOTAL CELLS COUNTED 100
[2019-01-20] MEDS: pantoprazole 40 MG vial IV SCH ×2 (07:27→20:19)
[2019-01-20] MEDS: lactobacillus rhamnosus 10,000 MMU CELLS/CAPSULE OGT SCH ×2 (07:27→20:19)
[2019-01-20] MEDS: CefTRIAXone/D5W-Rocephin 1gm 50 ML IV SCH (07:27)
[2019-01-20] MEDS: K, MAG and/or Phos replacement - Verify level? MC SCH (08:00)
--- NOTE | 2019-01-20 08:06 | NUR ---
tube feed increased to 50 from 40. GRV 95
[2019-01-20 15:14] LABS: BASOPHILS # (AUTO) 0.1 X10'3 (0-0.2); BASOPHILS % (AUTO) 0.8 % (0-1); EOSINOPHILS # (AUTO) 0.1 X10'3 (0-0.9); EOSINOPHILS % (AUTO) 0.7 % (0-6); HEMATOCRIT 24.8 % (42.0-52.0); HEMOGLOBIN 8.1 g/dl (14.0-17.9); LYMPHOCYTES # (AUTO) 1.5 X10'3 (1.1-4.8); LYMPHOCYTES % (AUTO) 11.4 % (21-51); MEAN CORPUSCULAR HGB CONC 32.8 g/dL (33.0-36.5); MEAN CORPUSCULAR VOLUME 94.3 FL (78-98); MEAN PLATELET VOLUME 10.1 FL (7.4-10.4); MONOCYTES # (AUTO) 0.9 X10'3 (0-0.9); MONOCYTES % (AUTO) 7.2 % (2-12); NEUTROPHILS # (AUTO) 10.3 X10'3 (1.8-7.7); NEUTROPHILS % (AUTO) 79.9 % (42-75); PLATELET COUNT 129 X10'3 (140-440); RED BLOOD COUNT 2.63 X10'6 (4.70-6.10); RED CELL DISTRIBUTION WIDTH 20.7 % (11.5-14.5); WHITE BLOOD COUNT 12.9 X10'3 (4.5-11.0)
[2019-01-20 15:23] LABS: ANION GAP 8 (8-16); BLOOD UREA NITROGEN 34 MG/DL (7-18); CHLORIDE 99 MMOL/L (99-107); CREATININE 1.03 MG/DL (0.60-1.10); GLUCOSE 161 MG/DL (70-104); MAGNESIUM 1.7 MG/DL (1.5-2.4); PHOSPHORUS 2.7 MG/DL (2.3-4.5); POTASSIUM 4.3 MMOL/L (3.5-5.1); SODIUM 133 MMOL/L (135-145); TOTAL CARBON DIOXIDE 26.1 MMOL/L (24-32); eGFR 70 ML/MIN
[2019-01-20] MEDS: magnesium 4gm in 100ml NS 100 ML IV PRN (15:29)
--- NOTE | 2019-01-20 15:51 | NUR ---
tube feed increased to 60
[2019-01-20 17:58] LABS: BASOPHILS # (AUTO) 0.1 X10'3 (0-0.2); EOSINOPHILS # (AUTO) 0.1 X10'3 (0-0.9); EOSINOPHILS % (AUTO) 0.6 % (0-6); HEMATOCRIT 24.6 % (42.0-52.0); LYMPHOCYTES # (AUTO) 2.2 X10'3 (1.1-4.8); LYMPHOCYTES % (AUTO) 15.4 % (21-51); MEAN CORPUSCULAR HGB CONC 32.5 g/dL (33.0-36.5); MEAN CORPUSCULAR VOLUME 95.5 FL (78-98); MEAN PLATELET VOLUME 9.6 FL (7.4-10.4); MONOCYTES % (AUTO) 7.1 % (2-12); NEUTROPHILS # (AUTO) 10.8 X10'3 (1.8-7.7); NEUTROPHILS % (AUTO) 75.9 % (42-75); PLATELET COUNT 130 X10'3 (140-440); RED BLOOD COUNT 2.57 X10'6 (4.70-6.10); RED CELL DISTRIBUTION WIDTH 21.6 % (11.5-14.5); WHITE BLOOD COUNT 14.2 X10'3 (4.5-11.0)
[2019-01-20 18:17] LABS: ALBUMIN 1.1 G/DL (3.4-5.0); BLOOD UREA NITROGEN 35 MG/DL (7-18); BUN/CREATININE RATIO 31.5 (5.4-32.0); CREATININE 1.11 MG/DL (0.60-1.10); GLUCOSE 148 MG/DL (70-104); MAGNESIUM 2.4 MG/DL (1.5-2.4); PHOSPHORUS 2.1 MG/DL (2.3-4.5); POTASSIUM 4.1 MMOL/L (3.5-5.1); TOTAL CARBON DIOXIDE 25.1 MMOL/L (24-32); eGFR 64 ML/MIN
[2019-01-20 18:27] LABS: ANION GAP 9 (8-16); CHLORIDE 98 MMOL/L (99-107); SODIUM 132 MMOL/L (135-145)
--- NOTE | 2019-01-20 18:30 | NUR ---
Patient in room CICU 2011. I have received report from Sedrick LOOMIS and had the opportunity to ask questions and assume patient care.
[2019-01-20] MEDS: fat emulsion IV bag 180 ML IV SCH (20:19)
[2019-01-20] MEDS: insulin glargine (Lantus) pen - multi-dose SQ SCH (20:39)
[2019-01-21] VITALS (24 sets, daily range): BP systolic 84–102; BP diastolic 48–58
[2019-01-21 01:17] LABS: BASOPHILS # (AUTO) 0.1 X10'3 (0-0.2); BASOPHILS % (AUTO) 0.8 % (0-1); EOSINOPHILS # (AUTO) 0.1 X10'3 (0-0.9); EOSINOPHILS % (AUTO) 0.8 % (0-6); HEMATOCRIT 24.7 % (42.0-52.0); HEMOGLOBIN 8.1 g/dl (14.0-17.9); LYMPHOCYTES # (AUTO) 1.3 X10'3 (1.1-4.8); LYMPHOCYTES % (AUTO) 9.4 % (21-51); MEAN CORPUSCULAR HEMOGLOBIN 31.2 PG (27.0-31.0); MEAN CORPUSCULAR VOLUME 94.8 FL (78-98); MONOCYTES # (AUTO) 1.2 X10'3 (0-0.9); MONOCYTES % (AUTO) 8.8 % (2-12); NEUTROPHILS # (AUTO) 10.8 X10'3 (1.8-7.7); NEUTROPHILS % (AUTO) 80.2 % (42-75); PLATELET COUNT 142 X10'3 (140-440); WHITE BLOOD COUNT 13.5 X10'3 (4.5-11.0)
[2019-01-21 01:48] LABS: ANION GAP 7 (8-16); BLOOD UREA NITROGEN 37 MG/DL (7-18); BUN/CREATININE RATIO 33.9 (5.4-32.0); CHLORIDE 99 MMOL/L (99-107); CREATININE 1.09 MG/DL (0.60-1.10); GLUCOSE 174 MG/DL (70-104); PHOSPHORUS 2.6 MG/DL (2.3-4.5); SODIUM 133 MMOL/L (135-145); TOTAL CARBON DIOXIDE 26.7 MMOL/L (24-32); eGFR 65 ML/MIN
[2019-01-21] MEDS: mineral oil/petrolatum ophthal oint EACHEYE SCH ×4 (02:25→20:51)
[2019-01-21] MEDS: insulin regular, human vial - multi-dose SQ SCH ×3 (02:33→21:29)
[2019-01-21] MEDS: metoclopramide 5 mg/ml inj IV SCH ×4 (02:37→20:58)
[2019-01-21] MEDS: ipratropium/albuterol 3ml nebule NEB SCH ×6 (02:53→22:38)
[2019-01-21 03:11] LABS: ABG BASE EXCESS -0.7 mmol/L (-2.0-3.0); ABG HCO3 24.2 mmol/L (22.0-26.0); ABG OXYGEN SATURATION 92.3 % (95-98); ABG PCO2 (T) 40.7 mmHg (35.0-45.0); ABG PH (T) 7.391 (7.350-7.450); ABG PO2 (T) 62.8 mmHg (83-108); FCOHb 0.9 % (0.5-1.5); FMetHb 0.3 % (0.3-1.12); FO2Hb 91.2 % (94-100); MINUTE VOLUME 16 L/min; PATIENT TEMPERATURE 36.8; PEEP 5 cm H2O; RESPIRATORY RATE 20 b/min; RESPIRATORY RATE (OBSERVED) 28 b/min; TIDAL VOLUME 475 mL; TOTAL HEMOGLOBIN 9.1 G/dl (14.0-17.9)
[2019-01-21 03:17] LABS: NUCLEATED RED BLOOD CELLS 5 /100WBC (0-0); PLATELET ESTIMATE NORMAL; TOTAL CELLS COUNTED 100
[2019-01-21 03:18] LABS: ANISOCYTOSIS 3+; HYPOCHROMASIA 1+; POLYCHROMASIA 1+
[2019-01-21] MEDS: sodium bicarbonate (8.4%) inj. 75 MEQ in dextrose 5% water 500ml 500 ML IV SCH ×3 (04:01→19:52)
[2019-01-21] MEDS: Duosol 4K/3 Ca (w/calcium) 5,000 ML HE SCH ×13 (04:28→23:34)
[2019-01-21 06:00] LABS: BASOPHILS # (AUTO) 0.1 X10'3 (0-0.2); BASOPHILS % (AUTO) 0.4 % (0-1); EOSINOPHILS # (AUTO) 0.1 X10'3 (0-0.9); EOSINOPHILS % (AUTO) 1.1 % (0-6); HEMATOCRIT 24.8 % (42.0-52.0); HEMOGLOBIN 8.2 g/dl (14.0-17.9); LYMPHOCYTES # (AUTO) 1.3 X10'3 (1.1-4.8); LYMPHOCYTES % (AUTO) 9.4 % (21-51); MEAN CORPUSCULAR HEMOGLOBIN 31.9 PG (27.0-31.0); MEAN CORPUSCULAR VOLUME 96.5 FL (78-98); MEAN PLATELET VOLUME 9.8 FL (7.4-10.4); MONOCYTES # (AUTO) 1.1 X10'3 (0-0.9); MONOCYTES % (AUTO) 8.1 % (2-12); NEUTROPHILS # (AUTO) 11.2 X10'3 (1.8-7.7); PLATELET COUNT 133 X10'3 (140-440); RED BLOOD COUNT 2.57 X10'6 (4.70-6.10); RED CELL DISTRIBUTION WIDTH 21.7 % (11.5-14.5); WHITE BLOOD COUNT 13.8 X10'3 (4.5-11.0)
[2019-01-21 06:13] LABS: ALBUMIN 1.1 G/DL (3.4-5.0); ANION GAP 9 (8-16); BLOOD UREA NITROGEN 37 MG/DL (7-18); BUN/CREATININE RATIO 36.3 (5.4-32.0); CHLORIDE 99 MMOL/L (99-107); CREATININE 1.02 MG/DL (0.60-1.10); GLUCOSE 139 MG/DL (70-104); MAGNESIUM 1.8 MG/DL (1.5-2.4); PHOSPHORUS 2.4 MG/DL (2.3-4.5); POTASSIUM 3.9 MMOL/L (3.5-5.1); SODIUM 133 MMOL/L (135-145); TOTAL CARBON DIOXIDE 24.7 MMOL/L (24-32); eGFR 71 ML/MIN
--- NOTE | 2019-01-21 06:17 | NUR ---
Problems reprioritized. Patient report given, questions answered & plan of care reviewed with Kristina LOOMIS.
[2019-01-21] MEDS: pantoprazole 40 MG vial IV SCH ×2 (07:43→20:55)
[2019-01-21] MEDS: CefTRIAXone/D5W-Rocephin 1gm 50 ML IV SCH (07:43)
[2019-01-21] MEDS: lactobacillus rhamnosus 10,000 MMU CELLS/CAPSULE OGT SCH ×2 (07:44→20:52)
[2019-01-21] MEDS: K, MAG and/or Phos replacement - Verify level? MC SCH (08:00)
--- NOTE | 2019-01-21 08:52 | NUR ---
repositioned, smear documented 01/18 but otherwise no bm since 01/10. digitally disimpacted for large amount of firm stool in rectal vault.
[2019-01-21] MEDS ORDERED: bisacodyl 10mg suppository rectal RC PRN (10:00)
[2019-01-21 13:54] LABS: BASOPHILS # (AUTO) 0.1 X10'3 (0-0.2); BASOPHILS % (AUTO) 0.4 % (0-1); EOSINOPHILS # (AUTO) 0.1 X10'3 (0-0.9); EOSINOPHILS % (AUTO) 0.8 % (0-6); HEMATOCRIT 25.8 % (42.0-52.0); HEMOGLOBIN 8.3 g/dl (14.0-17.9); LYMPHOCYTES # (AUTO) 1.5 X10'3 (1.1-4.8); LYMPHOCYTES % (AUTO) 9.5 % (21-51); MEAN CORPUSCULAR HEMOGLOBIN 31.3 PG (27.0-31.0); MEAN CORPUSCULAR HGB CONC 32.3 g/dL (33.0-36.5); MEAN CORPUSCULAR VOLUME 96.7 FL (78-98); MEAN PLATELET VOLUME 10.1 FL (7.4-10.4); MONOCYTES # (AUTO) 1.5 X10'3 (0-0.9); MONOCYTES % (AUTO) 9.3 % (2-12); NEUTROPHILS # (AUTO) 12.9 X10'3 (1.8-7.7); PLATELET COUNT 136 X10'3 (140-440); RED BLOOD COUNT 2.66 X10'6 (4.70-6.10); RED CELL DISTRIBUTION WIDTH 22.2 % (11.5-14.5); WHITE BLOOD COUNT 16.1 X10'3 (4.5-11.0)
[2019-01-21 14:08] LABS: ALBUMIN 1.2 G/DL (3.4-5.0); ANION GAP 8 (8-16); BLOOD UREA NITROGEN 37 MG/DL (7-18); CHLORIDE 100 MMOL/L (99-107); GLUCOSE 54 MG/DL (70-104); MAGNESIUM 1.7 MG/DL (1.5-2.4); PHOSPHORUS 2.5 MG/DL (2.3-4.5); POTASSIUM 4.3 MMOL/L (3.5-5.1); SODIUM 134 MMOL/L (135-145); TOTAL CARBON DIOXIDE 26.5 MMOL/L (24-32); eGFR 72 ML/MIN
[2019-01-21 14:22] LABS: NUCLEATED RED BLOOD CELLS 5 /100WBC (0-0); TOTAL CELLS COUNTED 100
[2019-01-21 14:26] LABS: ANISOCYTOSIS 3+; PLATELET ESTIMATE DECREASED; POLYCHROMASIA 2+; SCHISTOCYTES FEW; TARGET CELLS 1+
[2019-01-21] MEDS ORDERED: heparin 1,000 units/ml 10ml inj HE ONE ×2 (18:20)
[2019-01-21] MEDS: NORepinephrine 8mg/ 250ml NS 250 ML IV PRN (18:48)
[2019-01-21] MEDS: heparin, porcine 5000 units/ml vial SQ SCH (20:54)
[2019-01-21] MEDS: insulin glargine (Lantus) pen - multi-dose SQ SCH (21:28)
[2019-01-22] VITALS (24 sets, daily range): BP systolic 90–122; BP diastolic 47–73
[2019-01-22] MEDS: NORepinephrine 8mg/ 250ml NS 250 ML IV PRN ×4 (00:06→18:53)
[2019-01-22] MEDS: Duosol 4K/3 Ca (w/calcium) 5,000 ML HE SCH ×15 (01:20→22:27)
[2019-01-22 02:12] LABS: BASOPHILS # (AUTO) 0.1 X10'3 (0-0.2); BASOPHILS % (AUTO) 0.5 % (0-1); EOSINOPHILS % (AUTO) 0.3 % (0-6); HEMATOCRIT 25.4 % (42.0-52.0); HEMOGLOBIN 8.4 g/dl (14.0-17.9); LYMPHOCYTES # (AUTO) 1.8 X10'3 (1.1-4.8); LYMPHOCYTES % (AUTO) 11.4 % (21-51); MEAN CORPUSCULAR HEMOGLOBIN 31.7 PG (27.0-31.0); MEAN CORPUSCULAR HGB CONC 33.1 g/dL (33.0-36.5); MEAN CORPUSCULAR VOLUME 95.9 FL (78-98); MEAN PLATELET VOLUME 10.4 FL (7.4-10.4); MONOCYTES # (AUTO) 1.1 X10'3 (0-0.9); NEUTROPHILS # (AUTO) 13.1 X10'3 (1.8-7.7); NEUTROPHILS % (AUTO) 80.8 % (42-75); PLATELET COUNT 171 X10'3 (140-440); RED BLOOD COUNT 2.65 X10'6 (4.70-6.10); RED CELL DISTRIBUTION WIDTH 22.3 % (11.5-14.5); WHITE BLOOD COUNT 16.2 X10'3 (4.5-11.0)
[2019-01-22] MEDS: mineral oil/petrolatum ophthal oint EACHEYE SCH ×4 (02:15→20:44)
[2019-01-22] MEDS: metoclopramide 5 mg/ml inj IV SCH ×4 (02:17→20:52)
[2019-01-22] MEDS: acetaminophen 325mg/10.15ml oral unit dose solution OGT PRN ×2 (02:17→09:30)
[2019-01-22 02:26] LABS: ALBUMIN 1.1 G/DL (3.4-5.0); ANION GAP 7 (8-16); BLOOD UREA NITROGEN 52 MG/DL (7-18); BUN/CREATININE RATIO 35.4 (5.4-32.0); CHLORIDE 99 MMOL/L (99-107); CREATININE 1.47 MG/DL (0.60-1.10); GLUCOSE 160 MG/DL (70-104); MAGNESIUM 1.8 MG/DL (1.5-2.4); PHOSPHORUS 3.3 MG/DL (2.3-4.5); POTASSIUM 5.2 MMOL/L (3.5-5.1); SODIUM 132 MMOL/L (135-145); TOTAL CARBON DIOXIDE 25.7 MMOL/L (24-32); TRIGLYCERIDES 108 MG/DL (20-135); eGFR 46 ML/MIN
[2019-01-22] MEDS: insulin regular, human vial - multi-dose SQ SCH ×4 (02:40→21:05)
[2019-01-22] MEDS: ipratropium/albuterol 3ml nebule NEB SCH ×6 (03:12→23:30)
[2019-01-22 03:30] LABS: ABG HCO3 25.5 mmol/L (22.0-26.0); ABG OXYGEN SATURATION 95.9 % (95-98); ABG PCO2 (T) 43.8 mmHg (35.0-45.0); ABG PH (T) 7.391 (7.350-7.450); ABG PO2 (T) 89.1 mmHg (83-108); FCOHb 1.2 % (0.5-1.5); FMetHb 0.3 % (0.3-1.12); FO2Hb 94.5 % (94-100); MINUTE VOLUME 15 L/min; PATIENT TEMPERATURE 39.2; PEEP 5 cm H2O; RESPIRATORY RATE 20 b/min; RESPIRATORY RATE (OBSERVED) 25 b/min; TIDAL VOLUME 475 mL; TOTAL HEMOGLOBIN 9.7 G/dl (14.0-17.9)
[2019-01-22 03:43] LABS: NUCLEATED RED BLOOD CELLS 6 /100WBC (0-0); TOTAL CELLS COUNTED 100
[2019-01-22 03:44] LABS: ANISOCYTOSIS 3+; PLATELET ESTIMATE NORMAL; POLYCHROMASIA 1+; TARGET CELLS 1+
[2019-01-22] MEDS: sodium bicarbonate (8.4%) inj. 75 MEQ in dextrose 5% water 500ml 500 ML IV SCH (04:20)
--- NOTE | 2019-01-22 05:39 | NUR ---
Pt became febrile at 39.2C at 0215, Tylenol administered, pt was up to 39.3 after Tylenol administration. Called Elizabeth Morales NP and received orders for blood cultures times 2 and sputum culture.
--- NOTE | 2019-01-22 06:20 | NUR ---
Late entry: Student documentation: I have reviewed and agree with all interventions, assessments performed and documented by Ratna.Student Medication Administration: For this medication-pass time frame, all medication were reviewed, dispensed, administered and documented per hospital policy by Ratna.
--- NOTE | 2019-01-22 06:20 | NUR ---
Problems reprioritized. Patient report given, questions answered & plan of care reviewed with Charity LOOMIS.
--- NOTE | 2019-01-22 06:28 | NUR ---
Patient in room CICU 2011. I have received report from Carolynn Jade RN and had the opportunity to ask questions and assume patient care.
[2019-01-22] MEDS: K, MAG and/or Phos replacement - Verify level? MC SCH (06:48)
[2019-01-22] MEDS: pantoprazole 40 MG vial IV SCH ×2 (08:19→20:47)
[2019-01-22] MEDS: heparin, porcine 5000 units/ml vial SQ SCH ×2 (08:19→21:13)
[2019-01-22] MEDS: lactobacillus rhamnosus 10,000 MMU CELLS/CAPSULE OGT SCH ×2 (08:19→21:16)
[2019-01-22] MEDS: CefTRIAXone/D5W-Rocephin 1gm 50 ML IV SCH (08:20)
--- NOTE | 2019-01-22 12:08 | NUR ---
reassessment: Intubated, sedated. Patient's tube feeding is tolerated at goal rate 85 ml/hr with low gastric residuals. TPN weaned yesterday. Only having smears since admit with one small BM 01/21. Receiving reglan.. PALB 6.2; significant edema persists with consistent negative fluid balance on CVVH. Will continue to monitor. Pending eventual trach and PEG Recommendations: 1. Continue OG tube feeding using Vital High protein at 85ml/hr goal; to provide 2040ml fluid, 2040kcals, 1714ml free water, and 179g protein. 2. additional free water per story writer on CVVH and low sodium 3. prealbumin Q /; daily wts 4. bowel care, patient only having smears since admission, no significant bowel movement Addendum: 01/22/19 at [address] Amended: Links added.
--- NOTE | 2019-01-22 18:25 | NUR ---
Problems reprioritized. Patient report given, questions answered & plan of care reviewed with Carolynn Jade RN.
--- NOTE | 2019-01-22 18:26 | NUR ---
Patient in room CICU 2011. I have received report from Charity LOOMIS and had the opportunity to ask questions and assume patient care. Pt in bed, on vent via ETT, FiO2 at 35%, spo2 at 97%, CVVH running via STEPHON Willoughby, Levophed to keep MAP greater than 65, all vasoactive medications infusing via PICC, see IV flowsheet and interventions for further information. All monitoring alarms audible. Will continue to monitor.
[2019-01-22] MEDS: insulin glargine (Lantus) pen - multi-dose SQ SCH (21:06)
[2019-01-22 22:31] LABS: BASOPHILS # (AUTO) 0.2 X10'3 (0-0.2); BASOPHILS % (AUTO) 0.9 % (0-1); EOSINOPHILS # (AUTO) 0.1 X10'3 (0-0.9); EOSINOPHILS % (AUTO) 0.7 % (0-6); HEMATOCRIT 24.3 % (42.0-52.0); HEMOGLOBIN 8.1 g/dl (14.0-17.9); LYMPHOCYTES # (AUTO) 2.1 X10'3 (1.1-4.8); LYMPHOCYTES % (AUTO) 12.1 % (21-51); MEAN CORPUSCULAR HGB CONC 33.3 g/dL (33.0-36.5); MEAN CORPUSCULAR VOLUME 96.2 FL (78-98); MEAN PLATELET VOLUME 10.3 FL (7.4-10.4); NEUTROPHILS # (AUTO) 14.1 X10'3 (1.8-7.7); NEUTROPHILS % (AUTO) 80.3 % (42-75); PLATELET COUNT 199 X10'3 (140-440); RED BLOOD COUNT 2.53 X10'6 (4.70-6.10); WHITE BLOOD COUNT 17.5 X10'3 (4.5-11.0)
[2019-01-22 22:35] LABS: ALBUMIN 1.1 G/DL (3.4-5.0); ANION GAP 7 (8-16); BLOOD UREA NITROGEN 59 MG/DL (7-18); BUN/CREATININE RATIO 37.1 (5.4-32.0); CHLORIDE 101 MMOL/L (99-107); CREATININE 1.59 MG/DL (0.60-1.10); GLUCOSE 152 MG/DL (70-104); MAGNESIUM 1.9 MG/DL (1.5-2.4); PHOSPHORUS 3.6 MG/DL (2.3-4.5); SODIUM 135 MMOL/L (135-145); TOTAL CARBON DIOXIDE 26.7 MMOL/L (24-32); eGFR 42 ML/MIN
[2019-01-23] VITALS (24 sets, daily range): BP systolic 88–103; BP diastolic 48–58
[2019-01-23] MEDS: Duosol 4K/3 Ca (w/calcium) 5,000 ML HE SCH ×14 (00:16→18:38)
[2019-01-23] MEDS: NORepinephrine 8mg/ 250ml NS 250 ML IV PRN ×3 (01:11→18:43)
[2019-01-23] MEDS: metoclopramide 5 mg/ml inj IV SCH ×4 (02:02→20:21)
[2019-01-23] MEDS: mineral oil/petrolatum ophthal oint EACHEYE SCH ×4 (02:22→20:20)
[2019-01-23] MEDS: insulin regular, human vial - multi-dose SQ SCH ×4 (02:27→20:17)
[2019-01-23] MEDS: ipratropium/albuterol 3ml nebule NEB SCH ×6 (03:13→23:14)
[2019-01-23 03:30] LABS: ABG BASE EXCESS -1.1 mmol/L (-2.0-3.0); ABG HCO3 22.8 mmol/L (22.0-26.0); ABG OXYGEN SATURATION 92.5 % (95-98); ABG PCO2 (T) 33.5 mmHg (35.0-45.0); ABG PH (T) 7.447 (7.350-7.450); ABG PO2 (T) 59.6 mmHg (83-108); FCOHb 1.2 % (0.5-1.5); FMetHb 0.3 % (0.3-1.12); FO2Hb 91.1 % (94-100); MINUTE VOLUME 14 L/min; PATIENT TEMPERATURE 36.1; PEEP 5 cm H2O; RESPIRATORY RATE 20 b/min; RESPIRATORY RATE (OBSERVED) 22 b/min; TIDAL VOLUME 475 mL; TOTAL HEMOGLOBIN 9.1 G/dl (14.0-17.9)
[2019-01-23 04:17] LABS: BASOPHILS # (AUTO) 0.1 X10'3 (0-0.2); BASOPHILS % (AUTO) 0.7 % (0-1); EOSINOPHILS # (AUTO) 0.1 X10'3 (0-0.9); EOSINOPHILS % (AUTO) 0.7 % (0-6); HEMATOCRIT 24.6 % (42.0-52.0); HEMOGLOBIN 8.1 g/dl (14.0-17.9); LYMPHOCYTES % (AUTO) 12.4 % (21-51); MEAN CORPUSCULAR HEMOGLOBIN 31.7 PG (27.0-31.0); MEAN CORPUSCULAR HGB CONC 32.9 g/dL (33.0-36.5); MEAN CORPUSCULAR VOLUME 96.3 FL (78-98); MEAN PLATELET VOLUME 9.7 FL (7.4-10.4); MONOCYTES # (AUTO) 0.9 X10'3 (0-0.9); MONOCYTES % (AUTO) 5.3 % (2-12); NEUTROPHILS # (AUTO) 13.3 X10'3 (1.8-7.7); NEUTROPHILS % (AUTO) 80.9 % (42-75); PLATELET COUNT 196 X10'3 (140-440); RED BLOOD COUNT 2.55 X10'6 (4.70-6.10); RED CELL DISTRIBUTION WIDTH 23.1 % (11.5-14.5); WHITE BLOOD COUNT 16.5 X10'3 (4.5-11.0)
[2019-01-23 04:30] LABS: ALBUMIN 1.2 G/DL (3.4-5.0); ANION GAP 7 (8-16); BLOOD UREA NITROGEN 55 MG/DL (7-18); BUN/CREATININE RATIO 38.2 (5.4-32.0); CHLORIDE 102 MMOL/L (99-107); CREATININE 1.44 MG/DL (0.60-1.10); GLUCOSE 79 MG/DL (70-104); MAGNESIUM 1.6 MG/DL (1.5-2.4); PHOSPHORUS 3.2 MG/DL (2.3-4.5); SODIUM 135 MMOL/L (135-145); TOTAL CARBON DIOXIDE 26.2 MMOL/L (24-32); eGFR 47 ML/MIN
[2019-01-23 04:49] LABS: NUCLEATED RED BLOOD CELLS 5 /100WBC (0-0); PLATELET ESTIMATE NORMAL; TOTAL CELLS COUNTED 100
[2019-01-23 04:50] LABS: ANISOCYTOSIS 3+; POLYCHROMASIA 1+; TARGET CELLS FEW; TOXIC GRANULATION 1+
[2019-01-23] MEDS: dextrose 50%-water 50ml dispensing syringe IV PRN (06:10)
--- NOTE | 2019-01-23 06:43 | NUR ---
Patient in room CICU 2011. I have received report from Carolynn Jade RN and had the opportunity to ask questions and assume patient care.
[2019-01-23] MEDS: pantoprazole 40 MG vial IV SCH ×2 (07:37→20:22)
[2019-01-23] MEDS: lactobacillus rhamnosus 10,000 MMU CELLS/CAPSULE OGT SCH ×2 (07:38→20:21)
[2019-01-23] MEDS: heparin, porcine 5000 units/ml vial SQ SCH ×2 (07:38→20:21)
[2019-01-23] MEDS: CefTRIAXone/D5W-Rocephin 1gm 50 ML IV SCH (07:38)
[2019-01-23] MEDS: K, MAG and/or Phos replacement - Verify level? MC SCH (08:00)
[2019-01-23 11:13] LABS: ALBUMIN 1.1 G/DL (3.4-5.0); ANION GAP 6 (8-16); BLOOD UREA NITROGEN 49 MG/DL (7-18); BUN/CREATININE RATIO 39.8 (5.4-32.0); CHLORIDE 102 MMOL/L (99-107); CREATININE 1.23 MG/DL (0.60-1.10); GLUCOSE 130 MG/DL (70-104); MAGNESIUM 1.6 MG/DL (1.5-2.4); POTASSIUM 5.2 MMOL/L (3.5-5.1); SODIUM 135 MMOL/L (135-145); TOTAL CARBON DIOXIDE 27.2 MMOL/L (24-32); eGFR 57 ML/MIN
[2019-01-23 11:15] LABS: BASOPHILS # (AUTO) 0.1 X10'3 (0-0.2); BASOPHILS % (AUTO) 0.5 % (0-1); EOSINOPHILS # (AUTO) 0.2 X10'3 (0-0.9); EOSINOPHILS % (AUTO) 1.2 % (0-6); HEMATOCRIT 25.2 % (42.0-52.0); HEMOGLOBIN 8.2 g/dl (14.0-17.9); LYMPHOCYTES # (AUTO) 1.7 X10'3 (1.1-4.8); LYMPHOCYTES % (AUTO) 11.1 % (21-51); MEAN CORPUSCULAR HEMOGLOBIN 31.7 PG (27.0-31.0); MEAN CORPUSCULAR HGB CONC 32.3 g/dL (33.0-36.5); MEAN CORPUSCULAR VOLUME 98.1 FL (78-98); MEAN PLATELET VOLUME 10.2 FL (7.4-10.4); MONOCYTES # (AUTO) 0.8 X10'3 (0-0.9); MONOCYTES % (AUTO) 5.5 % (2-12); NEUTROPHILS # (AUTO) 12.5 X10'3 (1.8-7.7); NEUTROPHILS % (AUTO) 81.7 % (42-75); PLATELET COUNT 200 X10'3 (140-440); RED BLOOD COUNT 2.57 X10'6 (4.70-6.10); RED CELL DISTRIBUTION WIDTH 25.2 % (11.5-14.5); WHITE BLOOD COUNT 15.3 X10'3 (4.5-11.0)
[2019-01-23] MEDS: magnesium 4gm in 100ml NS 100 ML IV PRN (11:38)
[2019-01-23 17:21] LABS: BASOPHILS # (AUTO) 0.1 X10'3 (0-0.2); BASOPHILS % (AUTO) 0.5 % (0-1); EOSINOPHILS # (AUTO) 0.1 X10'3 (0-0.9); EOSINOPHILS % (AUTO) 0.7 % (0-6); HEMATOCRIT 25.4 % (42.0-52.0); HEMOGLOBIN 8.2 g/dl (14.0-17.9); LYMPHOCYTES # (AUTO) 1.8 X10'3 (1.1-4.8); LYMPHOCYTES % (AUTO) 11.8 % (21-51); MEAN CORPUSCULAR HGB CONC 32.2 g/dL (33.0-36.5); MEAN CORPUSCULAR VOLUME 99.3 FL (78-98); MEAN PLATELET VOLUME 10.6 FL (7.4-10.4); MONOCYTES # (AUTO) 0.8 X10'3 (0-0.9); MONOCYTES % (AUTO) 5.3 % (2-12); NEUTROPHILS # (AUTO) 12.6 X10'3 (1.8-7.7); NEUTROPHILS % (AUTO) 81.7 % (42-75); PLATELET COUNT 199 X10'3 (140-440); RED BLOOD COUNT 2.56 X10'6 (4.70-6.10); RED CELL DISTRIBUTION WIDTH 25.6 % (11.5-14.5); WHITE BLOOD COUNT 15.5 X10'3 (4.5-11.0)
[2019-01-23 17:31] LABS: ALBUMIN 1.1 G/DL (3.4-5.0); ANION GAP 6 (8-16); BLOOD UREA NITROGEN 47 MG/DL (7-18); BUN/CREATININE RATIO 39.8 (5.4-32.0); CHLORIDE 100 MMOL/L (99-107); CREATININE 1.18 MG/DL (0.60-1.10); GLUCOSE 181 MG/DL (70-104); MAGNESIUM 2.5 MG/DL (1.5-2.4); PHOSPHORUS 2.9 MG/DL (2.3-4.5); POTASSIUM 5.3 MMOL/L (3.5-5.1); SODIUM 133 MMOL/L (135-145); TOTAL CARBON DIOXIDE 27.1 MMOL/L (24-32); eGFR 60 ML/MIN
[2019-01-23 18:23] LABS: PLATELET ESTIMATE NORMAL
[2019-01-23 18:24] LABS: ANISOCYTOSIS 3+; LARGE PLATELETS FEW
--- NOTE | 2019-01-23 18:24 | NUR ---
Patient in room CICU 2011. I have received report from Charity Chi RN and had the opportunity to ask questions and assume patient care. Pt in bed, intubated via ETT, fio2 at 40% spo2 at 975, CVVH running per provider orders, Levophed gtt infusing at 18mcg/min to keep MAP greater than 65, will titrate per protocol, see IV flowsheet and interventions for further information. All monitoring alarms audible. Will continue to monitor.
--- NOTE | 2019-01-23 18:24 | NUR ---
Problems reprioritized. Patient report given, questions answered & plan of care reviewed with Carolynn Jade RN. See SBAR report.
[2019-01-23 18:25] LABS: HYPOCHROMASIA 2+; TARGET CELLS FEW
[2019-01-23 18:26] LABS: POLYCHROMASIA 3+
[2019-01-23] MEDS: insulin glargine (Lantus) pen - multi-dose SQ SCH (20:18)
[2019-01-23 22:19] LABS: BASOPHILS # (AUTO) 0.1 X10'3 (0-0.2); BASOPHILS % (AUTO) 0.5 % (0-1); EOSINOPHILS # (AUTO) 0.1 X10'3 (0-0.9); EOSINOPHILS % (AUTO) 0.7 % (0-6); HEMATOCRIT 25.6 % (42.0-52.0); HEMOGLOBIN 8.3 g/dl (14.0-17.9); LYMPHOCYTES # (AUTO) 1.5 X10'3 (1.1-4.8); LYMPHOCYTES % (AUTO) 10.9 % (21-51); MEAN CORPUSCULAR HGB CONC 32.3 g/dL (33.0-36.5); MEAN PLATELET VOLUME 9.6 FL (7.4-10.4); MONOCYTES # (AUTO) 0.6 X10'3 (0-0.9); MONOCYTES % (AUTO) 4.3 % (2-12); NEUTROPHILS # (AUTO) 11.9 X10'3 (1.8-7.7); NEUTROPHILS % (AUTO) 83.6 % (42-75); PLATELET COUNT 181 X10'3 (140-440); RED BLOOD COUNT 2.59 X10'6 (4.70-6.10); RED CELL DISTRIBUTION WIDTH 26.6 % (11.5-14.5); WHITE BLOOD COUNT 14.2 X10'3 (4.5-11.0)
[2019-01-23 22:32] LABS: ALBUMIN 1.1 G/DL (3.4-5.0); ANION GAP 8 (8-16); BLOOD UREA NITROGEN 43 MG/DL (7-18); BUN/CREATININE RATIO 38.1 (5.4-32.0); CHLORIDE 100 MMOL/L (99-107); CREATININE 1.13 MG/DL (0.60-1.10); GLUCOSE 137 MG/DL (70-104); MAGNESIUM 2.1 MG/DL (1.5-2.4); PHOSPHORUS 2.6 MG/DL (2.3-4.5); SODIUM 133 MMOL/L (135-145); TOTAL CARBON DIOXIDE 25.3 MMOL/L (24-32); eGFR 63 ML/MIN
[2019-01-24] VITALS (24 sets, daily range): BP systolic 89–107; BP diastolic 50–62
[2019-01-24] MEDS: bicarb dialysis sol 2K+/3 Ca2+ 5,000 ML HE SCH ×18 (00:01→23:35)
[2019-01-24] MEDS: metoclopramide 5 mg/ml inj IV SCH ×4 (02:16→19:48)
[2019-01-24] MEDS: NORepinephrine 8mg/ 250ml NS 250 ML IV PRN ×3 (02:17→18:49)
[2019-01-24] MEDS: mineral oil/petrolatum ophthal oint EACHEYE SCH ×4 (02:20→19:49)
[2019-01-24] MEDS: insulin regular, human vial - multi-dose SQ SCH ×3 (02:24→19:57)
[2019-01-24] MEDS: ipratropium/albuterol 3ml nebule NEB SCH ×6 (02:46→23:02)
[2019-01-24 03:06] LABS: ABG BASE EXCESS 2.4 mmol/L (-2.0-3.0); ABG HCO3 26.9 mmol/L (22.0-26.0); ABG OXYGEN SATURATION 97.2 % (95-98); ABG PCO2 (T) 40.8 mmHg (35.0-45.0); ABG PH (T) 7.435 (7.350-7.450); FCOHb 1.3 % (0.5-1.5); FMetHb 0.3 % (0.3-1.12); FO2Hb 95.6 % (94-100); MINUTE VOLUME 11 L/min; PATIENT TEMPERATURE 36.8; PEEP 5 cm H2O; RESPIRATORY RATE 20 b/min; RESPIRATORY RATE (OBSERVED) 23 b/min; TIDAL VOLUME 475 mL; TOTAL HEMOGLOBIN 9.3 G/dl (14.0-17.9)
[2019-01-24] MEDS: dextrose 50%-water 50ml dispensing syringe IV PRN (04:04)
--- NOTE | 2019-01-24 04:15 | NUR ---
Called alterations sewer Dialysis nurse Isabela, informed her of CVVH going down,
[2019-01-24 04:17] LABS: BASOPHILS # (AUTO) 0.1 X10'3 (0-0.2); BASOPHILS % (AUTO) 0.8 % (0-1); EOSINOPHILS # (AUTO) 0.1 X10'3 (0-0.9); EOSINOPHILS % (AUTO) 1.1 % (0-6); HEMATOCRIT 26.2 % (42.0-52.0); HEMOGLOBIN 8.4 g/dl (14.0-17.9); LYMPHOCYTES # (AUTO) 1.6 X10'3 (1.1-4.8); LYMPHOCYTES % (AUTO) 11.4 % (21-51); MEAN CORPUSCULAR HEMOGLOBIN 31.8 PG (27.0-31.0); MEAN CORPUSCULAR HGB CONC 32.1 g/dL (33.0-36.5); MEAN CORPUSCULAR VOLUME 99.1 FL (78-98); MEAN PLATELET VOLUME 9.3 FL (7.4-10.4); MONOCYTES # (AUTO) 0.6 X10'3 (0-0.9); MONOCYTES % (AUTO) 4.6 % (2-12); NEUTROPHILS # (AUTO) 11.3 X10'3 (1.8-7.7); NEUTROPHILS % (AUTO) 82.1 % (42-75); PLATELET COUNT 173 X10'3 (140-440); RED BLOOD COUNT 2.64 X10'6 (4.70-6.10); RED CELL DISTRIBUTION WIDTH 26.4 % (11.5-14.5); WHITE BLOOD COUNT 13.7 X10'3 (4.5-11.0)
[2019-01-24 04:23] LABS: ALBUMIN 1.1 G/DL (3.4-5.0); ANION GAP 6 (8-16); BLOOD UREA NITROGEN 41 MG/DL (7-18); CHLORIDE 104 MMOL/L (99-107); CREATININE 1.08 MG/DL (0.60-1.10); GLUCOSE 68 MG/DL (70-104); MAGNESIUM 1.8 MG/DL (1.5-2.4); PHOSPHORUS 2.4 MG/DL (2.3-4.5); POTASSIUM 4.9 MMOL/L (3.5-5.1); SODIUM 137 MMOL/L (135-145); TOTAL CARBON DIOXIDE 26.8 MMOL/L (24-32); eGFR 66 ML/MIN
--- NOTE | 2019-01-24 04:43 | NUR ---
0348-CVVH down, high balance chamber, blood returned to pt. 0400- low blood glucose treated per protocol.
[2019-01-24 04:44] LABS: ANISOCYTOSIS 3+; NUCLEATED RED BLOOD CELLS 5 /100WBC (0-0); POLYCHROMASIA 2+; TOTAL CELLS COUNTED 100
[2019-01-24 04:45] LABS: PLATELET ESTIMATE NORMAL; TOXIC GRANULATION 2+
--- NOTE | 2019-01-24 06:30 | NUR ---
Patient in room CICU 2011. I have received report from Carolynn LOOMIS and had the opportunity to ask questions and assume patient care. Patient laying in bed with eyes closed, on ventilator 40% fio2 and peep of 5, CVVH being restarted the machine went down at 0358. Patient has a R upper arm PICC with levophed infusing, a R groin art line, and a R IJ madeleine. Vital signs stable no signs of distress will continue to monitor
--- NOTE | 2019-01-24 06:33 | NUR ---
Problems reprioritized. Patient report given, questions answered & plan of care reviewed with Kristina Michelle RN.
[2019-01-24] MEDS: pantoprazole 40 MG vial IV SCH ×2 (07:41→19:47)
[2019-01-24] MEDS: heparin, porcine 5000 units/ml vial SQ SCH ×2 (07:42→19:46)
[2019-01-24] MEDS: lactobacillus rhamnosus 10,000 MMU CELLS/CAPSULE OGT SCH ×2 (07:42→19:45)
[2019-01-24] MEDS: CefTRIAXone/D5W-Rocephin 1gm 50 ML IV SCH (07:43)
[2019-01-24] MEDS: K, MAG and/or Phos replacement - Verify level? MC SCH (08:06)
[2019-01-24] MEDS: magnesium 4gm in 100ml NS 100 ML IV PRN (09:19)
[2019-01-24 09:56] LABS: BASOPHILS # (AUTO) 0.1 X10'3 (0-0.2); BASOPHILS % (AUTO) 0.6 % (0-1); EOSINOPHILS # (AUTO) 0.2 X10'3 (0-0.9); EOSINOPHILS % (AUTO) 1.3 % (0-6); HEMATOCRIT 25.5 % (42.0-52.0); HEMOGLOBIN 8.2 g/dl (14.0-17.9); LYMPHOCYTES # (AUTO) 1.3 X10'3 (1.1-4.8); MEAN CORPUSCULAR HEMOGLOBIN 32.2 PG (27.0-31.0); MEAN CORPUSCULAR HGB CONC 32.1 g/dL (33.0-36.5); MEAN CORPUSCULAR VOLUME 100.3 FL (78-98); MEAN PLATELET VOLUME 9.7 FL (7.4-10.4); MONOCYTES # (AUTO) 0.7 X10'3 (0-0.9); MONOCYTES % (AUTO) 5.7 % (2-12); NEUTROPHILS # (AUTO) 10.7 X10'3 (1.8-7.7); NEUTROPHILS % (AUTO) 82.4 % (42-75); PLATELET COUNT 173 X10'3 (140-440); RED BLOOD COUNT 2.54 X10'6 (4.70-6.10); RED CELL DISTRIBUTION WIDTH 25.6 % (11.5-14.5)
[2019-01-24 10:09] LABS: ALBUMIN 1.2 G/DL (3.4-5.0); ANION GAP 5 (8-16); BLOOD UREA NITROGEN 41 MG/DL (7-18); BUN/CREATININE RATIO 38.3 (5.4-32.0); CHLORIDE 104 MMOL/L (99-107); CREATININE 1.07 MG/DL (0.60-1.10); GLUCOSE 108 MG/DL (70-104); MAGNESIUM 1.8 MG/DL (1.5-2.4); PHOSPHORUS 2.2 MG/DL (2.3-4.5); POTASSIUM 4.9 MMOL/L (3.5-5.1); SODIUM 136 MMOL/L (135-145); TOTAL CARBON DIOXIDE 27.1 MMOL/L (24-32); eGFR 67 ML/MIN
[2019-01-24] MEDS ORDERED: tPA-cathflo 2 MG/2 ml IV flush IVF ONE ×2 (10:40→14:40)
[2019-01-24 10:44] LABS: ANISOCYTOSIS 3+; NUCLEATED RED BLOOD CELLS 5 /100WBC (0-0); PLATELET ESTIMATE NORMAL; TOTAL CELLS COUNTED 100
[2019-01-24 10:45] LABS: POLYCHROMASIA 1+; SCHISTOCYTES FEW
[2019-01-24] MEDS ORDERED: morphine 4 MG/ML inj SYRINge IV PRN (16:00)
[2019-01-24 16:21] LABS: BASOPHILS # (AUTO) 0.1 X10'3 (0-0.2); BASOPHILS % (AUTO) 0.6 % (0-1); EOSINOPHILS # (AUTO) 0.1 X10'3 (0-0.9); EOSINOPHILS % (AUTO) 0.8 % (0-6); HEMATOCRIT 25.3 % (42.0-52.0); HEMOGLOBIN 8.2 g/dl (14.0-17.9); LYMPHOCYTES % (AUTO) 8.3 % (21-51); MEAN CORPUSCULAR HEMOGLOBIN 32.3 PG (27.0-31.0); MEAN CORPUSCULAR HGB CONC 32.4 g/dL (33.0-36.5); MEAN CORPUSCULAR VOLUME 99.8 FL (78-98); MEAN PLATELET VOLUME 10.2 FL (7.4-10.4); MONOCYTES # (AUTO) 0.6 X10'3 (0-0.9); MONOCYTES % (AUTO) 4.9 % (2-12); NEUTROPHILS # (AUTO) 10.7 X10'3 (1.8-7.7); NEUTROPHILS % (AUTO) 85.4 % (42-75); PLATELET COUNT 187 X10'3 (140-440); RED BLOOD COUNT 2.53 X10'6 (4.70-6.10); WHITE BLOOD COUNT 12.6 X10'3 (4.5-11.0)
[2019-01-24 16:22] LABS: ALBUMIN 1.1 G/DL (3.4-5.0); ANION GAP 7 (8-16); BLOOD UREA NITROGEN 42 MG/DL (7-18); BUN/CREATININE RATIO 38.9 (5.4-32.0); CHLORIDE 101 MMOL/L (99-107); CREATININE 1.08 MG/DL (0.60-1.10); GLUCOSE 176 MG/DL (70-104); MAGNESIUM 2.7 MG/DL (1.5-2.4); PHOSPHORUS 2.3 MG/DL (2.3-4.5); POTASSIUM 4.4 MMOL/L (3.5-5.1); SODIUM 135 MMOL/L (135-145); TOTAL CARBON DIOXIDE 26.6 MMOL/L (24-32); eGFR 66 ML/MIN
--- NOTE | 2019-01-24 18:30 | NUR ---
Patient in room CICU 2011. I have received report from Kristina LOOMIS and had the opportunity to ask questions and assume patient care.
--- NOTE | 2019-01-24 18:33 | NUR ---
Problems reprioritized. Patient report given, questions answered & plan of care reviewed with Susy LOOMIS.
[2019-01-24] MEDS: insulin glargine (Lantus) pen - multi-dose SQ SCH (19:58)
[2019-01-24 22:14] LABS: BASOPHILS # (AUTO) 0.2 X10'3 (0-0.2); BASOPHILS % (AUTO) 1.3 % (0-1); EOSINOPHILS # (AUTO) 0.1 X10'3 (0-0.9); EOSINOPHILS % (AUTO) 0.5 % (0-6); HEMATOCRIT 26.1 % (42.0-52.0); HEMOGLOBIN 8.3 g/dl (14.0-17.9); LYMPHOCYTES # (AUTO) 1.4 X10'3 (1.1-4.8); LYMPHOCYTES % (AUTO) 11.4 % (21-51); MEAN CORPUSCULAR HEMOGLOBIN 32.1 PG (27.0-31.0); MEAN CORPUSCULAR HGB CONC 31.8 g/dL (33.0-36.5); MEAN PLATELET VOLUME 9.6 FL (7.4-10.4); MONOCYTES # (AUTO) 0.6 X10'3 (0-0.9); MONOCYTES % (AUTO) 4.9 % (2-12); NEUTROPHILS # (AUTO) 9.7 X10'3 (1.8-7.7); NEUTROPHILS % (AUTO) 81.9 % (42-75); PLATELET COUNT 170 X10'3 (140-440); RED BLOOD COUNT 2.58 X10'6 (4.70-6.10); RED CELL DISTRIBUTION WIDTH 26.8 % (11.5-14.5); WHITE BLOOD COUNT 11.9 X10'3 (4.5-11.0)
[2019-01-24 22:26] LABS: ALBUMIN 1.2 G/DL (3.4-5.0); ANION GAP 7 (8-16); BLOOD UREA NITROGEN 39 MG/DL (7-18); BUN/CREATININE RATIO 37.9 (5.4-32.0); CHLORIDE 102 MMOL/L (99-107); CREATININE 1.03 MG/DL (0.60-1.10); GLUCOSE 167 MG/DL (70-104); MAGNESIUM 2.2 MG/DL (1.5-2.4); PHOSPHORUS 2.3 MG/DL (2.3-4.5); POTASSIUM 4.2 MMOL/L (3.5-5.1); SODIUM 135 MMOL/L (135-145); TOTAL CARBON DIOXIDE 25.7 MMOL/L (24-32); eGFR 70 ML/MIN
[2019-01-24] MEDS: sodium phosphate inj. 30 MMOL in normal saline 250ml IV soln 250 ML IV PRN (23:33)
[2019-01-25] VITALS (24 sets, daily range): BP systolic 88–104; BP diastolic 50–59
[2019-01-25] MEDS: mineral oil/petrolatum ophthal oint EACHEYE SCH ×4 (01:49→19:45)
[2019-01-25] MEDS: metoclopramide 5 mg/ml inj IV SCH ×2 (01:49→07:56)
[2019-01-25] MEDS: insulin regular, human vial - multi-dose SQ SCH ×4 (01:51→21:00)
[2019-01-25] MEDS: NORepinephrine 8mg/ 250ml NS 250 ML IV PRN ×2 (03:07→17:28)
[2019-01-25] MEDS: ipratropium/albuterol 3ml nebule NEB SCH ×6 (03:23→23:08)
[2019-01-25 04:36] LABS: ABG BASE EXCESS -0.2 mmol/L (-2.0-3.0); ABG OXYGEN SATURATION 97.1 % (95-98); ABG PCO2 (T) 36.6 mmHg (35.0-45.0); ABG PH (T) 7.433 (7.350-7.450); ABG PO2 (T) 85.3 mmHg (83-108); FMetHb 0.3 % (0.3-1.12); FO2Hb 95.8 % (94-100); MINUTE VOLUME 10 L/min; PATIENT TEMPERATURE 36.5; PEEP 5 cm H2O; RESPIRATORY RATE 20 b/min; RESPIRATORY RATE (OBSERVED) 20 b/min; TIDAL VOLUME 475 mL; TOTAL HEMOGLOBIN 9.7 G/dl (14.0-17.9)
[2019-01-25 04:38] LABS: BASOPHILS % (AUTO) 0.4 % (0-1); EOSINOPHILS # (AUTO) 0.1 X10'3 (0-0.9); EOSINOPHILS % (AUTO) 0.5 % (0-6); HEMATOCRIT 25.3 % (42.0-52.0); HEMOGLOBIN 8.2 g/dl (14.0-17.9); LYMPHOCYTES # (AUTO) 1.1 X10'3 (1.1-4.8); LYMPHOCYTES % (AUTO) 9.7 % (21-51); MEAN CORPUSCULAR HEMOGLOBIN 32.5 PG (27.0-31.0); MEAN CORPUSCULAR HGB CONC 32.4 g/dL (33.0-36.5); MEAN CORPUSCULAR VOLUME 100.1 FL (78-98); MEAN PLATELET VOLUME 9.9 FL (7.4-10.4); MONOCYTES # (AUTO) 0.5 X10'3 (0-0.9); MONOCYTES % (AUTO) 4.1 % (2-12); NEUTROPHILS # (AUTO) 9.7 X10'3 (1.8-7.7); NEUTROPHILS % (AUTO) 85.3 % (42-75); PLATELET COUNT 161 X10'3 (140-440); RED BLOOD COUNT 2.52 X10'6 (4.70-6.10); RED CELL DISTRIBUTION WIDTH 26.8 % (11.5-14.5); WHITE BLOOD COUNT 11.3 X10'3 (4.5-11.0)
[2019-01-25 04:50] LABS: ALBUMIN 1.2 G/DL (3.4-5.0); ANION GAP 7 (8-16); BLOOD UREA NITROGEN 37 MG/DL (7-18); BUN/CREATININE RATIO 38.1 (5.4-32.0); CHLORIDE 104 MMOL/L (99-107); CREATININE 0.97 MG/DL (0.60-1.10); GLUCOSE 183 MG/DL (70-104); MAGNESIUM 1.9 MG/DL (1.5-2.4); PHOSPHORUS 3.4 MG/DL (2.3-4.5); SODIUM 137 MMOL/L (135-145); TOTAL CARBON DIOXIDE 25.7 MMOL/L (24-32); TRIGLYCERIDES 107 MG/DL (20-135); eGFR 75 ML/MIN
[2019-01-25 05:04] LABS: NUCLEATED RED BLOOD CELLS 5 /100WBC (0-0); TOTAL CELLS COUNTED 100
[2019-01-25 05:06] LABS: ANISOCYTOSIS 3+; PLATELET ESTIMATE NORMAL; POLYCHROMASIA 1+
[2019-01-25] MEDS: bicarb dialysis sol 2K+/3 Ca2+ 5,000 ML HE SCH ×8 (05:49→17:52)
--- NOTE | 2019-01-25 06:16 | NUR ---
Problems reprioritized. Patient report given, questions answered & plan of care reviewed with Kristina LOOMIS.
--- NOTE | 2019-01-25 06:41 | NUR ---
Patient in room CICU 2011. I have received report from Susy LOOMIS and had the opportunity to ask questions and assume patient care. Patient laying in bed with eyes closed, on ventilator fio2 40% peep of 5 sating 99-100%, levophed infusing to R upper arm pic, Art line reading from R groin, CVVH in R ISELA salvador, vital signs stable no signs or symptoms of distress will continue to monitor
[2019-01-25] MEDS: heparin, porcine 5000 units/ml vial SQ SCH ×2 (07:55→19:44)
[2019-01-25] MEDS: pantoprazole 40 MG vial IV SCH ×2 (07:56→19:45)
[2019-01-25] MEDS: lactobacillus rhamnosus 10,000 MMU CELLS/CAPSULE OGT SCH ×2 (07:56→19:45)
[2019-01-25] MEDS: K, MAG and/or Phos replacement - Verify level? MC SCH (08:00)
[2019-01-25 10:02] LABS: BASOPHILS % (AUTO) 0.4 % (0-1); EOSINOPHILS # (AUTO) 0.1 X10'3 (0-0.9); EOSINOPHILS % (AUTO) 0.7 % (0-6); HEMATOCRIT 25.2 % (42.0-52.0); HEMOGLOBIN 8.3 g/dl (14.0-17.9); LYMPHOCYTES # (AUTO) 0.9 X10'3 (1.1-4.8); LYMPHOCYTES % (AUTO) 8.3 % (21-51); MEAN CORPUSCULAR HEMOGLOBIN 33.1 PG (27.0-31.0); MEAN CORPUSCULAR HGB CONC 32.9 g/dL (33.0-36.5); MEAN CORPUSCULAR VOLUME 100.6 FL (78-98); MEAN PLATELET VOLUME 10.3 FL (7.4-10.4); MONOCYTES # (AUTO) 0.5 X10'3 (0-0.9); MONOCYTES % (AUTO) 4.2 % (2-12); NEUTROPHILS # (AUTO) 9.3 X10'3 (1.8-7.7); NEUTROPHILS % (AUTO) 86.4 % (42-75); PLATELET COUNT 160 X10'3 (140-440); RED BLOOD COUNT 2.51 X10'6 (4.70-6.10); RED CELL DISTRIBUTION WIDTH 27.1 % (11.5-14.5); WHITE BLOOD COUNT 10.8 X10'3 (4.5-11.0)
[2019-01-25 10:07] LABS: ALBUMIN 1.1 G/DL (3.4-5.0); ANION GAP 5 (8-16); BLOOD UREA NITROGEN 36 MG/DL (7-18); CHLORIDE 102 MMOL/L (99-107); GLUCOSE 200 MG/DL (70-104); MAGNESIUM 1.9 MG/DL (1.5-2.4); PHOSPHORUS 2.6 MG/DL (2.3-4.5); POTASSIUM 3.7 MMOL/L (3.5-5.1); SODIUM 135 MMOL/L (135-145); TOTAL CARBON DIOXIDE 27.6 MMOL/L (24-32); eGFR 82 ML/MIN
[2019-01-25 11:14] LABS: ANISOCYTOSIS 3+; NUCLEATED RED BLOOD CELLS 3 /100WBC (0-0); PLATELET ESTIMATE NORMAL; POLYCHROMASIA 1+; TOTAL CELLS COUNTED 100
--- NOTE | 2019-01-25 11:32 | NUR ---
reassessment: Pt tolerating TF at goal w/ little residuals per RN. LBM 01/24 samm but improving from smears. Will continue to monitor. Recommendations: 1. Continue OG tube feeding using Vital High protein at 85ml/hr goal; to provide 2040ml fluid, 2040kcals, 1714ml free water, and 179g protein. 2. additional free water per reversing mill roller on CVVH 3. prealbumin Q /; daily wts 4. routine bowel care, patient only having smears/samm since admission, no significant bowel movement Addendum: 01/25/19 at [address] Amended: Links added.
--- NOTE | 2019-01-25 13:10 | NUR ---
patient resting with eyes closed vital signs stable, tolerating CVVH well, no signs or symptoms of distress will continue to monitor
--- NOTE | 2019-01-25 15:00 | NUR ---
Went in with RT during her vent check and we were able to get some appropriate responses out of patient, asked if he could hear us he nodded yes, asked if he wanted the tv turned off he shook his head no. Then he would shift his gaze and stare off blankly and not respond to further questions
[2019-01-25 16:25] LABS: ALBUMIN 1.2 G/DL (3.4-5.0); ANION GAP 7 (8-16); BLOOD UREA NITROGEN 32 MG/DL (7-18); CHLORIDE 102 MMOL/L (99-107); CREATININE 0.89 MG/DL (0.60-1.10); GLUCOSE 182 MG/DL (70-104); PHOSPHORUS 2.4 MG/DL (2.3-4.5); POTASSIUM 3.8 MMOL/L (3.5-5.1); SODIUM 136 MMOL/L (135-145); TOTAL CARBON DIOXIDE 27.3 MMOL/L (24-32); eGFR 83 ML/MIN
[2019-01-25 16:26] LABS: BASOPHILS # (AUTO) 0.1 X10'3 (0-0.2); BASOPHILS % (AUTO) 0.9 % (0-1); EOSINOPHILS # (AUTO) 0.1 X10'3 (0-0.9); EOSINOPHILS % (AUTO) 1.1 % (0-6); HEMATOCRIT 26.3 % (42.0-52.0); HEMOGLOBIN 8.5 g/dl (14.0-17.9); LYMPHOCYTES # (AUTO) 1.3 X10'3 (1.1-4.8); LYMPHOCYTES % (AUTO) 12.7 % (21-51); MEAN CORPUSCULAR HEMOGLOBIN 32.8 PG (27.0-31.0); MEAN CORPUSCULAR HGB CONC 32.2 g/dL (33.0-36.5); MEAN CORPUSCULAR VOLUME 101.6 FL (78-98); MEAN PLATELET VOLUME 9.9 FL (7.4-10.4); MONOCYTES # (AUTO) 0.6 X10'3 (0-0.9); MONOCYTES % (AUTO) 5.4 % (2-12); NEUTROPHILS # (AUTO) 8.3 X10'3 (1.8-7.7); NEUTROPHILS % (AUTO) 79.9 % (42-75); PLATELET COUNT 139 X10'3 (140-440); RED BLOOD COUNT 2.59 X10'6 (4.70-6.10); RED CELL DISTRIBUTION WIDTH 27.6 % (11.5-14.5); WHITE BLOOD COUNT 10.4 X10'3 (4.5-11.0)
[2019-01-25 17:34] LABS: ANISOCYTOSIS 3+; PLATELET ESTIMATE DECREASED; POLYCHROMASIA 2+
[2019-01-25 17:35] LABS: HYPOCHROMASIA 1+; TARGET CELLS FEW
--- NOTE | 2019-01-25 17:35 | NUR ---
when providing oral care i asked patient if he could feel me squeezing his left hand he shook his head no, when asked if he could feel me squeezing his right hand he nodded his head yes
--- NOTE | 2019-01-25 17:41 | NUR ---
patient slightly tachycardic 100-104 asked patient if his stomach hurt he nodded his head yes, asked if he would like some meds for his stomach he again nodded yes
[2019-01-25] MEDS: insulin glargine (Lantus) pen - multi-dose SQ SCH (20:58)
[2019-01-25 22:40] LABS: BASOPHILS # (AUTO) 0.1 X10'3 (0-0.2); EOSINOPHILS # (AUTO) 0.1 X10'3 (0-0.9); HEMATOCRIT 25.8 % (42.0-52.0); HEMOGLOBIN 8.4 g/dl (14.0-17.9); LYMPHOCYTES % (AUTO) 10.2 % (21-51); MEAN CORPUSCULAR HEMOGLOBIN 33.3 PG (27.0-31.0); MEAN CORPUSCULAR HGB CONC 32.7 g/dL (33.0-36.5); MEAN CORPUSCULAR VOLUME 101.8 FL (78-98); MEAN PLATELET VOLUME 9.4 FL (7.4-10.4); MONOCYTES # (AUTO) 0.4 X10'3 (0-0.9); MONOCYTES % (AUTO) 4.5 % (2-12); NEUTROPHILS # (AUTO) 8.2 X10'3 (1.8-7.7); NEUTROPHILS % (AUTO) 83.3 % (42-75); PLATELET COUNT 110 X10'3 (140-440); RED BLOOD COUNT 2.53 X10'6 (4.70-6.10); RED CELL DISTRIBUTION WIDTH 27.5 % (11.5-14.5); WHITE BLOOD COUNT 9.9 X10'3 (4.5-11.0)
[2019-01-25 22:54] LABS: ALBUMIN 1.2 G/DL (3.4-5.0); ANION GAP 8 (8-16); BLOOD UREA NITROGEN 32 MG/DL (7-18); BUN/CREATININE RATIO 35.2 (5.4-32.0); CHLORIDE 102 MMOL/L (99-107); CREATININE 0.91 MG/DL (0.60-1.10); GLUCOSE 190 MG/DL (70-104); MAGNESIUM 2.3 MG/DL (1.5-2.4); PHOSPHORUS 2.1 MG/DL (2.3-4.5); POTASSIUM 3.5 MMOL/L (3.5-5.1); SODIUM 136 MMOL/L (135-145); TOTAL CARBON DIOXIDE 25.6 MMOL/L (24-32); eGFR 81 ML/MIN
[2019-01-25 23:08] LABS: ANISOCYTOSIS 3+; HYPOCHROMASIA 1+; PLATELET ESTIMATE DECREASED; POLYCHROMASIA 2+; TARGET CELLS 1+
--- NOTE | 2019-01-25 23:25 | NUR ---
2300 CRRT machine down due to filter clotted. HD RN was called and will be in to help with a new set up. Case flushed with 20 ml each port with normal saline, clamped and awaiting HD RN/ CRRT new set-up. VSS - patient currently tolerating levophed at 10 ug/min.
[2019-01-26] VITALS (25 sets, daily range): BP systolic 80–104; BP diastolic 48–62
[2019-01-26] MEDS: bicarb dialysis sol 2K+/3 Ca2+ 5,000 ML HE SCH ×14 (00:42→23:24)
[2019-01-26] MEDS: mineral oil/petrolatum ophthal oint EACHEYE SCH ×4 (02:00→19:38)
[2019-01-26] MEDS: ipratropium/albuterol 3ml nebule NEB SCH ×6 (02:58→23:31)
[2019-01-26 03:40] LABS: ABG BASE EXCESS 0.8 mmol/L (-2.0-3.0); ABG HCO3 25.2 mmol/L (22.0-26.0); ABG OXYGEN SATURATION 97.7 % (95-98); ABG PCO2 (T) 39.8 mmHg (35.0-45.0); ABG PH (T) 7.421 (7.350-7.450); ABG PO2 (T) 94.1 mmHg (83-108); FCOHb 1.5 % (0.5-1.5); FMetHb 0.3 % (0.3-1.12); FO2Hb 95.9 % (94-100); MINUTE VOLUME 10 L/min; PATIENT TEMPERATURE 37.1; PEEP 5 cm H2O; RESPIRATORY RATE 20 b/min; RESPIRATORY RATE (OBSERVED) 22 b/min; TIDAL VOLUME 475 mL; TOTAL HEMOGLOBIN 9.2 G/dl (14.0-17.9)
[2019-01-26 04:44] LABS: HEMOGLOBIN 8.7 g/dl (14.0-17.9); MEAN CORPUSCULAR HEMOGLOBIN 33.4 PG (27.0-31.0); MEAN CORPUSCULAR HGB CONC 33.1 g/dL (33.0-36.5); MEAN CORPUSCULAR VOLUME 100.9 FL (78-98)
[2019-01-26 04:45] LABS: BASOPHILS # (AUTO) 0.2 X10'3 (0-0.2); BASOPHILS % (AUTO) 1.5 % (0-1); EOSINOPHILS # (AUTO) 0.1 X10'3 (0-0.9); EOSINOPHILS % (AUTO) 1.3 % (0-6); HEMATOCRIT 26.2 % (42.0-52.0); LYMPHOCYTES # (AUTO) 1.1 X10'3 (1.1-4.8); LYMPHOCYTES % (AUTO) 10.4 % (21-51); MONOCYTES # (AUTO) 0.6 X10'3 (0-0.9); MONOCYTES % (AUTO) 5.8 % (2-12); NEUTROPHILS # (AUTO) 8.4 X10'3 (1.8-7.7); PLATELET COUNT 126 X10'3 (140-440); RED CELL DISTRIBUTION WIDTH 27.3 % (11.5-14.5); WHITE BLOOD COUNT 10.3 X10'3 (4.5-11.0)
[2019-01-26 05:04] LABS: ALBUMIN 1.2 G/DL (3.4-5.0); ANION GAP 5 (8-16); BLOOD UREA NITROGEN 33 MG/DL (7-18); BUN/CREATININE RATIO 39.8 (5.4-32.0); CALCIUM 7.8 MG/DL (8.5-10.1); CHLORIDE 103 MMOL/L (99-107); CREATININE 0.83 MG/DL (0.60-1.10); GLUCOSE 155 MG/DL (70-104); PHOSPHORUS 2.3 MG/DL (2.3-4.5); POTASSIUM 3.7 MMOL/L (3.5-5.1); SODIUM 135 MMOL/L (135-145); TOTAL CARBON DIOXIDE 27.2 MMOL/L (24-32); eGFR 90 ML/MIN
[2019-01-26] MEDS: NORepinephrine 8mg/ 250ml NS 250 ML IV PRN ×2 (06:47→17:29)
[2019-01-26 06:59] LABS: ANISOCYTOSIS 3+; NUCLEATED RED BLOOD CELLS 2 /100WBC (0-0); PLATELET ESTIMATE DECREASED; TOTAL CELLS COUNTED 100
[2019-01-26 07:00] LABS: POLYCHROMASIA 1+
[2019-01-26 07:02] LABS: STOMATOCYTES 1+
[2019-01-26 07:03] LABS: SCHISTOCYTES FEW
[2019-01-26] MEDS: K, MAG and/or Phos replacement - Verify level? MC SCH (08:00)
[2019-01-26] MEDS: heparin, porcine 5000 units/ml vial SQ SCH ×2 (08:23→19:39)
[2019-01-26] MEDS: pantoprazole 40 MG vial IV SCH ×2 (08:23→19:38)
[2019-01-26] MEDS: lactobacillus rhamnosus 10,000 MMU CELLS/CAPSULE OGT SCH ×2 (08:24→19:38)
[2019-01-26] MEDS: insulin regular, human vial - multi-dose SQ SCH ×3 (08:31→19:59)
[2019-01-26 10:59] LABS: BASOPHILS # (AUTO) 0.1 X10'3 (0-0.2); BASOPHILS % (AUTO) 0.8 % (0-1); EOSINOPHILS # (AUTO) 0.1 X10'3 (0-0.9); EOSINOPHILS % (AUTO) 1.2 % (0-6); HEMATOCRIT 24.7 % (42.0-52.0); LYMPHOCYTES # (AUTO) 1.2 X10'3 (1.1-4.8); MEAN CORPUSCULAR HEMOGLOBIN 33.4 PG (27.0-31.0); MEAN CORPUSCULAR HGB CONC 32.4 g/dL (33.0-36.5); MEAN CORPUSCULAR VOLUME 103.2 FL (78-98); MONOCYTES # (AUTO) 0.5 X10'3 (0-0.9); MONOCYTES % (AUTO) 5.2 % (2-12); NEUTROPHILS # (AUTO) 6.9 X10'3 (1.8-7.7); NEUTROPHILS % (AUTO) 78.8 % (42-75); PLATELET COUNT 114 X10'3 (140-440); RED BLOOD COUNT 2.39 X10'6 (4.70-6.10); RED CELL DISTRIBUTION WIDTH 28.4 % (11.5-14.5); WHITE BLOOD COUNT 8.7 X10'3 (4.5-11.0)
[2019-01-26 11:09] LABS: ALBUMIN 1.1 G/DL (3.4-5.0); ANION GAP 7 (8-16); BLOOD UREA NITROGEN 31 MG/DL (7-18); BUN/CREATININE RATIO 34.8 (5.4-32.0); CALCIUM 7.4 MG/DL (8.5-10.1); CHLORIDE 105 MMOL/L (99-107); CREATININE 0.89 MG/DL (0.60-1.10); GLUCOSE 115 MG/DL (70-104); PHOSPHORUS 1.7 MG/DL (2.3-4.5); POTASSIUM 3.2 MMOL/L (3.5-5.1); SODIUM 139 MMOL/L (135-145); TOTAL CARBON DIOXIDE 27.5 MMOL/L (24-32); eGFR 83 ML/MIN
[2019-01-26] MEDS: potassium Cl 20mEq/100mL bag 100 ML IV PRN ×2 (11:29→12:38)
--- NOTE | 2019-01-26 12:01 | NUR ---
I have reviewed and agree with all medications administered and interventions performed by [facility] Student(donis roman) Addendum: 01/26/19 at 1203 by Carmen Ford RT Amended: Links added.
[2019-01-26] MEDS: sodium phosphate inj. 30 MMOL in normal saline 250ml IV soln 250 ML IV PRN (12:38)
[2019-01-26] MEDS: HYDROcodone/acetaminophen 10/325mg tab PO PRN ×2 (13:10→19:42)
[2019-01-26 16:26] LABS: BASOPHILS # (AUTO) 0.1 X10'3 (0-0.2); BASOPHILS % (AUTO) 1.2 % (0-1); EOSINOPHILS # (AUTO) 0.1 X10'3 (0-0.9); EOSINOPHILS % (AUTO) 1.8 % (0-6); HEMATOCRIT 25.3 % (42.0-52.0); HEMOGLOBIN 8.1 g/dl (14.0-17.9); LYMPHOCYTES # (AUTO) 1.1 X10'3 (1.1-4.8); MEAN CORPUSCULAR HEMOGLOBIN 33.1 PG (27.0-31.0); MEAN CORPUSCULAR HGB CONC 32.2 g/dL (33.0-36.5); MEAN CORPUSCULAR VOLUME 102.9 FL (78-98); MEAN PLATELET VOLUME 10.4 FL (7.4-10.4); MONOCYTES # (AUTO) 0.5 X10'3 (0-0.9); MONOCYTES % (AUTO) 5.8 % (2-12); NEUTROPHILS # (AUTO) 6.6 X10'3 (1.8-7.7); NEUTROPHILS % (AUTO) 78.2 % (42-75); PLATELET COUNT 129 X10'3 (140-440); RED BLOOD COUNT 2.46 X10'6 (4.70-6.10); RED CELL DISTRIBUTION WIDTH 27.6 % (11.5-14.5); WHITE BLOOD COUNT 8.4 X10'3 (4.5-11.0)
[2019-01-26 16:27] LABS: ALBUMIN 1.1 G/DL (3.4-5.0); ANION GAP 5 (8-16); BLOOD UREA NITROGEN 29 MG/DL (7-18); BUN/CREATININE RATIO 37.2 (5.4-32.0); CALCIUM 7.3 MG/DL (8.5-10.1); CHLORIDE 105 MMOL/L (99-107); CREATININE 0.78 MG/DL (0.60-1.10); GLUCOSE 136 MG/DL (70-104); PHOSPHORUS 2.9 MG/DL (2.3-4.5); POTASSIUM 3.6 MMOL/L (3.5-5.1); SODIUM 138 MMOL/L (135-145); eGFR > 90 ML/MIN
[2019-01-26] MEDS: insulin glargine (Lantus) pen - multi-dose SQ SCH (20:00)
[2019-01-26 22:10] LABS: BASOPHILS # (AUTO) 0.1 X10'3 (0-0.2); BASOPHILS % (AUTO) 0.9 % (0-1); EOSINOPHILS # (AUTO) 0.1 X10'3 (0-0.9); EOSINOPHILS % (AUTO) 1.7 % (0-6); HEMATOCRIT 25.9 % (42.0-52.0); HEMOGLOBIN 8.4 g/dl (14.0-17.9); LYMPHOCYTES # (AUTO) 1.1 X10'3 (1.1-4.8); LYMPHOCYTES % (AUTO) 12.8 % (21-51); MEAN CORPUSCULAR HEMOGLOBIN 33.1 PG (27.0-31.0); MEAN CORPUSCULAR HGB CONC 32.5 g/dL (33.0-36.5); MEAN CORPUSCULAR VOLUME 101.9 FL (78-98); MEAN PLATELET VOLUME 9.8 FL (7.4-10.4); MONOCYTES # (AUTO) 0.5 X10'3 (0-0.9); MONOCYTES % (AUTO) 5.8 % (2-12); NEUTROPHILS # (AUTO) 6.5 X10'3 (1.8-7.7); NEUTROPHILS % (AUTO) 78.8 % (42-75); PLATELET COUNT 131 X10'3 (140-440); RED BLOOD COUNT 2.55 X10'6 (4.70-6.10); RED CELL DISTRIBUTION WIDTH 27.4 % (11.5-14.5); WHITE BLOOD COUNT 8.3 X10'3 (4.5-11.0)
[2019-01-26 22:19] LABS: ALBUMIN 1.2 G/DL (3.4-5.0); ANION GAP 6 (8-16); BLOOD UREA NITROGEN 28 MG/DL (7-18); BUN/CREATININE RATIO 35.9 (5.4-32.0); CALCIUM 7.7 MG/DL (8.5-10.1); CHLORIDE 103 MMOL/L (99-107); CREATININE 0.78 MG/DL (0.60-1.10); GLUCOSE 122 MG/DL (70-104); PHOSPHORUS 2.6 MG/DL (2.3-4.5); POTASSIUM 3.6 MMOL/L (3.5-5.1); SODIUM 138 MMOL/L (135-145); TOTAL CARBON DIOXIDE 28.8 MMOL/L (24-32); eGFR > 90 ML/MIN
[2019-01-27] VITALS (26 sets, daily range): BP systolic 80–103; BP diastolic 48–64
[2019-01-27] MEDS: potassium Cl 20mEq/100mL bag 100 ML IV PRN ×4 (01:37→13:31)
[2019-01-27] MEDS: mineral oil/petrolatum ophthal oint EACHEYE SCH ×4 (01:38→19:47)
--- NOTE | 2019-01-27 01:56 | NUR ---
patients blood glucose is 76. per protocol, i should cover patient with 14 units regular insulin for the tube feeding carbs. I am holding the insulin coverage dose due to patient past history of labile blood sugars.
[2019-01-27 02:22] LABS: PLATELET ESTIMATE DECREASED; POLYCHROMASIA 1+
[2019-01-27 02:24] LABS: ANISOCYTOSIS 3+; TARGET CELLS 1+
[2019-01-27 02:26] LABS: MAGNESIUM 1.6 MG/DL (1.5-2.4)
[2019-01-27] MEDS: HYDROcodone/acetaminophen 10/325mg tab PO PRN (02:29)
[2019-01-27] MEDS: ipratropium/albuterol 3ml nebule NEB SCH ×6 (03:03→23:18)
[2019-01-27 03:16] LABS: ABG BASE EXCESS 1.3 mmol/L (-2.0-3.0); ABG HCO3 26.8 mmol/L (22.0-26.0); ABG OXYGEN SATURATION 98.9 % (95-98); ABG PCO2 (T) 43.7 mmHg (35.0-45.0); ABG PH (T) 7.398 (7.350-7.450); ABG PO2 (T) 109.9 mmHg (83-108); FCOHb 1.9 % (0.5-1.5); FMetHb 0.3 % (0.3-1.12); FO2Hb 96.7 % (94-100); PATIENT TEMPERATURE 35.6; PEEP 5 cm H2O; RESPIRATORY RATE 20 b/min; RESPIRATORY RATE (OBSERVED) 21 b/min; TIDAL VOLUME 400 mL; TOTAL HEMOGLOBIN 9.7 G/dl (14.0-17.9)
[2019-01-27] MEDS: magnesium 4gm in 100ml NS 100 ML IV PRN (03:33)
[2019-01-27 04:19] LABS: BASOPHILS # (AUTO) 0.1 X10'3 (0-0.2); BASOPHILS % (AUTO) 1.4 % (0-1); EOSINOPHILS # (AUTO) 0.2 X10'3 (0-0.9); HEMATOCRIT 26.8 % (42.0-52.0); HEMOGLOBIN 8.7 g/dl (14.0-17.9); LYMPHOCYTES # (AUTO) 1.4 X10'3 (1.1-4.8); LYMPHOCYTES % (AUTO) 17.5 % (21-51); MEAN CORPUSCULAR HEMOGLOBIN 33.1 PG (27.0-31.0); MEAN CORPUSCULAR HGB CONC 32.4 g/dL (33.0-36.5); MEAN CORPUSCULAR VOLUME 102.2 FL (78-98); MONOCYTES # (AUTO) 0.4 X10'3 (0-0.9); MONOCYTES % (AUTO) 5.2 % (2-12); NEUTROPHILS % (AUTO) 73.9 % (42-75); PLATELET COUNT 128 X10'3 (140-440); RED BLOOD COUNT 2.63 X10'6 (4.70-6.10); RED CELL DISTRIBUTION WIDTH 27.4 % (11.5-14.5); WHITE BLOOD COUNT 8.1 X10'3 (4.5-11.0)
[2019-01-27 04:39] LABS: ALBUMIN 1.2 G/DL (3.4-5.0); ANION GAP 5 (8-16); BLOOD UREA NITROGEN 26 MG/DL (7-18); BUN/CREATININE RATIO 35.1 (5.4-32.0); CALCIUM 7.9 MG/DL (8.5-10.1); CHLORIDE 103 MMOL/L (99-107); CREATININE 0.74 MG/DL (0.60-1.10); GLUCOSE 74 MG/DL (70-104); MAGNESIUM 1.6 MG/DL (1.5-2.4); PHOSPHORUS 2.6 MG/DL (2.3-4.5); POTASSIUM 4.1 MMOL/L (3.5-5.1); SODIUM 136 MMOL/L (135-145); TOTAL CARBON DIOXIDE 27.6 MMOL/L (24-32); eGFR > 90 ML/MIN
[2019-01-27] MEDS: bicarb dialysis sol 2K+/3 Ca2+ 5,000 ML HE SCH ×10 (05:39→21:38)
--- NOTE | 2019-01-27 05:43 | NUR ---
patient pamela very positional. blood return with repositioning. waveform is frequently dampened. repositioned with a better wave. NIBP cuff for correlation : 87/56 (63). [place] monitored BP at 89/62 (71). Increased Levofed gtt to 11 ug/min from 10 ug/min. will continue to monitor. Case catheter at R IJ occasionally has the red port kinked inherently within the integrity of the catheter material. Frequently repositioning the catheter and making sure it is not kinked. Patient temp is dropping. Patient shakes head no that he is cold - warm blanket applied to legs regardless. I have replaced potassium at 3.6 with 40 meq kcl per order. Repeat K 4.1. Magnesium resulted late and i was unable to replace the magnesium before the 4 am labs were drawn. Magnesium replacement was infusing when i bebeto the 4 am labs. Mg came back 1.6 (while magnesium was infusing). I will pass this along to next RN so as not to have 2 replacements occurring
[2019-01-27] MEDS: NORepinephrine 8mg/ 250ml NS 250 ML IV PRN ×2 (06:35→21:23)
[2019-01-27 07:49] LABS: SMUDGE CELLS FEW; TOTAL CELLS COUNTED 100
[2019-01-27 07:50] LABS: ANISOCYTOSIS 3+; PLATELET ESTIMATE DECREASED
[2019-01-27 07:51] LABS: POLYCHROMASIA 1+; STOMATOCYTES 1+; TARGET CELLS FEW
[2019-01-27] MEDS: insulin regular, human vial - multi-dose SQ SCH ×3 (07:58→20:11)
[2019-01-27] MEDS: K, MAG and/or Phos replacement - Verify level? MC SCH (08:00)
[2019-01-27] MEDS: lactobacillus rhamnosus 10,000 MMU CELLS/CAPSULE OGT SCH ×2 (08:28→19:47)
[2019-01-27] MEDS: pantoprazole 40 MG vial IV SCH ×2 (08:28→19:47)
[2019-01-27] MEDS: heparin, porcine 5000 units/ml vial SQ SCH (08:29)
[2019-01-27 10:33] LABS: ALBUMIN 1.2 G/DL (3.4-5.0); ANION GAP 4 (8-16); BLOOD UREA NITROGEN 25 MG/DL (7-18); BUN/CREATININE RATIO 34.7 (5.4-32.0); CALCIUM 7.9 MG/DL (8.5-10.1); CHLORIDE 102 MMOL/L (99-107); CREATININE 0.72 MG/DL (0.60-1.10); GLUCOSE 136 MG/DL (70-104); PHOSPHORUS 2.4 MG/DL (2.3-4.5); POTASSIUM 3.8 MMOL/L (3.5-5.1); SODIUM 135 MMOL/L (135-145); TOTAL CARBON DIOXIDE 29.3 MMOL/L (24-32); eGFR > 90 ML/MIN
[2019-01-27 10:38] LABS: BASOPHILS % (AUTO) 0.5 % (0-1); EOSINOPHILS # (AUTO) 0.1 X10'3 (0-0.9); EOSINOPHILS % (AUTO) 1.4 % (0-6); HEMATOCRIT 27.6 % (42.0-52.0); HEMOGLOBIN 8.9 g/dl (14.0-17.9); LYMPHOCYTES % (AUTO) 12.6 % (21-51); MEAN CORPUSCULAR HEMOGLOBIN 32.9 PG (27.0-31.0); MEAN CORPUSCULAR HGB CONC 32.1 g/dL (33.0-36.5); MEAN CORPUSCULAR VOLUME 102.6 FL (78-98); MEAN PLATELET VOLUME 10.1 FL (7.4-10.4); MONOCYTES # (AUTO) 0.6 X10'3 (0-0.9); MONOCYTES % (AUTO) 7.4 % (2-12); NEUTROPHILS % (AUTO) 78.1 % (42-75); PLATELET COUNT 128 X10'3 (140-440); RED BLOOD COUNT 2.69 X10'6 (4.70-6.10); RED CELL DISTRIBUTION WIDTH 27.6 % (11.5-14.5); WHITE BLOOD COUNT 7.7 X10'3 (4.5-11.0)
--- NOTE | 2019-01-27 11:08 | NUR ---
Old ART line in for almost a month and is positional. New ART line placed to right radial
[2019-01-27] MEDS ORDERED: Dextrose 10%-water IV solution 1,000 ML IV SCH (11:30)
--- NOTE | 2019-01-27 11:31 | NUR ---
Per Dr Gustafson, Hold tube feed for six hours to get gallbladder US; Hang D10 while patient NPO
[2019-01-27] MEDS: albumin (human) 25% 100 ML IV solution IV SCH ×3 (11:48→23:56)
[2019-01-27 11:52] LABS: LACTATE DEHYDROGENASE 362 U/L (85-227); MAGNESIUM 1.9 MG/DL (1.5-2.4)
--- NOTE | 2019-01-27 12:05 | NUR ---
Tube feed stopped and D10 hung at 85 Addendum: 01/27/19 at 1207 by Sedrick Reddy RN ultrasound notified and they will be here at 1800
[2019-01-27 13:14] LABS: ANISOCYTOSIS 3+; NUCLEATED RED BLOOD CELLS 1 /100WBC (0-0); PLATELET ESTIMATE DECREASED; TOTAL CELLS COUNTED 100
[2019-01-27 13:15] LABS: HYPOCHROMASIA 1+; POLYCHROMASIA 1+; SMUDGE CELLS FEW; TARGET CELLS FEW
[2019-01-27 14:14] LABS: PLATELET COUNT 111 X10'3 (140-440)
[2019-01-27 14:28] LABS: PARTIAL THROMBOPLASTIN TIME 31 SECONDS (22-32)
--- NOTE | 2019-01-27 14:55 | NUR ---
VL venous positive for acute, non-occlusive thrombus L proximal femoral vein. and updated on current labs and patient condition. Orders received for use lovenox instead of heparin
[2019-01-27 16:50] LABS: BASOPHILS % (AUTO) 0.6 % (0-1); EOSINOPHILS # (AUTO) 0.1 X10'3 (0-0.9); HEMATOCRIT 25.1 % (42.0-52.0); HEMOGLOBIN 8.1 g/dl (14.0-17.9); LYMPHOCYTES # (AUTO) 1.2 X10'3 (1.1-4.8); LYMPHOCYTES % (AUTO) 18.5 % (21-51); MEAN CORPUSCULAR HEMOGLOBIN 33.1 PG (27.0-31.0); MEAN CORPUSCULAR HGB CONC 32.3 g/dL (33.0-36.5); MEAN CORPUSCULAR VOLUME 102.3 FL (78-98); MEAN PLATELET VOLUME 9.9 FL (7.4-10.4); MONOCYTES # (AUTO) 0.4 X10'3 (0-0.9); MONOCYTES % (AUTO) 6.1 % (2-12); NEUTROPHILS % (AUTO) 73.8 % (42-75); PLATELET COUNT 112 X10'3 (140-440); RED BLOOD COUNT 2.45 X10'6 (4.70-6.10); RED CELL DISTRIBUTION WIDTH 27.3 % (11.5-14.5); WHITE BLOOD COUNT 6.7 X10'3 (4.5-11.0)
[2019-01-27 17:00] LABS: ALBUMIN 2.8 G/DL (3.4-5.0); ANION GAP 8 (8-16); BLOOD UREA NITROGEN 22 MG/DL (7-18); BUN/CREATININE RATIO 29.3 (5.4-32.0); CALCIUM 8.3 MG/DL (8.5-10.1); CHLORIDE 100 MMOL/L (99-107); CREATININE 0.75 MG/DL (0.60-1.10); GLUCOSE 156 MG/DL (70-104); PHOSPHORUS 2.1 MG/DL (2.3-4.5); SODIUM 134 MMOL/L (135-145); TOTAL CARBON DIOXIDE 25.6 MMOL/L (24-32); eGFR > 90 ML/MIN
--- NOTE | 2019-01-27 17:00 | NUR ---
Tube feed resumed at 85
--- NOTE | 2019-01-27 17:31 | NUR ---
CVVH down for filter change. Blood returned. Dressing changed
[2019-01-27 17:33] LABS: ANISOCYTOSIS 3+; HYPOCHROMASIA 1+; PLATELET ESTIMATE DECREASED; POLYCHROMASIA 2+; STOMATOCYTES 1+; TARGET CELLS FEW
[2019-01-27] MEDS: sodium phosphate inj. 30 MMOL in normal saline 250ml IV soln 250 ML IV PRN (18:28)
[2019-01-27] MEDS: enoxaparin 100mg/ml syringe SUBCUT SCH (19:21)
--- NOTE | 2019-01-27 19:21 | NUR ---
call to pharmacist Amari gibson- to clarify the enoxaparin order. I am to give dose tonight (first dose) and patient will begin daily tomorrow at 8 am for daily dose. Patient to receive both doses.
[2019-01-27] MEDS: insulin glargine (Lantus) pen - multi-dose SQ SCH (20:10)
[2019-01-27 22:14] LABS: BASOPHILS % (AUTO) 0.6 % (0-1); EOSINOPHILS # (AUTO) 0.1 X10'3 (0-0.9); EOSINOPHILS % (AUTO) 1.6 % (0-6); HEMATOCRIT 24.7 % (42.0-52.0); LYMPHOCYTES # (AUTO) 1.1 X10'3 (1.1-4.8); LYMPHOCYTES % (AUTO) 16.1 % (21-51); MEAN CORPUSCULAR HEMOGLOBIN 33.1 PG (27.0-31.0); MEAN CORPUSCULAR HGB CONC 32.3 g/dL (33.0-36.5); MEAN CORPUSCULAR VOLUME 102.7 FL (78-98); MEAN PLATELET VOLUME 9.8 FL (7.4-10.4); MONOCYTES # (AUTO) 0.5 X10'3 (0-0.9); MONOCYTES % (AUTO) 6.6 % (2-12); NEUTROPHILS # (AUTO) 5.2 X10'3 (1.8-7.7); NEUTROPHILS % (AUTO) 75.1 % (42-75); PLATELET COUNT 117 X10'3 (140-440); RED CELL DISTRIBUTION WIDTH 27.5 % (11.5-14.5)
[2019-01-27 22:24] LABS: ALBUMIN 2.6 G/DL (3.4-5.0); ANION GAP 7 (8-16); BLOOD UREA NITROGEN 23 MG/DL (7-18); BUN/CREATININE RATIO 32.9 (5.4-32.0); CALCIUM 8.1 MG/DL (8.5-10.1); CHLORIDE 103 MMOL/L (99-107); GLUCOSE 139 MG/DL (70-104); MAGNESIUM 1.9 MG/DL (1.5-2.4); PHOSPHORUS 2.9 MG/DL (2.3-4.5); POTASSIUM 3.7 MMOL/L (3.5-5.1); SODIUM 137 MMOL/L (135-145); TOTAL CARBON DIOXIDE 26.7 MMOL/L (24-32); eGFR > 90 ML/MIN
--- NOTE | 2019-01-27 22:35 | NUR ---
daughter in to visit with her daughter and young son. Daughter asking high stress and direct pointed questions regarding credit cards/pin numbers/ living situations/access to $ to cover his rent and the like. I advised the daughter to please only ask simple yes or no questions and that patient is unable to handle the level of stress of the questions she is asking nor can he answer appropriately - intubated, s/p stroke, norco doses, vent etc. . Daughter is very upset. I told the daughter Kamala - that we would put a request in for social work to speak with her regarding these outside events that the patient can not be involved in at this time. Daughter's number was confirmed - [phone]. fall internship - VLADISLAV PAULINO- was involved in this conversation and has put in for the order for social work to please get involved to help patient and family with such things. .
[2019-01-28] VITALS (25 sets, daily range): BP systolic 86–113; BP diastolic 47–58
[2019-01-28 00:52] LABS: PLATELET ESTIMATE DECREASED
[2019-01-28 00:53] LABS: ANISOCYTOSIS 3+; HYPOCHROMASIA 1+; POLYCHROMASIA 1+
[2019-01-28 00:54] LABS: TARGET CELLS FEW
[2019-01-28 00:55] LABS: LARGE PLATELETS FEW
[2019-01-28] MEDS: potassium Cl 20mEq/100mL bag 100 ML IV PRN ×3 (00:55→15:23)
[2019-01-28] MEDS: mineral oil/petrolatum ophthal oint EACHEYE SCH ×4 (01:55→19:52)
[2019-01-28] MEDS: insulin regular, human vial - multi-dose SQ SCH ×4 (02:15→20:21)
[2019-01-28] MEDS: bicarb dialysis sol 2K+/3 Ca2+ 5,000 ML HE SCH ×2 (03:01→03:02)
[2019-01-28] MEDS: ipratropium/albuterol 3ml nebule NEB SCH ×6 (03:02→23:23)
[2019-01-28 03:26] LABS: ABG HCO3 23.8 mmol/L (22.0-26.0); ABG OXYGEN SATURATION 97.1 % (95-98); ABG PCO2 (T) 33.6 mmHg (35.0-45.0); ABG PH (T) 7.464 (7.350-7.450); ABG PO2 (T) 83.6 mmHg (83-108); FCOHb 1.7 % (0.5-1.5); FMetHb 0.3 % (0.3-1.12); FO2Hb 95.2 % (94-100); PEEP 5 cm H2O; RESPIRATORY RATE 20 b/min; RESPIRATORY RATE (OBSERVED) 32 b/min; TIDAL VOLUME 475 mL; TOTAL HEMOGLOBIN 8.8 G/dl (14.0-17.9)
--- NOTE | 2019-01-28 03:59 | NUR ---
just a quick note to document it is noted that the right eye is protruding out from eye socket more than the left eye. Patient is also noted to have neck bent to the right side. it is extremely difficult to reposition patient head to bend/turn to the left. (so the right eye is positioned downward increasing edema). I asked patient to close his eyes tight and he will not do it. I have witness patient blinking spontaneously at other times and we are still using lacrilube q6h per order.
[2019-01-28 04:31] LABS: BASOPHILS % (AUTO) 0.6 % (0-1); EOSINOPHILS # (AUTO) 0.1 X10'3 (0-0.9); EOSINOPHILS % (AUTO) 1.5 % (0-6); HEMATOCRIT 24.6 % (42.0-52.0); LYMPHOCYTES # (AUTO) 1.6 X10'3 (1.1-4.8); LYMPHOCYTES % (AUTO) 22.6 % (21-51); MEAN CORPUSCULAR HEMOGLOBIN 33.3 PG (27.0-31.0); MEAN CORPUSCULAR HGB CONC 32.4 g/dL (33.0-36.5); MEAN CORPUSCULAR VOLUME 102.7 FL (78-98); MEAN PLATELET VOLUME 10.2 FL (7.4-10.4); MONOCYTES # (AUTO) 0.5 X10'3 (0-0.9); MONOCYTES % (AUTO) 7.4 % (2-12); NEUTROPHILS # (AUTO) 4.9 X10'3 (1.8-7.7); NEUTROPHILS % (AUTO) 67.9 % (42-75); PLATELET COUNT 128 X10'3 (140-440); RED CELL DISTRIBUTION WIDTH 27.5 % (11.5-14.5); WHITE BLOOD COUNT 7.2 X10'3 (4.5-11.0)
[2019-01-28 04:40] LABS: ALBUMIN 3.2 G/DL (3.4-5.0); ANION GAP 11 (8-16); BLOOD UREA NITROGEN 23 MG/DL (7-18); BUN/CREATININE RATIO 32.4 (5.4-32.0); CALCIUM 8.4 MG/DL (8.5-10.1); CHLORIDE 102 MMOL/L (99-107); CREATININE 0.71 MG/DL (0.60-1.10); GLUCOSE 135 MG/DL (70-104); MAGNESIUM 1.8 MG/DL (1.5-2.4); PHOSPHORUS 2.6 MG/DL (2.3-4.5); POTASSIUM 3.9 MMOL/L (3.5-5.1); SODIUM 138 MMOL/L (135-145); TOTAL CARBON DIOXIDE 24.8 MMOL/L (24-32); eGFR > 90 ML/MIN
[2019-01-28 06:38] LABS: ANISOCYTOSIS 3+; HYPOCHROMASIA 1+; PLATELET ESTIMATE DECREASED; POLYCHROMASIA 1+; TOTAL CELLS COUNTED 100
[2019-01-28] MEDS: K, MAG and/or Phos replacement - Verify level? MC SCH (08:00)
[2019-01-28] MEDS: enoxaparin 100mg/ml syringe SUBCUT SCH (08:23)
[2019-01-28] MEDS: pantoprazole 40 MG vial IV SCH ×2 (08:28→19:52)
[2019-01-28] MEDS: lactobacillus rhamnosus 10,000 MMU CELLS/CAPSULE OGT SCH ×2 (08:28→19:53)
[2019-01-28] MEDS: albumin (human) 25% 100 ML IV solution IV SCH ×2 (08:28→15:23)
--- NOTE | 2019-01-28 10:24 | NUR ---
0800: CVVH alarming arterial air. Attempted to rectify problem without success. Partial blood returned. Lines flushed and clamped. JAH Mar RN called.
[2019-01-28 10:39] LABS: ALBUMIN 3.4 G/DL (3.4-5.0); ANION GAP 10 (8-16); BLOOD UREA NITROGEN 26 MG/DL (7-18); BUN/CREATININE RATIO 30.6 (5.4-32.0); CALCIUM 8.5 MG/DL (8.5-10.1); CHLORIDE 101 MMOL/L (99-107); CREATININE 0.85 MG/DL (0.60-1.10); GLUCOSE 159 MG/DL (70-104); PHOSPHORUS 2.7 MG/DL (2.3-4.5); POTASSIUM 3.8 MMOL/L (3.5-5.1); SODIUM 137 MMOL/L (135-145); TOTAL CARBON DIOXIDE 26.5 MMOL/L (24-32); eGFR 87 ML/MIN
[2019-01-28 10:46] LABS: BASOPHILS % (AUTO) 0.6 % (0-1); EOSINOPHILS # (AUTO) 0.1 X10'3 (0-0.9); EOSINOPHILS % (AUTO) 1.1 % (0-6); HEMATOCRIT 23.7 % (42.0-52.0); HEMOGLOBIN 7.6 g/dl (14.0-17.9); LYMPHOCYTES # (AUTO) 1.4 X10'3 (1.1-4.8); LYMPHOCYTES % (AUTO) 20.4 % (21-51); MEAN CORPUSCULAR HEMOGLOBIN 33.1 PG (27.0-31.0); MEAN CORPUSCULAR HGB CONC 32.2 g/dL (33.0-36.5); MEAN CORPUSCULAR VOLUME 102.8 FL (78-98); MEAN PLATELET VOLUME 10.2 FL (7.4-10.4); MONOCYTES # (AUTO) 0.4 X10'3 (0-0.9); MONOCYTES % (AUTO) 6.1 % (2-12); NEUTROPHILS # (AUTO) 4.8 X10'3 (1.8-7.7); NEUTROPHILS % (AUTO) 71.8 % (42-75); PLATELET COUNT 131 X10'3 (140-440); RED BLOOD COUNT 2.31 X10'6 (4.70-6.10); RED CELL DISTRIBUTION WIDTH 27.4 % (11.5-14.5); WHITE BLOOD COUNT 6.7 X10'3 (4.5-11.0)
--- NOTE | 2019-01-28 11:32 | NUR ---
data analytics developer here to re-set up the continusous dialysis
[2019-01-28 12:16] LABS: MAGNESIUM 1.8 MG/DL (1.5-2.4)
--- NOTE | 2019-01-28 13:50 | NUR ---
reassessment: Pt TF tolerated at goal. LBM 01/23. RD d/w RN regarding opioid antagonist vs promotility agent per MD approval. Will continue to monitor. Recommendations: 1. Continue OG tube feeding using Vital High protein at 85ml/hr goal; to provide 2040ml fluid, 2040kcals, 1714ml free water, and 179g protein. 2. additional free water per control panel builder on CVVH 3. prealbumin Q /; daily wts 4. routine bowel care Addendum: 01/28/19 at [address] Amended: Links added.
--- NOTE | 2019-01-28 14:27 | NUR ---
F/u: Body Mechanic Apprentice requests 20% increased in nutrition support. New recs below per MD request. RN currently editing diet order to reflect new recs. Will monitor for TF tolerance at new goal. reassessment: Pt TF tolerated at goal. LBM 01/23. RD d/w RN regarding opioid antagonist vs promotility agent per MD approval. Will continue to monitor. Recommendations: 1. Continue OG tube feeding using Vital High protein at 105ml/hr goal; to provide 2520ml fluid, 2520kcals, 2117ml free water, and 221g protein. 2. additional free water per lard refiner on CVVH 3. prealbumin Q /; daily wts 4. routine bowel care Addendum: 01/28/19 at [address] Amended: Links added.
[2019-01-28 14:43] LABS: BASOPHILS % (AUTO) 0.7 % (0-1); EOSINOPHILS # (AUTO) 0.1 X10'3 (0-0.9); EOSINOPHILS % (AUTO) 0.8 % (0-6); HEMATOCRIT 23.8 % (42.0-52.0); HEMOGLOBIN 7.7 g/dl (14.0-17.9); LYMPHOCYTES # (AUTO) 1.7 X10'3 (1.1-4.8); LYMPHOCYTES % (AUTO) 23.2 % (21-51); MEAN CORPUSCULAR HEMOGLOBIN 32.9 PG (27.0-31.0); MEAN CORPUSCULAR HGB CONC 32.3 g/dL (33.0-36.5); MEAN PLATELET VOLUME 10.4 FL (7.4-10.4); MONOCYTES # (AUTO) 0.5 X10'3 (0-0.9); MONOCYTES % (AUTO) 7.1 % (2-12); NEUTROPHILS % (AUTO) 68.2 % (42-75); PLATELET COUNT 143 X10'3 (140-440); RED BLOOD COUNT 2.33 X10'6 (4.70-6.10); WHITE BLOOD COUNT 7.3 X10'3 (4.5-11.0)
[2019-01-28 14:54] LABS: ALBUMIN 3.1 G/DL (3.4-5.0); ANION GAP 9 (8-16); BLOOD UREA NITROGEN 28 MG/DL (7-18); BUN/CREATININE RATIO 35.4 (5.4-32.0); CALCIUM 8.3 MG/DL (8.5-10.1); CHLORIDE 101 MMOL/L (99-107); CREATININE 0.79 MG/DL (0.60-1.10); GLUCOSE 188 MG/DL (70-104); MAGNESIUM 1.7 MG/DL (1.5-2.4); PHOSPHORUS 2.6 MG/DL (2.3-4.5); POTASSIUM 3.8 MMOL/L (3.5-5.1); SODIUM 136 MMOL/L (135-145); TOTAL CARBON DIOXIDE 25.7 MMOL/L (24-32); eGFR > 90 ML/MIN
[2019-01-28] MEDS: magnesium 4gm in 100ml NS 100 ML IV PRN (15:22)
[2019-01-28] MEDS: hydrocortisone sod succ/PF 100mg/2ml inj. IV SCH (19:51)
[2019-01-28] MEDS: insulin glargine (Lantus) pen - multi-dose SQ SCH (20:22)
[2019-01-28 22:20] LABS: BASOPHILS % (AUTO) 0.6 % (0-1); EOSINOPHILS % (AUTO) 0.6 % (0-6); HEMATOCRIT 24.5 % (42.0-52.0); HEMOGLOBIN 7.9 g/dl (14.0-17.9); LYMPHOCYTES # (AUTO) 1.4 X10'3 (1.1-4.8); LYMPHOCYTES % (AUTO) 18.5 % (21-51); MEAN CORPUSCULAR HEMOGLOBIN 33.1 PG (27.0-31.0); MEAN CORPUSCULAR HGB CONC 32.3 g/dL (33.0-36.5); MEAN CORPUSCULAR VOLUME 102.4 FL (78-98); MEAN PLATELET VOLUME 10.5 FL (7.4-10.4); MONOCYTES # (AUTO) 0.4 X10'3 (0-0.9); NEUTROPHILS # (AUTO) 5.6 X10'3 (1.8-7.7); NEUTROPHILS % (AUTO) 75.3 % (42-75); PLATELET COUNT 158 X10'3 (140-440); RED CELL DISTRIBUTION WIDTH 27.2 % (11.5-14.5); WHITE BLOOD COUNT 7.5 X10'3 (4.5-11.0)
[2019-01-28 22:28] LABS: ALBUMIN 3.5 G/DL (3.4-5.0); ANION GAP 10 (8-16); BLOOD UREA NITROGEN 27 MG/DL (7-18); BUN/CREATININE RATIO 34.2 (5.4-32.0); CALCIUM 8.4 MG/DL (8.5-10.1); CHLORIDE 101 MMOL/L (99-107); CREATININE 0.79 MG/DL (0.60-1.10); GLUCOSE 121 MG/DL (70-104); MAGNESIUM 2.2 MG/DL (1.5-2.4); PHOSPHORUS 1.9 MG/DL (2.3-4.5); POTASSIUM 3.8 MMOL/L (3.5-5.1); SODIUM 136 MMOL/L (135-145); TOTAL CARBON DIOXIDE 25.2 MMOL/L (24-32); eGFR > 90 ML/MIN
[2019-01-29] VITALS (27 sets, daily range): BP systolic 85–109; BP diastolic 48–59
[2019-01-29] MEDS: albumin (human) 25% 100 ML IV solution IV SCH (00:18)
[2019-01-29] MEDS: Neutra Phos packet PEG PRN ×3 (00:32→15:45)
[2019-01-29] MEDS: HYDROcodone/acetaminophen 10/325mg tab PO PRN ×3 (00:51→19:44)
[2019-01-29] MEDS: hydrocortisone sod succ/PF 100mg/2ml inj. IV SCH ×2 (02:15→07:49)
[2019-01-29] MEDS: insulin regular, human vial - multi-dose SQ SCH ×4 (02:15→20:34)
[2019-01-29] MEDS: mineral oil/petrolatum ophthal oint EACHEYE SCH ×4 (02:15→19:37)
[2019-01-29] MEDS: ipratropium/albuterol 3ml nebule NEB SCH ×6 (03:28→23:01)
[2019-01-29 04:14] LABS: BASOPHILS # (AUTO) 0.1 X10'3 (0-0.2); BASOPHILS % (AUTO) 0.7 % (0-1); EOSINOPHILS % (AUTO) 0.1 % (0-6); HEMATOCRIT 23.2 % (42.0-52.0); HEMOGLOBIN 7.6 g/dl (14.0-17.9); LYMPHOCYTES # (AUTO) 1.8 X10'3 (1.1-4.8); MEAN CORPUSCULAR HEMOGLOBIN 33.5 PG (27.0-31.0); MEAN CORPUSCULAR HGB CONC 32.8 g/dL (33.0-36.5); MEAN CORPUSCULAR VOLUME 102.2 FL (78-98); MEAN PLATELET VOLUME 10.3 FL (7.4-10.4); MONOCYTES # (AUTO) 0.3 X10'3 (0-0.9); MONOCYTES % (AUTO) 3.5 % (2-12); NEUTROPHILS % (AUTO) 73.7 % (42-75); PLATELET COUNT 154 X10'3 (140-440); RED BLOOD COUNT 2.27 X10'6 (4.70-6.10); RED CELL DISTRIBUTION WIDTH 26.4 % (11.5-14.5); WHITE BLOOD COUNT 8.2 X10'3 (4.5-11.0)
[2019-01-29 04:15] LABS: ABG BASE EXCESS -0.3 mmol/L (-2.0-3.0); ABG HCO3 23.2 mmol/L (22.0-26.0); ABG OXYGEN SATURATION 93.8 % (95-98); ABG PCO2 (T) 32.2 mmHg (35.0-45.0); ABG PH (T) 7.474 (7.350-7.450); ABG PO2 (T) 65.6 mmHg (83-108); FCOHb 1.5 % (0.5-1.5); FMetHb 0.3 % (0.3-1.12); FO2Hb 92.1 % (94-100); PATIENT TEMPERATURE 36.5; PEEP 5 cm H2O; RESPIRATORY RATE 20 b/min; RESPIRATORY RATE (OBSERVED) 26 b/min; TIDAL VOLUME 475 mL; TOTAL HEMOGLOBIN 8.3 G/dl (14.0-17.9)
[2019-01-29 04:26] LABS: ALBUMIN 3.7 G/DL (3.4-5.0); ANION GAP 10 (8-16); BLOOD UREA NITROGEN 27 MG/DL (7-18); BUN/CREATININE RATIO 39.1 (5.4-32.0); CALCIUM 8.5 MG/DL (8.5-10.1); CHLORIDE 101 MMOL/L (99-107); CREATININE 0.69 MG/DL (0.60-1.10); GLUCOSE 129 MG/DL (70-104); MAGNESIUM 1.9 MG/DL (1.5-2.4); PHOSPHORUS 1.9 MG/DL (2.3-4.5); POTASSIUM 4.1 MMOL/L (3.5-5.1); SODIUM 136 MMOL/L (135-145); TOTAL CARBON DIOXIDE 25.2 MMOL/L (24-32); TRIGLYCERIDES 41 MG/DL (20-135); eGFR > 90 ML/MIN
[2019-01-29] MEDS: Duosol 4K/3 Ca (w/calcium) 5,000 ML HE SCH ×3 (04:47→04:49)
--- NOTE | 2019-01-29 05:00 | NUR ---
to decrease the amount of fluid intake, i have started the protocol for replacing PO4 PT (per order) rather than IV. notes at bedside to remind RN's to administer PT Q8H. PO4 this am is 1.9 after 1 dose neutraphos PT. 5 doses remain.
--- NOTE | 2019-01-29 06:30 | NUR ---
Patient in room CICU 2011. I have received report from Joni LOOMIS and had the opportunity to ask questions and assume patient care. Patient laying in bed with eyes closed, on ventilator on prvc setting fio2 30% peep of 5 rate of 20 patient is sating 96%, pt has R IJ Case with CVVH running with a goal of 100ml/hr fluid remvoal, patient also has a R upper arm picc with levophed infusing to one port, second port has a tko and the stevenson port is sluggish to flush mostly positional. Patients neuro stats is sporatic and he has some spastic movement to his right arm but no purposeful movements and not following commands. vital signs stable will continue to monitor
[2019-01-29 07:40] LABS: PLATELET ESTIMATE NORMAL
[2019-01-29 07:41] LABS: ANISOCYTOSIS 3+
[2019-01-29 07:43] LABS: LARGE PLATELETS FEW
[2019-01-29 07:44] LABS: MICROCYTOSIS 1+; POLYCHROMASIA 1+; TARGET CELLS 1+
[2019-01-29 07:45] LABS: HYPOCHROMASIA 2+
[2019-01-29] MEDS: methylnaltrexone br 12mg/0.6ml inj***SubQ only SQ SCH (07:49)
[2019-01-29] MEDS: pantoprazole 40 MG vial IV SCH ×2 (07:49→19:36)
[2019-01-29] MEDS: enoxaparin 100mg/ml syringe SUBCUT SCH (07:50)
[2019-01-29] MEDS: lactobacillus rhamnosus 10,000 MMU CELLS/CAPSULE OGT SCH ×2 (07:50→19:37)
[2019-01-29] MEDS: K, MAG and/or Phos replacement - Verify level? MC SCH (08:53)
[2019-01-29 09:40] LABS: ANISOCYTOSIS 3+; PLATELET ESTIMATE NORMAL
[2019-01-29 09:58] LABS: BASOPHILS % (AUTO) 0.3 % (0-1); EOSINOPHILS % (AUTO) 0 % (0-6); HEMATOCRIT 24.3 % (42.0-52.0); HEMOGLOBIN 7.9 g/dl (14.0-17.9); LYMPHOCYTES # (AUTO) 1.7 X10'3 (1.1-4.8); MEAN CORPUSCULAR HEMOGLOBIN 33.4 PG (27.0-31.0); MEAN CORPUSCULAR HGB CONC 32.6 g/dL (33.0-36.5); MEAN CORPUSCULAR VOLUME 102.7 FL (78-98); MEAN PLATELET VOLUME 9.8 FL (7.4-10.4); MONOCYTES # (AUTO) 0.3 X10'3 (0-0.9); NEUTROPHILS # (AUTO) 6.6 X10'3 (1.8-7.7); NEUTROPHILS % (AUTO) 76.7 % (42-75); PLATELET COUNT 163 X10'3 (140-440); RED BLOOD COUNT 2.36 X10'6 (4.70-6.10); RED CELL DISTRIBUTION WIDTH 26.8 % (11.5-14.5); WHITE BLOOD COUNT 8.6 X10'3 (4.5-11.0)
[2019-01-29 10:08] LABS: ALBUMIN 3.5 G/DL (3.4-5.0); ANION GAP 7 (8-16); BLOOD UREA NITROGEN 27 MG/DL (7-18); BUN/CREATININE RATIO 37.5 (5.4-32.0); CALCIUM 8.9 MG/DL (8.5-10.1); CHLORIDE 103 MMOL/L (99-107); CREATININE 0.72 MG/DL (0.60-1.10); GLUCOSE 113 MG/DL (70-104); MAGNESIUM 2.1 MG/DL (1.5-2.4); POTASSIUM 4.1 MMOL/L (3.5-5.1); SODIUM 138 MMOL/L (135-145); TOTAL CARBON DIOXIDE 28.3 MMOL/L (24-32); eGFR > 90 ML/MIN
[2019-01-29 10:23] LABS: ANISOCYTOSIS 3+; PLATELET ESTIMATE NORMAL
[2019-01-29 10:24] LABS: HYPOCHROMASIA 1+; POLYCHROMASIA 2+; TARGET CELLS 1+
[2019-01-29] MEDS: NORepinephrine 8mg/ 250ml NS 250 ML IV PRN (12:33)
[2019-01-29 16:21] LABS: BASOPHILS % (AUTO) 0.3 % (0-1); EOSINOPHILS % (AUTO) 0 % (0-6); HEMATOCRIT 24.7 % (42.0-52.0); LYMPHOCYTES # (AUTO) 2.3 X10'3 (1.1-4.8); LYMPHOCYTES % (AUTO) 22.3 % (21-51); MEAN CORPUSCULAR HGB CONC 32.3 g/dL (33.0-36.5); MEAN CORPUSCULAR VOLUME 102.1 FL (78-98); MEAN PLATELET VOLUME 9.9 FL (7.4-10.4); MONOCYTES # (AUTO) 0.3 X10'3 (0-0.9); MONOCYTES % (AUTO) 3.3 % (2-12); NEUTROPHILS # (AUTO) 7.6 X10'3 (1.8-7.7); NEUTROPHILS % (AUTO) 74.1 % (42-75); PLATELET COUNT 167 X10'3 (140-440); RED BLOOD COUNT 2.42 X10'6 (4.70-6.10); RED CELL DISTRIBUTION WIDTH 27.1 % (11.5-14.5); WHITE BLOOD COUNT 10.2 X10'3 (4.5-11.0)
[2019-01-29 16:44] LABS: ALBUMIN 3.3 G/DL (3.4-5.0); ANION GAP 9 (8-16); BLOOD UREA NITROGEN 27 MG/DL (7-18); BUN/CREATININE RATIO 40.3 (5.4-32.0); CALCIUM 8.6 MG/DL (8.5-10.1); CHLORIDE 102 MMOL/L (99-107); CREATININE 0.67 MG/DL (0.60-1.10); GLUCOSE 124 MG/DL (70-104); PHOSPHORUS 1.9 MG/DL (2.3-4.5); POTASSIUM 4.3 MMOL/L (3.5-5.1); SODIUM 137 MMOL/L (135-145); TOTAL CARBON DIOXIDE 26.2 MMOL/L (24-32); eGFR > 90 ML/MIN
--- NOTE | 2019-01-29 17:35 | NUR ---
Called Dr Sykes ad read him the u/s report, he acknowledged the finding. No new orders at this time
--- NOTE | 2019-01-29 18:19 | NUR ---
Problems reprioritized. Patient report given, questions answered & plan of care reviewed with Joni LOOMIS.
[2019-01-29] MEDS: insulin glargine (Lantus) pen - multi-dose SQ SCH (20:35)
[2019-01-29 22:07] LABS: BASOPHILS % (AUTO) 0.5 % (0-1); EOSINOPHILS % (AUTO) 0 % (0-6); HEMATOCRIT 24.9 % (42.0-52.0); LYMPHOCYTES # (AUTO) 1.8 X10'3 (1.1-4.8); LYMPHOCYTES % (AUTO) 18.1 % (21-51); MEAN CORPUSCULAR VOLUME 103.3 FL (78-98); MEAN PLATELET VOLUME 10.4 FL (7.4-10.4); MONOCYTES # (AUTO) 0.4 X10'3 (0-0.9); MONOCYTES % (AUTO) 4.1 % (2-12); NEUTROPHILS # (AUTO) 7.8 X10'3 (1.8-7.7); NEUTROPHILS % (AUTO) 77.3 % (42-75); PLATELET COUNT 176 X10'3 (140-440); RED BLOOD COUNT 2.41 X10'6 (4.70-6.10); RED CELL DISTRIBUTION WIDTH 26.3 % (11.5-14.5); WHITE BLOOD COUNT 10.1 X10'3 (4.5-11.0)
[2019-01-29 22:22] LABS: ALBUMIN 3.1 G/DL (3.4-5.0); ANION GAP 9 (8-16); BLOOD UREA NITROGEN 29 MG/DL (7-18); BUN/CREATININE RATIO 39.7 (5.4-32.0); CALCIUM 8.3 MG/DL (8.5-10.1); CHLORIDE 104 MMOL/L (99-107); CREATININE 0.73 MG/DL (0.60-1.10); GLUCOSE 135 MG/DL (70-104); MAGNESIUM 1.8 MG/DL (1.5-2.4); PHOSPHORUS 1.7 MG/DL (2.3-4.5); POTASSIUM 4.2 MMOL/L (3.5-5.1); SODIUM 139 MMOL/L (135-145); TOTAL CARBON DIOXIDE 26.3 MMOL/L (24-32); eGFR > 90 ML/MIN
[2019-01-30] VITALS (25 sets, daily range): BP systolic 78–106; BP diastolic 45–69
[2019-01-30] MEDS: Dextrose 10%-water IV solution 1,000 ML IV SCH ×3 (00:27→20:25)
[2019-01-30] MEDS: Neutra Phos packet PEG PRN (00:27)
[2019-01-30] MEDS: insulin regular, human vial - multi-dose SQ SCH ×3 (01:52→20:55)
[2019-01-30] MEDS: mineral oil/petrolatum ophthal oint EACHEYE SCH ×4 (01:56→20:34)
[2019-01-30] MEDS: sodium phosphate inj. 30 MMOL in normal saline 250ml IV soln 250 ML IV PRN (01:59)
[2019-01-30] MEDS: Duosol 4K/3 Ca (w/calcium) 5,000 ML HE SCH ×2 (03:00→03:01)
[2019-01-30] MEDS: ipratropium/albuterol 3ml nebule NEB SCH ×6 (03:26→23:20)
[2019-01-30 03:46] LABS: ABG BASE EXCESS 2.4 mmol/L (-2.0-3.0); ABG HCO3 25.5 mmol/L (22.0-26.0); ABG OXYGEN SATURATION 97.8 % (95-98); ABG PCO2 (T) 32.3 mmHg (35.0-45.0); ABG PH (T) 7.512 (7.350-7.450); ABG PO2 (T) 85.5 mmHg (83-108); FCOHb 1.8 % (0.5-1.5); FMetHb 0.3 % (0.3-1.12); FO2Hb 95.7 % (94-100); PATIENT TEMPERATURE 36.1; PEEP 5 cm H2O; RESPIRATORY RATE 20 b/min; RESPIRATORY RATE (OBSERVED) 25 b/min; TIDAL VOLUME 475 mL; TOTAL HEMOGLOBIN 9.2 G/dl (14.0-17.9)
[2019-01-30] MEDS: HYDROcodone/acetaminophen 10/325mg tab PO PRN ×2 (03:48→21:38)
[2019-01-30 04:00] LABS: BASOPHILS # (AUTO) 0.1 X10'3 (0-0.2); BASOPHILS % (AUTO) 1.1 % (0-1); EOSINOPHILS % (AUTO) 0.4 % (0-6); HEMATOCRIT 26.1 % (42.0-52.0); HEMOGLOBIN 8.4 g/dl (14.0-17.9); LYMPHOCYTES # (AUTO) 1.8 X10'3 (1.1-4.8); MEAN CORPUSCULAR HEMOGLOBIN 33.1 PG (27.0-31.0); MEAN CORPUSCULAR HGB CONC 32.2 g/dL (33.0-36.5); MEAN CORPUSCULAR VOLUME 102.8 FL (78-98); MEAN PLATELET VOLUME 10.3 FL (7.4-10.4); MONOCYTES # (AUTO) 0.4 X10'3 (0-0.9); MONOCYTES % (AUTO) 4.2 % (2-12); NEUTROPHILS # (AUTO) 7.5 X10'3 (1.8-7.7); NEUTROPHILS % (AUTO) 76.3 % (42-75); PLATELET COUNT 179 X10'3 (140-440); RED BLOOD COUNT 2.54 X10'6 (4.70-6.10); RED CELL DISTRIBUTION WIDTH 26.5 % (11.5-14.5); WHITE BLOOD COUNT 9.9 X10'3 (4.5-11.0)
[2019-01-30 04:08] LABS: PARTIAL THROMBOPLASTIN TIME 30 SECONDS (22-32)
[2019-01-30 04:22] LABS: PLATELET ESTIMATE NORMAL
[2019-01-30 04:23] LABS: ANISOCYTOSIS 3+; POLYCHROMASIA FEW; TARGET CELLS 2+
[2019-01-30 04:48] LABS: ALBUMIN 3.1 G/DL (3.4-5.0); ANION GAP 8 (8-16); BLOOD UREA NITROGEN 25 MG/DL (7-18); BUN/CREATININE RATIO 37.9 (5.4-32.0); CALCIUM 8.6 MG/DL (8.5-10.1); CHLORIDE 102 MMOL/L (99-107); CREATININE 0.66 MG/DL (0.60-1.10); GLUCOSE 66 MG/DL (70-104); MAGNESIUM 1.7 MG/DL (1.5-2.4); PHOSPHORUS 2.1 MG/DL (2.3-4.5); POTASSIUM 3.9 MMOL/L (3.5-5.1); SODIUM 136 MMOL/L (135-145); eGFR > 90 ML/MIN
[2019-01-30 06:50] LABS: HBSAG SCREEN Negative (Negative)
--- NOTE | 2019-01-30 06:54 | NUR ---
Patient in room CICU 2011. I have received report from Joni LOOMIS and had the opportunity to ask questions and assume patient care. Patient is lying in bed with eyes closed, on ventilator sating 99% fio2 30% peep of 5 PRVC setting, R PICC with levophed and D10 infusing, R art wrist art line for accurate blood pressure, CVVH running goal to pull off 100ml/hr of fluids, tube feed currently on hold for procedure today. vital signs stable will continue to monitor
[2019-01-30] MEDS: pantoprazole 40 MG vial IV SCH ×2 (07:33→20:34)
[2019-01-30] MEDS: lactobacillus rhamnosus 10,000 MMU CELLS/CAPSULE OGT SCH ×2 (07:34→20:00)
[2019-01-30] MEDS: K, MAG and/or Phos replacement - Verify level? MC SCH (08:00)
[2019-01-30] MEDS: magnesium 4gm in 100ml NS 100 ML IV PRN (08:08)
--- NOTE | 2019-01-30 08:50 | NUR ---
CVVH stopped for cartridge change and procedure.
--- NOTE | 2019-01-30 09:00 | NUR ---
Dr. Paul bedside to do tracheostomy, 2 respiratory therapists at bedside as well. Patient appropriately sedated for procedure, vitals signs stable no signs or symptoms of distress. Patient tolerated procedure well
[2019-01-30] MEDS ORDERED: fentaNYL/PF 50MCG/1 ML 2ML syringe IV ONE (09:10)
[2019-01-30] MEDS ORDERED: rocuronium br inj. 100 MG in normal saline 100ml IV soln 90 ML IV PRN (09:10)
[2019-01-30] MEDS ORDERED: MIDAZolam 5mg/ml 2ml vial IV ONE (09:10)
[2019-01-30] MEDS ORDERED: rocuronium 10mg/ml inj IV ONE (09:20)
--- NOTE | 2019-01-30 10:30 | NUR ---
Called Daughter Kamala [phone] to obtain consent for peg tube placement, Dom Wray consented to peg tube placement, consent double verified with Sue Jade RN, consent in chart
--- NOTE | 2019-01-30 10:40 | NUR ---
called IR CIERA Hannah stated that the peg tube placement will take place tomorrow after the proper prep has been preformed, stated that the patient needs and NG tube or corepac. I informed him that patient currently has a new NG tube in place. Stated he will contact the MD that is on tomorrow and give us a time for the procedure
[2019-01-30] MEDS ORDERED: diatr meglu/diatrizoate 30ml oral sol.-(3 dose) bottle PO PRN (13:40)
[2019-01-30] MEDS: NORepinephrine 8mg/ 250ml NS 250 ML IV PRN (13:57)
--- NOTE | 2019-01-30 15:13 | NUR ---
F/u: Pt s/p trach this AM pending PEG per RN. Will monitor for PEG placement and nutrition support needs. Will monitor for any necessary formula changes as medically indicated. Addendum: 01/30/19 at [address] Amended: Links added.
--- NOTE | 2019-01-30 18:06 | NUR ---
Problems reprioritized. Patient report given, questions answered & plan of care reviewed with Joni LOOMIS, informed Joni of the gastrografin that is due catherine for tomorrows peg tube placement.
[2019-01-30] MEDS ORDERED: heparin 1,000 units/ml 10ml inj HE ONE ×2 (18:55)
[2019-01-30] MEDS: insulin glargine (Lantus) pen - multi-dose SQ SCH (20:36)
[2019-01-30] MEDS ORDERED: diatr meglu/diatrizoate 30ml oral sol.-(3 dose) bottle PO ONE (21:00)
[2019-01-30] MEDS ORDERED: diatr meglu/diatrizoate 30ml oral sol.-(3 dose) bottle NG ONE (22:00)
[2019-01-31] VITALS (27 sets, daily range): BP systolic 72–110; BP diastolic 45–69
[2019-01-31] MEDS: mineral oil/petrolatum ophthal oint EACHEYE SCH ×4 (02:00→22:41)
[2019-01-31] MEDS: insulin regular, human vial - multi-dose SQ SCH ×3 (02:04→22:44)
[2019-01-31 02:37] LABS: BASOPHILS # (AUTO) 0.1 X10'3 (0-0.2); BASOPHILS % (AUTO) 0.7 % (0-1); EOSINOPHILS # (AUTO) 0.1 X10'3 (0-0.9); EOSINOPHILS % (AUTO) 1.3 % (0-6); HEMATOCRIT 27.9 % (42.0-52.0); HEMOGLOBIN 9.2 g/dl (14.0-17.9); LYMPHOCYTES # (AUTO) 1.4 X10'3 (1.1-4.8); LYMPHOCYTES % (AUTO) 17.3 % (21-51); MEAN CORPUSCULAR HEMOGLOBIN 33.3 PG (27.0-31.0); MEAN PLATELET VOLUME 9.8 FL (7.4-10.4); MONOCYTES # (AUTO) 0.4 X10'3 (0-0.9); MONOCYTES % (AUTO) 4.9 % (2-12); NEUTROPHILS # (AUTO) 6.2 X10'3 (1.8-7.7); NEUTROPHILS % (AUTO) 75.8 % (42-75); PLATELET COUNT 199 X10'3 (140-440); RED BLOOD COUNT 2.76 X10'6 (4.70-6.10); WHITE BLOOD COUNT 8.1 X10'3 (4.5-11.0)
[2019-01-31 02:52] LABS: ALANINE AMINOTRANSFERASE 74 U/L (12-78); ALBUMIN 2.5 G/DL (3.4-5.0); ALBUMIN/GLOBULIN RATIO 0.7 (1.1-1.5); ANION GAP 8 (8-16); ASPARTATE AMINO TRANSFERASE 86 U/L (10-37); BILIRUBIN,TOTAL 2.2 MG/DL (0.1-1.0); BLOOD UREA NITROGEN 34 MG/DL (7-18); BUN/CREATININE RATIO 28.6 (5.4-32.0); CALCIUM 8.1 MG/DL (8.5-10.1); CHLORIDE 97 MMOL/L (99-107); CREATININE 1.19 MG/DL (0.60-1.10); GLUCOSE 115 MG/DL (70-104); MAGNESIUM 2.1 MG/DL (1.5-2.4); PHOSPHORUS 3.2 MG/DL (2.3-4.5); POTASSIUM 4.5 MMOL/L (3.5-5.1); SODIUM 130 MMOL/L (135-145); TOTAL CARBON DIOXIDE 24.6 MMOL/L (24-32); TOTAL PROTEIN 6.3 G/DL (6.4-8.2); eGFR 59 ML/MIN
[2019-01-31] MEDS: Dextrose 10%-water IV solution 1,000 ML IV SCH ×3 (03:29→22:41)
[2019-01-31 03:33] LABS: ALKALINE PHOSPHATASE 1487 IU/L (46-116)
[2019-01-31] MEDS: ipratropium/albuterol 3ml nebule NEB SCH ×6 (03:36→22:53)
[2019-01-31 03:41] LABS: ANISOCYTOSIS 3+; PLATELET ESTIMATE NORMAL; POLYCHROMASIA FEW; TARGET CELLS 1+
[2019-01-31 03:56] LABS: ABG BASE EXCESS -0.9 mmol/L (-2.0-3.0); ABG HCO3 21.5 mmol/L (22.0-26.0); ABG OXYGEN SATURATION 97.4 % (95-98); ABG PCO2 (T) 28.3 mmHg (35.0-45.0); ABG PH (T) 7.499 (7.350-7.450); ABG PO2 (T) 91.6 mmHg (83-108); FCOHb 1.7 % (0.5-1.5); FMetHb 0.3 % (0.3-1.12); FO2Hb 95.5 % (94-100); MINUTE VOLUME 9 L/min; PATIENT TEMPERATURE 37.1; PEEP 5 cm H2O; RESPIRATORY RATE 20 b/min; RESPIRATORY RATE (OBSERVED) 20 b/min; TIDAL VOLUME 475 mL; TOTAL HEMOGLOBIN 9.9 G/dl (14.0-17.9)
[2019-01-31] MEDS ORDERED: diatr meglu/diatrizoate 30ml oral sol.-(3 dose) bottle PO ONE (07:00)
[2019-01-31] MEDS: dextrose 50%-water 50ml dispensing syringe IV PRN (07:23)
--- NOTE | 2019-01-31 07:50 | NUR ---
pt's BG 65 gave 25cc D50 push. rechecked 15 min later BG 104. will continue to monitor.
[2019-01-31] MEDS: pantoprazole 40 MG vial IV SCH ×2 (07:58→22:40)
[2019-01-31] MEDS: K, MAG and/or Phos replacement - Verify level? MC SCH (08:00)
[2019-01-31] MEDS ORDERED: heparin 1,000 units/ml 10ml inj HE ONE ×2 (08:00)
[2019-01-31] MEDS ORDERED: epoetin 20,000 units/ml inj IV ONE (08:00)
[2019-01-31] MEDS ORDERED: heparin 1,000unit/ml 10ml vial 10 ML IV ONE (08:00)
[2019-01-31] MEDS: lactobacillus rhamnosus 10,000 MMU CELLS/CAPSULE OGT SCH ×2 (08:00→20:00)
[2019-01-31] MEDS ORDERED: normal saline 1000ml 250 ML IV PRN (08:00)
[2019-01-31] MEDS: methylnaltrexone br 12mg/0.6ml inj***SubQ only SQ SCH (08:00)
[2019-01-31] MEDS ORDERED: pneumococcal 23-VAL P-sac vacc 25 mcg/0.5ml vial IMVAC ONE (10:00)
[2019-01-31] MEDS: NORepinephrine 8mg/ 250ml NS 250 ML IV PRN (10:36)
[2019-01-31] MEDS ORDERED: LIDOcaine 1%/PF 5ML 10 MG/ML VIAL ONE (11:12)
[2019-01-31] MEDS ORDERED: iohexol 300 MG/1 ML 50ml polymer ONE ×2 (11:13→12:09)
--- NOTE | 2019-01-31 11:39 | NUR ---
pt to IR for procedure.
[2019-01-31] MEDS ORDERED: heparin 1,000unit/ml 10ml vial 10 ML ONE (11:43)
[2019-01-31] MEDS ORDERED: glucagon, human recombinant 1mg kit ONE (11:49)
[2019-01-31] MEDS ORDERED: fentaNYL/PF 50MCG/1 ML 2ML syringe ONE (12:02)
[2019-01-31] MEDS ORDERED: midazolam 2 mg/2 ml injection ONE (12:02)
[2019-01-31] MEDS ORDERED: zinc oxide ointment 30gm tube TP PRN (12:45)
--- NOTE | 2019-01-31 12:50 | NUR ---
pt returned from IR. will continue to monitor.
--- NOTE | 2019-01-31 13:00 | NUR ---
art lined removed; cannula intact. pressure held until bleeding stopped.
--- NOTE | 2019-01-31 13:53 | NUR ---
TF Consult: Pt s/p PEG placement to restart TF per GI MD. Continue current TF order and monitor for tolerance and rate adjustments as needed. Addendum: 01/31/19 at [address] Amended: Links added.
--- NOTE | 2019-01-31 18:30 | NUR ---
Patient in room CICU 2011. I have received report from Bre LOOMIS and Gabby LOOMIS and had the opportunity to ask questions and assume patient care. Dialysis in progress, pt eyes open, not responsive to questions, flinches head and neck with stimulation, triggers vent and dialysis machine, appearing agitated. Weak cough, suctioned small amount of white and cream colored sputum from oral cavity. Titrating Levophed to maintain BP.
--- NOTE | 2019-01-31 18:35 | NUR ---
Problems reprioritized. Patient report given, questions answered & plan of care reviewed with Candelaria LOOMIS.
[2019-01-31] MEDS: insulin glargine (Lantus) pen - multi-dose SQ SCH (22:47)
[2019-02-01] VITALS (24 sets, daily range): BP systolic 84–116; BP diastolic 43–72
[2019-02-01] MEDS: NORepinephrine 8mg/ 250ml NS 250 ML IV PRN (00:28)
[2019-02-01] MEDS: mineral oil/petrolatum ophthal oint EACHEYE SCH ×4 (02:00→20:00)
[2019-02-01] MEDS: ipratropium/albuterol 3ml nebule NEB SCH ×6 (02:58→23:23)
[2019-02-01] MEDS: insulin regular, human vial - multi-dose SQ SCH ×2 (03:49→21:25)
[2019-02-01 03:52] LABS: BASOPHILS # (AUTO) 0.1 X10'3 (0-0.2); BASOPHILS % (AUTO) 0.8 % (0-1); EOSINOPHILS % (AUTO) 0.5 % (0-6); HEMATOCRIT 27.5 % (42.0-52.0); HEMOGLOBIN 8.8 g/dl (14.0-17.9); LYMPHOCYTES # (AUTO) 1.6 X10'3 (1.1-4.8); LYMPHOCYTES % (AUTO) 20.3 % (21-51); MEAN CORPUSCULAR HEMOGLOBIN 32.8 PG (27.0-31.0); MEAN CORPUSCULAR HGB CONC 32.1 g/dL (33.0-36.5); MEAN PLATELET VOLUME 9.7 FL (7.4-10.4); MONOCYTES # (AUTO) 0.3 X10'3 (0-0.9); MONOCYTES % (AUTO) 3.8 % (2-12); NEUTROPHILS # (AUTO) 5.7 X10'3 (1.8-7.7); NEUTROPHILS % (AUTO) 74.6 % (42-75); PLATELET COUNT 177 X10'3 (140-440); RED BLOOD COUNT 2.69 X10'6 (4.70-6.10); WHITE BLOOD COUNT 7.7 X10'3 (4.5-11.0)
[2019-02-01 04:04] LABS: ALANINE AMINOTRANSFERASE 60 U/L (12-78); ALBUMIN 2.1 G/DL (3.4-5.0); ALBUMIN/GLOBULIN RATIO 0.6 (1.1-1.5); ANION GAP 8 (8-16); ASPARTATE AMINO TRANSFERASE 57 U/L (10-37); BILIRUBIN,TOTAL 2.1 MG/DL (0.1-1.0); BLOOD UREA NITROGEN 32 MG/DL (7-18); BUN/CREATININE RATIO 20.1 (5.4-32.0); CALCIUM 7.3 MG/DL (8.5-10.1); CHLORIDE 97 MMOL/L (99-107); CREATININE 1.59 MG/DL (0.60-1.10); GLUCOSE 186 MG/DL (70-104); MAGNESIUM 1.8 MG/DL (1.5-2.4); PHOSPHORUS 3.6 MG/DL (2.3-4.5); POTASSIUM 4.4 MMOL/L (3.5-5.1); SODIUM 129 MMOL/L (135-145); TOTAL CARBON DIOXIDE 24.5 MMOL/L (24-32); TOTAL PROTEIN 5.9 G/DL (6.4-8.2); TRIGLYCERIDES 63 MG/DL (20-135); eGFR 42 ML/MIN
--- NOTE | 2019-02-01 04:09 | NUR ---
Titrating Levophed to maintain MAP greater than 60.
[2019-02-01 04:10] LABS: ANISOCYTOSIS 3+; HYPOCHROMASIA 1+; PLATELET ESTIMATE NORMAL
[2019-02-01 04:21] LABS: ALKALINE PHOSPHATASE 1095 IU/L (46-116)
--- NOTE | 2019-02-01 06:15 | NUR ---
Patient in room CICU 2011. I have received report from unit operator and had the opportunity to ask questions and assume patient care.
--- NOTE | 2019-02-01 06:30 | NUR ---
Problems reprioritized. Patient report given, questions answered & plan of care reviewed with Bre LOOMIS.
[2019-02-01] MEDS: Dextrose 10%-water IV solution 1,000 ML IV SCH (07:12)
[2019-02-01] MEDS: pantoprazole 40 MG vial IV SCH ×2 (07:59→21:17)
[2019-02-01] MEDS: K, MAG and/or Phos replacement - Verify level? MC SCH (08:01)
[2019-02-01] MEDS: lactobacillus rhamnosus 10,000 MMU CELLS/CAPSULE OGT SCH ×2 (08:27→21:17)
[2019-02-01] MEDS ORDERED: heparin 1,000unit/ml 10ml vial 10 ML IV ONE (08:53)
[2019-02-01] MEDS ORDERED: epoetin 20,000 units/ml inj IV ONE (08:55)
[2019-02-01] MEDS ORDERED: albumin (human) 25% 100ml IV 100 ML IV PRN (08:55)
[2019-02-01] MEDS ORDERED: heparin 1,000 units/ml 10ml inj IV ONE (08:55)
[2019-02-01] MEDS ORDERED: heparin 1,000 units/ml 10ml inj HE ONE ×2 (09:00)
[2019-02-01] MEDS ORDERED: FLU VACC QS2019-20 36MOS UP/PF 60 MCG/0.5 ML SYRINGE IMVAC ONE (10:00)
[2019-02-01] MEDS: dextrose 50%-water 50ml dispensing syringe IV PRN (12:46)
--- NOTE | 2019-02-01 14:17 | NUR ---
F/U: Pt was off CVVH, had hemodialysis yesterday. Plans for TDC and HD tomorrow per MD.500ml removed by HD yesterday; is receiving albumin as needed per MD.Pt still have edema: 4+ severe pitting BLE. Pt resumed tube feeding via new PEG at 20ml/hr this am, will increase to goal rate as tolerate. Continue monitor TF tolerance. LBM 10/15. TF Consult: Pt s/p PEG placement to restart TF per GI MD. Continue current TF order and monitor for tolerance and rate adjustments as needed. F/u: Chaperon requests 20% increased in nutrition support. New recs below per MD request. RN currently editing diet order to reflect new recs. Will monitor for TF tolerance at new goal. reassessment: Pt TF tolerated at goal. LBM 10/8. RD d/w RN regarding opioid antagonist vs promotility agent per MD approval. Will continue to monitor. Recommendations: 1. Cont.PEG tube feeding using Vital High protein at 105ml/hr goal; to provide 2520ml fluid, 2520kcals, 2117ml free water, and 221g protein. 2. additional free water per canvas worker apprentice on HD 3. prealbumin Q /; daily wts 4. routine bowel care Addendum: 02/01/19 at [address] Amended: Links added. Addendum: 02/01/19 at [address] VAIBHAV Stewart
--- NOTE | 2019-02-01 18:10 | NUR ---
Problems reprioritized. Patient report given, questions answered & plan of care reviewed with oncoming shift.
--- NOTE | 2019-02-01 18:20 | NUR ---
Patient in room CICU 2011. I have received report from Erica LOOMIS, and had the opportunity to ask questions and assume patient care.
--- NOTE | 2019-02-01 19:30 | NUR ---
PT is trached and mechanically vented, tolerating settings well. O2 sat >95%. PT is awake and alert, able to nod head yes/no to simple questions. Levo is runnig @ 1mcg, PT tolerating well. TF is running @ 40ml/hr, will increase towards goal rate as tolerated. Bed is locked and low. Will continue to monitor.
[2019-02-01] MEDS: insulin glargine (Lantus) pen - multi-dose SQ SCH (21:24)
--- NOTE | 2019-02-01 23:45 | NUR ---
Case cath to RT IJ D/C'd per MR orders. RT was at bedside monitoring PT airway, trach strap had to be undone in order to access the line. old Drsg was taken down, sterile golves downed, site cleaned and line was D/C'd. Direct pressure held until hemostasis achieved. Gauze and transparent Drsg placed. PT tolerated well. Will continue to monitor.
[2019-02-02] VITALS (23 sets, daily range): BP systolic 83–113; BP diastolic 47–71
[2019-02-02] MEDS: mineral oil/petrolatum ophthal oint EACHEYE SCH ×4 (02:00→20:33)
[2019-02-02] MEDS: ipratropium/albuterol 3ml nebule NEB SCH ×6 (02:43→23:17)
--- NOTE | 2019-02-02 03:30 | NUR ---
PT resting with no s/s of distress noted at this time. Bed is locked and low. Will continue to monitor.
[2019-02-02 03:36] LABS: BASOPHILS % (AUTO) 0.3 % (0-1); EOSINOPHILS # (AUTO) 0.1 X10'3 (0-0.9); EOSINOPHILS % (AUTO) 0.7 % (0-6); HEMATOCRIT 26.3 % (42.0-52.0); HEMOGLOBIN 8.5 g/dl (14.0-17.9); LYMPHOCYTES # (AUTO) 1.5 X10'3 (1.1-4.8); LYMPHOCYTES % (AUTO) 17.6 % (21-51); MEAN CORPUSCULAR HEMOGLOBIN 32.8 PG (27.0-31.0); MEAN CORPUSCULAR HGB CONC 32.4 g/dL (33.0-36.5); MEAN CORPUSCULAR VOLUME 101.1 FL (78-98); MEAN PLATELET VOLUME 10.3 FL (7.4-10.4); MONOCYTES # (AUTO) 0.4 X10'3 (0-0.9); MONOCYTES % (AUTO) 4.8 % (2-12); NEUTROPHILS # (AUTO) 6.3 X10'3 (1.8-7.7); NEUTROPHILS % (AUTO) 76.6 % (42-75); PLATELET COUNT 193 X10'3 (140-440); RED CELL DISTRIBUTION WIDTH 23.4 % (11.5-14.5); WHITE BLOOD COUNT 8.3 X10'3 (4.5-11.0)
[2019-02-02 03:50] LABS: ALANINE AMINOTRANSFERASE 53 U/L (12-78); ALBUMIN 1.9 G/DL (3.4-5.0); ALBUMIN/GLOBULIN RATIO 0.5 (1.1-1.5); ALKALINE PHOSPHATASE 811 IU/L (46-116); ANION GAP 9 (8-16); ASPARTATE AMINO TRANSFERASE 39 U/L (10-37); BILIRUBIN,TOTAL 1.8 MG/DL (0.1-1.0); BLOOD UREA NITROGEN 31 MG/DL (7-18); BUN/CREATININE RATIO 20.8 (5.4-32.0); CALCIUM 7.9 MG/DL (8.5-10.1); CHLORIDE 100 MMOL/L (99-107); CREATININE 1.49 MG/DL (0.60-1.10); GLUCOSE 134 MG/DL (70-104); PHOSPHORUS 3.4 MG/DL (2.3-4.5); POTASSIUM 4.2 MMOL/L (3.5-5.1); SODIUM 134 MMOL/L (135-145); TOTAL CARBON DIOXIDE 25.4 MMOL/L (24-32); TOTAL PROTEIN 5.9 G/DL (6.4-8.2); eGFR 46 ML/MIN
[2019-02-02 04:10] LABS: ANISOCYTOSIS 3+; PLATELET ESTIMATE NORMAL
[2019-02-02 04:16] LABS: HYPOCHROMASIA 1+
--- NOTE | 2019-02-02 06:37 | NUR ---
Problems reprioritized. Patient report given, questions answered & plan of care reviewed with Sedrick LOOMIS.
--- NOTE | 2019-02-02 07:15 | NUR ---
I have reviewed and agree with all medications administered and interventions performed by [facility] Student Cecile Bellamy Addendum: 02/02/19 at 0716 by [address] RT Amended: Links added.
[2019-02-02] MEDS: K, MAG and/or Phos replacement - Verify level? MC SCH (08:00)
--- NOTE | 2019-02-02 08:00 | NUR ---
tube feed increased to 80 per orders
[2019-02-02] MEDS: insulin regular, human vial - multi-dose SQ SCH ×3 (08:29→20:36)
[2019-02-02] MEDS: NORepinephrine 8mg/ 250ml NS 250 ML IV PRN (08:33)
[2019-02-02] MEDS: lactobacillus rhamnosus 10,000 MMU CELLS/CAPSULE OGT SCH ×2 (09:10→20:33)
[2019-02-02] MEDS: methylnaltrexone br 12mg/0.6ml inj***SubQ only SQ SCH (09:10)
[2019-02-02] MEDS: pantoprazole 40 MG vial IV SCH ×2 (09:10→20:33)
[2019-02-02] MEDS: midodrine 5mg tablet PEG SCH ×3 (09:17→23:32)
--- NOTE | 2019-02-02 11:45 | NUR ---
F/U: Pt had dialysis yesterday; removed 3L.Plans to put TDC today. The pt is on 4mcg Levophed. Edema: 4+ severe pitting BLE. TF current rate 80ml/hr. Per MD changed TF goal rate down to 85 ml/hr due to pt is not ambulatory, discussed with RN. No water flushes per MD r/t dialysis. OLIVER WNL. LBM 02/01.Continue monitor TF tolerance. Recommendations: 1. Cont.PEG tube feeding using Vital High protein at 85ml/hr goal; to provide 2040ml fluid, 2040kcals, 1705ml free water, and 179g protein. 2. Additional free water per car storer on HD 3. Prealbumin Q /; daily wts 4. Routine bowel care Addendum: 02/02/19 at [address] Amended: Links added. Addendum: 02/02/19 at [address] I have reviewed and agree with note by Manager Bridge. Carin Claros RD
[2019-02-02] MEDS ORDERED: insulin Lispro (HumaLOG) vial - multi-dose SQ SCH (13:33)
[2019-02-02] MEDS ORDERED: fentaNYL/PF 50MCG/1 ML 2ML syringe IV PRN (13:45)
[2019-02-02] MEDS ORDERED: heparin 1,000 units/ml 10ml inj ICATH ONE (13:45)
[2019-02-02] MEDS ORDERED: LIDOcaine 1%/PF 5ML 10 MG/ML VIAL SQ ONE (13:45)
[2019-02-02] MEDS ORDERED: heparin 1,000unit/ml 10ml vial 10 ML ONE (13:51)
[2019-02-02] MEDS ORDERED: LIDOcaine 1%/PF 5ML 10 MG/ML VIAL ONE (13:52)
[2019-02-02] MEDS ORDERED: fentaNYL/PF 50MCG/1 ML 2ML syringe ONE (13:52)
--- NOTE | 2019-02-02 18:20 | NUR ---
Problems reprioritized. Patient report given, questions answered & plan of care reviewed with Guadalupe RN.
--- NOTE | 2019-02-02 18:26 | NUR ---
Patient in room CICU 2011. I have received report from REGINALD AND SUNNY LOOMIS and had the opportunity to ask questions and assume patient care.
[2019-02-02] MEDS: insulin glargine (Lantus) pen - multi-dose SQ SCH (20:37)
[2019-02-02] MEDS: HYDROcodone/acetaminophen 10/325mg tab PO PRN (23:32)
[2019-02-03] VITALS (23 sets, daily range): BP systolic 84–108; BP diastolic 51–68
--- NOTE | 2019-02-03 01:09 | NUR ---
notified Valentin CAGLE that pt has been tachypneic as high as 40. the rest of the vitals are trending the same as they have been. pt has minimal to no secretions from trach and is afebrile. pt remains not very communicative but with eyes open and tracking most of the time, occasionally nods head to questions other times does not. gave norco per orders, pt appears more comfortable with eyes closed and RR down to 36 now.
[2019-02-03] MEDS: mineral oil/petrolatum ophthal oint EACHEYE SCH ×4 (02:07→19:48)
[2019-02-03] MEDS: NORepinephrine 8mg/ 250ml NS 250 ML IV PRN ×2 (02:08→20:59)
[2019-02-03] MEDS: insulin regular, human vial - multi-dose SQ SCH ×3 (02:09→19:38)
[2019-02-03 02:24] LABS: BASOPHILS # (AUTO) 0.1 X10'3 (0-0.2); BASOPHILS % (AUTO) 0.7 % (0-1); EOSINOPHILS # (AUTO) 0.1 X10'3 (0-0.9); HEMATOCRIT 29.4 % (42.0-52.0); HEMOGLOBIN 9.3 g/dl (14.0-17.9); LYMPHOCYTES # (AUTO) 1.5 X10'3 (1.1-4.8); LYMPHOCYTES % (AUTO) 13.1 % (21-51); MEAN CORPUSCULAR HEMOGLOBIN 32.1 PG (27.0-31.0); MEAN CORPUSCULAR HGB CONC 31.8 g/dL (33.0-36.5); MEAN CORPUSCULAR VOLUME 100.8 FL (78-98); MEAN PLATELET VOLUME 9.3 FL (7.4-10.4); MONOCYTES # (AUTO) 0.7 X10'3 (0-0.9); MONOCYTES % (AUTO) 6.1 % (2-12); NEUTROPHILS # (AUTO) 9.1 X10'3 (1.8-7.7); NEUTROPHILS % (AUTO) 79.1 % (42-75); PLATELET COUNT 256 X10'3 (140-440); RED BLOOD COUNT 2.91 X10'6 (4.70-6.10); RED CELL DISTRIBUTION WIDTH 23.2 % (11.5-14.5); WHITE BLOOD COUNT 11.5 X10'3 (4.5-11.0)
[2019-02-03 02:39] LABS: ALANINE AMINOTRANSFERASE 53 U/L (12-78); ALBUMIN 1.9 G/DL (3.4-5.0); ALBUMIN/GLOBULIN RATIO 0.4 (1.1-1.5); ALKALINE PHOSPHATASE 940 IU/L (46-116); ANION GAP 12 (8-16); ASPARTATE AMINO TRANSFERASE 47 U/L (10-37); BILIRUBIN,TOTAL 1.6 MG/DL (0.1-1.0); BLOOD UREA NITROGEN 53 MG/DL (7-18); BUN/CREATININE RATIO 25.5 (5.4-32.0); CALCIUM 7.4 MG/DL (8.5-10.1); CHLORIDE 99 MMOL/L (99-107); CREATININE 2.08 MG/DL (0.60-1.10); GLUCOSE 130 MG/DL (70-104); MAGNESIUM 2.2 MG/DL (1.5-2.4); PHOSPHORUS 3.9 MG/DL (2.3-4.5); POTASSIUM 4.6 MMOL/L (3.5-5.1); SODIUM 135 MMOL/L (135-145); TOTAL CARBON DIOXIDE 23.6 MMOL/L (24-32); TOTAL PROTEIN 6.6 G/DL (6.4-8.2); eGFR 31 ML/MIN
[2019-02-03] MEDS: ipratropium/albuterol 3ml nebule NEB SCH ×6 (03:17→23:15)
--- NOTE | 2019-02-03 06:30 | NUR ---
Patient in room CICU 2011. I have received report from ANDREW RN and had the opportunity to ask questions and assume patient care.
--- NOTE | 2019-02-03 06:38 | NUR ---
Problems reprioritized. Patient report given, questions answered & plan of care reviewed with ISAAC LOOMIS.
[2019-02-03] MEDS ORDERED: heparin 1,000unit/ml 10ml vial 10 ML IV ONE (08:00)
[2019-02-03] MEDS ORDERED: epoetin 20,000 units/ml inj IV ONE (08:00)
[2019-02-03] MEDS ORDERED: heparin 1,000 units/ml 10ml inj HE ONE ×2 (08:00)
[2019-02-03] MEDS ORDERED: heparin 1,000 units/ml 10ml inj IV ONE (08:00)
[2019-02-03] MEDS: K, MAG and/or Phos replacement - Verify level? MC SCH (08:00)
[2019-02-03] MEDS ORDERED: albumin (human) 25% 100ml IV 100 ML IV PRN (08:00)
[2019-02-03] MEDS: pantoprazole 40 MG vial IV SCH ×2 (08:59→19:45)
[2019-02-03] MEDS: midodrine 5mg tablet PEG SCH ×2 (08:59→15:17)
[2019-02-03] MEDS: lactobacillus rhamnosus 10,000 MMU CELLS/CAPSULE OGT SCH ×2 (08:59→19:48)
[2019-02-03] MEDS: HYDROcodone/acetaminophen 10/325mg tab PO PRN (09:00)
[2019-02-03] MEDS: insulin glargine (Lantus) pen - multi-dose SQ SCH (19:40)
[2019-02-04] VITALS (24 sets, daily range): BP systolic 86–103; BP diastolic 52–69
[2019-02-04] MEDS: midodrine 5mg tablet PEG SCH ×3 (00:32→15:28)
[2019-02-04] MEDS: HYDROcodone/acetaminophen 10/325mg tab PO PRN ×2 (00:32→15:29)
[2019-02-04] MEDS: mineral oil/petrolatum ophthal oint EACHEYE SCH ×4 (02:00→20:42)
[2019-02-04] MEDS: ipratropium/albuterol 3ml nebule NEB SCH ×6 (03:00→23:21)
[2019-02-04] MEDS: insulin regular, human vial - multi-dose SQ SCH ×4 (03:05→21:08)
[2019-02-04 03:20] LABS: BASOPHILS # (AUTO) 0.1 X10'3 (0-0.2); EOSINOPHILS # (AUTO) 0.1 X10'3 (0-0.9); EOSINOPHILS % (AUTO) 1.3 % (0-6); HEMATOCRIT 29.5 % (42.0-52.0); HEMOGLOBIN 9.5 g/dl (14.0-17.9); LYMPHOCYTES # (AUTO) 1.3 X10'3 (1.1-4.8); LYMPHOCYTES % (AUTO) 11.7 % (21-51); MEAN CORPUSCULAR HEMOGLOBIN 32.3 PG (27.0-31.0); MEAN CORPUSCULAR HGB CONC 32.2 g/dL (33.0-36.5); MEAN CORPUSCULAR VOLUME 100.3 FL (78-98); MEAN PLATELET VOLUME 9.3 FL (7.4-10.4); MONOCYTES # (AUTO) 0.4 X10'3 (0-0.9); MONOCYTES % (AUTO) 3.6 % (2-12); NEUTROPHILS # (AUTO) 8.9 X10'3 (1.8-7.7); NEUTROPHILS % (AUTO) 82.4 % (42-75); PLATELET COUNT 260 X10'3 (140-440); RED BLOOD COUNT 2.94 X10'6 (4.70-6.10); RED CELL DISTRIBUTION WIDTH 22.5 % (11.5-14.5); WHITE BLOOD COUNT 10.8 X10'3 (4.5-11.0)
[2019-02-04 03:21] LABS: ABG HCO3 23.2 mmol/L (22.0-26.0); ABG OXYGEN SATURATION 95.1 % (95-98); ABG PCO2 (T) 31.9 mmHg (35.0-45.0); ABG PH (T) 7.478 (7.350-7.450); ABG PO2 (T) 72.5 mmHg (83-108); ALLEN'S TEST Positive; FMetHb 0.3 % (0.3-1.12); FO2Hb 93.9 % (94-100); MINUTE VOLUME 8 L/min; PATIENT TEMPERATURE 36.5; PEEP 5 cm H2O; RESPIRATORY RATE 16 b/min; RESPIRATORY RATE (OBSERVED) 19 b/min; TIDAL VOLUME 475 mL; TOTAL HEMOGLOBIN 10.3 G/dl (14.0-17.9)
[2019-02-04 03:37] LABS: ALANINE AMINOTRANSFERASE 53 U/L (12-78); ALBUMIN 1.7 G/DL (3.4-5.0); ALBUMIN/GLOBULIN RATIO 0.4 (1.1-1.5); ALKALINE PHOSPHATASE 980 IU/L (46-116); ANION GAP 7 (8-16); ASPARTATE AMINO TRANSFERASE 58 U/L (10-37); BILIRUBIN,TOTAL 1.3 MG/DL (0.1-1.0); BLOOD UREA NITROGEN 46 MG/DL (7-18); BUN/CREATININE RATIO 26.7 (5.4-32.0); CALCIUM 7.5 MG/DL (8.5-10.1); CHLORIDE 99 MMOL/L (99-107); CREATININE 1.72 MG/DL (0.60-1.10); GLUCOSE 182 MG/DL (70-104); MAGNESIUM 1.9 MG/DL (1.5-2.4); PHOSPHORUS 3.2 MG/DL (2.3-4.5); POTASSIUM 4.7 MMOL/L (3.5-5.1); SODIUM 132 MMOL/L (135-145); TOTAL CARBON DIOXIDE 25.6 MMOL/L (24-32); TOTAL PROTEIN 6.5 G/DL (6.4-8.2); eGFR 39 ML/MIN
[2019-02-04 04:08] LABS: ANISOCYTOSIS 3+; LARGE PLATELETS FEW; PLATELET ESTIMATE NORMAL; POLYCHROMASIA FEW; TARGET CELLS FEW
--- NOTE | 2019-02-04 06:30 | NUR ---
Patient in room CICU 2011. I have received report from DARCI LOOMIS and had the opportunity to ask questions and assume patient care.
[2019-02-04] MEDS: lactobacillus rhamnosus 10,000 MMU CELLS/CAPSULE OGT SCH ×2 (07:46→20:43)
[2019-02-04] MEDS: pantoprazole 40 MG vial IV SCH ×2 (07:46→20:43)
[2019-02-04] MEDS: K, MAG and/or Phos replacement - Verify level? MC SCH (07:47)
[2019-02-04] MEDS: NORepinephrine 8mg/ 250ml NS 250 ML IV PRN (15:28)
--- NOTE | 2019-02-04 18:25 | NUR ---
Patient in room CICU 2011. I have received report from Guadalupe RN and had the opportunity to ask questions and assume patient care. Pt on vent via trach at 35% PEEP 5. Levophed gtt for MAP greater than 65 infusing via central line, will titrate per protocol see IV spreadsheet for further information. Will continue to to monitor.
--- NOTE | 2019-02-04 18:29 | NUR ---
Problems reprioritized. Patient report given, questions answered & plan of care reviewed with LARISA LOOMIS.
[2019-02-04] MEDS: insulin glargine (Lantus) pen - multi-dose SQ SCH (21:09)
[2019-02-05] VITALS (24 sets, daily range): BP systolic 91–119; BP diastolic 52–67
[2019-02-05] MEDS: midodrine 5mg tablet PEG SCH ×4 (00:21→23:56)
[2019-02-05] MEDS: mineral oil/petrolatum ophthal oint EACHEYE SCH ×4 (02:24→20:29)
[2019-02-05] MEDS: insulin regular, human vial - multi-dose SQ SCH ×3 (02:31→20:41)
[2019-02-05 03:10] LABS: BASOPHILS # (AUTO) 0.1 X10'3 (0-0.2); BASOPHILS % (AUTO) 0.4 % (0-1); EOSINOPHILS # (AUTO) 0.1 X10'3 (0-0.9); EOSINOPHILS % (AUTO) 1.2 % (0-6); HEMATOCRIT 29.2 % (42.0-52.0); HEMOGLOBIN 9.4 g/dl (14.0-17.9); LYMPHOCYTES # (AUTO) 2.2 X10'3 (1.1-4.8); LYMPHOCYTES % (AUTO) 17.3 % (21-51); MEAN CORPUSCULAR HEMOGLOBIN 31.9 PG (27.0-31.0); MEAN CORPUSCULAR HGB CONC 32.2 g/dL (33.0-36.5); MEAN CORPUSCULAR VOLUME 99.1 FL (78-98); MEAN PLATELET VOLUME 9.3 FL (7.4-10.4); MONOCYTES # (AUTO) 0.6 X10'3 (0-0.9); MONOCYTES % (AUTO) 4.9 % (2-12); NEUTROPHILS # (AUTO) 9.6 X10'3 (1.8-7.7); NEUTROPHILS % (AUTO) 76.2 % (42-75); PLATELET COUNT 270 X10'3 (140-440); RED BLOOD COUNT 2.94 X10'6 (4.70-6.10); RED CELL DISTRIBUTION WIDTH 22.6 % (11.5-14.5); WHITE BLOOD COUNT 12.6 X10'3 (4.5-11.0)
[2019-02-05] MEDS: ipratropium/albuterol 3ml nebule NEB SCH ×6 (03:21→23:14)
[2019-02-05 03:22] LABS: ALANINE AMINOTRANSFERASE 53 U/L (12-78); ALBUMIN 1.7 G/DL (3.4-5.0); ALBUMIN/GLOBULIN RATIO 0.3 (1.1-1.5); ALKALINE PHOSPHATASE 971 IU/L (46-116); ANION GAP 10 (8-16); ASPARTATE AMINO TRANSFERASE 62 U/L (10-37); BILIRUBIN,TOTAL 1.3 MG/DL (0.1-1.0); BLOOD UREA NITROGEN 72 MG/DL (7-18); CALCIUM 7.5 MG/DL (8.5-10.1); CHLORIDE 97 MMOL/L (99-107); CREATININE 2.25 MG/DL (0.60-1.10); GLUCOSE 174 MG/DL (70-104); MAGNESIUM 1.8 MG/DL (1.5-2.4); POTASSIUM 5.4 MMOL/L (3.5-5.1); SODIUM 132 MMOL/L (135-145); TOTAL CARBON DIOXIDE 24.9 MMOL/L (24-32); TOTAL PROTEIN 6.6 G/DL (6.4-8.2); TRIGLYCERIDES 65 MG/DL (20-135); eGFR 28 ML/MIN
[2019-02-05 03:35] LABS: ABG BASE EXCESS 0.1 mmol/L (-2.0-3.0); ABG HCO3 23.4 mmol/L (22.0-26.0); ABG OXYGEN SATURATION 96.5 % (95-98); ABG PCO2 (T) 33.4 mmHg (35.0-45.0); ABG PH (T) 7.464 (7.350-7.450); ABG PO2 (T) 87.8 mmHg (83-108); ALLEN'S TEST Positive; FCOHb 1.8 % (0.5-1.5); FMetHb 0.3 % (0.3-1.12); FO2Hb 94.5 % (94-100); MINUTE VOLUME 9 L/min; PATIENT TEMPERATURE 37.3; PEEP 5 cm H2O; RESPIRATORY RATE 16 b/min; RESPIRATORY RATE (OBSERVED) 20 b/min; TIDAL VOLUME 475 mL; TOTAL HEMOGLOBIN 10.2 G/dl (14.0-17.9)
[2019-02-05 04:24] LABS: ANISOCYTOSIS 3+; PLATELET ESTIMATE NORMAL; POLYCHROMASIA FEW
--- NOTE | 2019-02-05 06:30 | NUR ---
Patient in room CICU 2011. I have received report from David LOOMIS and had the opportunity to ask questions and assume patient care. Patient laying in bed with eyes closed, on ventilator with a trach placement, fio2 305 peep of 5. viatal signs stable, levophed drip infusing to L upper arm picc. will continue to monitor
--- NOTE | 2019-02-05 06:36 | NUR ---
Problems reprioritized. Patient report given, questions answered & plan of care reviewed with Kristina LOOMIS.
[2019-02-05] MEDS: K, MAG and/or Phos replacement - Verify level? MC SCH (08:00)
[2019-02-05] MEDS: pantoprazole 40 MG vial IV SCH ×2 (08:40→20:29)
[2019-02-05] MEDS: lactobacillus rhamnosus 10,000 MMU CELLS/CAPSULE OGT SCH ×2 (08:41→20:28)
[2019-02-05] MEDS: NORepinephrine 8mg/ 250ml NS 250 ML IV PRN (12:09)
[2019-02-05] MEDS ORDERED: dextrose ORAL solution 15 GM/59 ML bottle PEG PRN ×2 (14:53)
[2019-02-05] MEDS ORDERED: acetaminophen 325mg/10.15ml oral unit dose solution PEG PRN (14:53)
--- NOTE | 2019-02-05 18:23 | NUR ---
Problems reprioritized. Patient report given, questions answered & plan of care reviewed with Carolynn Powell.
[2019-02-05] MEDS: insulin glargine (Lantus) pen - multi-dose SQ SCH (20:41)
[2019-02-06] VITALS (24 sets, daily range): BP systolic 84–100; BP diastolic 48–63
[2019-02-06] MEDS: mineral oil/petrolatum ophthal oint EACHEYE SCH ×4 (02:08→20:24)
[2019-02-06] MEDS: insulin regular, human vial - multi-dose SQ SCH ×4 (02:10→20:29)
[2019-02-06 02:50] LABS: BASOPHILS # (AUTO) 0.1 X10'3 (0-0.2); BASOPHILS % (AUTO) 0.7 % (0-1); EOSINOPHILS # (AUTO) 0.2 X10'3 (0-0.9); EOSINOPHILS % (AUTO) 1.8 % (0-6); HEMOGLOBIN 9.2 g/dl (14.0-17.9); LYMPHOCYTES # (AUTO) 1.9 X10'3 (1.1-4.8); MEAN CORPUSCULAR HEMOGLOBIN 32.3 PG (27.0-31.0); MEAN CORPUSCULAR HGB CONC 32.6 g/dL (33.0-36.5); MEAN CORPUSCULAR VOLUME 98.9 FL (78-98); MEAN PLATELET VOLUME 9.4 FL (7.4-10.4); MONOCYTES # (AUTO) 0.4 X10'3 (0-0.9); MONOCYTES % (AUTO) 4.5 % (2-12); NEUTROPHILS # (AUTO) 7.4 X10'3 (1.8-7.7); PLATELET COUNT 284 X10'3 (140-440); RED BLOOD COUNT 2.84 X10'6 (4.70-6.10); RED CELL DISTRIBUTION WIDTH 21.9 % (11.5-14.5)
[2019-02-06 02:57] LABS: ALANINE AMINOTRANSFERASE 50 U/L (12-78); ALBUMIN 1.7 G/DL (3.4-5.0); ALBUMIN/GLOBULIN RATIO 0.4 (1.1-1.5); ALKALINE PHOSPHATASE 803 IU/L (46-116); ANION GAP 13 (8-16); ASPARTATE AMINO TRANSFERASE 53 U/L (10-37); BILIRUBIN,TOTAL 1.1 MG/DL (0.1-1.0); BLOOD UREA NITROGEN 101 MG/DL (7-18); BUN/CREATININE RATIO 35.4 (5.4-32.0); CALCIUM 7.3 MG/DL (8.5-10.1); CHLORIDE 97 MMOL/L (99-107); CREATININE 2.85 MG/DL (0.60-1.10); GLUCOSE 178 MG/DL (70-104); PHOSPHORUS 5.3 MG/DL (2.3-4.5); POTASSIUM 5.9 MMOL/L (3.5-5.1); SODIUM 134 MMOL/L (135-145); TOTAL CARBON DIOXIDE 23.9 MMOL/L (24-32); TOTAL PROTEIN 6.5 G/DL (6.4-8.2); eGFR 22 ML/MIN
[2019-02-06 03:23] LABS: ANISOCYTOSIS 3+; PLATELET ESTIMATE NORMAL
[2019-02-06 03:24] LABS: ELLIPTOCYTES FEW; POLYCHROMASIA FEW; TARGET CELLS FEW
[2019-02-06] MEDS: ipratropium/albuterol 3ml nebule NEB SCH ×6 (03:58→23:29)
[2019-02-06 05:00] LABS: ABG BASE EXCESS -2.2 mmol/L (-2.0-3.0); ABG HCO3 20.4 mmol/L (22.0-26.0); ABG OXYGEN SATURATION 97.4 % (95-98); ABG PCO2 (T) 28.2 mmHg (35.0-45.0); ABG PH (T) 7.478 (7.350-7.450); ABG PO2 (T) 99.7 mmHg (83-108); ALLEN'S TEST Positive; FCOHb 0.8 % (0.5-1.5); FMetHb 0.3 % (0.3-1.12); FO2Hb 96.3 % (94-100); MINUTE VOLUME 18 L/min; PATIENT TEMPERATURE 37.3; PEEP 5 cm H2O; RESPIRATORY RATE 16 b/min; RESPIRATORY RATE (OBSERVED) 36 b/min; TIDAL VOLUME 475 mL
--- NOTE | 2019-02-06 06:30 | NUR ---
Received report from VLADISLAV Pradhan
--- NOTE | 2019-02-06 06:31 | NUR ---
Student documentation: I have reviewed and agree with all interventions, assessments performed and documented by Ratna LOOMIS.Student Medication Administration: For this medication-pass time frame, all medication were reviewed, dispensed, administered and documented per hospital policy by Ratna LOOMIS.
[2019-02-06] MEDS: K, MAG and/or Phos replacement - Verify level? MC SCH (06:52)
[2019-02-06] MEDS: lactobacillus rhamnosus 10,000 MMU CELLS/CAPSULE OGT SCH ×2 (08:33→20:24)
[2019-02-06] MEDS: midodrine 5mg tablet PEG SCH ×2 (08:33→15:18)
[2019-02-06] MEDS: pantoprazole 40 MG vial IV SCH ×2 (08:33→20:24)
[2019-02-06] MEDS ORDERED: heparin 1,000unit/ml 10ml vial 10 ML IV ONE (09:26)
[2019-02-06] MEDS ORDERED: epoetin 20,000 units/ml inj IV ONE (09:30)
[2019-02-06] MEDS ORDERED: albumin (human) 25% 100ml IV 100 ML IV PRN (09:30)
[2019-02-06] MEDS ORDERED: heparin 1,000 units/ml 10ml inj HE ONE ×2 (09:30)
[2019-02-06] MEDS ORDERED: heparin 1,000 units/ml 10ml inj IV ONE (09:30)
--- NOTE | 2019-02-06 12:45 | NUR ---
F/U: Pt is awake, sitting upright in bed. Pt still has edema. Pt is expected to have HD today. Pt's Levophed is down to 1 mcg per RN. LBM 02/06. Noticed an elevated Phos level, will provide rec.to MD when it continues to increase. Will continue to monitor. Recommendations: 1. Cont.PEG tube feeding using Vital High protein at 85ml/hr goal; to provide 2040ml fluid, 2040kcals, 1705ml free water, and 179g protein. 2. Additional free water per furnace setter on HD 3. Prealbumin Q ; daily wts 4. Routine bowel care Addendum: 02/06/19 at [address] Amended: Links added. Addendum: 02/06/19 at [address] RD Approves
--- NOTE | 2019-02-06 18:33 | NUR ---
Patient in room CICU 2011. I have received report and had the opportunity to ask questions and assume patient care.
--- NOTE | 2019-02-06 18:33 | NUR ---
Report given to VLADISLAV Nur
[2019-02-06] MEDS: insulin glargine (Lantus) pen - multi-dose SQ SCH (20:30)
[2019-02-07] VITALS (25 sets, daily range): BP systolic 82–119; BP diastolic 44–74
[2019-02-07] MEDS: midodrine 5mg tablet PEG SCH ×3 (00:53→16:00)
[2019-02-07] MEDS: mineral oil/petrolatum ophthal oint EACHEYE SCH ×4 (02:03→20:10)
[2019-02-07] MEDS: insulin regular, human vial - multi-dose SQ SCH ×3 (02:05→20:21)
[2019-02-07] MEDS: ipratropium/albuterol 3ml nebule NEB SCH ×6 (02:39→23:32)
[2019-02-07 02:55] LABS: ABG BASE EXCESS 1.4 mmol/L (-2.0-3.0); ABG HCO3 23.9 mmol/L (22.0-26.0); ABG PCO2 (T) 31.1 mmHg (35.0-45.0); ABG PH (T) 7.504 (7.350-7.450); ABG PO2 (T) 82.2 mmHg (83-108); ALLEN'S TEST Positive; FCOHb 1.1 % (0.5-1.5); FMetHb 0.3 % (0.3-1.12); FO2Hb 94.7 % (94-100); MINUTE VOLUME 18 L/min; PATIENT TEMPERATURE 37.3; PEEP 5 cm H2O; RESPIRATORY RATE 16 b/min; RESPIRATORY RATE (OBSERVED) 34 b/min; TIDAL VOLUME 475 mL; TOTAL HEMOGLOBIN 11.3 G/dl (14.0-17.9)
[2019-02-07 03:09] LABS: BASOPHILS # (AUTO) 0.1 X10'3 (0-0.2); BASOPHILS % (AUTO) 0.7 % (0-1); EOSINOPHILS # (AUTO) 0.3 X10'3 (0-0.9); EOSINOPHILS % (AUTO) 3.4 % (0-6); HEMATOCRIT 28.2 % (42.0-52.0); HEMOGLOBIN 9.2 g/dl (14.0-17.9); LYMPHOCYTES # (AUTO) 1.5 X10'3 (1.1-4.8); LYMPHOCYTES % (AUTO) 17.2 % (21-51); MEAN CORPUSCULAR HEMOGLOBIN 32.3 PG (27.0-31.0); MEAN CORPUSCULAR HGB CONC 32.7 g/dL (33.0-36.5); MEAN CORPUSCULAR VOLUME 98.8 FL (78-98); MEAN PLATELET VOLUME 9.2 FL (7.4-10.4); MONOCYTES # (AUTO) 0.5 X10'3 (0-0.9); NEUTROPHILS # (AUTO) 6.3 X10'3 (1.8-7.7); NEUTROPHILS % (AUTO) 72.7 % (42-75); PLATELET COUNT 283 X10'3 (140-440); RED BLOOD COUNT 2.85 X10'6 (4.70-6.10); RED CELL DISTRIBUTION WIDTH 21.3 % (11.5-14.5); WHITE BLOOD COUNT 8.6 X10'3 (4.5-11.0)
[2019-02-07 03:18] LABS: ALANINE AMINOTRANSFERASE 59 U/L (12-78); ALBUMIN 1.6 G/DL (3.4-5.0); ALBUMIN/GLOBULIN RATIO 0.3 (1.1-1.5); ALKALINE PHOSPHATASE 887 IU/L (46-116); ANION GAP 11 (8-16); ASPARTATE AMINO TRANSFERASE 74 U/L (10-37); BILIRUBIN,TOTAL 1.1 MG/DL (0.1-1.0); BLOOD UREA NITROGEN 65 MG/DL (7-18); BUN/CREATININE RATIO 32.7 (5.4-32.0); CALCIUM 7.8 MG/DL (8.5-10.1); CHLORIDE 97 MMOL/L (99-107); CREATININE 1.99 MG/DL (0.60-1.10); GLUCOSE 119 MG/DL (70-104); MAGNESIUM 1.8 MG/DL (1.5-2.4); POTASSIUM 4.8 MMOL/L (3.5-5.1); SODIUM 134 MMOL/L (135-145); TOTAL CARBON DIOXIDE 26.1 MMOL/L (24-32); TOTAL PROTEIN 6.6 G/DL (6.4-8.2); eGFR 33 ML/MIN
[2019-02-07 04:19] LABS: PLATELET ESTIMATE NORMAL
[2019-02-07 04:20] LABS: ANISOCYTOSIS 3+; POLYCHROMASIA FEW; SCHISTOCYTES FEW
[2019-02-07] MEDS: lactobacillus rhamnosus 10,000 MMU CELLS/CAPSULE OGT SCH ×2 (07:25→20:10)
[2019-02-07] MEDS: pantoprazole 40 MG vial IV SCH ×2 (07:25→20:09)
[2019-02-07] MEDS: K, MAG and/or Phos replacement - Verify level? MC SCH (08:00)
[2019-02-07] MEDS ORDERED: FLU VACC QS 2019-20 (6 MOS UP) 60 MCG/0.5 ML VIAL IMVAC ONE (10:00)
[2019-02-07] MEDS ORDERED: pneumococcal 23-VAL P-sac vacc 25 mcg/0.5ml vial IMVAC ONE (10:00)
[2019-02-07] MEDS: NORepinephrine 8mg/ 250ml NS 250 ML IV PRN (11:00)
[2019-02-07] MEDS ORDERED: sodium phosphate inj. 30 MMOL in normal saline 250ml IV soln 250 ML IV PRN (14:45)
[2019-02-07] MEDS ORDERED: potassium Cl 20mEq/100mL bag 100 ML IV PRN (14:45)
[2019-02-07] MEDS ORDERED: heparin 10,000 units/1 ML INJ IV PRN (14:45)
[2019-02-07] MEDS ORDERED: calcium chloride inj. 1,000 MG in normal saline 100ml IV soln 100 ML IV PRN (14:45)
[2019-02-07] MEDS ORDERED: heparin 10,000 units/1 ML INJ IV ONE (14:45)
[2019-02-07] MEDS ORDERED: magnesium 4gm in 100ml NS 100 ML IV PRN (14:45)
[2019-02-07] MEDS: Duosol 4K/3 Ca (w/calcium) 5,000 ML HE SCH ×3 (16:20→22:05)
[2019-02-07] MEDS: HYDROcodone/acetaminophen 7.5MG/325MG per 15ml UD CUP PEG PRN (16:49)
[2019-02-07 17:38] LABS: BASOPHILS # (AUTO) 0.1 X10'3 (0-0.2); EOSINOPHILS # (AUTO) 0.1 X10'3 (0-0.9); EOSINOPHILS % (AUTO) 0.9 % (0-6); HEMATOCRIT 27.4 % (42.0-52.0); LYMPHOCYTES # (AUTO) 1.5 X10'3 (1.1-4.8); LYMPHOCYTES % (AUTO) 17.2 % (21-51); MEAN CORPUSCULAR HEMOGLOBIN 32.2 PG (27.0-31.0); MEAN CORPUSCULAR VOLUME 97.8 FL (78-98); MEAN PLATELET VOLUME 9.3 FL (7.4-10.4); MONOCYTES # (AUTO) 0.4 X10'3 (0-0.9); MONOCYTES % (AUTO) 4.7 % (2-12); NEUTROPHILS # (AUTO) 6.8 X10'3 (1.8-7.7); NEUTROPHILS % (AUTO) 76.2 % (42-75); PLATELET COUNT 285 X10'3 (140-440); RED CELL DISTRIBUTION WIDTH 21.2 % (11.5-14.5)
[2019-02-07 17:46] LABS: ALBUMIN 1.6 G/DL (3.4-5.0); ANION GAP 12 (8-16); BLOOD UREA NITROGEN 74 MG/DL (7-18); BUN/CREATININE RATIO 33.8 (5.4-32.0); CHLORIDE 98 MMOL/L (99-107); CREATININE 2.19 MG/DL (0.60-1.10); GLUCOSE 158 MG/DL (70-104); MAGNESIUM 1.9 MG/DL (1.5-2.4); PARTIAL THROMBOPLASTIN TIME 26 SECONDS (22-32); PHOSPHORUS 4.3 MG/DL (2.3-4.5); POTASSIUM 5.3 MMOL/L (3.5-5.1); SODIUM 135 MMOL/L (135-145); TOTAL CARBON DIOXIDE 25.4 MMOL/L (24-32); eGFR 29 ML/MIN
--- NOTE | 2019-02-07 18:09 | NUR ---
CRRT started at 1630
[2019-02-07] MEDS: heparin 25,000 UNIT/250ml bag 250 ML IV SCH (18:22)
--- NOTE | 2019-02-07 18:25 | NUR ---
Patient in room CICU 2011. I have received report and had the opportunity to ask questions and assume patient care.
--- NOTE | 2019-02-07 18:41 | NUR ---
cvvh started. first set of labs drawn. heparin started per md order. will continue to monitor.
[2019-02-07 18:50] LABS: BASOPHILS # (AUTO) 0.1 X10'3 (0-0.2); BASOPHILS % (AUTO) 0.7 % (0-1); EOSINOPHILS # (AUTO) 0.1 X10'3 (0-0.9); EOSINOPHILS % (AUTO) 1.2 % (0-6); HEMATOCRIT 27.6 % (42.0-52.0); HEMOGLOBIN 8.9 g/dl (14.0-17.9); LYMPHOCYTES # (AUTO) 1.6 X10'3 (1.1-4.8); LYMPHOCYTES % (AUTO) 17.4 % (21-51); MEAN CORPUSCULAR HEMOGLOBIN 31.6 PG (27.0-31.0); MEAN CORPUSCULAR HGB CONC 32.1 g/dL (33.0-36.5); MEAN CORPUSCULAR VOLUME 98.7 FL (78-98); MEAN PLATELET VOLUME 9.2 FL (7.4-10.4); MONOCYTES # (AUTO) 0.5 X10'3 (0-0.9); MONOCYTES % (AUTO) 5.5 % (2-12); NEUTROPHILS # (AUTO) 6.8 X10'3 (1.8-7.7); NEUTROPHILS % (AUTO) 75.2 % (42-75); PLATELET COUNT 282 X10'3 (140-440); RED CELL DISTRIBUTION WIDTH 21.8 % (11.5-14.5)
[2019-02-07 19:02] LABS: ALBUMIN 1.7 G/DL (3.4-5.0); ANION GAP 14 (8-16); BLOOD UREA NITROGEN 74 MG/DL (7-18); BUN/CREATININE RATIO 34.4 (5.4-32.0); CHLORIDE 100 MMOL/L (99-107); CREATININE 2.15 MG/DL (0.60-1.10); GLUCOSE 181 MG/DL (70-104); MAGNESIUM 1.9 MG/DL (1.5-2.4); PHOSPHORUS 4.3 MG/DL (2.3-4.5); POTASSIUM 5.4 MMOL/L (3.5-5.1); SODIUM 139 MMOL/L (135-145); TOTAL CARBON DIOXIDE 25.3 MMOL/L (24-32); eGFR 30 ML/MIN
[2019-02-07 19:08] LABS: ANISOCYTOSIS 3+; PLATELET ESTIMATE NORMAL; POLYCHROMASIA FEW; TARGET CELLS FEW
[2019-02-07 19:20] LABS: ANISOCYTOSIS 3+; PLATELET ESTIMATE NORMAL; POLYCHROMASIA FEW; TARGET CELLS FEW
[2019-02-07 19:44] LABS: BASOPHILS # (AUTO) 0.1 X10'3 (0-0.2); BASOPHILS % (AUTO) 0.7 % (0-1); EOSINOPHILS # (AUTO) 0.1 X10'3 (0-0.9); EOSINOPHILS % (AUTO) 1.2 % (0-6); LYMPHOCYTES # (AUTO) 1.6 X10'3 (1.1-4.8); LYMPHOCYTES % (AUTO) 17.9 % (21-51); MEAN CORPUSCULAR HEMOGLOBIN 31.6 PG (27.0-31.0); MEAN CORPUSCULAR VOLUME 98.6 FL (78-98); MEAN PLATELET VOLUME 9.2 FL (7.4-10.4); MONOCYTES # (AUTO) 0.4 X10'3 (0-0.9); MONOCYTES % (AUTO) 4.8 % (2-12); NEUTROPHILS # (AUTO) 6.9 X10'3 (1.8-7.7); NEUTROPHILS % (AUTO) 75.4 % (42-75); PLATELET COUNT 278 X10'3 (140-440); RED BLOOD COUNT 2.84 X10'6 (4.70-6.10); RED CELL DISTRIBUTION WIDTH 21.5 % (11.5-14.5); WHITE BLOOD COUNT 9.1 X10'3 (4.5-11.0)
[2019-02-07 19:59] LABS: ALBUMIN 1.7 G/DL (3.4-5.0); ANION GAP 12 (8-16); BLOOD UREA NITROGEN 70 MG/DL (7-18); BUN/CREATININE RATIO 33.3 (5.4-32.0); CHLORIDE 99 MMOL/L (99-107); GLUCOSE 182 MG/DL (70-104); MAGNESIUM 1.9 MG/DL (1.5-2.4); PHOSPHORUS 4.2 MG/DL (2.3-4.5); POTASSIUM 5.3 MMOL/L (3.5-5.1); SODIUM 137 MMOL/L (135-145); TOTAL CARBON DIOXIDE 26.4 MMOL/L (24-32); eGFR 31 ML/MIN
[2019-02-07] MEDS: insulin glargine (Lantus) pen - multi-dose SQ SCH (20:22)
[2019-02-07 20:35] LABS: BASOPHILS # (AUTO) 0.1 X10'3 (0-0.2); BASOPHILS % (AUTO) 1.1 % (0-1); EOSINOPHILS # (AUTO) 0.2 X10'3 (0-0.9); EOSINOPHILS % (AUTO) 1.5 % (0-6); HEMATOCRIT 27.3 % (42.0-52.0); HEMOGLOBIN 8.9 g/dl (14.0-17.9); LYMPHOCYTES # (AUTO) 2.2 X10'3 (1.1-4.8); LYMPHOCYTES % (AUTO) 20.8 % (21-51); MEAN CORPUSCULAR HEMOGLOBIN 32.2 PG (27.0-31.0); MEAN CORPUSCULAR HGB CONC 32.8 g/dL (33.0-36.5); MEAN CORPUSCULAR VOLUME 98.3 FL (78-98); MEAN PLATELET VOLUME 9.2 FL (7.4-10.4); MONOCYTES # (AUTO) 0.5 X10'3 (0-0.9); MONOCYTES % (AUTO) 4.6 % (2-12); NEUTROPHILS # (AUTO) 7.7 X10'3 (1.8-7.7); PLATELET COUNT 270 X10'3 (140-440); RED BLOOD COUNT 2.78 X10'6 (4.70-6.10); RED CELL DISTRIBUTION WIDTH 21.5 % (11.5-14.5); WHITE BLOOD COUNT 10.6 X10'3 (4.5-11.0)
[2019-02-07 20:46] LABS: ALBUMIN 1.7 G/DL (3.4-5.0); ANION GAP 10 (8-16); BLOOD UREA NITROGEN 69 MG/DL (7-18); BUN/CREATININE RATIO 34.3 (5.4-32.0); CHLORIDE 100 MMOL/L (99-107); CREATININE 2.01 MG/DL (0.60-1.10); GLUCOSE 206 MG/DL (70-104); MAGNESIUM 1.8 MG/DL (1.5-2.4); POTASSIUM 5.3 MMOL/L (3.5-5.1); SODIUM 137 MMOL/L (135-145); TOTAL CARBON DIOXIDE 27.3 MMOL/L (24-32); eGFR 32 ML/MIN
[2019-02-07 21:02] LABS: PLATELET ESTIMATE NORMAL
[2019-02-07 21:03] LABS: ANISOCYTOSIS 3+; POLYCHROMASIA FEW; TARGET CELLS FEW
[2019-02-07 21:04] LABS: ANISOCYTOSIS 3+; PLATELET ESTIMATE NORMAL; POLYCHROMASIA FEW; TARGET CELLS FEW
[2019-02-07 23:34] LABS: BASOPHILS # (AUTO) 0.1 X10'3 (0-0.2); BASOPHILS % (AUTO) 0.7 % (0-1); EOSINOPHILS # (AUTO) 0.2 X10'3 (0-0.9); EOSINOPHILS % (AUTO) 2.1 % (0-6); HEMATOCRIT 28.2 % (42.0-52.0); LYMPHOCYTES # (AUTO) 1.5 X10'3 (1.1-4.8); LYMPHOCYTES % (AUTO) 16.5 % (21-51); MEAN CORPUSCULAR HEMOGLOBIN 31.8 PG (27.0-31.0); MEAN CORPUSCULAR VOLUME 99.2 FL (78-98); MEAN PLATELET VOLUME 9.3 FL (7.4-10.4); MONOCYTES # (AUTO) 0.4 X10'3 (0-0.9); MONOCYTES % (AUTO) 4.6 % (2-12); NEUTROPHILS # (AUTO) 6.9 X10'3 (1.8-7.7); NEUTROPHILS % (AUTO) 76.1 % (42-75); PLATELET COUNT 279 X10'3 (140-440); RED BLOOD COUNT 2.84 X10'6 (4.70-6.10); RED CELL DISTRIBUTION WIDTH 21.7 % (11.5-14.5); WHITE BLOOD COUNT 9.1 X10'3 (4.5-11.0)
[2019-02-07 23:45] LABS: ALBUMIN 1.6 G/DL (3.4-5.0); ANION GAP 13 (8-16); BLOOD UREA NITROGEN 64 MG/DL (7-18); BUN/CREATININE RATIO 33.7 (5.4-32.0); CHLORIDE 99 MMOL/L (99-107); GLUCOSE 175 MG/DL (70-104); MAGNESIUM 1.9 MG/DL (1.5-2.4); PHOSPHORUS 3.6 MG/DL (2.3-4.5); POTASSIUM 4.9 MMOL/L (3.5-5.1); SODIUM 137 MMOL/L (135-145); TOTAL CARBON DIOXIDE 25.5 MMOL/L (24-32); eGFR 34 ML/MIN
[2019-02-08] VITALS (23 sets, daily range): BP systolic 89–114; BP diastolic 54–71
[2019-02-08 00:07] LABS: ANISOCYTOSIS 3+; HYPOCHROMASIA 1+; PLATELET ESTIMATE NORMAL; POLYCHROMASIA FEW; TARGET CELLS FEW
[2019-02-08] MEDS: midodrine 5mg tablet PEG SCH ×4 (00:46→23:40)
--- NOTE | 2019-02-08 01:48 | NUR ---
ptt 111. heparin held per protocol. will restart heparin at 0345. aware of result
[2019-02-08] MEDS: mineral oil/petrolatum ophthal oint EACHEYE SCH ×4 (02:03→20:10)
[2019-02-08] MEDS: insulin regular, human vial - multi-dose SQ SCH ×3 (02:06→20:15)
[2019-02-08] MEDS: ipratropium/albuterol 3ml nebule NEB SCH ×6 (03:27→23:21)
--- NOTE | 2019-02-08 04:10 | NUR ---
cvvh machine clotted off. international marketing specialist dialysis nurse notified.
[2019-02-08 04:33] LABS: BASOPHILS # (AUTO) 0.1 X10'3 (0-0.2); BASOPHILS % (AUTO) 1.1 % (0-1); EOSINOPHILS # (AUTO) 0.3 X10'3 (0-0.9); EOSINOPHILS % (AUTO) 2.9 % (0-6); HEMATOCRIT 28.7 % (42.0-52.0); HEMOGLOBIN 9.2 g/dl (14.0-17.9); LYMPHOCYTES # (AUTO) 1.5 X10'3 (1.1-4.8); LYMPHOCYTES % (AUTO) 15.8 % (21-51); MEAN CORPUSCULAR HEMOGLOBIN 31.7 PG (27.0-31.0); MEAN CORPUSCULAR VOLUME 99.1 FL (78-98); MEAN PLATELET VOLUME 8.9 FL (7.4-10.4); MONOCYTES # (AUTO) 0.4 X10'3 (0-0.9); MONOCYTES % (AUTO) 4.6 % (2-12); NEUTROPHILS # (AUTO) 7.2 X10'3 (1.8-7.7); NEUTROPHILS % (AUTO) 75.6 % (42-75); PLATELET COUNT 275 X10'3 (140-440); RED BLOOD COUNT 2.89 X10'6 (4.70-6.10); RED CELL DISTRIBUTION WIDTH 21.5 % (11.5-14.5); WHITE BLOOD COUNT 9.5 X10'3 (4.5-11.0)
[2019-02-08 04:49] LABS: ALANINE AMINOTRANSFERASE 60 U/L (12-78); ALBUMIN 1.7 G/DL (3.4-5.0); ALBUMIN/GLOBULIN RATIO 0.3 (1.1-1.5); ALKALINE PHOSPHATASE 823 IU/L (46-116); ANION GAP 9 (8-16); ASPARTATE AMINO TRANSFERASE 57 U/L (10-37); BILIRUBIN,TOTAL 0.9 MG/DL (0.1-1.0); BLOOD UREA NITROGEN 61 MG/DL (7-18); BUN/CREATININE RATIO 35.9 (5.4-32.0); CALCIUM 7.6 MG/DL (8.5-10.1); CHLORIDE 101 MMOL/L (99-107); GLUCOSE 125 MG/DL (70-104); MAGNESIUM 1.7 MG/DL (1.5-2.4); PHOSPHORUS 3.6 MG/DL (2.3-4.5); POTASSIUM 5.1 MMOL/L (3.5-5.1); SODIUM 137 MMOL/L (135-145); TOTAL CARBON DIOXIDE 27.1 MMOL/L (24-32); TOTAL PROTEIN 6.7 G/DL (6.4-8.2); TRIGLYCERIDES 67 MG/DL (20-135); eGFR 39 ML/MIN
[2019-02-08 04:58] LABS: ANISOCYTOSIS 3+; PLATELET ESTIMATE NORMAL; POLYCHROMASIA FEW
--- NOTE | 2019-02-08 06:14 | NUR ---
Problems reprioritized. Patient report given, questions answered & plan of care reviewed
--- NOTE | 2019-02-08 06:15 | NUR ---
Patient in room CICU 2011. I have received report from VLADISLAV Nur and had the opportunity to ask questions and assume patient care.
[2019-02-08] MEDS: K, MAG and/or Phos replacement - Verify level? MC SCH (07:14)
[2019-02-08] MEDS: pantoprazole 40 MG vial IV SCH ×2 (07:44→20:10)
[2019-02-08] MEDS: lactobacillus rhamnosus 10,000 MMU CELLS/CAPSULE OGT SCH ×2 (07:45→20:10)
[2019-02-08] MEDS: heparin 25,000 UNIT/250ml bag 250 ML IV SCH ×2 (08:00→22:38)
[2019-02-08 10:29] LABS: BASOPHILS # (AUTO) 0.1 X10'3 (0-0.2); BASOPHILS % (AUTO) 0.7 % (0-1); EOSINOPHILS # (AUTO) 0.3 X10'3 (0-0.9); EOSINOPHILS % (AUTO) 2.6 % (0-6); HEMATOCRIT 28.4 % (42.0-52.0); HEMOGLOBIN 9.2 g/dl (14.0-17.9); LYMPHOCYTES # (AUTO) 1.1 X10'3 (1.1-4.8); LYMPHOCYTES % (AUTO) 11.5 % (21-51); MEAN CORPUSCULAR HGB CONC 32.3 g/dL (33.0-36.5); MEAN CORPUSCULAR VOLUME 99.1 FL (78-98); MEAN PLATELET VOLUME 8.8 FL (7.4-10.4); MONOCYTES # (AUTO) 0.4 X10'3 (0-0.9); MONOCYTES % (AUTO) 3.6 % (2-12); NEUTROPHILS % (AUTO) 81.6 % (42-75); PLATELET COUNT 260 X10'3 (140-440); RED BLOOD COUNT 2.87 X10'6 (4.70-6.10); RED CELL DISTRIBUTION WIDTH 21.3 % (11.5-14.5); WHITE BLOOD COUNT 9.8 X10'3 (4.5-11.0)
[2019-02-08 10:44] LABS: ALBUMIN 1.6 G/DL (3.4-5.0); ANION GAP 9 (8-16); BLOOD UREA NITROGEN 53 MG/DL (7-18); BUN/CREATININE RATIO 35.1 (5.4-32.0); CHLORIDE 102 MMOL/L (99-107); CREATININE 1.51 MG/DL (0.60-1.10); GLUCOSE 81 MG/DL (70-104); MAGNESIUM 1.6 MG/DL (1.5-2.4); PHOSPHORUS 3.2 MG/DL (2.3-4.5); SODIUM 138 MMOL/L (135-145); TOTAL CARBON DIOXIDE 27.2 MMOL/L (24-32); eGFR 45 ML/MIN
--- NOTE | 2019-02-08 15:12 | NUR ---
F/U: Pt is awake, sitting upright in bed with daughter at bedside. Pt is currently on CVVH, and on 3mcg Levophed. Per pt daughter, pt is wishing for further support in rehab.Pt has been tolerating TF well with minimal residual amount and at goal rate. LBM 02/07. Will continue to monitor. F/U: Pt is awake, sitting upright in bed. Pt still has edema. Pt is expected to have HD today. Pt's Levophed is down to 1 mcg per RN. LBM 02/06.Noticed an elevated Phos level, will provide rec.to MD when it continues to increase. Will continue to monitor. Recommendations: 1. Cont. PEG tube feeding using Vital High protein at 85ml/hr goal; to provide 2040ml fluid, 2040kcals, 1705ml free water, and 179g protein. 2. Additional free water per fabricator industrial furnace on HD 3. Prealbumin Q /; daily wts 4. Routine bowel care Addendum: 02/08/19 at [address] Amended: Links added. Addendum: 02/08/19 at [address] RD reviewed and agree with network intern note
[2019-02-08 16:19] LABS: BASOPHILS % (AUTO) 0.4 % (0-1); EOSINOPHILS # (AUTO) 0.2 X10'3 (0-0.9); EOSINOPHILS % (AUTO) 1.8 % (0-6); HEMATOCRIT 29.2 % (42.0-52.0); HEMOGLOBIN 9.3 g/dl (14.0-17.9); LYMPHOCYTES # (AUTO) 1.6 X10'3 (1.1-4.8); LYMPHOCYTES % (AUTO) 14.4 % (21-51); MEAN CORPUSCULAR HEMOGLOBIN 31.9 PG (27.0-31.0); MEAN CORPUSCULAR HGB CONC 31.9 g/dL (33.0-36.5); MONOCYTES # (AUTO) 0.5 X10'3 (0-0.9); MONOCYTES % (AUTO) 4.2 % (2-12); NEUTROPHILS # (AUTO) 8.6 X10'3 (1.8-7.7); NEUTROPHILS % (AUTO) 79.2 % (42-75); PLATELET COUNT 266 X10'3 (140-440); RED BLOOD COUNT 2.92 X10'6 (4.70-6.10); RED CELL DISTRIBUTION WIDTH 21.5 % (11.5-14.5); WHITE BLOOD COUNT 10.8 X10'3 (4.5-11.0)
[2019-02-08 16:26] LABS: ALBUMIN 1.6 G/DL (3.4-5.0); ANION GAP 5 (8-16); BLOOD UREA NITROGEN 45 MG/DL (7-18); BUN/CREATININE RATIO 34.6 (5.4-32.0); CHLORIDE 100 MMOL/L (99-107); GLUCOSE 96 MG/DL (70-104); MAGNESIUM 1.6 MG/DL (1.5-2.4); POTASSIUM 5.1 MMOL/L (3.5-5.1); SODIUM 135 MMOL/L (135-145); TOTAL CARBON DIOXIDE 29.8 MMOL/L (24-32); eGFR 53 ML/MIN
--- NOTE | 2019-02-08 18:06 | NUR ---
Problems reprioritized. Patient report given, questions answered & plan of care reviewed with VLADISLAV Jain.
[2019-02-08 18:30] LABS: ANISOCYTOSIS 3+; PLATELET ESTIMATE NORMAL; TOTAL CELLS COUNTED 100
--- NOTE | 2019-02-08 18:30 | NUR ---
Patient in room CICU 2011. I have received report from Heather LOOMIS and had the opportunity to ask questions and assume patient care.
[2019-02-08 18:31] LABS: POLYCHROMASIA 1+; TOXIC GRANULATION 1+
[2019-02-08 18:32] LABS: LARGE PLATELETS FEW
[2019-02-08] MEDS: insulin glargine (Lantus) pen - multi-dose SQ SCH (20:17)
--- NOTE | 2019-02-08 20:30 | NUR ---
Daughter at bedside, Full ROM exercises done with bath. Right shoulder remains very tight, pt resists having it lifted and moved. Continuing to work shoulder slowly as tolerated.
[2019-02-08] MEDS: NORepinephrine 8mg/ 250ml NS 250 ML IV PRN (20:44)
[2019-02-08 21:37] LABS: BASOPHILS % (AUTO) 0.4 % (0-1); EOSINOPHILS # (AUTO) 0.1 X10'3 (0-0.9); EOSINOPHILS % (AUTO) 1.3 % (0-6); HEMATOCRIT 29.2 % (42.0-52.0); HEMOGLOBIN 9.3 g/dl (14.0-17.9); LYMPHOCYTES # (AUTO) 1.4 X10'3 (1.1-4.8); LYMPHOCYTES % (AUTO) 12.5 % (21-51); MEAN CORPUSCULAR HEMOGLOBIN 31.9 PG (27.0-31.0); MEAN CORPUSCULAR HGB CONC 31.9 g/dL (33.0-36.5); MEAN CORPUSCULAR VOLUME 99.9 FL (78-98); MEAN PLATELET VOLUME 9.1 FL (7.4-10.4); MONOCYTES # (AUTO) 0.4 X10'3 (0-0.9); MONOCYTES % (AUTO) 3.4 % (2-12); NEUTROPHILS % (AUTO) 82.4 % (42-75); PLATELET COUNT 267 X10'3 (140-440); RED BLOOD COUNT 2.93 X10'6 (4.70-6.10); RED CELL DISTRIBUTION WIDTH 20.8 % (11.5-14.5)
[2019-02-08 21:57] LABS: ALBUMIN 1.6 G/DL (3.4-5.0); ANION GAP 9 (8-16); BLOOD UREA NITROGEN 40 MG/DL (7-18); BUN/CREATININE RATIO 33.6 (5.4-32.0); CHLORIDE 100 MMOL/L (99-107); CREATININE 1.19 MG/DL (0.60-1.10); GLUCOSE 170 MG/DL (70-104); MAGNESIUM 1.6 MG/DL (1.5-2.4); PHOSPHORUS 2.8 MG/DL (2.3-4.5); POTASSIUM 4.9 MMOL/L (3.5-5.1); SODIUM 135 MMOL/L (135-145); TOTAL CARBON DIOXIDE 26.3 MMOL/L (24-32); eGFR 59 ML/MIN
[2019-02-08 22:00] LABS: ANISOCYTOSIS 3+; PLATELET ESTIMATE NORMAL; POLYCHROMASIA FEW
[2019-02-08] MEDS: Duosol 4K/3 Ca (w/calcium) 5,000 ML HE SCH ×3 (22:54→22:56)
[2019-02-09] VITALS (24 sets, daily range): BP systolic 77–100; BP diastolic 51–66
[2019-02-09] MEDS: mineral oil/petrolatum ophthal oint EACHEYE SCH ×4 (01:57→19:53)
[2019-02-09] MEDS: insulin regular, human vial - multi-dose SQ SCH ×4 (01:58→20:00)
[2019-02-09] MEDS: zinc oxide ointment 30gm tube TP PRN ×2 (02:00→19:53)
[2019-02-09] MEDS: ipratropium/albuterol 3ml nebule NEB SCH ×6 (02:57→23:12)
[2019-02-09 03:57] LABS: BASOPHILS % (AUTO) 0.2 % (0-1); EOSINOPHILS # (AUTO) 0.2 X10'3 (0-0.9); EOSINOPHILS % (AUTO) 1.9 % (0-6); HEMATOCRIT 28.7 % (42.0-52.0); HEMOGLOBIN 9.1 g/dl (14.0-17.9); LYMPHOCYTES # (AUTO) 1.7 X10'3 (1.1-4.8); LYMPHOCYTES % (AUTO) 16.1 % (21-51); MEAN CORPUSCULAR HEMOGLOBIN 31.7 PG (27.0-31.0); MEAN CORPUSCULAR HGB CONC 31.9 g/dL (33.0-36.5); MEAN CORPUSCULAR VOLUME 99.2 FL (78-98); MEAN PLATELET VOLUME 9.1 FL (7.4-10.4); MONOCYTES # (AUTO) 0.5 X10'3 (0-0.9); NEUTROPHILS % (AUTO) 76.8 % (42-75); PLATELET COUNT 272 X10'3 (140-440); RED BLOOD COUNT 2.89 X10'6 (4.70-6.10); RED CELL DISTRIBUTION WIDTH 21.3 % (11.5-14.5); WHITE BLOOD COUNT 10.4 X10'3 (4.5-11.0)
[2019-02-09] MEDS: Duosol 4K/3 Ca (w/calcium) 5,000 ML HE SCH ×5 (04:12→21:28)
[2019-02-09 04:14] LABS: ALANINE AMINOTRANSFERASE 63 U/L (12-78); ALBUMIN 1.7 G/DL (3.4-5.0); ALBUMIN/GLOBULIN RATIO 0.3 (1.1-1.5); ALKALINE PHOSPHATASE 792 IU/L (46-116); ANION GAP 8 (8-16); ASPARTATE AMINO TRANSFERASE 53 U/L (10-37); BILIRUBIN,TOTAL 0.9 MG/DL (0.1-1.0); BLOOD UREA NITROGEN 39 MG/DL (7-18); BUN/CREATININE RATIO 34.2 (5.4-32.0); CHLORIDE 102 MMOL/L (99-107); CREATININE 1.14 MG/DL (0.60-1.10); GLUCOSE 106 MG/DL (70-104); MAGNESIUM 1.7 MG/DL (1.5-2.4); PHOSPHORUS 2.5 MG/DL (2.3-4.5); POTASSIUM 4.9 MMOL/L (3.5-5.1); SODIUM 138 MMOL/L (135-145); TOTAL PROTEIN 6.9 G/DL (6.4-8.2); eGFR 62 ML/MIN
[2019-02-09 04:25] LABS: PLATELET ESTIMATE NORMAL
[2019-02-09 04:26] LABS: ANISOCYTOSIS 3+; POLYCHROMASIA 1+
--- NOTE | 2019-02-09 06:25 | NUR ---
Problems reprioritized. Patient report given, questions answered & plan of care reviewed with Heather LOOMIS.
--- NOTE | 2019-02-09 06:30 | NUR ---
Patient in room CICU 2011. I have received report from VLADISLAV Jain and had the opportunity to ask questions and assume patient care.
[2019-02-09] MEDS: pantoprazole 40 MG vial IV SCH ×2 (07:15→19:53)
[2019-02-09] MEDS: midodrine 5mg tablet PEG SCH ×3 (07:15→23:49)
[2019-02-09] MEDS: lactobacillus rhamnosus 10,000 MMU CELLS/CAPSULE OGT SCH ×2 (07:15→19:53)
[2019-02-09] MEDS: K, MAG and/or Phos replacement - Verify level? MC SCH (08:00)
[2019-02-09 10:23] LABS: BASOPHILS % (AUTO) 0.4 % (0-1); EOSINOPHILS # (AUTO) 0.3 X10'3 (0-0.9); EOSINOPHILS % (AUTO) 3.2 % (0-6); HEMATOCRIT 28.3 % (42.0-52.0); HEMOGLOBIN 9.2 g/dl (14.0-17.9); LYMPHOCYTES # (AUTO) 1.3 X10'3 (1.1-4.8); LYMPHOCYTES % (AUTO) 13.5 % (21-51); MEAN CORPUSCULAR HEMOGLOBIN 32.2 PG (27.0-31.0); MEAN CORPUSCULAR HGB CONC 32.3 g/dL (33.0-36.5); MEAN CORPUSCULAR VOLUME 99.5 FL (78-98); MONOCYTES # (AUTO) 0.4 X10'3 (0-0.9); MONOCYTES % (AUTO) 4.3 % (2-12); NEUTROPHILS # (AUTO) 7.5 X10'3 (1.8-7.7); NEUTROPHILS % (AUTO) 78.6 % (42-75); PLATELET COUNT 266 X10'3 (140-440); RED BLOOD COUNT 2.85 X10'6 (4.70-6.10); RED CELL DISTRIBUTION WIDTH 21.2 % (11.5-14.5); WHITE BLOOD COUNT 9.6 X10'3 (4.5-11.0)
[2019-02-09 10:39] LABS: ALBUMIN 1.7 G/DL (3.4-5.0); ANION GAP 5 (8-16); BLOOD UREA NITROGEN 34 MG/DL (7-18); BUN/CREATININE RATIO 35.4 (5.4-32.0); CHLORIDE 103 MMOL/L (99-107); CREATININE 0.96 MG/DL (0.60-1.10); GLUCOSE 76 MG/DL (70-104); MAGNESIUM 1.6 MG/DL (1.5-2.4); PHOSPHORUS 2.3 MG/DL (2.3-4.5); POTASSIUM 4.9 MMOL/L (3.5-5.1); SODIUM 137 MMOL/L (135-145); eGFR 76 ML/MIN
[2019-02-09 11:20] LABS: ANISOCYTOSIS 3+; LARGE PLATELETS FEW; PLATELET ESTIMATE NORMAL; POIKILOCYTOSIS FEW; POLYCHROMASIA FEW
[2019-02-09] MEDS: heparin 25,000 UNIT/250ml bag 250 ML IV SCH (14:24)
[2019-02-09 16:40] LABS: BASOPHILS # (AUTO) 0.1 X10'3 (0-0.2); BASOPHILS % (AUTO) 0.8 % (0-1); EOSINOPHILS # (AUTO) 0.3 X10'3 (0-0.9); EOSINOPHILS % (AUTO) 2.5 % (0-6); HEMATOCRIT 29.7 % (42.0-52.0); HEMOGLOBIN 9.5 g/dl (14.0-17.9); LYMPHOCYTES # (AUTO) 2.1 X10'3 (1.1-4.8); LYMPHOCYTES % (AUTO) 19.9 % (21-51); MEAN CORPUSCULAR HEMOGLOBIN 31.6 PG (27.0-31.0); MEAN CORPUSCULAR HGB CONC 31.8 g/dL (33.0-36.5); MEAN CORPUSCULAR VOLUME 99.3 FL (78-98); MEAN PLATELET VOLUME 9.7 FL (7.4-10.4); MONOCYTES # (AUTO) 0.4 X10'3 (0-0.9); MONOCYTES % (AUTO) 4.3 % (2-12); NEUTROPHILS # (AUTO) 7.6 X10'3 (1.8-7.7); NEUTROPHILS % (AUTO) 72.5 % (42-75); PLATELET COUNT 288 X10'3 (140-440); RED BLOOD COUNT 2.99 X10'6 (4.70-6.10); RED CELL DISTRIBUTION WIDTH 21.6 % (11.5-14.5); WHITE BLOOD COUNT 10.4 X10'3 (4.5-11.0)
[2019-02-09 16:52] LABS: ALBUMIN 1.7 G/DL (3.4-5.0); ANION GAP 8 (8-16); BLOOD UREA NITROGEN 32 MG/DL (7-18); CHLORIDE 101 MMOL/L (99-107); CREATININE 0.94 MG/DL (0.60-1.10); GLUCOSE 166 MG/DL (70-104); MAGNESIUM 1.6 MG/DL (1.5-2.4); SODIUM 137 MMOL/L (135-145); TOTAL CARBON DIOXIDE 27.9 MMOL/L (24-32); eGFR 78 ML/MIN
[2019-02-09] MEDS: piperacillin/tazo 3.375gm/50ml 50 ML IV SCH ×2 (17:30→23:50)
--- NOTE | 2019-02-09 18:18 | NUR ---
Problems reprioritized. Patient report given, questions answered & plan of care reviewed with VLADISLAV Jain.
--- NOTE | 2019-02-09 18:30 | NUR ---
Patient in room CICU 2011. I have received report from Heather LOOMIS and had the opportunity to ask questions and assume patient care.
[2019-02-09] MEDS: insulin glargine (Lantus) pen - multi-dose SQ SCH (19:58)
[2019-02-09] MEDS: NORepinephrine 8mg/ 250ml NS 250 ML IV PRN (21:26)
[2019-02-09 22:48] LABS: BASOPHILS % (AUTO) 0.5 % (0-1); EOSINOPHILS # (AUTO) 0.2 X10'3 (0-0.9); EOSINOPHILS % (AUTO) 2.1 % (0-6); HEMATOCRIT 28.5 % (42.0-52.0); HEMOGLOBIN 9.1 g/dl (14.0-17.9); LYMPHOCYTES # (AUTO) 1.6 X10'3 (1.1-4.8); LYMPHOCYTES % (AUTO) 17.3 % (21-51); MEAN CORPUSCULAR HEMOGLOBIN 31.6 PG (27.0-31.0); MEAN CORPUSCULAR VOLUME 98.8 FL (78-98); MEAN PLATELET VOLUME 9.4 FL (7.4-10.4); MONOCYTES # (AUTO) 0.4 X10'3 (0-0.9); MONOCYTES % (AUTO) 4.2 % (2-12); NEUTROPHILS # (AUTO) 7.1 X10'3 (1.8-7.7); NEUTROPHILS % (AUTO) 75.9 % (42-75); PLATELET COUNT 282 X10'3 (140-440); RED BLOOD COUNT 2.88 X10'6 (4.70-6.10); RED CELL DISTRIBUTION WIDTH 21.2 % (11.5-14.5); WHITE BLOOD COUNT 9.3 X10'3 (4.5-11.0)
[2019-02-09 22:49] LABS: ALBUMIN 1.6 G/DL (3.4-5.0); ANION GAP 7 (8-16); BLOOD UREA NITROGEN 30 MG/DL (7-18); BUN/CREATININE RATIO 33.7 (5.4-32.0); CHLORIDE 101 MMOL/L (99-107); CREATININE 0.89 MG/DL (0.60-1.10); GLUCOSE 131 MG/DL (70-104); MAGNESIUM 1.6 MG/DL (1.5-2.4); POTASSIUM 4.7 MMOL/L (3.5-5.1); SODIUM 136 MMOL/L (135-145); TOTAL CARBON DIOXIDE 27.9 MMOL/L (24-32); eGFR 83 ML/MIN
[2019-02-10] VITALS (25 sets, daily range): BP systolic 78–101; BP diastolic 48–65
[2019-02-10] MEDS: insulin regular, human vial - multi-dose SQ SCH ×4 (01:40→20:17)
[2019-02-10] MEDS: mineral oil/petrolatum ophthal oint EACHEYE SCH ×4 (01:41→20:15)
[2019-02-10] MEDS: ipratropium/albuterol 3ml nebule NEB SCH ×6 (03:03→23:10)
[2019-02-10 04:24] LABS: BASOPHILS # (AUTO) 0.1 X10'3 (0-0.2); BASOPHILS % (AUTO) 0.6 % (0-1); EOSINOPHILS # (AUTO) 0.2 X10'3 (0-0.9); EOSINOPHILS % (AUTO) 2.2 % (0-6); HEMATOCRIT 28.3 % (42.0-52.0); HEMOGLOBIN 9.2 g/dl (14.0-17.9); LYMPHOCYTES % (AUTO) 19.5 % (21-51); MEAN CORPUSCULAR HGB CONC 32.4 g/dL (33.0-36.5); MEAN CORPUSCULAR VOLUME 98.9 FL (78-98); MEAN PLATELET VOLUME 9.1 FL (7.4-10.4); MONOCYTES # (AUTO) 0.5 X10'3 (0-0.9); MONOCYTES % (AUTO) 4.5 % (2-12); NEUTROPHILS # (AUTO) 7.6 X10'3 (1.8-7.7); NEUTROPHILS % (AUTO) 73.2 % (42-75); PLATELET COUNT 265 X10'3 (140-440); RED BLOOD COUNT 2.87 X10'6 (4.70-6.10); RED CELL DISTRIBUTION WIDTH 21.1 % (11.5-14.5); WHITE BLOOD COUNT 10.4 X10'3 (4.5-11.0)
[2019-02-10] MEDS: Duosol 4K/3 Ca (w/calcium) 5,000 ML HE SCH ×6 (04:34→23:00)
[2019-02-10 05:01] LABS: ALANINE AMINOTRANSFERASE 61 U/L (12-78); ALBUMIN 1.7 G/DL (3.4-5.0); ALBUMIN/GLOBULIN RATIO 0.3 (1.1-1.5); ALKALINE PHOSPHATASE 848 IU/L (46-116); ANION GAP 7 (8-16); ASPARTATE AMINO TRANSFERASE 50 U/L (10-37); BLOOD UREA NITROGEN 30 MG/DL (7-18); BUN/CREATININE RATIO 35.3 (5.4-32.0); CALCIUM 8.1 MG/DL (8.5-10.1); CHLORIDE 103 MMOL/L (99-107); CREATININE 0.85 MG/DL (0.60-1.10); GLUCOSE 153 MG/DL (70-104); MAGNESIUM 2.2 MG/DL (1.5-2.4); PHOSPHORUS 3.2 MG/DL (2.3-4.5); POTASSIUM 4.9 MMOL/L (3.5-5.1); SODIUM 138 MMOL/L (135-145); TOTAL CARBON DIOXIDE 28.4 MMOL/L (24-32); eGFR 87 ML/MIN
--- NOTE | 2019-02-10 06:17 | NUR ---
Problems reprioritized. Patient report given, questions answered & plan of care reviewed with Heather LOOMIS.
--- NOTE | 2019-02-10 06:30 | NUR ---
Patient in room CICU 2011. I have received report from VLADISLAV Jain and had the opportunity to ask questions and assume patient care.
[2019-02-10 06:38] LABS: ANISOCYTOSIS 3+; PLATELET ESTIMATE NORMAL; POLYCHROMASIA FEW; TARGET CELLS FEW
[2019-02-10] MEDS: midodrine 5mg tablet PEG SCH ×2 (07:20→15:08)
[2019-02-10] MEDS: pantoprazole 40 MG vial IV SCH ×2 (07:20→20:15)
[2019-02-10] MEDS: piperacillin/tazo 3.375gm/50ml 50 ML IV SCH ×2 (07:20→15:08)
[2019-02-10] MEDS: lactobacillus rhamnosus 10,000 MMU CELLS/CAPSULE OGT SCH ×2 (07:20→20:15)
[2019-02-10] MEDS: heparin 25,000 UNIT/250ml bag 250 ML IV SCH (07:30)
[2019-02-10] MEDS: K, MAG and/or Phos replacement - Verify level? MC SCH (08:00)
[2019-02-10] MEDS ORDERED: albumin (human) 25% 100 ML IV solution IV ONE (09:55)
[2019-02-10 11:03] LABS: BASOPHILS # (AUTO) 0.1 X10'3 (0-0.2); BASOPHILS % (AUTO) 0.7 % (0-1); EOSINOPHILS # (AUTO) 0.2 X10'3 (0-0.9); HEMATOCRIT 28.2 % (42.0-52.0); LYMPHOCYTES # (AUTO) 1.8 X10'3 (1.1-4.8); LYMPHOCYTES % (AUTO) 18.2 % (21-51); MEAN CORPUSCULAR HEMOGLOBIN 31.5 PG (27.0-31.0); MEAN CORPUSCULAR HGB CONC 31.9 g/dL (33.0-36.5); MEAN CORPUSCULAR VOLUME 98.7 FL (78-98); MEAN PLATELET VOLUME 9.4 FL (7.4-10.4); MONOCYTES # (AUTO) 0.5 X10'3 (0-0.9); MONOCYTES % (AUTO) 4.8 % (2-12); NEUTROPHILS # (AUTO) 7.2 X10'3 (1.8-7.7); NEUTROPHILS % (AUTO) 74.3 % (42-75); PLATELET COUNT 282 X10'3 (140-440); RED BLOOD COUNT 2.85 X10'6 (4.70-6.10); RED CELL DISTRIBUTION WIDTH 21.2 % (11.5-14.5); WHITE BLOOD COUNT 9.8 X10'3 (4.5-11.0)
[2019-02-10 11:12] LABS: ALBUMIN 1.6 G/DL (3.4-5.0); ANION GAP 7 (8-16); BLOOD UREA NITROGEN 27 MG/DL (7-18); BUN/CREATININE RATIO 33.3 (5.4-32.0); CHLORIDE 103 MMOL/L (99-107); CREATININE 0.81 MG/DL (0.60-1.10); GLUCOSE 119 MG/DL (70-104); PHOSPHORUS 2.5 MG/DL (2.3-4.5); POTASSIUM 4.6 MMOL/L (3.5-5.1); SODIUM 139 MMOL/L (135-145); eGFR > 90 ML/MIN
[2019-02-10 11:21] LABS: HYPOCHROMASIA 1+; PLATELET ESTIMATE NORMAL; POIKILOCYTOSIS FEW; POLYCHROMASIA FEW
[2019-02-10 11:22] LABS: ANISOCYTOSIS 3+; TARGET CELLS FEW
[2019-02-10] MEDS: albumin (human) 25% 100ml IV 100 ML IV SCH (15:08)
[2019-02-10 16:31] LABS: BASOPHILS # (AUTO) 0.1 X10'3 (0-0.2); BASOPHILS % (AUTO) 0.8 % (0-1); EOSINOPHILS # (AUTO) 0.3 X10'3 (0-0.9); EOSINOPHILS % (AUTO) 3.1 % (0-6); HEMATOCRIT 26.1 % (42.0-52.0); HEMOGLOBIN 8.4 g/dl (14.0-17.9); LYMPHOCYTES # (AUTO) 1.9 X10'3 (1.1-4.8); LYMPHOCYTES % (AUTO) 20.1 % (21-51); MEAN CORPUSCULAR HEMOGLOBIN 31.8 PG (27.0-31.0); MEAN CORPUSCULAR HGB CONC 32.1 g/dL (33.0-36.5); MEAN PLATELET VOLUME 9.4 FL (7.4-10.4); MONOCYTES # (AUTO) 0.4 X10'3 (0-0.9); NEUTROPHILS # (AUTO) 6.7 X10'3 (1.8-7.7); PLATELET COUNT 259 X10'3 (140-440); RED BLOOD COUNT 2.64 X10'6 (4.70-6.10); WHITE BLOOD COUNT 9.3 X10'3 (4.5-11.0)
[2019-02-10 16:39] LABS: ALBUMIN 2.4 G/DL (3.4-5.0); ANION GAP 9 (8-16); BLOOD UREA NITROGEN 29 MG/DL (7-18); BUN/CREATININE RATIO 38.7 (5.4-32.0); CHLORIDE 100 MMOL/L (99-107); CREATININE 0.75 MG/DL (0.60-1.10); GLUCOSE 136 MG/DL (70-104); PHOSPHORUS 2.3 MG/DL (2.3-4.5); POTASSIUM 4.7 MMOL/L (3.5-5.1); SODIUM 138 MMOL/L (135-145); TOTAL CARBON DIOXIDE 29.4 MMOL/L (24-32); eGFR > 90 ML/MIN
--- NOTE | 2019-02-10 18:13 | NUR ---
Problems reprioritized. Patient report given, questions answered & plan of care reviewed with VLADISLAV Nur.
--- NOTE | 2019-02-10 18:16 | NUR ---
Patient in room CICU 2011. I have received report from kenzie morales and had the opportunity to ask questions and assume patient care.
--- NOTE | 2019-02-10 19:00 | NUR ---
pt is trached and not on sedation. pt nods yes and no appropriately to questions. cvvh is running. pt is recieveing tube feeding and tolerating it well. placed foam dressing under plastic hub of gt tube to prevent pressure area. gt tube insertion site has bloody drainage and is excoriated. pt right neck has wound developing from trach ties. optifoam in place. posterior back has a healing dti that is closed and intact, optifoam in place. toes are black bilaterally, boots in place. will continue to monitor
[2019-02-10] MEDS: insulin glargine (Lantus) pen - multi-dose SQ SCH (20:20)
--- NOTE | 2019-02-10 21:30 | NUR ---
cvvh machine clotted at pigtail. dialysis door person nurse notified. door person nurse coming in to change filter
[2019-02-10 22:14] LABS: BASOPHILS # (AUTO) 0.1 X10'3 (0-0.2); BASOPHILS % (AUTO) 0.6 % (0-1); EOSINOPHILS # (AUTO) 0.3 X10'3 (0-0.9); HEMATOCRIT 26.2 % (42.0-52.0); HEMOGLOBIN 8.3 g/dl (14.0-17.9); LYMPHOCYTES # (AUTO) 1.9 X10'3 (1.1-4.8); LYMPHOCYTES % (AUTO) 21.5 % (21-51); MEAN CORPUSCULAR HEMOGLOBIN 31.4 PG (27.0-31.0); MEAN CORPUSCULAR HGB CONC 31.8 g/dL (33.0-36.5); MEAN CORPUSCULAR VOLUME 98.5 FL (78-98); MEAN PLATELET VOLUME 9.3 FL (7.4-10.4); MONOCYTES # (AUTO) 0.5 X10'3 (0-0.9); NEUTROPHILS # (AUTO) 6.3 X10'3 (1.8-7.7); NEUTROPHILS % (AUTO) 69.9 % (42-75); PLATELET COUNT 274 X10'3 (140-440); RED BLOOD COUNT 2.66 X10'6 (4.70-6.10); RED CELL DISTRIBUTION WIDTH 20.9 % (11.5-14.5); WHITE BLOOD COUNT 9.1 X10'3 (4.5-11.0)
[2019-02-10 22:28] LABS: ALBUMIN 2.2 G/DL (3.4-5.0); ANION GAP 6 (8-16); BLOOD UREA NITROGEN 30 MG/DL (7-18); CALCIUM 8.3 MG/DL (8.5-10.1); CHLORIDE 103 MMOL/L (99-107); CREATININE 0.79 MG/DL (0.60-1.10); GLUCOSE 106 MG/DL (70-104); PHOSPHORUS 2.4 MG/DL (2.3-4.5); POTASSIUM 4.9 MMOL/L (3.5-5.1); SODIUM 138 MMOL/L (135-145); TOTAL CARBON DIOXIDE 29.4 MMOL/L (24-32); eGFR > 90 ML/MIN
[2019-02-10 22:45] LABS: HYPOCHROMASIA 1+; PLATELET ESTIMATE NORMAL
[2019-02-10 22:46] LABS: ANISOCYTOSIS 3+; POLYCHROMASIA 1+
[2019-02-10 22:47] LABS: TARGET CELLS FEW
[2019-02-11] VITALS (31 sets, daily range): BP systolic 80–104; BP diastolic 45–70
[2019-02-11] MEDS: midodrine 5mg tablet PEG SCH ×3 (00:04→17:50)
[2019-02-11] MEDS: albumin (human) 25% 100ml IV 100 ML IV SCH ×3 (00:05→16:00)
[2019-02-11] MEDS: piperacillin/tazo 3.375gm/50ml 50 ML IV SCH ×3 (00:11→17:40)
[2019-02-11] MEDS: mineral oil/petrolatum ophthal oint EACHEYE SCH ×4 (02:02→19:55)
[2019-02-11] MEDS: insulin regular, human vial - multi-dose SQ SCH ×2 (02:03→19:58)
[2019-02-11] MEDS: Duosol 4K/3 Ca (w/calcium) 5,000 ML HE SCH (03:20)
[2019-02-11] MEDS: ipratropium/albuterol 3ml nebule NEB SCH ×6 (03:21→22:32)
[2019-02-11 05:04] LABS: BASOPHILS # (AUTO) 0.1 X10'3 (0-0.2); BASOPHILS % (AUTO) 0.7 % (0-1); EOSINOPHILS # (AUTO) 0.4 X10'3 (0-0.9); EOSINOPHILS % (AUTO) 3.5 % (0-6); HEMATOCRIT 26.2 % (42.0-52.0); HEMOGLOBIN 8.4 g/dl (14.0-17.9); LYMPHOCYTES # (AUTO) 2.6 X10'3 (1.1-4.8); LYMPHOCYTES % (AUTO) 26.2 % (21-51); MEAN CORPUSCULAR HEMOGLOBIN 31.9 PG (27.0-31.0); MEAN CORPUSCULAR VOLUME 99.5 FL (78-98); MEAN PLATELET VOLUME 9.2 FL (7.4-10.4); MONOCYTES # (AUTO) 0.6 X10'3 (0-0.9); MONOCYTES % (AUTO) 5.6 % (2-12); NEUTROPHILS # (AUTO) 6.4 X10'3 (1.8-7.7); PLATELET COUNT 270 X10'3 (140-440); RED BLOOD COUNT 2.64 X10'6 (4.70-6.10); RED CELL DISTRIBUTION WIDTH 20.6 % (11.5-14.5)
[2019-02-11 05:17] LABS: ALANINE AMINOTRANSFERASE 49 U/L (12-78); ALBUMIN 2.5 G/DL (3.4-5.0); ALBUMIN/GLOBULIN RATIO 0.5 (1.1-1.5); ALKALINE PHOSPHATASE 833 IU/L (46-116); ANION GAP 7 (8-16); ASPARTATE AMINO TRANSFERASE 43 U/L (10-37); BLOOD UREA NITROGEN 26 MG/DL (7-18); BUN/CREATININE RATIO 35.6 (5.4-32.0); CALCIUM 8.5 MG/DL (8.5-10.1); CHLORIDE 102 MMOL/L (99-107); CREATININE 0.73 MG/DL (0.60-1.10); GLUCOSE 98 MG/DL (70-104); MAGNESIUM 1.8 MG/DL (1.5-2.4); PHOSPHORUS 2.1 MG/DL (2.3-4.5); POTASSIUM 4.8 MMOL/L (3.5-5.1); SODIUM 138 MMOL/L (135-145); TOTAL CARBON DIOXIDE 28.6 MMOL/L (24-32); TOTAL PROTEIN 7.4 G/DL (6.4-8.2); eGFR > 90 ML/MIN
--- NOTE | 2019-02-11 06:34 | NUR ---
Patient in room CICU 2011. I have received report from Shanthi LOOMIS and had the opportunity to ask questions and assume patient care. Patient laying in bed with eyes open, responds to questions with nods and shakes of the head. On ventilator 30% with a peep of 5 sating 100%. Levophed and heparin gtt infusing to L upper arm PICC, patient receiving CVVH with the goal of removing 125ml/hr. Vital signs stable will continue to monitor, no signs or symptoms of distress
[2019-02-11 07:28] LABS: ANISOCYTOSIS 3+; PLATELET ESTIMATE NORMAL
[2019-02-11 07:29] LABS: LARGE PLATELETS FEW; POIKILOCYTOSIS FEW; POLYCHROMASIA FEW
--- NOTE | 2019-02-11 07:50 | NUR ---
machine alarming venous air, trouble shot issue following on screen instructions, still alarming asked another CVVH certified RN to help trouble shoot, no success. Called english as a second language instructor HD nurse she is coming in to switch out the machine as there was a similar problem last night. We were unable to successfully return the patients blood approximate 184ml blood loss. color paste mixing supervisor and Dr. Yordan caballero
[2019-02-11] MEDS: K, MAG and/or Phos replacement - Verify level? MC SCH (08:00)
[2019-02-11] MEDS: pantoprazole 40 MG vial IV SCH (08:38)
[2019-02-11] MEDS: lactobacillus rhamnosus 10,000 MMU CELLS/CAPSULE OGT SCH ×2 (08:38→19:55)
--- NOTE | 2019-02-11 11:30 | NUR ---
patient had a large fabian red blood bowel movement, called DR. Farr, ordered to stop heparin gtt, q6 h/h, transfuse 1 unit now and recheck, and to start a Protonix gtt. No other new orders at this time
[2019-02-11 11:42] LABS: BASOPHILS # (AUTO) 0.1 X10'3 (0-0.2); BASOPHILS % (AUTO) 0.6 % (0-1); EOSINOPHILS # (AUTO) 0.3 X10'3 (0-0.9); EOSINOPHILS % (AUTO) 2.7 % (0-6); HEMATOCRIT 22.8 % (42.0-52.0); HEMOGLOBIN 7.5 g/dl (14.0-17.9); LYMPHOCYTES # (AUTO) 3.3 X10'3 (1.1-4.8); LYMPHOCYTES % (AUTO) 32.6 % (21-51); MEAN CORPUSCULAR HEMOGLOBIN 32.1 PG (27.0-31.0); MEAN CORPUSCULAR HGB CONC 32.8 g/dL (33.0-36.5); MEAN CORPUSCULAR VOLUME 97.8 FL (78-98); MEAN PLATELET VOLUME 9.5 FL (7.4-10.4); MONOCYTES # (AUTO) 0.3 X10'3 (0-0.9); MONOCYTES % (AUTO) 3.4 % (2-12); NEUTROPHILS # (AUTO) 6.1 X10'3 (1.8-7.7); NEUTROPHILS % (AUTO) 60.7 % (42-75); PLATELET COUNT 233 X10'3 (140-440); RED BLOOD COUNT 2.33 X10'6 (4.70-6.10); RED CELL DISTRIBUTION WIDTH 20.8 % (11.5-14.5); WHITE BLOOD COUNT 10.1 X10'3 (4.5-11.0)
[2019-02-11 11:44] LABS: ALBUMIN 2.7 G/DL (3.4-5.0); ANION GAP 8 (8-16); BLOOD UREA NITROGEN 30 MG/DL (7-18); BUN/CREATININE RATIO 38.5 (5.4-32.0); CALCIUM 7.7 MG/DL (8.5-10.1); CHLORIDE 103 MMOL/L (99-107); CREATININE 0.78 MG/DL (0.60-1.10); GLUCOSE 176 MG/DL (70-104); PHOSPHORUS 2.2 MG/DL (2.3-4.5); SODIUM 138 MMOL/L (135-145); TOTAL CARBON DIOXIDE 26.9 MMOL/L (24-32); eGFR > 90 ML/MIN
[2019-02-11] MEDS ORDERED: pantoprazole 40 MG vial IV ONE (12:45)
--- NOTE | 2019-02-11 13:20 | NUR ---
patient had another large fabian red blood bowel movement, the cvvh is also alarming high venous pressure, called [facility] to come in and reset the machine. Called Dr Farr regarding the second large bloody bowel movement and decreasing blood pressure despite increasing the levophed. He ordered a 1 liter bolus, 250ml of 5% albumin, vitamin K, DDADP and 2 more units of PRBC with a repeat H/H after second unit of blood and a pt and ptt.
[2019-02-11] MEDS: pantoprazole 40MG/NS 100ML BAG 100 ML IV SCH ×3 (13:24→21:00)
--- NOTE | 2019-02-11 14:00 | NUR ---
Dr. Farr called back to state to keep patient 500cc positive on his I/O no other new orders at this time
--- NOTE | 2019-02-11 14:00 | NUR ---
patient condition changed, md notified unable to obtain the 1400 blood sugar due the greater need of blood products
--- NOTE | 2019-02-11 15:30 | NUR ---
screen printing machine operator Isabela spoke with Dr. Farr whom stated to leave the CVVH machine down for tonight, will possibly restart in AM when patient is more hemodynamically stable. He stated that the TDC line can be used if there are no other ports available for infusions if not in use then Hep lock the TDC ports
[2019-02-11 16:08] LABS: HEMOGLOBIN 7.2 g/dl (14.0-17.9); MEAN CORPUSCULAR HEMOGLOBIN 31.4 PG (27.0-31.0); MEAN CORPUSCULAR HGB CONC 32.9 g/dL (33.0-36.5); MEAN CORPUSCULAR VOLUME 95.4 FL (78-98); MEAN PLATELET VOLUME 9.3 FL (7.4-10.4); PLATELET COUNT 210 X10'3 (140-440); RED BLOOD COUNT 2.28 X10'6 (4.70-6.10); RED CELL DISTRIBUTION WIDTH 20.6 % (11.5-14.5); WHITE BLOOD COUNT 9.7 X10'3 (4.5-11.0)
[2019-02-11 16:16] LABS: HEMATOCRIT 21.8 % (42.0-52.0)
[2019-02-11] MEDS ORDERED: albumin (Human) 5% 250ml 250 ML IV ONE (16:19)
--- NOTE | 2019-02-11 16:40 | NUR ---
patient has had another large fabian red blood bowel movement, called Dr. Farr he stated to repeat H/H once the second unit is done infusing. He state that the patient will likely go for a NM scan tomorrow if he continues to bleed over night.
[2019-02-11] MEDS ORDERED: desmopressin inj. 20 MCG in normal saline 100ml IV soln 100 ML IV ONE (16:50)
[2019-02-11] MEDS ORDERED: heparin 1,000 units/ml 10ml inj HE ONE ×2 (17:25)
[2019-02-11] MEDS ORDERED: phytonadione inj. 5 MG in normal saline 100ml IV soln 99.5 ML IV ONE (17:40)
--- NOTE | 2019-02-11 18:04 | NUR ---
02/11/2019 1600. NOTICED THAT PT DOES HAVE A VERY MINOR PRESSURE/ SKIN BREAKDOWN SORE NEAR RIGHT COLLAR BONE, FROM FLANGE SITTING ON THAT AREA DESPITE PLACING OPTIFOAM. NURSE (VLADISLAV KWON) AWARE. Addendum: 02/11/19 at 1806 [address] Amended: Links added.
--- NOTE | 2019-02-11 18:30 | NUR ---
Problems reprioritized. Patient report given, questions answered & plan of care reviewed with Cheryl LOOMIS.
--- NOTE | 2019-02-11 18:40 | NUR ---
Patient in room CICU 2011. I have received report from Kristina morales and had the opportunity to ask questions and assume patient care.
[2019-02-11] MEDS: heparin 25,000 UNIT/250ml bag 250 ML IV SCH (18:43)
--- NOTE | 2019-02-11 19:24 | NUR ---
pt is trached and not on sedation. pt nods yes and no appropriately to questions. cvvh is off due to clotting and the pt bleeding. cvvh to resume tomorrow per md rene. pt is passing fabian bloody stools. pt has a protonix drip and is receiving culturelle capsules. pt lung sounds are clear throughout. pt is recieveing tube feeding and tolerating it well. placed foam dressing under plastic hub of gt tube to prevent pressure area. gt tube insertion site has bloody drainage and is excoriated. pt right neck has wound developing from trach ties. optifoam in place. trach foam changed. trach site weeping and has green respiratory secretions oozing out from trach. site. posterior back has a healing dti that is closed and intact, optifoam in place. toes are black bilaterally, boots in place. will continue to monitor
[2019-02-11] MEDS: insulin glargine (Lantus) pen - multi-dose SQ SCH (19:58)
[2019-02-11 20:07] LABS: ALBUMIN 2.4 G/DL (3.4-5.0); ANION GAP 10 (8-16); BLOOD UREA NITROGEN 36 MG/DL (7-18); BUN/CREATININE RATIO 40.4 (5.4-32.0); CALCIUM 7.7 MG/DL (8.5-10.1); CHLORIDE 104 MMOL/L (99-107); CREATININE 0.89 MG/DL (0.60-1.10); GLUCOSE 245 MG/DL (70-104); PHOSPHORUS 2.8 MG/DL (2.3-4.5); POTASSIUM 5.5 MMOL/L (3.5-5.1); SODIUM 139 MMOL/L (135-145); TOTAL CARBON DIOXIDE 25.2 MMOL/L (24-32); eGFR 83 ML/MIN
[2019-02-11 20:09] LABS: BASOPHILS # (AUTO) 0.1 X10'3 (0-0.2); BASOPHILS % (AUTO) 0.5 % (0-1); EOSINOPHILS # (AUTO) 0.1 X10'3 (0-0.9); EOSINOPHILS % (AUTO) 1.3 % (0-6); HEMATOCRIT 27.2 % (42.0-52.0); LYMPHOCYTES # (AUTO) 3.3 X10'3 (1.1-4.8); LYMPHOCYTES % (AUTO) 29.9 % (21-51); MEAN CORPUSCULAR HGB CONC 33.1 g/dL (33.0-36.5); MEAN CORPUSCULAR VOLUME 93.7 FL (78-98); MEAN PLATELET VOLUME 9.3 FL (7.4-10.4); MONOCYTES # (AUTO) 0.6 X10'3 (0-0.9); MONOCYTES % (AUTO) 5.3 % (2-12); NEUTROPHILS # (AUTO) 6.9 X10'3 (1.8-7.7); PLATELET COUNT 188 X10'3 (140-440); RED CELL DISTRIBUTION WIDTH 19.7 % (11.5-14.5); WHITE BLOOD COUNT 10.9 X10'3 (4.5-11.0)
--- NOTE | 2019-02-11 20:59 | NUR ---
cvvh is down. k level is 5.5. md notified. no new orders at this time.
[2019-02-12] VITALS (24 sets, daily range): BP systolic 84–105; BP diastolic 53–66
[2019-02-12] MEDS: midodrine 5mg tablet PEG SCH ×3 (00:13→15:26)
[2019-02-12] MEDS: HYDROcodone/acetaminophen 7.5MG/325MG per 15ml UD CUP PEG PRN (00:13)
[2019-02-12] MEDS: piperacillin/tazo 3.375gm/50ml 50 ML IV SCH ×3 (00:13→15:26)
[2019-02-12] MEDS: albumin (human) 25% 100ml IV 100 ML IV SCH ×3 (00:14→15:27)
[2019-02-12] MEDS: pantoprazole 40MG/NS 100ML BAG 100 ML IV SCH ×4 (01:10→19:40)
[2019-02-12] MEDS: mineral oil/petrolatum ophthal oint EACHEYE SCH ×4 (01:57→19:40)
[2019-02-12] MEDS: insulin regular, human vial - multi-dose SQ SCH ×3 (01:59→19:49)
[2019-02-12] MEDS: ipratropium/albuterol 3ml nebule NEB SCH ×6 (02:38→22:31)
[2019-02-12 03:02] LABS: ALANINE AMINOTRANSFERASE 39 U/L (12-78); ALBUMIN 2.6 G/DL (3.4-5.0); ALBUMIN/GLOBULIN RATIO 0.7 (1.1-1.5); ALKALINE PHOSPHATASE 558 IU/L (46-116); ANION GAP 9 (8-16); ASPARTATE AMINO TRANSFERASE 34 U/L (10-37); BILIRUBIN,TOTAL 1.6 MG/DL (0.1-1.0); BLOOD UREA NITROGEN 44 MG/DL (7-18); BUN/CREATININE RATIO 42.3 (5.4-32.0); CALCIUM 7.5 MG/DL (8.5-10.1); CHLORIDE 104 MMOL/L (99-107); CREATININE 1.04 MG/DL (0.60-1.10); GLUCOSE 156 MG/DL (70-104); MAGNESIUM 1.7 MG/DL (1.5-2.4); PHOSPHORUS 2.7 MG/DL (2.3-4.5); POTASSIUM 5.3 MMOL/L (3.5-5.1); SODIUM 139 MMOL/L (135-145); TOTAL CARBON DIOXIDE 25.9 MMOL/L (24-32); TOTAL PROTEIN 6.6 G/DL (6.4-8.2); eGFR 69 ML/MIN
[2019-02-12 03:07] LABS: BASOPHILS # (AUTO) 0.1 X10'3 (0-0.2); BASOPHILS % (AUTO) 0.6 % (0-1); EOSINOPHILS # (AUTO) 0.2 X10'3 (0-0.9); EOSINOPHILS % (AUTO) 1.5 % (0-6); HEMATOCRIT 25.7 % (42.0-52.0); HEMOGLOBIN 8.6 g/dl (14.0-17.9); LYMPHOCYTES # (AUTO) 3.1 X10'3 (1.1-4.8); LYMPHOCYTES % (AUTO) 29.3 % (21-51); MEAN CORPUSCULAR HEMOGLOBIN 30.9 PG (27.0-31.0); MEAN CORPUSCULAR HGB CONC 33.3 g/dL (33.0-36.5); MEAN CORPUSCULAR VOLUME 92.8 FL (78-98); MEAN PLATELET VOLUME 9.7 FL (7.4-10.4); MONOCYTES # (AUTO) 0.6 X10'3 (0-0.9); NEUTROPHILS # (AUTO) 6.7 X10'3 (1.8-7.7); NEUTROPHILS % (AUTO) 62.6 % (42-75); PLATELET COUNT 189 X10'3 (140-440); RED BLOOD COUNT 2.77 X10'6 (4.70-6.10); RED CELL DISTRIBUTION WIDTH 19.9 % (11.5-14.5); WHITE BLOOD COUNT 10.7 X10'3 (4.5-11.0)
[2019-02-12 04:15] LABS: ABG BASE EXCESS -1.7 mmol/L (-2.0-3.0); ABG HCO3 21.8 mmol/L (22.0-26.0); ABG OXYGEN SATURATION 97.3 % (95-98); ABG PH (T) 7.451 (7.350-7.450); ABG PO2 (T) 92.7 mmHg (83-108); ALLEN'S TEST Positive; FMetHb 0.3 % (0.3-1.12); MINUTE VOLUME 16 L/min; PATIENT TEMPERATURE 36.8; PEEP 5 cm H2O; RESPIRATORY RATE 0 b/min; RESPIRATORY RATE (OBSERVED) 34 b/min; TIDAL VOLUME 502 mL; TOTAL HEMOGLOBIN 9.2 G/dl (14.0-17.9)
--- NOTE | 2019-02-12 06:30 | NUR ---
Patient in room CICU 2011. I have received report from Shanthi LOOMIS and had the opportunity to ask questions and assume patient care. Patient in bed with eyes open making clicking noise with his tongue, patient has trach in place on 30% fio2 with a peep of 5 sating 99-100%, Levophed and Protonix infusing to L upper arm Picc, Pt has a L TDC that is hep locked, tube feeding infusing at goal rate to peg tube, vital signs stable no signs or symptoms of distress will continue to monitor
[2019-02-12] MEDS: lactobacillus rhamnosus 10,000 MMU CELLS/CAPSULE OGT SCH ×2 (07:45→19:40)
[2019-02-12] MEDS: K, MAG and/or Phos replacement - Verify level? MC SCH (08:00)
--- NOTE | 2019-02-12 08:00 | NUR ---
Patient had another moderate bloody stool, made aware. No new orders at this time
--- NOTE | 2019-02-12 08:20 | NUR ---
Per Dr. Farr patient will receive HD today as he still has an active bleed, will not resume CVVH until the bleed is resolved, Dr. Farr also stated that he is going to consult the GI lab and get him on the schedule for today. He ordered to have blood cultures drawn as patients white count is rising. No other new orders at this time
[2019-02-12] MEDS ORDERED: normal saline 1000ml 100 ML IV PRN (09:03)
[2019-02-12] MEDS ORDERED: epoetin 20,000 units/ml inj IV ONE ×2 (09:05→09:10)
[2019-02-12] MEDS ORDERED: albumin (human) 25% 100ml IV 100 ML IV PRN ×2 (09:05→09:10)
[2019-02-12] MEDS ORDERED: heparin 1,000 units/ml 10ml inj HE ONE ×4 (09:10→09:15)
[2019-02-12] MEDS: Dextrose 10%-water IV solution 1,000 ML IV SCH ×2 (09:53→22:10)
--- NOTE | 2019-02-12 10:04 | NUR ---
GI lab called back they will try and fit him in the schedule this afternoon, GI label tacker requested that the patient be made NPO as of now, started patient on D10 per protocol as patient is on tube feed and has been covered for carb intake with humalin this AM.
[2019-02-12 10:34] LABS: BASOPHILS # (AUTO) 0.1 X10'3 (0-0.2); BASOPHILS % (AUTO) 1.1 % (0-1); EOSINOPHILS # (AUTO) 0.3 X10'3 (0-0.9); EOSINOPHILS % (AUTO) 2.6 % (0-6); HEMATOCRIT 23.4 % (42.0-52.0); HEMOGLOBIN 7.9 g/dl (14.0-17.9); LYMPHOCYTES # (AUTO) 2.9 X10'3 (1.1-4.8); LYMPHOCYTES % (AUTO) 28.9 % (21-51); MEAN CORPUSCULAR HEMOGLOBIN 30.9 PG (27.0-31.0); MEAN CORPUSCULAR HGB CONC 33.7 g/dL (33.0-36.5); MEAN CORPUSCULAR VOLUME 91.7 FL (78-98); MEAN PLATELET VOLUME 9.3 FL (7.4-10.4); MONOCYTES # (AUTO) 0.4 X10'3 (0-0.9); MONOCYTES % (AUTO) 3.9 % (2-12); NEUTROPHILS # (AUTO) 6.3 X10'3 (1.8-7.7); NEUTROPHILS % (AUTO) 63.5 % (42-75); PLATELET COUNT 175 X10'3 (140-440); RED BLOOD COUNT 2.56 X10'6 (4.70-6.10); RED CELL DISTRIBUTION WIDTH 19.8 % (11.5-14.5)
[2019-02-12 10:37] LABS: ANISOCYTOSIS 2+; PLATELET ESTIMATE NORMAL; POLYCHROMASIA 1+; TOTAL CELLS COUNTED 100
[2019-02-12] MEDS ORDERED: MIDAZolam 5mg/5ml vial ONE (10:59)
[2019-02-12] MEDS ORDERED: fentaNYL/PF 50MCG/1 ML 2ML syringe ONE (10:59)
[2019-02-12] MEDS ORDERED: LIDOcaine Viscous 15ml cup ONE (10:59)
--- NOTE | 2019-02-12 14:08 | NUR ---
GI lab called stated that patient will not be going today to be scoped that he will be going tomorrow. Stated to turn the tube feed back on and to shut it off tomorrow 02/12/19 at 0500. No other new orders at this time
[2019-02-12] MEDS: NORepinephrine 8mg/ 250ml NS 250 ML IV PRN (15:47)
--- NOTE | 2019-02-12 15:58 | NUR ---
F/U (02/12): Pt is awake, sometimes oriented and sometimes not per MD. Pt had 5 bloody stools yesterday per RN. Currently on protonix drip and MD has requested GI consult. Pt clotted off the system and CVVH is on held, HD today per MD. Pt is still on Levophed per MD. He has some secretions surrounding the tracheostomy and surrounding the PEG tube, it may need to be replaced and pt would need to be NPO for replacement, otherwise pt is tolerating TF well and no changes to nutrition intervention. Tolerate TF at goal. LBM 02/11. Will continue to monitor. Recommendations: 1. Cont.PEG TF using Vital High protein at 85ml/hr goal; to provide 2040ml fluid, 2040kcals, 1705ml free water, and 179g protein. 2. Additional free water per clinic cma on HD 3. Prealbumin Q /; daily wts 4. Routine bowel care Addendum: 02/12/19 at [address] Amended: Links added. Addendum: 02/12/19 at [address] RD Approves
[2019-02-12 16:45] LABS: BASOPHILS # (AUTO) 0.1 X10'3 (0-0.2); BASOPHILS % (AUTO) 0.7 % (0-1); EOSINOPHILS # (AUTO) 0.3 X10'3 (0-0.9); EOSINOPHILS % (AUTO) 2.4 % (0-6); HEMATOCRIT 23.9 % (42.0-52.0); HEMOGLOBIN 7.9 g/dl (14.0-17.9); LYMPHOCYTES # (AUTO) 4.2 X10'3 (1.1-4.8); LYMPHOCYTES % (AUTO) 32.1 % (21-51); MEAN CORPUSCULAR HEMOGLOBIN 30.5 PG (27.0-31.0); MEAN CORPUSCULAR HGB CONC 33.1 g/dL (33.0-36.5); MEAN CORPUSCULAR VOLUME 92.2 FL (78-98); MONOCYTES # (AUTO) 0.7 X10'3 (0-0.9); MONOCYTES % (AUTO) 5.1 % (2-12); NEUTROPHILS # (AUTO) 7.7 X10'3 (1.8-7.7); NEUTROPHILS % (AUTO) 59.7 % (42-75); PLATELET COUNT 177 X10'3 (140-440); RED CELL DISTRIBUTION WIDTH 19.4 % (11.5-14.5)
--- NOTE | 2019-02-12 18:24 | NUR ---
Problems reprioritized. Patient report given, questions answered & plan of care reviewed with Shanthi LOOMIS.
--- NOTE | 2019-02-12 18:30 | NUR ---
Patient in room CICU 2011. I have received report from richard morales and had the opportunity to ask questions and assume patient care.
[2019-02-12] MEDS: zinc oxide ointment 30gm tube TP PRN (19:43)
[2019-02-12] MEDS: insulin glargine (Lantus) pen - multi-dose SQ SCH (19:49)
[2019-02-13] VITALS (26 sets, daily range): BP systolic 79–106; BP diastolic 51–68
[2019-02-13] MEDS: midodrine 5mg tablet PEG SCH ×3 (00:15→16:14)
[2019-02-13] MEDS: piperacillin/tazo 3.375gm/50ml 50 ML IV SCH ×3 (00:16→16:14)
[2019-02-13] MEDS: pantoprazole 40MG/NS 100ML BAG 100 ML IV SCH ×6 (01:00→21:00)
--- NOTE | 2019-02-13 01:00 | NUR ---
PT NPO FOR PROCEDURE. D10 INFUSING
[2019-02-13] MEDS: mineral oil/petrolatum ophthal oint EACHEYE SCH ×4 (02:22→19:57)
[2019-02-13] MEDS: ipratropium/albuterol 3ml nebule NEB SCH ×6 (02:38→22:32)
[2019-02-13 04:49] LABS: ALANINE AMINOTRANSFERASE 38 U/L (12-78); ALBUMIN 2.6 G/DL (3.4-5.0); ALBUMIN/GLOBULIN RATIO 0.7 (1.1-1.5); ALKALINE PHOSPHATASE 572 IU/L (46-116); ANION GAP 11 (8-16); ASPARTATE AMINO TRANSFERASE 44 U/L (10-37); BASOPHILS # (AUTO) 0.1 X10'3 (0-0.2); BASOPHILS % (AUTO) 1.2 % (0-1); BILIRUBIN,TOTAL 1.2 MG/DL (0.1-1.0); BLOOD UREA NITROGEN 47 MG/DL (7-18); BUN/CREATININE RATIO 41.6 (5.4-32.0); CALCIUM 7.6 MG/DL (8.5-10.1); CHLORIDE 101 MMOL/L (99-107); CREATININE 1.13 MG/DL (0.60-1.10); EOSINOPHILS # (AUTO) 0.3 X10'3 (0-0.9); EOSINOPHILS % (AUTO) 2.3 % (0-6); GLUCOSE 205 MG/DL (70-104); HEMATOCRIT 24.8 % (42.0-52.0); HEMOGLOBIN 8.1 g/dl (14.0-17.9); LYMPHOCYTES # (AUTO) 3.6 X10'3 (1.1-4.8); LYMPHOCYTES % (AUTO) 31.5 % (21-51); MAGNESIUM 1.8 MG/DL (1.5-2.4); MEAN CORPUSCULAR HEMOGLOBIN 30.2 PG (27.0-31.0); MEAN CORPUSCULAR HGB CONC 32.7 g/dL (33.0-36.5); MEAN CORPUSCULAR VOLUME 92.4 FL (78-98); MEAN PLATELET VOLUME 9.4 FL (7.4-10.4); MONOCYTES # (AUTO) 0.6 X10'3 (0-0.9); MONOCYTES % (AUTO) 5.6 % (2-12); NEUTROPHILS # (AUTO) 6.9 X10'3 (1.8-7.7); NEUTROPHILS % (AUTO) 59.4 % (42-75); PHOSPHORUS 3.4 MG/DL (2.3-4.5); PLATELET COUNT 203 X10'3 (140-440); POTASSIUM 4.7 MMOL/L (3.5-5.1); RED BLOOD COUNT 2.68 X10'6 (4.70-6.10); RED CELL DISTRIBUTION WIDTH 19.6 % (11.5-14.5); SODIUM 138 MMOL/L (135-145); TOTAL CARBON DIOXIDE 25.7 MMOL/L (24-32); TOTAL PROTEIN 6.6 G/DL (6.4-8.2); WHITE BLOOD COUNT 11.6 X10'3 (4.5-11.0); eGFR 63 ML/MIN
--- NOTE | 2019-02-13 06:30 | NUR ---
Patient in room CICU 2011. I have received report from Shanthi LOOMIS and had the opportunity to ask questions and assume patient care. Patient laying in bed with eyes open, on ventilator trach, sating 100%, D10 , protonic, and levophed infusing to L upper arm picc. Vital signs stable will continue to monitor
[2019-02-13 06:57] LABS: ANISOCYTOSIS 2+; PLATELET ESTIMATE NORMAL
[2019-02-13 06:58] LABS: LARGE PLATELETS FEW; POLYCHROMASIA 1+
[2019-02-13] MEDS: K, MAG and/or Phos replacement - Verify level? MC SCH (08:00)
[2019-02-13] MEDS: lactobacillus rhamnosus 10,000 MMU CELLS/CAPSULE OGT SCH ×2 (08:00→19:57)
[2019-02-13] MEDS: insulin regular, human vial - multi-dose SQ SCH ×2 (08:22→14:25)
[2019-02-13] MEDS: Dextrose 10%-water IV solution 1,000 ML IV SCH (09:31)
[2019-02-13] MEDS ORDERED: tPA-cathflo 2 MG/2 ml IV flush IVF ONE (09:35)
[2019-02-13 11:45] LABS: BASOPHILS # (AUTO) 0.1 X10'3 (0-0.2); BASOPHILS % (AUTO) 0.7 % (0-1); EOSINOPHILS # (AUTO) 0.2 X10'3 (0-0.9); HEMATOCRIT 25.8 % (42.0-52.0); HEMOGLOBIN 8.5 g/dl (14.0-17.9); LYMPHOCYTES # (AUTO) 4.3 X10'3 (1.1-4.8); LYMPHOCYTES % (AUTO) 36.7 % (21-51); MEAN CORPUSCULAR HEMOGLOBIN 30.5 PG (27.0-31.0); MEAN CORPUSCULAR HGB CONC 32.8 g/dL (33.0-36.5); MEAN CORPUSCULAR VOLUME 92.9 FL (78-98); MEAN PLATELET VOLUME 9.3 FL (7.4-10.4); MONOCYTES # (AUTO) 0.5 X10'3 (0-0.9); MONOCYTES % (AUTO) 4.5 % (2-12); NEUTROPHILS # (AUTO) 6.6 X10'3 (1.8-7.7); NEUTROPHILS % (AUTO) 56.1 % (42-75); PLATELET COUNT 213 X10'3 (140-440); RED BLOOD COUNT 2.77 X10'6 (4.70-6.10); RED CELL DISTRIBUTION WIDTH 19.2 % (11.5-14.5); WHITE BLOOD COUNT 11.8 X10'3 (4.5-11.0)
[2019-02-13] MEDS ORDERED: LIDOcaine Viscous 15ml cup ONE (12:41)
[2019-02-13] MEDS ORDERED: MIDAZolam 5mg/5ml vial ONE (12:41)
[2019-02-13] MEDS ORDERED: fentaNYL/PF 50MCG/1 ML 2ML syringe ONE (12:41)
[2019-02-13 13:11] LABS: ANISOCYTOSIS 2+; PLATELET ESTIMATE NORMAL; TOTAL CELLS COUNTED 100
[2019-02-13 13:12] LABS: HYPOCHROMASIA 1+; POLYCHROMASIA FEW; SCHISTOCYTES FEW
--- NOTE | 2019-02-13 13:20 | NUR ---
Gi Lab here to perform EGD, 2mg of versed given patient tolerated procedure well.
--- NOTE | 2019-02-13 14:00 | NUR ---
Dr. Guzmán came up from IR to adjust the Peg tube, during the EGD it was reported that it was not advanced far enough into the stomach. Sutures removed and the peg tube successfully advanced, Dr. Guzmán stated to keep it as loose as possible so as to not further irritate the skin around the insertion site
--- NOTE | 2019-02-13 14:20 | NUR ---
Per Dr. Farr hold tube feeds for now and decrease the rate of D10 to 50ml/hr. can use peg tube for meds still. Will readress the restart of feeds tomorrow
[2019-02-13] MEDS: NORepinephrine 8mg/ 250ml NS 250 ML IV PRN (15:06)
[2019-02-13] MEDS: HYDROcodone/acetaminophen 7.5MG/325MG per 15ml UD CUP PEG PRN (16:16)
[2019-02-13 17:03] LABS: BASOPHILS # (AUTO) 0.1 X10'3 (0-0.2); BASOPHILS % (AUTO) 0.6 % (0-1); EOSINOPHILS # (AUTO) 0.2 X10'3 (0-0.9); EOSINOPHILS % (AUTO) 1.9 % (0-6); HEMATOCRIT 24.8 % (42.0-52.0); HEMOGLOBIN 8.1 g/dl (14.0-17.9); LYMPHOCYTES # (AUTO) 4.8 X10'3 (1.1-4.8); MEAN CORPUSCULAR HEMOGLOBIN 30.6 PG (27.0-31.0); MEAN CORPUSCULAR HGB CONC 32.8 g/dL (33.0-36.5); MEAN CORPUSCULAR VOLUME 93.2 FL (78-98); MEAN PLATELET VOLUME 9.1 FL (7.4-10.4); MONOCYTES # (AUTO) 0.7 X10'3 (0-0.9); MONOCYTES % (AUTO) 5.4 % (2-12); NEUTROPHILS # (AUTO) 6.6 X10'3 (1.8-7.7); NEUTROPHILS % (AUTO) 53.1 % (42-75); PLATELET COUNT 204 X10'3 (140-440); RED BLOOD COUNT 2.66 X10'6 (4.70-6.10); RED CELL DISTRIBUTION WIDTH 19.5 % (11.5-14.5); WHITE BLOOD COUNT 12.4 X10'3 (4.5-11.0)
--- NOTE | 2019-02-13 18:20 | NUR ---
Problems reprioritized. Patient report given, questions answered & plan of care reviewed with Shanthi Powell.
--- NOTE | 2019-02-13 18:57 | NUR ---
Patient in room CICU 2011. I have received report and had the opportunity to ask questions and assume patient care.
[2019-02-13] MEDS: dextrose 50%-water 50ml dispensing syringe IV PRN (19:51)
[2019-02-13] MEDS: insulin glargine (Lantus) pen - multi-dose SQ SCH (21:00)
[2019-02-13 23:12] LABS: BASOPHILS # (AUTO) 0.1 X10'3 (0-0.2); BASOPHILS % (AUTO) 0.7 % (0-1); EOSINOPHILS # (AUTO) 0.3 X10'3 (0-0.9); EOSINOPHILS % (AUTO) 2.4 % (0-6); HEMATOCRIT 25.6 % (42.0-52.0); HEMOGLOBIN 8.3 g/dl (14.0-17.9); LYMPHOCYTES # (AUTO) 4.1 X10'3 (1.1-4.8); LYMPHOCYTES % (AUTO) 35.4 % (21-51); MEAN CORPUSCULAR HEMOGLOBIN 30.2 PG (27.0-31.0); MEAN CORPUSCULAR HGB CONC 32.2 g/dL (33.0-36.5); MEAN CORPUSCULAR VOLUME 93.7 FL (78-98); MEAN PLATELET VOLUME 9.3 FL (7.4-10.4); MONOCYTES # (AUTO) 0.6 X10'3 (0-0.9); MONOCYTES % (AUTO) 5.4 % (2-12); NEUTROPHILS # (AUTO) 6.5 X10'3 (1.8-7.7); NEUTROPHILS % (AUTO) 56.1 % (42-75); PLATELET COUNT 222 X10'3 (140-440); RED BLOOD COUNT 2.74 X10'6 (4.70-6.10); RED CELL DISTRIBUTION WIDTH 19.2 % (11.5-14.5); WHITE BLOOD COUNT 11.6 X10'3 (4.5-11.0)
[2019-02-14] VITALS (24 sets, daily range): BP systolic 90–108; BP diastolic 52–76
[2019-02-14] MEDS: midodrine 5mg tablet PEG SCH ×3 (00:14→16:00)
[2019-02-14] MEDS: piperacillin/tazo 3.375gm/50ml 50 ML IV SCH ×3 (00:19→16:13)
[2019-02-14 01:12] LABS: ANISOCYTOSIS 2+; PLATELET ESTIMATE NORMAL; POLYCHROMASIA FEW
[2019-02-14] MEDS: pantoprazole 40MG/NS 100ML BAG 100 ML IV SCH ×5 (01:20→21:42)
[2019-02-14] MEDS: mineral oil/petrolatum ophthal oint EACHEYE SCH ×4 (02:14→21:00)
[2019-02-14] MEDS: ipratropium/albuterol 3ml nebule NEB SCH ×6 (02:36→23:18)
[2019-02-14 05:02] LABS: BASOPHILS # (AUTO) 0.1 X10'3 (0-0.2); BASOPHILS % (AUTO) 0.5 % (0-1); EOSINOPHILS # (AUTO) 0.3 X10'3 (0-0.9); EOSINOPHILS % (AUTO) 2.3 % (0-6); HEMATOCRIT 26.8 % (42.0-52.0); HEMOGLOBIN 8.6 g/dl (14.0-17.9); LYMPHOCYTES # (AUTO) 4.4 X10'3 (1.1-4.8); LYMPHOCYTES % (AUTO) 36.6 % (21-51); MEAN CORPUSCULAR HEMOGLOBIN 30.6 PG (27.0-31.0); MEAN CORPUSCULAR HGB CONC 32.1 g/dL (33.0-36.5); MEAN CORPUSCULAR VOLUME 95.4 FL (78-98); MEAN PLATELET VOLUME 9.4 FL (7.4-10.4); MONOCYTES # (AUTO) 0.7 X10'3 (0-0.9); MONOCYTES % (AUTO) 5.5 % (2-12); NEUTROPHILS # (AUTO) 6.6 X10'3 (1.8-7.7); NEUTROPHILS % (AUTO) 55.1 % (42-75); PLATELET COUNT 208 X10'3 (140-440); RED BLOOD COUNT 2.81 X10'6 (4.70-6.10); RED CELL DISTRIBUTION WIDTH 19.2 % (11.5-14.5); WHITE BLOOD COUNT 11.9 X10'3 (4.5-11.0)
[2019-02-14 05:22] LABS: ALANINE AMINOTRANSFERASE 46 U/L (12-78); ALBUMIN 2.3 G/DL (3.4-5.0); ALBUMIN/GLOBULIN RATIO 0.5 (1.1-1.5); ALKALINE PHOSPHATASE 519 IU/L (46-116); ANION GAP 16 (8-16); ASPARTATE AMINO TRANSFERASE 51 U/L (10-37); BILIRUBIN,TOTAL 1.3 MG/DL (0.1-1.0); BLOOD UREA NITROGEN 56 MG/DL (7-18); BUN/CREATININE RATIO 35.2 (5.4-32.0); CALCIUM 7.6 MG/DL (8.5-10.1); CHLORIDE 97 MMOL/L (99-107); CREATININE 1.59 MG/DL (0.60-1.10); GLUCOSE 92 MG/DL (70-104); MAGNESIUM 1.9 MG/DL (1.5-2.4); POTASSIUM 5.2 MMOL/L (3.5-5.1); SODIUM 134 MMOL/L (135-145); TOTAL CARBON DIOXIDE 21.1 MMOL/L (24-32); TOTAL PROTEIN 6.9 G/DL (6.4-8.2); eGFR 42 ML/MIN
[2019-02-14 07:01] LABS: ANISOCYTOSIS 2+; LARGE PLATELETS FEW; PLATELET ESTIMATE NORMAL; POLYCHROMASIA 1+
[2019-02-14] MEDS ORDERED: Dextrose 10%-water IV solution 1,000 ML ONE (07:02)
[2019-02-14] MEDS: K, MAG and/or Phos replacement - Verify level? MC SCH (07:50)
[2019-02-14] MEDS: lactobacillus rhamnosus 10,000 MMU CELLS/CAPSULE OGT SCH ×2 (08:00→21:00)
--- NOTE | 2019-02-14 08:22 | NUR ---
Called IR, spoke with RN who will have the IR PA come and evaluate PEG tube to see if it is safe for use.
[2019-02-14] MEDS: diatr meglu/diatrizoate 30ml oral sol.-(3 dose) bottle PO SCH ×3 (09:27→15:00)
[2019-02-14] MEDS: Dextrose 10%-water IV solution 1,000 ML IV SCH (09:40)
[2019-02-14] MEDS ORDERED: heparin 1,000 units/ml 10ml inj HE ONE ×2 (10:00)
[2019-02-14] MEDS ORDERED: epoetin 20,000 units/ml inj IV ONE (10:00)
[2019-02-14] MEDS: NORepinephrine 8mg/ 250ml NS 250 ML IV PRN (11:48)
[2019-02-14 13:49] LABS: BASOPHILS % (AUTO) 0.5 % (0-1); EOSINOPHILS % (AUTO) 0.5 % (0-6); HEMOGLOBIN 8.9 g/dl (14.0-17.9); LYMPHOCYTES % (AUTO) 30.2 % (21-51); MEAN CORPUSCULAR HEMOGLOBIN 31.1 PG (27.0-31.0); MEAN CORPUSCULAR HGB CONC 32.9 g/dL (33.0-36.5); MEAN CORPUSCULAR VOLUME 94.5 FL (78-98); MEAN PLATELET VOLUME 8.9 FL (7.4-10.4); MONOCYTES # (AUTO) 0.4 X10'3 (0-0.9); MONOCYTES % (AUTO) 4.4 % (2-12); NEUTROPHILS # (AUTO) 6.3 X10'3 (1.8-7.7); NEUTROPHILS % (AUTO) 64.4 % (42-75); PLATELET COUNT 237 X10'3 (140-440); RED BLOOD COUNT 2.86 X10'6 (4.70-6.10); RED CELL DISTRIBUTION WIDTH 19.3 % (11.5-14.5); WHITE BLOOD COUNT 9.8 X10'3 (4.5-11.0)
--- NOTE | 2019-02-14 13:55 | NUR ---
F/U (02/14): Pt is awake, responsive, not in distress noted per MD. The PEG tube site is discharging surrounding the site, since the balloon was partially deflated yesterday noted per MD. Pending CT to check G-tube displacement. Pt will have HD today. Pt is on 6mcg Levophed. Pt is tolerating TF well and no changes to nutrition intervention. LBM 02/12. Will continue to monitor. Recommendations: 1. Cont.PEG TF using Vital High protein at 85ml/hr goal; to provide 2040ml fluid, 2040kcals, 1705ml free water, and 179g protein. 2. Additional free water per linen tech on HD 3. Prealbumin Q /; daily wts 4. Routine bowel care Addendum: 02/14/19 at [address] Amended: Links added. Addendum: 02/14/19 at [address] RD agree with nutrition internship note
[2019-02-14 14:39] LABS: ANISOCYTOSIS 2+; PLATELET ESTIMATE NORMAL; POLYCHROMASIA 1+
[2019-02-14 14:40] LABS: LARGE PLATELETS FEW
[2019-02-14] MEDS: insulin regular, human vial - multi-dose SQ SCH ×2 (14:41→20:55)
--- NOTE | 2019-02-14 18:27 | NUR ---
Problems reprioritized. Patient report given, questions answered & plan of care reviewed with VLADISLAV Johnson.
--- NOTE | 2019-02-14 18:31 | NUR ---
received report from Art and Joanne RN's no questions or concerns after assuming care
--- NOTE | 2019-02-14 18:48 | NUR ---
chemistry lab instructor finishing up at shift change
[2019-02-14] MEDS: insulin glargine (Lantus) pen - multi-dose SQ SCH (20:57)
--- NOTE | 2019-02-14 22:04 | NUR ---
PATIENT IN BED WATCHING TELEVISION RR EVEN UN LABORED NO OBSERVABLE S/S OF ACUTE STRESS AT THIS TIME, PATIENT ANSWERING QUESTIONS APPROPRIATELY WITH HEAD NODS
[2019-02-14 22:39] LABS: BASOPHILS % (AUTO) 0.5 % (0-1); EOSINOPHILS # (AUTO) 0.1 X10'3 (0-0.9); EOSINOPHILS % (AUTO) 1.6 % (0-6); HEMATOCRIT 25.9 % (42.0-52.0); HEMOGLOBIN 8.4 g/dl (14.0-17.9); LYMPHOCYTES # (AUTO) 2.1 X10'3 (1.1-4.8); LYMPHOCYTES % (AUTO) 26.7 % (21-51); MEAN CORPUSCULAR HEMOGLOBIN 30.4 PG (27.0-31.0); MEAN CORPUSCULAR HGB CONC 32.5 g/dL (33.0-36.5); MEAN CORPUSCULAR VOLUME 93.4 FL (78-98); MEAN PLATELET VOLUME 8.6 FL (7.4-10.4); MONOCYTES # (AUTO) 0.3 X10'3 (0-0.9); MONOCYTES % (AUTO) 3.4 % (2-12); NEUTROPHILS # (AUTO) 5.2 X10'3 (1.8-7.7); NEUTROPHILS % (AUTO) 67.8 % (42-75); PLATELET COUNT 233 X10'3 (140-440); RED BLOOD COUNT 2.77 X10'6 (4.70-6.10); RED CELL DISTRIBUTION WIDTH 18.9 % (11.5-14.5); WHITE BLOOD COUNT 7.8 X10'3 (4.5-11.0)
[2019-02-14 23:31] LABS: ANISOCYTOSIS 2+; HYPOCHROMASIA 1+; PLATELET ESTIMATE NORMAL; POLYCHROMASIA 1+
[2019-02-15] VITALS (24 sets, daily range): BP systolic 85–142; BP diastolic 49–90
[2019-02-15] MEDS: piperacillin/tazo 3.375gm/50ml 50 ML IV SCH ×2 (00:29→09:05)
[2019-02-15] MEDS: midodrine 5mg tablet PEG SCH ×3 (00:29→16:55)
[2019-02-15] MEDS: mineral oil/petrolatum ophthal oint EACHEYE SCH ×4 (02:10→20:00)
[2019-02-15] MEDS: dextrose 50%-water 50ml dispensing syringe IV PRN ×5 (02:12→07:25)
[2019-02-15] MEDS: Dextrose 10%-water IV solution 1,000 ML IV SCH (02:45)
[2019-02-15] MEDS: pantoprazole 40MG/NS 100ML BAG 100 ML IV SCH ×5 (02:47→21:01)
--- NOTE | 2019-02-15 03:22 | NUR ---
PATIENT APPEARS TO BE RESTING COMFORTABLE, EYES CLOSED COVERS ON RR EVEN UN LABORED NO OBSERVABLE S/S OF ACUTE STRESS AT THIS TIME
[2019-02-15] MEDS: ipratropium/albuterol 3ml nebule NEB SCH ×6 (03:24→23:32)
[2019-02-15 03:43] LABS: BASOPHILS % (AUTO) 0.5 % (0-1); EOSINOPHILS # (AUTO) 0.1 X10'3 (0-0.9); EOSINOPHILS % (AUTO) 1.3 % (0-6); HEMATOCRIT 25.8 % (42.0-52.0); HEMOGLOBIN 8.5 g/dl (14.0-17.9); LYMPHOCYTES # (AUTO) 0.9 X10'3 (1.1-4.8); LYMPHOCYTES % (AUTO) 13.3 % (21-51); MEAN CORPUSCULAR HEMOGLOBIN 31.2 PG (27.0-31.0); MEAN CORPUSCULAR HGB CONC 33.1 g/dL (33.0-36.5); MEAN CORPUSCULAR VOLUME 94.3 FL (78-98); MEAN PLATELET VOLUME 8.6 FL (7.4-10.4); MONOCYTES # (AUTO) 0.5 X10'3 (0-0.9); MONOCYTES % (AUTO) 6.9 % (2-12); NEUTROPHILS # (AUTO) 5.5 X10'3 (1.8-7.7); PLATELET COUNT 216 X10'3 (140-440); RED BLOOD COUNT 2.74 X10'6 (4.70-6.10); RED CELL DISTRIBUTION WIDTH 19.5 % (11.5-14.5); WHITE BLOOD COUNT 7.1 X10'3 (4.5-11.0)
[2019-02-15 04:06] LABS: ALANINE AMINOTRANSFERASE 50 U/L (12-78); ALBUMIN 2.1 G/DL (3.4-5.0); ALBUMIN/GLOBULIN RATIO 0.5 (1.1-1.5); ALKALINE PHOSPHATASE 442 IU/L (46-116); ANION GAP 10 (8-16); ASPARTATE AMINO TRANSFERASE 56 U/L (10-37); BILIRUBIN,TOTAL 1.1 MG/DL (0.1-1.0); BLOOD UREA NITROGEN 30 MG/DL (7-18); BUN/CREATININE RATIO 24.2 (5.4-32.0); CALCIUM 7.8 MG/DL (8.5-10.1); CHLORIDE 101 MMOL/L (99-107); CREATININE 1.24 MG/DL (0.60-1.10); GLUCOSE 115 MG/DL (70-104); MAGNESIUM 1.7 MG/DL (1.5-2.4); PHOSPHORUS 3.8 MG/DL (2.3-4.5); POTASSIUM 3.6 MMOL/L (3.5-5.1); SODIUM 137 MMOL/L (135-145); TOTAL CARBON DIOXIDE 26.5 MMOL/L (24-32); TOTAL PROTEIN 6.4 G/DL (6.4-8.2); eGFR 56 ML/MIN
[2019-02-15 04:32] LABS: PLATELET ESTIMATE NORMAL
[2019-02-15 04:33] LABS: ANISOCYTOSIS 2+; POLYCHROMASIA 1+
--- NOTE | 2019-02-15 06:28 | NUR ---
SBAR TO LEONILA LOOMIS NO QUESTIONS OR CONCERNS AFTER ASSUMING CARE
[2019-02-15] MEDS ORDERED: FLU VACC QS2019-20 36MOS UP/PF 60 MCG/0.5 ML SYRINGE IMVAC ONE (07:55)
[2019-02-15] MEDS: lactobacillus rhamnosus 10,000 MMU CELLS/CAPSULE OGT SCH ×2 (08:00→20:09)
[2019-02-15] MEDS: K, MAG and/or Phos replacement - Verify level? MC SCH (08:00)
[2019-02-15] MEDS: NORepinephrine 8mg/ 250ml NS 250 ML IV PRN (11:04)
--- NOTE | 2019-02-15 12:27 | NUR ---
Per Dr Farr, restart tube feed at half rate and increase to goal if tolerated
--- NOTE | 2019-02-15 12:30 | NUR ---
Tube feed started at 40 per MD orders
--- NOTE | 2019-02-15 16:22 | NUR ---
F/U (02/15): Pt had PEG leak yesterday per bedside RN, TF was held; however, no longer leaking. TF has been resumed at 40ml/hr to increase to goal rate as tolerated. Pt with low BG <10 overnight as a result of insulin administration after elevated BG>500. Likely error in blood sugar read as TF was turned off and pt only receiving D10 drip and blood sugar has been well-controlled throughout admit. Blood sugar is now back to well-controlled. Pt documented with 50ml stool output from ostomy 02/14. Will continue to monitor. Recommendations: 1. Cont.PEG TF using Vital High protein at 85ml/hr goal; to provide 2040ml fluid, 2040kcals, 1705ml free water, and 179g protein. 2. Additional free water per entry level business analyst on HD 3. Prealbumin Q /; daily wts 4. Routine bowel care Addendum: 02/15/19 at [address] Amended: Links added. Addendum: 02/15/19 at [address] I have reviewed and agree with note by Foot Worker. Carin Claros RD
[2019-02-15] MEDS: insulin regular, human vial - multi-dose SQ SCH (20:14)
[2019-02-15] MEDS: insulin glargine (Lantus) pen - multi-dose SQ SCH (20:16)
--- NOTE | 2019-02-15 21:00 | NUR ---
Patient in room CICU 2011. I have received report from VLADISLAV Dubose and had the opportunity to ask questions and assume patient care.
[2019-02-16] VITALS (24 sets, daily range): BP systolic 85–106; BP diastolic 52–69
[2019-02-16] MEDS: midodrine 5mg tablet PEG SCH ×3 (00:26→16:06)
[2019-02-16] MEDS: Dextrose 10%-water IV solution 1,000 ML IV SCH ×2 (01:40→21:40)
[2019-02-16] MEDS: mineral oil/petrolatum ophthal oint EACHEYE SCH (02:00)
[2019-02-16] MEDS: pantoprazole 40MG/NS 100ML BAG 100 ML IV SCH ×5 (02:01→20:45)
[2019-02-16] MEDS: insulin regular, human vial - multi-dose SQ SCH ×4 (03:09→22:13)
[2019-02-16] MEDS: ipratropium/albuterol 3ml nebule NEB SCH ×6 (03:57→22:18)
[2019-02-16 04:25] LABS: BASOPHILS % (AUTO) 0.6 % (0-1); EOSINOPHILS # (AUTO) 0.1 X10'3 (0-0.9); EOSINOPHILS % (AUTO) 1.5 % (0-6); HEMATOCRIT 24.8 % (42.0-52.0); HEMOGLOBIN 8.3 g/dl (14.0-17.9); LYMPHOCYTES # (AUTO) 2.1 X10'3 (1.1-4.8); LYMPHOCYTES % (AUTO) 29.4 % (21-51); MEAN CORPUSCULAR HEMOGLOBIN 31.7 PG (27.0-31.0); MEAN CORPUSCULAR HGB CONC 33.6 g/dL (33.0-36.5); MEAN CORPUSCULAR VOLUME 94.3 FL (78-98); MEAN PLATELET VOLUME 9.1 FL (7.4-10.4); MONOCYTES # (AUTO) 0.4 X10'3 (0-0.9); MONOCYTES % (AUTO) 5.6 % (2-12); NEUTROPHILS # (AUTO) 4.4 X10'3 (1.8-7.7); NEUTROPHILS % (AUTO) 62.9 % (42-75); PLATELET COUNT 249 X10'3 (140-440); RED BLOOD COUNT 2.63 X10'6 (4.70-6.10); RED CELL DISTRIBUTION WIDTH 19.2 % (11.5-14.5)
[2019-02-16 04:43] LABS: ALANINE AMINOTRANSFERASE 58 U/L (12-78); ALBUMIN/GLOBULIN RATIO 0.4 (1.1-1.5); ALKALINE PHOSPHATASE 429 IU/L (46-116); ANION GAP 12 (8-16); ASPARTATE AMINO TRANSFERASE 60 U/L (10-37); BILIRUBIN,TOTAL 0.9 MG/DL (0.1-1.0); BLOOD UREA NITROGEN 40 MG/DL (7-18); BUN/CREATININE RATIO 24.2 (5.4-32.0); CALCIUM 8.1 MG/DL (8.5-10.1); CHLORIDE 97 MMOL/L (99-107); CREATININE 1.65 MG/DL (0.60-1.10); GLUCOSE 193 MG/DL (70-104); PHOSPHORUS 5.2 MG/DL (2.3-4.5); POTASSIUM 4.1 MMOL/L (3.5-5.1); SODIUM 133 MMOL/L (135-145); TOTAL CARBON DIOXIDE 24.1 MMOL/L (24-32); TOTAL PROTEIN 6.6 G/DL (6.4-8.2); eGFR 41 ML/MIN
[2019-02-16 05:07] LABS: ANISOCYTOSIS 2+; PLATELET ESTIMATE NORMAL
--- NOTE | 2019-02-16 06:00 | NUR ---
Preceptee documentation: I have reviewed and agree with all interventions, assessments performed and documented by VLADISLAV Brothers .
[2019-02-16] MEDS: lactobacillus rhamnosus 10,000 MMU CELLS/CAPSULE OGT SCH ×2 (07:13→20:43)
[2019-02-16] MEDS: K, MAG and/or Phos replacement - Verify level? MC SCH (08:00)
[2019-02-16] MEDS ORDERED: albumin (human) 25% 100ml IV 100 ML IV PRN ×2 (10:10→17:40)
[2019-02-16] MEDS ORDERED: normal saline 1000ml 250 ML IV PRN (10:10)
[2019-02-16] MEDS ORDERED: epoetin 20,000 units/ml inj IV ONE ×2 (10:10→17:40)
[2019-02-16] MEDS ORDERED: heparin 1,000 units/ml 10ml inj HE ONE ×3 (10:15→17:45)
[2019-02-16] MEDS ORDERED: heparin 1,000unit/ml 10ml vial 10 ML IV ONE (17:38)
[2019-02-16] MEDS: HYDROcodone/acetaminophen 7.5MG/325MG per 15ml UD CUP PEG PRN (20:46)
[2019-02-16] MEDS: insulin glargine (Lantus) pen - multi-dose SQ SCH (21:02)
[2019-02-17] VITALS (24 sets, daily range): BP systolic 80–108; BP diastolic 51–71
[2019-02-17] MEDS: pantoprazole 40MG/NS 100ML BAG 100 ML IV SCH ×2 (00:35→08:18)
[2019-02-17] MEDS: midodrine 5mg tablet PEG SCH ×3 (00:35→16:17)
[2019-02-17] MEDS: ipratropium/albuterol 3ml nebule NEB SCH ×6 (03:06→23:12)
[2019-02-17] MEDS: insulin regular, human vial - multi-dose SQ SCH ×4 (03:13→20:17)
[2019-02-17 06:12] LABS: BASOPHILS # (AUTO) 0.1 X10'3 (0-0.2); BASOPHILS % (AUTO) 0.8 % (0-1); EOSINOPHILS # (AUTO) 0.1 X10'3 (0-0.9); EOSINOPHILS % (AUTO) 1.5 % (0-6); HEMATOCRIT 25.1 % (42.0-52.0); HEMOGLOBIN 8.4 g/dl (14.0-17.9); LYMPHOCYTES # (AUTO) 2.9 X10'3 (1.1-4.8); MEAN CORPUSCULAR HEMOGLOBIN 31.3 PG (27.0-31.0); MEAN CORPUSCULAR HGB CONC 33.3 g/dL (33.0-36.5); MEAN CORPUSCULAR VOLUME 93.9 FL (78-98); MEAN PLATELET VOLUME 8.8 FL (7.4-10.4); MONOCYTES # (AUTO) 0.5 X10'3 (0-0.9); MONOCYTES % (AUTO) 6.4 % (2-12); NEUTROPHILS # (AUTO) 4.2 X10'3 (1.8-7.7); NEUTROPHILS % (AUTO) 54.3 % (42-75); PLATELET COUNT 258 X10'3 (140-440); RED BLOOD COUNT 2.67 X10'6 (4.70-6.10); WHITE BLOOD COUNT 7.8 X10'3 (4.5-11.0)
[2019-02-17 06:42] LABS: ALANINE AMINOTRANSFERASE 65 U/L (12-78); ALBUMIN/GLOBULIN RATIO 0.4 (1.1-1.5); ALKALINE PHOSPHATASE 404 IU/L (46-116); ANION GAP 10 (8-16); ASPARTATE AMINO TRANSFERASE 64 U/L (10-37); BILIRUBIN,TOTAL 0.8 MG/DL (0.1-1.0); BLOOD UREA NITROGEN 28 MG/DL (7-18); CHLORIDE 100 MMOL/L (99-107); CREATININE 1.22 MG/DL (0.60-1.10); GLUCOSE 154 MG/DL (70-104); MAGNESIUM 1.8 MG/DL (1.5-2.4); PHOSPHORUS 3.6 MG/DL (2.3-4.5); POTASSIUM 3.6 MMOL/L (3.5-5.1); SODIUM 137 MMOL/L (135-145); TOTAL PROTEIN 6.7 G/DL (6.4-8.2); eGFR 57 ML/MIN
[2019-02-17] MEDS: K, MAG and/or Phos replacement - Verify level? MC SCH (08:00)
[2019-02-17] MEDS: lactobacillus rhamnosus 10,000 MMU CELLS/CAPSULE OGT SCH ×2 (08:17→20:14)
--- NOTE | 2019-02-17 10:12 | NUR ---
Spoke with Dr Gustafson who stated to cancel dialysis for today since pt had dialysis yesterday.
[2019-02-17] MEDS: Dextrose 10%-water IV solution 1,000 ML IV SCH (16:14)
[2019-02-17] MEDS: insulin glargine (Lantus) pen - multi-dose SQ SCH (20:18)
[2019-02-18] VITALS (23 sets, daily range): BP systolic 81–101; BP diastolic 48–66
[2019-02-18] MEDS: midodrine 5mg tablet PEG SCH ×3 (00:21→15:55)
[2019-02-18] MEDS: insulin regular, human vial - multi-dose SQ SCH ×4 (02:06→20:48)
[2019-02-18] MEDS: NORepinephrine 8mg/ 250ml NS 250 ML IV PRN (02:07)
[2019-02-18] MEDS: acetaminophen 325mg/10.15ml oral unit dose solution PEG PRN (03:00)
[2019-02-18] MEDS: ipratropium/albuterol 3ml nebule NEB SCH ×6 (03:12→23:15)
[2019-02-18 05:40] LABS: BASOPHILS # (AUTO) 0.1 X10'3 (0-0.2); BASOPHILS % (AUTO) 0.5 % (0-1); EOSINOPHILS # (AUTO) 0.2 X10'3 (0-0.9); EOSINOPHILS % (AUTO) 2.2 % (0-6); HEMATOCRIT 25.4 % (42.0-52.0); HEMOGLOBIN 8.4 g/dl (14.0-17.9); LYMPHOCYTES # (AUTO) 4.4 X10'3 (1.1-4.8); LYMPHOCYTES % (AUTO) 42.3 % (21-51); MEAN CORPUSCULAR HEMOGLOBIN 31.5 PG (27.0-31.0); MEAN CORPUSCULAR HGB CONC 33.1 g/dL (33.0-36.5); MEAN CORPUSCULAR VOLUME 95.2 FL (78-98); MEAN PLATELET VOLUME 8.8 FL (7.4-10.4); MONOCYTES # (AUTO) 0.6 X10'3 (0-0.9); MONOCYTES % (AUTO) 5.7 % (2-12); NEUTROPHILS # (AUTO) 5.2 X10'3 (1.8-7.7); NEUTROPHILS % (AUTO) 49.3 % (42-75); PLATELET COUNT 285 X10'3 (140-440); RED BLOOD COUNT 2.67 X10'6 (4.70-6.10); RED CELL DISTRIBUTION WIDTH 19.1 % (11.5-14.5); WHITE BLOOD COUNT 10.5 X10'3 (4.5-11.0)
[2019-02-18 06:21] LABS: ALANINE AMINOTRANSFERASE 90 U/L (12-78); ALBUMIN/GLOBULIN RATIO 0.4 (1.1-1.5); ALKALINE PHOSPHATASE 439 IU/L (46-116); ANION GAP 11 (8-16); ASPARTATE AMINO TRANSFERASE 80 U/L (10-37); BILIRUBIN,TOTAL 0.7 MG/DL (0.1-1.0); BLOOD UREA NITROGEN 50 MG/DL (7-18); BUN/CREATININE RATIO 27.6 (5.4-32.0); CALCIUM 8.2 MG/DL (8.5-10.1); CHLORIDE 100 MMOL/L (99-107); CREATININE 1.81 MG/DL (0.60-1.10); GLUCOSE 127 MG/DL (70-104); MAGNESIUM 1.9 MG/DL (1.5-2.4); PHOSPHORUS 4.7 MG/DL (2.3-4.5); POTASSIUM 4.3 MMOL/L (3.5-5.1); SODIUM 137 MMOL/L (135-145); TOTAL CARBON DIOXIDE 25.9 MMOL/L (24-32); TOTAL PROTEIN 6.8 G/DL (6.4-8.2); eGFR 36 ML/MIN
[2019-02-18] MEDS: K, MAG and/or Phos replacement - Verify level? MC SCH (08:00)
[2019-02-18] MEDS: lactobacillus rhamnosus 10,000 MMU CELLS/CAPSULE OGT SCH ×2 (08:20→20:38)
[2019-02-18] MEDS: pantoprazole 40 MG vial IV SCH (08:20)
--- NOTE | 2019-02-18 12:57 | NUR ---
Reassessment: Pt tolerating TF at goal to receive HD tomorrow per MD note. LBM 02/17. Will continue to monitor. Recommendations: 1. Cont.PEG TF using Vital High protein at 85ml/hr goal; to provide 2040ml fluid, 2040kcals, 1705ml free water, and 179g protein. 2. Additional free water per dairy products maker on HD 3. Prealbumin Q /; daily wts 4. Routine bowel care Addendum: 02/18/19 at [address] Amended: Links added.
[2019-02-18] MEDS: Dextrose 10%-water IV solution 1,000 ML IV SCH (13:40)
--- NOTE | 2019-02-18 18:42 | NUR ---
Patient in room CICU 2011. I have received report from VLADISLAV Gupta and had the opportunity to ask questions and assume patient care. Patient awake for bedside report and stable at this time. 4mcg Levophed infusing per provider order. 30% FiO2 on ventilator. Will continue to monitor closely.
[2019-02-18] MEDS: enoxaparin 40mg/0.4ml syringe SUBCUT SCH (20:38)
[2019-02-18] MEDS: insulin glargine (Lantus) pen - multi-dose SQ SCH (20:52)
[2019-02-19] VITALS (24 sets, daily range): BP systolic 70–100; BP diastolic 29–69
[2019-02-19] MEDS: midodrine 5mg tablet PEG SCH ×3 (00:26→16:46)
[2019-02-19] MEDS: insulin regular, human vial - multi-dose SQ SCH ×2 (02:30→20:06)
[2019-02-19] MEDS: ipratropium/albuterol 3ml nebule NEB SCH ×6 (03:51→23:14)
--- NOTE | 2019-02-19 06:19 | NUR ---
Problems reprioritized. Patient report given, questions answered & plan of care reviewed with VLADISLAV Mar.
[2019-02-19 07:12] LABS: BASOPHILS # (AUTO) 0.1 X10'3 (0-0.2); BASOPHILS % (AUTO) 0.6 % (0-1); EOSINOPHILS # (AUTO) 0.3 X10'3 (0-0.9); EOSINOPHILS % (AUTO) 2.7 % (0-6); HEMATOCRIT 27.1 % (42.0-52.0); HEMOGLOBIN 8.9 g/dl (14.0-17.9); LYMPHOCYTES # (AUTO) 3.8 X10'3 (1.1-4.8); LYMPHOCYTES % (AUTO) 33.7 % (21-51); MEAN CORPUSCULAR HEMOGLOBIN 30.9 PG (27.0-31.0); MEAN CORPUSCULAR HGB CONC 32.7 g/dL (33.0-36.5); MEAN CORPUSCULAR VOLUME 94.4 FL (78-98); MEAN PLATELET VOLUME 8.4 FL (7.4-10.4); MONOCYTES # (AUTO) 0.6 X10'3 (0-0.9); MONOCYTES % (AUTO) 5.1 % (2-12); NEUTROPHILS # (AUTO) 6.5 X10'3 (1.8-7.7); NEUTROPHILS % (AUTO) 57.9 % (42-75); PLATELET COUNT 358 X10'3 (140-440); RED BLOOD COUNT 2.87 X10'6 (4.70-6.10); RED CELL DISTRIBUTION WIDTH 19.5 % (11.5-14.5); WHITE BLOOD COUNT 11.2 X10'3 (4.5-11.0)
[2019-02-19] MEDS: K, MAG and/or Phos replacement - Verify level? MC SCH (08:00)
[2019-02-19] MEDS ORDERED: normal saline 1000ml 250 ML IV PRN (08:06)
[2019-02-19] MEDS ORDERED: heparin 1,000unit/ml 10ml vial 10 ML IV ONE (08:06)
[2019-02-19] MEDS ORDERED: epoetin 20,000 units/ml inj IV ONE (08:10)
[2019-02-19] MEDS ORDERED: heparin 1,000 units/ml 10ml inj HE ONE ×2 (08:10)
[2019-02-19 08:11] LABS: ANISOCYTOSIS 2+; LARGE PLATELETS FEW; PLATELET ESTIMATE NORMAL
[2019-02-19] MEDS: pantoprazole 40 MG vial IV SCH (08:57)
[2019-02-19] MEDS: lactobacillus rhamnosus 10,000 MMU CELLS/CAPSULE OGT SCH ×2 (08:57→20:08)
[2019-02-19] MEDS: enoxaparin 40mg/0.4ml syringe SUBCUT SCH ×2 (08:57→20:08)
[2019-02-19 09:02] LABS: ALANINE AMINOTRANSFERASE 91 U/L (12-78); ALBUMIN 2.1 G/DL (3.4-5.0); ALBUMIN/GLOBULIN RATIO 0.4 (1.1-1.5); ALKALINE PHOSPHATASE 468 IU/L (46-116); ANION GAP 11 (8-16); ASPARTATE AMINO TRANSFERASE 81 U/L (10-37); BILIRUBIN,TOTAL 0.8 MG/DL (0.1-1.0); BLOOD UREA NITROGEN 72 MG/DL (7-18); BUN/CREATININE RATIO 32.3 (5.4-32.0); CALCIUM 8.4 MG/DL (8.5-10.1); CHLORIDE 98 MMOL/L (99-107); CREATININE 2.23 MG/DL (0.60-1.10); GLUCOSE 70 MG/DL (70-104); PHOSPHORUS 5.7 MG/DL (2.3-4.5); POTASSIUM 4.8 MMOL/L (3.5-5.1); SODIUM 136 MMOL/L (135-145); TOTAL CARBON DIOXIDE 26.8 MMOL/L (24-32); TOTAL PROTEIN 7.2 G/DL (6.4-8.2); eGFR 29 ML/MIN
[2019-02-19] MEDS: Dextrose 10%-water IV solution 1,000 ML IV SCH (09:40)
--- NOTE | 2019-02-19 10:00 | NUR ---
Dialysis started by Isabela fiber technologist
[2019-02-19] MEDS: NORepinephrine 8mg/ 250ml NS 250 ML IV PRN (16:46)
--- NOTE | 2019-02-19 18:30 | NUR ---
assumed care from fantasma rn no questions or concerns after SBAR
[2019-02-19] MEDS: insulin glargine (Lantus) pen - multi-dose SQ SCH (20:08)
--- NOTE | 2019-02-19 21:58 | NUR ---
PATIENT IN BED EYES OPEN WATCHING TELEVISION RR EVEN UN LABORED NO OBSERVABLE S/S OF ACUTE STRESS AT THIS TIME WILL CONTINUE TO MONITOR
[2019-02-19] MEDS ORDERED: tPA-cathflo 2 MG/2 ml IV flush IVF ONE (22:00)
[2019-02-20] VITALS (24 sets, daily range): BP systolic 84–106; BP diastolic 47–70
--- NOTE | 2019-02-20 00:05 | NUR ---
PATIENT IN BED COVERS ON EYES OPEN APPEARS TO WATCHING TELEVISION RR EVEN UN LABORED IN THE 30'S, NO OBSERVABLE S/S OF ACUTE STRESS AT THIS TIME
[2019-02-20] MEDS: midodrine 5mg tablet PEG SCH ×3 (00:18→16:38)
--- NOTE | 2019-02-20 02:00 | NUR ---
patient appears to be resting comfortably supine in bed covers on eyes open watching television rr even un labored no observable s/s of acute stress at this time will continue to monitor
[2019-02-20 02:48] LABS: BASOPHILS % (AUTO) 0.5 % (0-1); EOSINOPHILS # (AUTO) 0.2 X10'3 (0-0.9); EOSINOPHILS % (AUTO) 2.1 % (0-6); HEMATOCRIT 26.4 % (42.0-52.0); HEMOGLOBIN 8.7 g/dl (14.0-17.9); LYMPHOCYTES # (AUTO) 3.5 X10'3 (1.1-4.8); LYMPHOCYTES % (AUTO) 39.4 % (21-51); MEAN CORPUSCULAR HEMOGLOBIN 31.4 PG (27.0-31.0); MEAN CORPUSCULAR VOLUME 95.1 FL (78-98); MEAN PLATELET VOLUME 8.4 FL (7.4-10.4); MONOCYTES # (AUTO) 0.7 X10'3 (0-0.9); MONOCYTES % (AUTO) 7.7 % (2-12); NEUTROPHILS # (AUTO) 4.5 X10'3 (1.8-7.7); NEUTROPHILS % (AUTO) 50.3 % (42-75); PLATELET COUNT 367 X10'3 (140-440); RED BLOOD COUNT 2.77 X10'6 (4.70-6.10); RED CELL DISTRIBUTION WIDTH 19.4 % (11.5-14.5)
[2019-02-20 03:07] LABS: ALANINE AMINOTRANSFERASE 89 U/L (12-78); ALBUMIN 2.1 G/DL (3.4-5.0); ALBUMIN/GLOBULIN RATIO 0.4 (1.1-1.5); ALKALINE PHOSPHATASE 405 IU/L (46-116); ANION GAP 11 (8-16); ASPARTATE AMINO TRANSFERASE 71 U/L (10-37); BILIRUBIN,TOTAL 0.7 MG/DL (0.1-1.0); BLOOD UREA NITROGEN 49 MG/DL (7-18); BUN/CREATININE RATIO 29.3 (5.4-32.0); CALCIUM 8.6 MG/DL (8.5-10.1); CHLORIDE 99 MMOL/L (99-107); CREATININE 1.67 MG/DL (0.60-1.10); GLUCOSE 88 MG/DL (70-104); MAGNESIUM 1.9 MG/DL (1.5-2.4); PHOSPHORUS 4.1 MG/DL (2.3-4.5); POTASSIUM 4.6 MMOL/L (3.5-5.1); SODIUM 137 MMOL/L (135-145); TOTAL CARBON DIOXIDE 26.7 MMOL/L (24-32); TOTAL PROTEIN 7.4 G/DL (6.4-8.2); eGFR 40 ML/MIN
[2019-02-20 03:21] LABS: ANISOCYTOSIS 2+; PLATELET ESTIMATE NORMAL
[2019-02-20 03:22] LABS: HYPOCHROMASIA 1+; POLYCHROMASIA 1+
[2019-02-20] MEDS: ipratropium/albuterol 3ml nebule NEB SCH ×6 (03:34→23:09)
--- NOTE | 2019-02-20 04:25 | NUR ---
patient in bed eyes closed rr even un labored no observable s/s of acute stress at this time will continue to monitor
[2019-02-20] MEDS: Dextrose 10%-water IV solution 1,000 ML IV SCH (05:40)
--- NOTE | 2019-02-20 06:27 | NUR ---
SBAR TO ART RN AND LAM RN NO QUESTIONS OR CONCERNS AFTER DAY SHIFT RN'S ASSUMED CARE
[2019-02-20] MEDS: K, MAG and/or Phos replacement - Verify level? MC SCH (08:00)
[2019-02-20] MEDS: lactobacillus rhamnosus 10,000 MMU CELLS/CAPSULE OGT SCH ×2 (08:38→20:21)
[2019-02-20] MEDS: pantoprazole 40 MG vial IV SCH (08:39)
[2019-02-20] MEDS: enoxaparin 40mg/0.4ml syringe SUBCUT SCH ×2 (08:39→20:22)
[2019-02-20] MEDS: insulin regular, human vial - multi-dose SQ SCH ×3 (10:19→20:21)
--- NOTE | 2019-02-20 14:36 | NUR ---
F/U (02/20): Pt continues longer periods of weaning off the ventilator noted per MD. Pt tolerating TF at goal with GRV WNL. Temporary changing TF formula to Glucera at goal rate of 85ml/hr due to Vital High Protein out of stock. LBM 02/19. Will continue to monitor. Recommendations: 1. Cont.PEG TF using Vital High protein at 85ml/hr goal; to provide 2040ml fluid, 2040kcals, 1705ml free water, and 179g protein. 2. If out of Vital High Protein, use Glucerna at goal rate of 85ml/hr. 3. Additional free water per chip tester on HD 4. Prealbumin Q /; daily wts 5. Routine bowel care Addendum: 02/20/19 at [address] Amended: Links added. Addendum: 02/20/19 at [address] RD agree with technical support intern note
--- NOTE | 2019-02-20 18:30 | NUR ---
assumed care from art rn and forrest rn no question or concerns after assuming care
--- NOTE | 2019-02-20 20:00 | NUR ---
small open sore to left buttom cheek, no drainage, optifoam placed, will continue to reposition and use pillows to help relieve pressure and monitor area of concern
[2019-02-20] MEDS: insulin glargine (Lantus) pen - multi-dose SQ SCH (20:23)
--- NOTE | 2019-02-20 20:30 | NUR ---
patient was receiving vital af at shift change found and started patients vital hp at goal per dr's order
--- NOTE | 2019-02-20 21:22 | NUR ---
patient in bed watching a dvd appears to be enjoying the movie rr even un labored no observable s/s of acute stress at this time, will continue to monitor
[2019-02-21] VITALS (24 sets, daily range): BP systolic 87–108; BP diastolic 51–72
[2019-02-21] MEDS: midodrine 5mg tablet PEG SCH ×3 (00:02→16:45)
--- NOTE | 2019-02-21 00:02 | NUR ---
patient in bed eyes closed rr even un labored no observable s/s of acute stress at this time will continue to monitor
[2019-02-21] MEDS: NORepinephrine 8mg/ 250ml NS 250 ML IV PRN (01:35)
[2019-02-21] MEDS: Dextrose 10%-water IV solution 1,000 ML IV SCH ×2 (01:40→21:40)
--- NOTE | 2019-02-21 02:00 | NUR ---
patient in bed eyes closed rr even un labored no observable s/s of acute stress at this time will continue to monitor
[2019-02-21 02:36] LABS: BASOPHILS % (AUTO) 0.5 % (0-1); EOSINOPHILS # (AUTO) 0.3 X10'3 (0-0.9); EOSINOPHILS % (AUTO) 3.4 % (0-6); HEMATOCRIT 26.7 % (42.0-52.0); HEMOGLOBIN 8.7 g/dl (14.0-17.9); LYMPHOCYTES # (AUTO) 3.3 X10'3 (1.1-4.8); LYMPHOCYTES % (AUTO) 35.9 % (21-51); MEAN CORPUSCULAR HEMOGLOBIN 30.8 PG (27.0-31.0); MEAN CORPUSCULAR HGB CONC 32.5 g/dL (33.0-36.5); MEAN PLATELET VOLUME 8.3 FL (7.4-10.4); MONOCYTES # (AUTO) 0.7 X10'3 (0-0.9); MONOCYTES % (AUTO) 7.1 % (2-12); NEUTROPHILS # (AUTO) 4.9 X10'3 (1.8-7.7); NEUTROPHILS % (AUTO) 53.1 % (42-75); PLATELET COUNT 380 X10'3 (140-440); RED BLOOD COUNT 2.81 X10'6 (4.70-6.10); RED CELL DISTRIBUTION WIDTH 19.6 % (11.5-14.5); WHITE BLOOD COUNT 9.3 X10'3 (4.5-11.0)
[2019-02-21 02:56] LABS: ALANINE AMINOTRANSFERASE 81 U/L (12-78); ALBUMIN 2.1 G/DL (3.4-5.0); ALBUMIN/GLOBULIN RATIO 0.4 (1.1-1.5); ALKALINE PHOSPHATASE 412 IU/L (46-116); ANION GAP 11 (8-16); ASPARTATE AMINO TRANSFERASE 58 U/L (10-37); BILIRUBIN,TOTAL 0.7 MG/DL (0.1-1.0); BLOOD UREA NITROGEN 68 MG/DL (7-18); BUN/CREATININE RATIO 31.8 (5.4-32.0); CALCIUM 8.5 MG/DL (8.5-10.1); CHLORIDE 100 MMOL/L (99-107); CREATININE 2.14 MG/DL (0.60-1.10); GLUCOSE 65 MG/DL (70-104); MAGNESIUM 2.1 MG/DL (1.5-2.4); PHOSPHORUS 5.2 MG/DL (2.3-4.5); POTASSIUM 5.1 MMOL/L (3.5-5.1); SODIUM 138 MMOL/L (135-145); TOTAL CARBON DIOXIDE 27.3 MMOL/L (24-32); TOTAL PROTEIN 7.5 G/DL (6.4-8.2); eGFR 30 ML/MIN
[2019-02-21] MEDS: ipratropium/albuterol 3ml nebule NEB SCH ×6 (03:03→23:35)
[2019-02-21 03:20] LABS: PLATELET ESTIMATE NORMAL
[2019-02-21 03:21] LABS: ANISOCYTOSIS 2+; HYPOCHROMASIA 1+; POLYCHROMASIA 1+
--- NOTE | 2019-02-21 04:46 | NUR ---
patient in bed answering questions appropriately while doing oral care, patient was able to mouth the words "thank you." and "when am i leaving?", explained to the patient that the " 'S ARE STILL DOTTING THE I'S AND CROSSING THE T'S WITH HIS TX WHEN THAT HAPPENS THE NURSING STAFF WILL HAVE A BETTER ANSWER." patient used head nodding, a smile and a thumbs up after the conversation, patient did no appear to be in any observable acute stress about the conversation and patients rr is even un labored during the conversation.
--- NOTE | 2019-02-21 06:16 | NUR ---
SBAR TO LEONILA LOOMIS NO QUESTIONS OR CONCERNS AFTER ASSUMING CARE
[2019-02-21] MEDS: K, MAG and/or Phos replacement - Verify level? MC SCH (06:51)
[2019-02-21] MEDS: lactobacillus rhamnosus 10,000 MMU CELLS/CAPSULE OGT SCH ×2 (07:07→20:19)
[2019-02-21] MEDS: pantoprazole 40 MG vial IV SCH (07:08)
[2019-02-21] MEDS: enoxaparin 40mg/0.4ml syringe SUBCUT SCH ×2 (07:08→20:19)
[2019-02-21] MEDS: insulin regular, human vial - multi-dose SQ SCH ×2 (08:02→13:55)
[2019-02-21] MEDS ORDERED: heparin 1,000unit/ml 10ml vial 10 ML IV ONE (09:41)
[2019-02-21] MEDS ORDERED: normal saline 1000ml 250 ML IV PRN (09:41)
[2019-02-21] MEDS ORDERED: epoetin 20,000 units/ml inj IV ONE (09:45)
[2019-02-21] MEDS ORDERED: heparin 1,000 units/ml 10ml inj HE ONE ×2 (09:45)
--- NOTE | 2019-02-21 18:33 | NUR ---
assumed care from Alonso LOOMIS no questions or concerns after SBAR
--- NOTE | 2019-02-21 18:47 | NUR ---
patient received dialysis today and was finished at shift change motorcoach operator states taking 3.5 liters off of patient. patient appears to have tolerated HD well per day shift RN
--- NOTE | 2019-02-21 21:00 | NUR ---
PATIENT IN BED WATCHING TELEVISION RR EVEN UN LABORED NO OBSERVABLE S/S OF ACUTE STRESS AT THIS TIME WILL CONTINUE TO MONITOR
[2019-02-21] MEDS: insulin glargine (Lantus) pen - multi-dose SQ SCH (21:02)
--- NOTE | 2019-02-21 23:30 | NUR ---
PATIENT IN BED EYES OPEN WATCHING THE TELEVISION RR EVEN UN LABORED NO OBSERVABLE S/S OF ACUTE STRESS AT THIS TIME
[2019-02-22] VITALS (23 sets, daily range): BP systolic 80–104; BP diastolic 2–69
[2019-02-22] MEDS: midodrine 5mg tablet PEG SCH ×3 (00:14→15:49)
[2019-02-22] MEDS: insulin regular, human vial - multi-dose SQ SCH ×4 (02:06→20:38)
--- NOTE | 2019-02-22 02:27 | NUR ---
PATIENT IN BED EYES ARE CLOSED RR EVEN UN LABORED NO OBSERVABLE S/S OF ACUTE STRESS AT THIS TIME
[2019-02-22 02:40] LABS: BASOPHILS % (AUTO) 0.6 % (0-1); EOSINOPHILS # (AUTO) 0.2 X10'3 (0-0.9); HEMATOCRIT 25.6 % (42.0-52.0); HEMOGLOBIN 8.3 g/dl (14.0-17.9); LYMPHOCYTES # (AUTO) 2.5 X10'3 (1.1-4.8); LYMPHOCYTES % (AUTO) 34.6 % (21-51); MEAN CORPUSCULAR HEMOGLOBIN 31.1 PG (27.0-31.0); MEAN CORPUSCULAR HGB CONC 32.6 g/dL (33.0-36.5); MEAN CORPUSCULAR VOLUME 95.5 FL (78-98); MEAN PLATELET VOLUME 8.5 FL (7.4-10.4); MONOCYTES # (AUTO) 0.6 X10'3 (0-0.9); MONOCYTES % (AUTO) 7.5 % (2-12); NEUTROPHILS % (AUTO) 54.3 % (42-75); PLATELET COUNT 332 X10'3 (140-440); RED BLOOD COUNT 2.68 X10'6 (4.70-6.10); RED CELL DISTRIBUTION WIDTH 19.2 % (11.5-14.5); WHITE BLOOD COUNT 7.3 X10'3 (4.5-11.0)
[2019-02-22 02:51] LABS: ALANINE AMINOTRANSFERASE 61 U/L (12-78); ALBUMIN 1.9 G/DL (3.4-5.0); ALBUMIN/GLOBULIN RATIO 0.4 (1.1-1.5); ALKALINE PHOSPHATASE 376 IU/L (46-116); ANION GAP 8 (8-16); ASPARTATE AMINO TRANSFERASE 47 U/L (10-37); BILIRUBIN,TOTAL 0.6 MG/DL (0.1-1.0); BLOOD UREA NITROGEN 48 MG/DL (7-18); CALCIUM 8.3 MG/DL (8.5-10.1); CHLORIDE 99 MMOL/L (99-107); CREATININE 1.55 MG/DL (0.60-1.10); GLUCOSE 191 MG/DL (70-104); MAGNESIUM 1.9 MG/DL (1.5-2.4); POTASSIUM 4.1 MMOL/L (3.5-5.1); SODIUM 135 MMOL/L (135-145); TOTAL CARBON DIOXIDE 27.7 MMOL/L (24-32); TOTAL PROTEIN 6.9 G/DL (6.4-8.2); eGFR 44 ML/MIN
[2019-02-22 03:20] LABS: PLATELET ESTIMATE NORMAL; POLYCHROMASIA 1+
[2019-02-22 03:21] LABS: ANISOCYTOSIS 2+; HYPOCHROMASIA 1+
[2019-02-22] MEDS: ipratropium/albuterol 3ml nebule NEB SCH ×6 (03:49→22:38)
--- NOTE | 2019-02-22 04:15 | NUR ---
patient in bed eyes closed rr even un labored no observable s/s of acute stress at this time, will continue to observe
--- NOTE | 2019-02-22 06:16 | NUR ---
SBAR TO ADÁN LOOMIS NO QUESTIONS OR CONCERNS AFTER ASSUMING CARE
--- NOTE | 2019-02-22 06:24 | NUR ---
Patient in room CICU 2011. I have received report from Alex LOOMIS and had the opportunity to ask questions and assume patient care.
[2019-02-22] MEDS: lactobacillus rhamnosus 10,000 MMU CELLS/CAPSULE OGT SCH ×2 (07:39→20:30)
[2019-02-22] MEDS: pantoprazole 40 MG vial IV SCH (07:39)
[2019-02-22] MEDS: enoxaparin 40mg/0.4ml syringe SUBCUT SCH ×2 (07:39→20:30)
[2019-02-22] MEDS: K, MAG and/or Phos replacement - Verify level? MC SCH (08:00)
--- NOTE | 2019-02-22 12:29 | NUR ---
F/U (02/22): Pt is tolerating TF at goal with GRV WNL. LBM 02/20. Will continue to monitor. Recommendations: 1. Cont.PEG TF using Vital High protein at 85ml/hr goal; to provide 2040ml fluid, 2040kcals, 1705ml free water, and 179g protein. 2. Additional free water per separating machine operator on HD 3. Prealbumin Q /; daily wts 4. Routine bowel care Addendum: 02/22/19 at [address] Amended: Links added. Addendum: 02/22/19 at [address] I have reviewed and agree with note by Nutritionist. Carin Claros RD
[2019-02-22] MEDS: Dextrose 10%-water IV solution 1,000 ML IV SCH (17:40)
[2019-02-22] MEDS: insulin glargine (Lantus) pen - multi-dose SQ SCH (20:40)
[2019-02-23] VITALS (31 sets, daily range): BP systolic 75–101; BP diastolic 42–64
[2019-02-23] MEDS: midodrine 5mg tablet PEG SCH ×4 (01:05→23:55)
[2019-02-23] MEDS: insulin regular, human vial - multi-dose SQ SCH ×3 (02:23→20:03)
[2019-02-23] MEDS: ipratropium/albuterol 3ml nebule NEB SCH ×6 (02:39→22:43)
[2019-02-23 03:20] LABS: BASOPHILS # (AUTO) 0.1 X10'3 (0-0.2); BASOPHILS % (AUTO) 0.7 % (0-1); EOSINOPHILS # (AUTO) 0.3 X10'3 (0-0.9); EOSINOPHILS % (AUTO) 3.4 % (0-6); HEMATOCRIT 25.9 % (42.0-52.0); HEMOGLOBIN 8.4 g/dl (14.0-17.9); LYMPHOCYTES # (AUTO) 2.9 X10'3 (1.1-4.8); LYMPHOCYTES % (AUTO) 39.2 % (21-51); MEAN CORPUSCULAR HEMOGLOBIN 30.7 PG (27.0-31.0); MEAN CORPUSCULAR HGB CONC 32.2 g/dL (33.0-36.5); MEAN CORPUSCULAR VOLUME 95.2 FL (78-98); MEAN PLATELET VOLUME 8.5 FL (7.4-10.4); MONOCYTES # (AUTO) 0.6 X10'3 (0-0.9); MONOCYTES % (AUTO) 8.2 % (2-12); NEUTROPHILS # (AUTO) 3.6 X10'3 (1.8-7.7); NEUTROPHILS % (AUTO) 48.5 % (42-75); PLATELET COUNT 326 X10'3 (140-440); RED BLOOD COUNT 2.73 X10'6 (4.70-6.10); RED CELL DISTRIBUTION WIDTH 18.9 % (11.5-14.5); WHITE BLOOD COUNT 7.5 X10'3 (4.5-11.0)
[2019-02-23 03:29] LABS: ALANINE AMINOTRANSFERASE 56 U/L (12-78); ALBUMIN/GLOBULIN RATIO 0.4 (1.1-1.5); ALKALINE PHOSPHATASE 376 IU/L (46-116); ANION GAP 9 (8-16); ASPARTATE AMINO TRANSFERASE 38 U/L (10-37); BILIRUBIN,TOTAL 0.6 MG/DL (0.1-1.0); BLOOD UREA NITROGEN 70 MG/DL (7-18); BUN/CREATININE RATIO 34.7 (5.4-32.0); CALCIUM 8.4 MG/DL (8.5-10.1); CHLORIDE 99 MMOL/L (99-107); CREATININE 2.02 MG/DL (0.60-1.10); GLUCOSE 100 MG/DL (70-104); PHOSPHORUS 5.6 MG/DL (2.3-4.5); POTASSIUM 4.8 MMOL/L (3.5-5.1); SODIUM 136 MMOL/L (135-145); TOTAL CARBON DIOXIDE 27.6 MMOL/L (24-32); TOTAL PROTEIN 7.3 G/DL (6.4-8.2); eGFR 32 ML/MIN
[2019-02-23 03:52] LABS: ANISOCYTOSIS 2+; HYPOCHROMASIA 1+; PLATELET ESTIMATE NORMAL; POLYCHROMASIA 1+
[2019-02-23 03:53] LABS: LARGE PLATELETS FEW
[2019-02-23] MEDS: enoxaparin 40mg/0.4ml syringe SUBCUT SCH ×2 (07:34→20:00)
[2019-02-23] MEDS: pantoprazole 40 MG vial IV SCH (07:34)
[2019-02-23] MEDS: lactobacillus rhamnosus 10,000 MMU CELLS/CAPSULE OGT SCH ×2 (07:34→20:00)
--- NOTE | 2019-02-23 07:39 | NUR ---
I have reviewed and agree with all medications administered and interventions performed by [facility] Student Fabrizio Elizabeth Addendum: 02/23/19 at [address] Amended: Links added.
[2019-02-23] MEDS: K, MAG and/or Phos replacement - Verify level? MC SCH (08:00)
[2019-02-23] MEDS ORDERED: epoetin 20,000 units/ml inj IV ONE (10:25)
[2019-02-23] MEDS ORDERED: heparin 1,000unit/ml 10ml vial 10 ML IV ONE (10:25)
[2019-02-23] MEDS ORDERED: heparin 1,000 units/ml 10ml inj HE ONE ×2 (10:30)
[2019-02-23] MEDS: Dextrose 10%-water IV solution 1,000 ML IV SCH (13:40)
[2019-02-23] MEDS: NORepinephrine 8mg/ 250ml NS 250 ML IV PRN (18:02)
[2019-02-23] MEDS: insulin glargine (Lantus) pen - multi-dose SQ SCH (20:04)
[2019-02-24] VITALS (24 sets, daily range): BP systolic 74–103; BP diastolic 7–70
[2019-02-24] MEDS: ipratropium/albuterol 3ml nebule NEB SCH ×6 (02:12→22:35)
[2019-02-24 03:19] LABS: BASOPHILS # (AUTO) 0.1 X10'3 (0-0.2); BASOPHILS % (AUTO) 0.9 % (0-1); EOSINOPHILS # (AUTO) 0.2 X10'3 (0-0.9); EOSINOPHILS % (AUTO) 2.4 % (0-6); HEMATOCRIT 25.5 % (42.0-52.0); HEMOGLOBIN 8.1 g/dl (14.0-17.9); LYMPHOCYTES # (AUTO) 2.9 X10'3 (1.1-4.8); LYMPHOCYTES % (AUTO) 45.7 % (21-51); MEAN CORPUSCULAR HEMOGLOBIN 30.3 PG (27.0-31.0); MEAN PLATELET VOLUME 8.3 FL (7.4-10.4); MONOCYTES # (AUTO) 0.5 X10'3 (0-0.9); MONOCYTES % (AUTO) 8.6 % (2-12); NEUTROPHILS # (AUTO) 2.7 X10'3 (1.8-7.7); NEUTROPHILS % (AUTO) 42.4 % (42-75); PLATELET COUNT 312 X10'3 (140-440); RED BLOOD COUNT 2.68 X10'6 (4.70-6.10); RED CELL DISTRIBUTION WIDTH 18.7 % (11.5-14.5); WHITE BLOOD COUNT 6.3 X10'3 (4.5-11.0)
[2019-02-24 03:36] LABS: ALANINE AMINOTRANSFERASE 47 U/L (12-78); ALBUMIN 1.8 G/DL (3.4-5.0); ALBUMIN/GLOBULIN RATIO 0.3 (1.1-1.5); ALKALINE PHOSPHATASE 347 IU/L (46-116); ANION GAP 8 (8-16); ASPARTATE AMINO TRANSFERASE 42 U/L (10-37); BILIRUBIN,TOTAL 0.6 MG/DL (0.1-1.0); BLOOD UREA NITROGEN 48 MG/DL (7-18); BUN/CREATININE RATIO 31.6 (5.4-32.0); CALCIUM 7.9 MG/DL (8.5-10.1); CHLORIDE 100 MMOL/L (99-107); CREATININE 1.52 MG/DL (0.60-1.10); GLUCOSE 136 MG/DL (70-104); MAGNESIUM 1.9 MG/DL (1.5-2.4); PHOSPHORUS 4.2 MG/DL (2.3-4.5); POTASSIUM 4.2 MMOL/L (3.5-5.1); SODIUM 135 MMOL/L (135-145); TOTAL CARBON DIOXIDE 27.1 MMOL/L (24-32); eGFR 45 ML/MIN
[2019-02-24] MEDS: insulin regular, human vial - multi-dose SQ SCH ×3 (04:11→20:13)
[2019-02-24 06:19] LABS: ANISOCYTOSIS 2+; PLATELET ESTIMATE NORMAL
[2019-02-24 06:20] LABS: POIKILOCYTOSIS FEW
[2019-02-24] MEDS: pantoprazole 40 MG vial IV SCH (07:35)
[2019-02-24] MEDS: enoxaparin 40mg/0.4ml syringe SUBCUT SCH ×2 (07:35→20:09)
[2019-02-24] MEDS: lactobacillus rhamnosus 10,000 MMU CELLS/CAPSULE OGT SCH ×2 (07:35→20:09)
[2019-02-24] MEDS: midodrine 5mg tablet PEG SCH ×3 (07:35→23:28)
[2019-02-24] MEDS: K, MAG and/or Phos replacement - Verify level? MC SCH (08:00)
[2019-02-24] MEDS: acetaminophen 325mg/10.15ml oral unit dose solution PEG PRN (09:28)
[2019-02-24] MEDS: Dextrose 10%-water IV solution 1,000 ML IV SCH (09:40)
[2019-02-24] MEDS: ondansetron/PF 4mg/2ml inj IV PRN (14:16)
--- NOTE | 2019-02-24 18:30 | NUR ---
Patient in room CICU 2011. I have received report and had the opportunity to ask questions and assume patient care.
[2019-02-24] MEDS: insulin glargine (Lantus) pen - multi-dose SQ SCH (20:13)
--- NOTE | 2019-02-24 20:39 | NUR ---
pt is trached and not on sedation. pt nods yes and no appropriately to questions. pt lung sounds are clear and diminished throughout. pt is receiving tube feeding and tolerating it well. gt tube insertion site has green drainage and is excoriated. trach foam and g tube foam changed. trach site weeping and has green respiratory secretions oozing out from trach site. heels and elbows intact blanchable free from breakdown. coccyx and left upper thigh/buttock area have small open areas covered by optifoam. posterior back has a healing dti that is closed and intact. toes are black bilaterally, boots in place. will continue to monitor
[2019-02-25] VITALS (23 sets, daily range): BP systolic 84–109; BP diastolic 53–77
[2019-02-25] MEDS: insulin regular, human vial - multi-dose SQ SCH ×2 (02:09→19:50)
[2019-02-25] MEDS: ipratropium/albuterol 3ml nebule NEB SCH ×6 (03:02→22:36)
[2019-02-25 03:41] LABS: BASOPHILS # (AUTO) 0.1 X10'3 (0-0.2); BASOPHILS % (AUTO) 0.9 % (0-1); EOSINOPHILS # (AUTO) 0.2 X10'3 (0-0.9); EOSINOPHILS % (AUTO) 3.1 % (0-6); HEMATOCRIT 26.8 % (42.0-52.0); HEMOGLOBIN 8.5 g/dl (14.0-17.9); LYMPHOCYTES # (AUTO) 2.8 X10'3 (1.1-4.8); LYMPHOCYTES % (AUTO) 41.2 % (21-51); MEAN CORPUSCULAR HEMOGLOBIN 30.2 PG (27.0-31.0); MEAN CORPUSCULAR HGB CONC 31.8 g/dL (33.0-36.5); MEAN CORPUSCULAR VOLUME 94.9 FL (78-98); MEAN PLATELET VOLUME 9.2 FL (7.4-10.4); MONOCYTES # (AUTO) 0.6 X10'3 (0-0.9); MONOCYTES % (AUTO) 8.6 % (2-12); NEUTROPHILS # (AUTO) 3.2 X10'3 (1.8-7.7); NEUTROPHILS % (AUTO) 46.2 % (42-75); PLATELET COUNT 328 X10'3 (140-440); RED BLOOD COUNT 2.83 X10'6 (4.70-6.10); RED CELL DISTRIBUTION WIDTH 18.6 % (11.5-14.5); WHITE BLOOD COUNT 6.9 X10'3 (4.5-11.0)
[2019-02-25 04:01] LABS: ALANINE AMINOTRANSFERASE 48 U/L (12-78); ALBUMIN/GLOBULIN RATIO 0.4 (1.1-1.5); ALKALINE PHOSPHATASE 391 IU/L (46-116); ANION GAP 10 (8-16); ASPARTATE AMINO TRANSFERASE 44 U/L (10-37); BILIRUBIN,TOTAL 0.6 MG/DL (0.1-1.0); BLOOD UREA NITROGEN 72 MG/DL (7-18); BUN/CREATININE RATIO 36.7 (5.4-32.0); CALCIUM 8.3 MG/DL (8.5-10.1); CHLORIDE 99 MMOL/L (99-107); CREATININE 1.96 MG/DL (0.60-1.10); GLUCOSE 144 MG/DL (70-104); PHOSPHORUS 5.9 MG/DL (2.3-4.5); POTASSIUM 4.7 MMOL/L (3.5-5.1); SODIUM 136 MMOL/L (135-145); TOTAL CARBON DIOXIDE 26.6 MMOL/L (24-32); TOTAL PROTEIN 7.4 G/DL (6.4-8.2); eGFR 33 ML/MIN
[2019-02-25] MEDS: Dextrose 10%-water IV solution 1,000 ML IV SCH (05:40)
[2019-02-25 06:42] LABS: ANISOCYTOSIS 2+; HYPOCHROMASIA 1+; PLATELET ESTIMATE NORMAL; POIKILOCYTOSIS 1+; POLYCHROMASIA 1+
[2019-02-25] MEDS: enoxaparin 40mg/0.4ml syringe SUBCUT SCH ×2 (08:03→19:51)
[2019-02-25] MEDS: midodrine 5mg tablet PEG SCH ×2 (08:03→16:15)
[2019-02-25] MEDS: pantoprazole 40 MG vial IV SCH (08:03)
[2019-02-25] MEDS: lactobacillus rhamnosus 10,000 MMU CELLS/CAPSULE OGT SCH ×2 (08:03→19:50)
[2019-02-25] MEDS: K, MAG and/or Phos replacement - Verify level? MC SCH (08:34)
--- NOTE | 2019-02-25 10:06 | NUR ---
Reassessment: Pt continues tolerating TF at goal rate with GRV WNL. LBM 02/24 documented as a smear with last moderate BM 02/22, currently with no bowel care. Pt awaiting placement and not weanable per MD notes. Will continue to follow closely. Recommendations: 1. Cont.PEG TF using Vital High protein at 85ml/hr goal; to provide 2040ml volume/day, 2040kcals, 1705ml free water, and 179g protein. 2. Additional free water per sprinkling system irrigator on HD 3. Prealbumin Q /; daily wts 4. Routine bowel care Addendum: 02/25/19 at [address] Amended: Links added.
--- NOTE | 2019-02-25 18:37 | NUR ---
Patient in room CICU 2011. I have received report from Day shift RN and had the opportunity to ask questions and assume patient care.
[2019-02-25] MEDS: insulin glargine (Lantus) pen - multi-dose SQ SCH (19:48)
--- NOTE | 2019-02-25 23:00 | NUR ---
At beginning of shift it was noticed that wound care pictures had not been taken since 02/04 and 02/03. at 0 i started pt bathing and wound care pictures. wound care pictures and bathing finished around 0. To backside, pt had two Optifoam dressings in place, one to coccyx, and one to left lower buttock, both of which were covering open wounds, but the optifoams were without a date, and no prior wound pictures were found. these wounds were photographed and new dated Optifoams were placed. Around the PEG tube, prior dressing was without date. when trying to remove, dressing was adhered tightly to skin. wound cleanser and gauze were used for several minutes to be able to remove prior dressing. picture was taken of underlying wound. during this time with the dressing off, gas was heard exiting around PEG tube site, and a small amount, maybe 10ml of tube feeding came up from around site as well. Jacob Kruse was notified regarding this. he gave okay to continue running TF, and no change in orders. he requested this information to be passed on to the day shift and a larger tube might need to be placed. a new dressing was placed per wound care orders. Pictures placed in the chart.
[2019-02-26] VITALS (23 sets, daily range): BP systolic 78–108; BP diastolic 49–76
--- NOTE | 2019-02-26 00:25 | NUR ---
Received patient report from Gisell LOOMIS.
[2019-02-26] MEDS: midodrine 5mg tablet PEG SCH ×3 (00:56→16:02)
[2019-02-26] MEDS: Dextrose 10%-water IV solution 1,000 ML IV SCH ×2 (01:40→21:40)
[2019-02-26 02:34] LABS: BASOPHILS % (AUTO) 0.4 % (0-1); EOSINOPHILS % (AUTO) 0 % (0-6); HEMATOCRIT 26.6 % (42.0-52.0); HEMOGLOBIN 8.7 g/dl (14.0-17.9); LYMPHOCYTES # (AUTO) 1.8 X10'3 (1.1-4.8); MEAN CORPUSCULAR HEMOGLOBIN 30.6 PG (27.0-31.0); MEAN CORPUSCULAR HGB CONC 32.6 g/dL (33.0-36.5); MEAN CORPUSCULAR VOLUME 93.9 FL (78-98); MEAN PLATELET VOLUME 8.1 FL (7.4-10.4); MONOCYTES # (AUTO) 0.5 X10'3 (0-0.9); MONOCYTES % (AUTO) 6.6 % (2-12); NEUTROPHILS # (AUTO) 4.9 X10'3 (1.8-7.7); PLATELET COUNT 363 X10'3 (140-440); RED BLOOD COUNT 2.83 X10'6 (4.70-6.10); RED CELL DISTRIBUTION WIDTH 17.9 % (11.5-14.5); WHITE BLOOD COUNT 7.3 X10'3 (4.5-11.0)
[2019-02-26] MEDS: ipratropium/albuterol 3ml nebule NEB SCH ×6 (02:36→22:39)
[2019-02-26] MEDS: insulin regular, human vial - multi-dose SQ SCH ×3 (02:45→14:06)
[2019-02-26 02:50] LABS: ALANINE AMINOTRANSFERASE 46 U/L (12-78); ALBUMIN 2.1 G/DL (3.4-5.0); ALBUMIN/GLOBULIN RATIO 0.4 (1.1-1.5); ALKALINE PHOSPHATASE 405 IU/L (46-116); ANION GAP 14 (8-16); ASPARTATE AMINO TRANSFERASE 38 U/L (10-37); BILIRUBIN,TOTAL 0.7 MG/DL (0.1-1.0); BLOOD UREA NITROGEN 97 MG/DL (7-18); BUN/CREATININE RATIO 40.6 (5.4-32.0); CALCIUM 8.6 MG/DL (8.5-10.1); CHLORIDE 96 MMOL/L (99-107); CREATININE 2.39 MG/DL (0.60-1.10); GLUCOSE 192 MG/DL (70-104); MAGNESIUM 2.2 MG/DL (1.5-2.4); PHOSPHORUS 7.7 MG/DL (2.3-4.5); POTASSIUM 5.9 MMOL/L (3.5-5.1); SODIUM 134 MMOL/L (135-145); TOTAL CARBON DIOXIDE 24.4 MMOL/L (24-32); TOTAL PROTEIN 7.4 G/DL (6.4-8.2); eGFR 26 ML/MIN
[2019-02-26] MEDS: acetaminophen 325mg/10.15ml oral unit dose solution PEG PRN (05:13)
--- NOTE | 2019-02-26 06:14 | NUR ---
Patient report given to Lizzie LOOMIS
--- NOTE | 2019-02-26 06:35 | NUR ---
Patient in room CICU 2011. I have received report from VLADISLAV Marie and had the opportunity to ask questions and assume patient care.
[2019-02-26] MEDS: pantoprazole 40 MG vial IV SCH (07:21)
[2019-02-26] MEDS: K, MAG and/or Phos replacement - Verify level? MC SCH (07:30)
[2019-02-26] MEDS: lactobacillus rhamnosus 10,000 MMU CELLS/CAPSULE OGT SCH ×2 (07:35→20:10)
[2019-02-26] MEDS: enoxaparin 40mg/0.4ml syringe SUBCUT SCH ×2 (07:36→20:10)
[2019-02-26] MEDS ORDERED: heparin 1,000unit/ml 10ml vial 10 ML IV ONE (10:16)
[2019-02-26] MEDS ORDERED: epoetin 20,000 units/ml inj IV ONE (10:20)
[2019-02-26] MEDS ORDERED: heparin 1,000 units/ml 10ml inj HE ONE ×2 (10:20)
--- NOTE | 2019-02-26 12:30 | NUR ---
pt straight cathed ,requiring 2 RNs ,due to penile edema 550 cc dark [place] urine returned
[2019-02-26] MEDS: NORepinephrine 8mg/ 250ml NS 250 ML IV PRN ×5 (12:34→23:49)
--- NOTE | 2019-02-26 18:27 | NUR ---
assumed care from Mannie LOOMIS no questions or concerns after assuming care Addendum: 02/26/19 at 1828 by Alex Rivera RN assumed care from Sue Chand RN
[2019-02-26] MEDS: insulin glargine (Lantus) pen - multi-dose SQ SCH (20:20)
--- NOTE | 2019-02-26 20:22 | NUR ---
Jacob Kruse had me hold the Lantus this evening due to the patients current bg 77, 24 hrs ago 2000 hr bg 249, verbalized to watch BG
--- NOTE | 2019-02-26 21:24 | NUR ---
PATIENT CURRENTLY IN BED EYES CLOSED COVERS ON RR EVEN UN LABORED NO OBSERVABLE S/S OF ACUTE STRESS AT THIS TIME WILL CONTINUE TO MONITOR
--- NOTE | 2019-02-26 23:54 | NUR ---
PATIENT USING HEAD TO NOD YES AND NO QUESTIONS PATIENT IS WATCHING TELEVISION RR EVEN UN LABORED NO OBSERVABLE S/S OF ACUTE STRESS AT THIS TIME WILL CONTINUE TO MONITOR
[2019-02-27] VITALS (23 sets, daily range): BP systolic 78–108; BP diastolic 50–72
[2019-02-27] MEDS: midodrine 5mg tablet PEG SCH ×3 (01:11→08:06)
--- NOTE | 2019-02-27 01:24 | NUR ---
PATIENTS HR STARTING TO INCREASE TOOK PATIENTS TEMP APPEARS TO RUNNING A FEVER AT 38.3 ADMINISTERED TYLENOL THROUGH PEG TUBE WILL CONTINUE TO MONITOR, RR EVEN UN LABORED NO [id number] S/S OF ACUTE STRESS AT THIS TIME WILL CONTINUE TO MONITOR
[2019-02-27] MEDS: insulin regular, human vial - multi-dose SQ SCH ×4 (02:04→20:06)
[2019-02-27] MEDS: ipratropium/albuterol 3ml nebule NEB SCH ×6 (02:31→22:36)
[2019-02-27 03:18] LABS: BASOPHILS % (AUTO) 0.2 % (0-1); EOSINOPHILS % (AUTO) 0 % (0-6); HEMATOCRIT 26.7 % (42.0-52.0); HEMOGLOBIN 8.7 g/dl (14.0-17.9); LYMPHOCYTES # (AUTO) 0.7 X10'3 (1.1-4.8); LYMPHOCYTES % (AUTO) 10.9 % (21-51); MEAN CORPUSCULAR HEMOGLOBIN 30.4 PG (27.0-31.0); MEAN CORPUSCULAR HGB CONC 32.4 g/dL (33.0-36.5); MEAN CORPUSCULAR VOLUME 93.8 FL (78-98); MEAN PLATELET VOLUME 8.7 FL (7.4-10.4); MONOCYTES # (AUTO) 0.3 X10'3 (0-0.9); MONOCYTES % (AUTO) 5.1 % (2-12); NEUTROPHILS # (AUTO) 5.5 X10'3 (1.8-7.7); NEUTROPHILS % (AUTO) 83.8 % (42-75); PLATELET COUNT 353 X10'3 (140-440); RED BLOOD COUNT 2.85 X10'6 (4.70-6.10); WHITE BLOOD COUNT 6.6 X10'3 (4.5-11.0)
--- NOTE | 2019-02-27 03:20 | NUR ---
JUST FINISHED TRACH CARE PATIENT IS SMILING GIVING THUMBS UP AFTER THE TRACH CARE, PATIENTS RR EVEN UN LABORED NO OBSERVABLE S/S OF ACUTE STRESS AT THIS TIME WILL CONTINUE TO MONITOR
[2019-02-27 03:24] LABS: ALANINE AMINOTRANSFERASE 47 U/L (12-78); ALBUMIN/GLOBULIN RATIO 0.4 (1.1-1.5); ALKALINE PHOSPHATASE 410 IU/L (46-116); ANION GAP 11 (8-16); ASPARTATE AMINO TRANSFERASE 39 U/L (10-37); BILIRUBIN,TOTAL 0.7 MG/DL (0.1-1.0); BLOOD UREA NITROGEN 69 MG/DL (7-18); BUN/CREATININE RATIO 37.7 (5.4-32.0); CALCIUM 8.5 MG/DL (8.5-10.1); CHLORIDE 98 MMOL/L (99-107); CREATININE 1.83 MG/DL (0.60-1.10); GLUCOSE 191 MG/DL (70-104); MAGNESIUM 1.8 MG/DL (1.5-2.4); PHOSPHORUS 5.3 MG/DL (2.3-4.5); POTASSIUM 4.6 MMOL/L (3.5-5.1); SODIUM 134 MMOL/L (135-145); TOTAL CARBON DIOXIDE 24.8 MMOL/L (24-32); TOTAL PROTEIN 7.2 G/DL (6.4-8.2); eGFR 36 ML/MIN
--- NOTE | 2019-02-27 05:49 | NUR ---
PATIENT IN BED EYES OPEN WATCHING THE MORNING NEWS RR EVEN UN LABORED NO OBSERVABLE S/S OF ACUTE STRESS AT THIS TIME WILL CONTINUE TO MONITOR
--- NOTE | 2019-02-27 06:19 | NUR ---
SBAR TO SHALONDA RN NO QUESTIONS OR CONCERNS AFTER ASSUMING CARE
[2019-02-27] MEDS: K, MAG and/or Phos replacement - Verify level? MC SCH (08:00)
[2019-02-27] MEDS: enoxaparin 40mg/0.4ml syringe SUBCUT SCH ×2 (08:06→20:10)
[2019-02-27] MEDS: lactobacillus rhamnosus 10,000 MMU CELLS/CAPSULE OGT SCH ×2 (08:06→20:10)
[2019-02-27] MEDS: pantoprazole 40 MG vial IV SCH (08:06)
--- NOTE | 2019-02-27 11:01 | NUR ---
Pt beginning to awaken more post procedure, moving both legs and head back and forth. vitals remain stable. Has been placed back on cpap with good sats.
--- NOTE | 2019-02-27 18:20 | NUR ---
ASSUMED CARE FROM SHALONDA RN NO QUESTIONS OR CONCERNS AFTER SBAR
[2019-02-27] MEDS: insulin glargine (Lantus) pen - multi-dose SQ SCH (20:09)
--- NOTE | 2019-02-27 20:56 | NUR ---
PATIENT IN BED EYES OPEN WATCHING TELEVISION RR EVEN UN LABORED NO OBSERVABLE S/S OF ACUTE STRESS AT THIS TIME
--- NOTE | 2019-02-27 22:16 | NUR ---
PATIENT IN BED EYES OPEN WATCHING TELEVISION PATIENT APPEARS TO BE IN NO OBSERVABLE S/S OF ACUTE STRESS AT THIS TIME
[2019-02-28] VITALS (18 sets, daily range): BP systolic 48–110; BP diastolic 26–75
[2019-02-28] MEDS: midodrine 5mg tablet PEG SCH ×2 (00:19→08:09)
[2019-02-28] MEDS: acetaminophen 325mg/10.15ml oral unit dose solution PEG PRN (00:22)
--- NOTE | 2019-02-28 00:27 | NUR ---
patient in bed watching television, hr has increased patient is afebrile, appears to be showing signs of pain when turning and suctioning administered Tylenol 650 mg will continue to monitor patient and hr, patient rr even un labored
[2019-02-28 02:26] LABS: BASOPHILS % (AUTO) 0.4 % (0-1); EOSINOPHILS % (AUTO) 0.4 % (0-6); HEMATOCRIT 28.8 % (42.0-52.0); HEMOGLOBIN 9.3 g/dl (14.0-17.9); LYMPHOCYTES # (AUTO) 0.9 X10'3 (1.1-4.8); LYMPHOCYTES % (AUTO) 20.7 % (21-51); MEAN CORPUSCULAR HEMOGLOBIN 29.9 PG (27.0-31.0); MEAN CORPUSCULAR HGB CONC 32.3 g/dL (33.0-36.5); MEAN CORPUSCULAR VOLUME 92.4 FL (78-98); MEAN PLATELET VOLUME 8.3 FL (7.4-10.4); MONOCYTES # (AUTO) 0.2 X10'3 (0-0.9); MONOCYTES % (AUTO) 3.7 % (2-12); NEUTROPHILS # (AUTO) 3.2 X10'3 (1.8-7.7); NEUTROPHILS % (AUTO) 74.8 % (42-75); PLATELET COUNT 384 X10'3 (140-440); RED BLOOD COUNT 3.12 X10'6 (4.70-6.10); RED CELL DISTRIBUTION WIDTH 17.9 % (11.5-14.5); WHITE BLOOD COUNT 4.2 X10'3 (4.5-11.0)
[2019-02-28 02:37] LABS: ALANINE AMINOTRANSFERASE 47 U/L (12-78); ALBUMIN/GLOBULIN RATIO 0.3 (1.1-1.5); ALKALINE PHOSPHATASE 423 IU/L (46-116); ANION GAP 11 (8-16); ASPARTATE AMINO TRANSFERASE 35 U/L (10-37); BILIRUBIN,TOTAL 0.8 MG/DL (0.1-1.0); BLOOD UREA NITROGEN 96 MG/DL (7-18); BUN/CREATININE RATIO 43.2 (5.4-32.0); CALCIUM 8.8 MG/DL (8.5-10.1); CHLORIDE 97 MMOL/L (99-107); CREATININE 2.22 MG/DL (0.60-1.10); GLUCOSE 74 MG/DL (70-104); PHOSPHORUS 6.2 MG/DL (2.3-4.5); POTASSIUM 5.5 MMOL/L (3.5-5.1); SODIUM 134 MMOL/L (135-145); TOTAL CARBON DIOXIDE 25.9 MMOL/L (24-32); TOTAL PROTEIN 7.8 G/DL (6.4-8.2); eGFR 29 ML/MIN
[2019-02-28] MEDS: ipratropium/albuterol 3ml nebule NEB SCH ×4 (02:47→15:00)
--- NOTE | 2019-02-28 03:22 | NUR ---
patient in bed with eyes closed! appears to be resting comfortably, patients rr even un labored no observable s/s of acute stress at this time
[2019-02-28] MEDS: NORepinephrine 8mg/ 250ml NS 250 ML IV PRN ×3 (04:12→16:08)
--- NOTE | 2019-02-28 05:54 | NUR ---
patients blood pressure decreasing this a.m. had to increase noresergio patient denies pain, is afebrile, patient in bed eyes open watching television rr even un labored no observable s/s of acute stress at this time
--- NOTE | 2019-02-28 06:14 | NUR ---
SBAR TO JODI LOOMIS NO QUESTIONS OR CONCERNS AFTER ASSUMING CARE
--- NOTE | 2019-02-28 07:00 | NUR ---
Patient in room [facility] 2011. I have received report from VLADISLAV Johnson and had the opportunity to ask questions and assume patient care. Addendum: 02/28/19 at 0737 by Fior Ta RN Amended: Links added.
[2019-02-28 07:12] LABS: HBSAG SCREEN Negative (Negative)
--- NOTE | 2019-02-28 07:45 | NUR ---
called Dr. Gustafson and advised him of the patient's hypotensive state and that the levophed has gone from 10mcg to 16mcg within one hour of my arrival.
[2019-02-28] MEDS: K, MAG and/or Phos replacement - Verify level? MC SCH (08:00)
--- NOTE | 2019-02-28 08:00 | NUR ---
the patient's blood glucose was 93 so no sliding scale coverage was needed at a level 5, the patient's carb intake from the tube feeding was 57 because the 0200 blood glucose was 77 and combined with the 93 there was no insulin given and the patient is moved back down to a level 4 at this time. Discussed this with the charge nurse VLADISLAV Acevedo
[2019-02-28] MEDS: lactobacillus rhamnosus 10,000 MMU CELLS/CAPSULE OGT SCH (08:09)
[2019-02-28] MEDS: pantoprazole 40 MG vial IV SCH (08:09)
[2019-02-28] MEDS: enoxaparin 40mg/0.4ml syringe SUBCUT SCH (08:10)
[2019-02-28] MEDS ORDERED: vancomycin/NS 1 GM ADD-VANTAGE 250 ML IV ONE (09:50)
[2019-02-28] MEDS ORDERED: hydrocortisone sod succ/PF 100mg/2ml inj. IV SCH ×2 (09:50→16:00)
[2019-02-28] MEDS ORDERED: cefepime 2g/NS 100ml ADVANTAGE 100 ML IV SCH ×2 (10:00→20:00)
[2019-02-28] MEDS ORDERED: DOBUTamine-DoBUTrex 500mg/D5W 250 ML IV ONE (10:28)
[2019-02-28] MEDS ORDERED: sodium bicarbonate (8.4%) inj. 1 MEQ/ML ML ONE ×2 (10:28→10:46)
[2019-02-28] MEDS ORDERED: sodium bicarbonate (8.4%) 1 mEq/ml syringe IV ONE (10:45)
[2019-02-28] MEDS ORDERED: DOBUTamine-DoBUTrex 500mg/D5W 250 ML IV SCH (10:45)
[2019-02-28] MEDS ORDERED: normal saline 1000ml 1,000 ML IV ONE ×2 (10:45)
--- NOTE | 2019-02-28 10:54 | NUR ---
Reassessment: Pt remains intubated via trach and tolerating TF via PEG at goal rate with GRV 0-5 mL. LBM 02/26. Will continue to follow closely. Recommendations: 1. Cont.PEG TF using Vital High protein at 85ml/hr goal; to provide 2040ml volume/day, 2040kcals, 1705ml free water, and 179g protein. 2. Additional free water per records analysis manager on HD 3. Prealbumin Q /; daily wts 4. Routine bowel care Addendum: 02/28/19 at [address] Amended: Links added.
[2019-02-28] MEDS ORDERED: POTASSIUM BICARB 20meq eff tab 20 MEQ TABLET.EFF PEG PRN (11:21)
[2019-02-28] MEDS ORDERED: vasopressin inj. 20 UNIT in normal saline 100ml IV soln 39 ML IV SCH (11:45)
--- NOTE | 2019-02-28 12:33 | NUR ---
got 500mls out when doing tube feeding residual, at this time the tube feeding has been stopped due to patient condition.
[2019-02-28 14:11] LABS: HEMOGLOBIN 7.9 g/dl (14.0-17.9); MONOCYTES % (AUTO) 5.6 % (2-12)
[2019-02-28 14:12] LABS: BASOPHILS % (AUTO) 0.1 % (0-1); EOSINOPHILS % (AUTO) 0.1 % (0-6); HEMATOCRIT 25.2 % (42.0-52.0); LYMPHOCYTES # (AUTO) 0.8 X10'3 (1.1-4.8); LYMPHOCYTES % (AUTO) 32.7 % (21-51); MEAN CORPUSCULAR HEMOGLOBIN 29.8 PG (27.0-31.0); MEAN CORPUSCULAR HGB CONC 31.4 g/dL (33.0-36.5); MEAN CORPUSCULAR VOLUME 94.8 FL (78-98); MONOCYTES # (AUTO) 0.1 X10'3 (0-0.9); NEUTROPHILS # (AUTO) 1.6 X10'3 (1.8-7.7); NEUTROPHILS % (AUTO) 61.5 % (42-75); PLATELET COUNT 308 X10'3 (140-440); RED BLOOD COUNT 2.66 X10'6 (4.70-6.10); RED CELL DISTRIBUTION WIDTH 17.7 % (11.5-14.5); WHITE BLOOD COUNT 2.6 X10'3 (4.5-11.0)
[2019-02-28 14:26] LABS: ALANINE AMINOTRANSFERASE 37 U/L (12-78); ALBUMIN 1.5 G/DL (3.4-5.0); ALBUMIN/GLOBULIN RATIO 0.3 (1.1-1.5); ALKALINE PHOSPHATASE 348 IU/L (46-116); ANION GAP 19 (8-16); ASPARTATE AMINO TRANSFERASE 45 U/L (10-37); BILIRUBIN,TOTAL 0.8 MG/DL (0.1-1.0); BLOOD UREA NITROGEN 97 MG/DL (7-18); BUN/CREATININE RATIO 38.8 (5.4-32.0); CALCIUM 7.4 MG/DL (8.5-10.1); CHLORIDE 100 MMOL/L (99-107); GLUCOSE 95 MG/DL (70-104); POTASSIUM 5.6 MMOL/L (3.5-5.1); SODIUM 139 MMOL/L (135-145); TOTAL PROTEIN 6.2 G/DL (6.4-8.2); eGFR 25 ML/MIN
[2019-02-28 14:29] LABS: TROPONIN I 0.13 NG/ML (0.0-0.05)
[2019-02-28] MEDS ORDERED: morphine 4 MG/ML inj SYRINge ONE (15:28)
[2019-02-28] MEDS ORDERED: morphine 2 MG/ML inj. syringe IV PRN (15:30)
--- NOTE | 2019-02-28 15:30 | NUR ---
patient's daughter Kamala at bedside agreed to comfort care and no chest compressions, she wanted pain meds ordered to make him comfortable. Called Dr. Gustafson and made him aware and received an order for morphine.
[2019-02-28 15:45] LABS: TOTAL CELLS COUNTED 100
[2019-02-28 15:46] LABS: PLATELET ESTIMATE NORMAL
[2019-02-28 15:47] LABS: ANISOCYTOSIS 2+
[2019-02-28 15:48] LABS: BURR CELLS 1+; POLYCHROMASIA FEW; SCHISTOCYTES FEW; TARGET CELLS FEW
--- NOTE | 2019-02-28 16:08 | NUR ---
RN IS TO DOCUMENT YES TO ALL APPLICABLE AREAS Pronouncement of : 1. Time Physician Notified: 1610 2. Date of :02/28/19 3. Time of : 1608 4. DNR/Withdraw life support documented:yes 5. Monitor strip has been placed on chart:yes 6. Assessment process is of one-minute duration and includes following criteria: a) Patient is unresponsive to all stimuli: yes b) Pupils fixed and non-reactive:yes c) Auscultation of precordium reveals absence of heart tones:yes d) Auscultation of lungs reveals absence of breath sounds:yes e) Absence of blood pressure / all vital signs:yes f) QRS complexes are not present on monitor / EKG strip:yes g) Pacer spikes without capture:n/a 4. Comments:
== END 2019-02-28 16:08 | disposition expired | DRG 4 ==
LOC: ER 00:15 → ICU 2S 04:47 → CICU 2S 01-10 19:39
PROVIDERS: ADMIT Internal Medicine Critical Care Medicine; ATTEND Internal Medicine Critical Care Medicine
PROC: 5A1955Z Respiratory Ventilation, Greater than 96 Consecutive Hours (ICD-10-PCS; principal; 2018-12-30)
PROC: 0BH17EZ Insertion of Endotracheal Airway into Trachea, Via Natural or Artificial Opening (ICD-10-PCS; 2018-12-30)
PROC: 02HV33Z Insertion of Infusion Device into Superior Vena Cava, Percutaneous Approach (ICD-10-PCS; 2018-12-31)
PROC: 06HY33Z Insertion of Infusion Device into Lower Vein, Percutaneous Approach (ICD-10-PCS; 2018-12-31)
PROC: 04HY32Z Insertion of Monitoring Device into Lower Artery, Percutaneous Approach (ICD-10-PCS; 2018-12-31)
PROC: 4A133B1 Monitoring of Arterial Pressure, Peripheral, Percutaneous Approach (ICD-10-PCS; 2018-12-31)
PROC: 4A133J1 Monitoring of Arterial Pulse, Peripheral, Percutaneous Approach (ICD-10-PCS; 2018-12-31)
PROC: 30233R1 Transfusion of Nonautologous Platelets into Peripheral Vein, Percutaneous Approach (ICD-10-PCS; 2019-01-02)
PROC: 4A10X4Z Monitoring of Central Nervous Electrical Activity, External Approach (ICD-10-PCS; 2019-01-02)
PROC: 02HV33Z Insertion of Infusion Device into Superior Vena Cava, Percutaneous Approach (ICD-10-PCS; 2019-01-08)
PROC: B548ZZA Ultrasonography of Superior Vena Cava, Guidance (ICD-10-PCS; 2019-01-08)
PROC: 0BJ08ZZ Inspection of Tracheobronchial Tree, Via Natural or Artificial Opening Endoscopic (ICD-10-PCS; 2019-01-10)
PROC: 02HV33Z Insertion of Infusion Device into Superior Vena Cava, Percutaneous Approach (ICD-10-PCS; 2019-01-11)
PROC: B548ZZA Ultrasonography of Superior Vena Cava, Guidance (ICD-10-PCS; 2019-01-11)
PROC: BW251ZZ Computerized Tomography (CT Scan) of Chest, Abdomen and Pelvis using Low Osmolar Contrast (ICD-10-PCS; 2019-01-14)
PROC: 0BC78ZZ Extirpation of Matter from Left Main Bronchus, Via Natural or Artificial Opening Endoscopic (ICD-10-PCS; 2019-01-15)
PROC: 0BC38ZZ Extirpation of Matter from Right Main Bronchus, Via Natural or Artificial Opening Endoscopic (ICD-10-PCS; 2019-01-15)
PROC: 4A10X4Z Monitoring of Central Nervous Electrical Activity, External Approach (ICD-10-PCS; 2019-01-22)
PROC: 0B113F4 Bypass Trachea to Cutaneous with Tracheostomy Device, Percutaneous Approach (ICD-10-PCS; 2019-01-30)
PROC: 02HV33Z Insertion of Infusion Device into Superior Vena Cava, Percutaneous Approach (ICD-10-PCS; 2019-01-31)
PROC: B548ZZA Ultrasonography of Superior Vena Cava, Guidance (ICD-10-PCS; 2019-01-31)
PROC: 5A1D70Z Performance of Urinary Filtration, Intermittent, Less than 6 Hours Per Day (ICD-10-PCS; 2019-01-31)
PROC: 5A1D70Z Performance of Urinary Filtration, Intermittent, Less than 6 Hours Per Day (ICD-10-PCS; 2019-02-01)
PROC: 0JH63XZ Insertion of Tunneled Vascular Access Device into Chest Subcutaneous Tissue and Fascia, Percutaneous Approach (ICD-10-PCS; 2019-02-02)
PROC: 02H633Z Insertion of Infusion Device into Right Atrium, Percutaneous Approach (ICD-10-PCS; 2019-02-02)
PROC: B548ZZA Ultrasonography of Superior Vena Cava, Guidance (ICD-10-PCS; 2019-02-02)
PROC: 5A1D70Z Performance of Urinary Filtration, Intermittent, Less than 6 Hours Per Day (ICD-10-PCS; 2019-02-03)
PROC: 5A1D70Z Performance of Urinary Filtration, Intermittent, Less than 6 Hours Per Day (ICD-10-PCS; 2019-02-06)
PROC: 5A1D90Z Performance of Urinary Filtration, Continuous, Greater than 18 hours Per Day (ICD-10-PCS; 2019-02-07)
PROC: 5A1D90Z Performance of Urinary Filtration, Continuous, Greater than 18 hours Per Day (ICD-10-PCS; 2019-02-08)
PROC: 5A1D90Z Performance of Urinary Filtration, Continuous, Greater than 18 hours Per Day (ICD-10-PCS; 2019-02-09)
PROC: 5A1D90Z Performance of Urinary Filtration, Continuous, Greater than 18 hours Per Day (ICD-10-PCS; 2019-02-10)
PROC: 30233N1 Transfusion of Nonautologous Red Blood Cells into Peripheral Vein, Percutaneous Approach (ICD-10-PCS; 2019-02-11)
PROC: 5A1D90Z Performance of Urinary Filtration, Continuous, Greater than 18 hours Per Day (ICD-10-PCS; 2019-02-11)
PROC: 5A1D70Z Performance of Urinary Filtration, Intermittent, Less than 6 Hours Per Day (ICD-10-PCS; 2019-02-12)
PROC: 0DJ08ZZ Inspection of Upper Intestinal Tract, Via Natural or Artificial Opening Endoscopic (ICD-10-PCS; 2019-02-13)
PROC: 5A1D70Z Performance of Urinary Filtration, Intermittent, Less than 6 Hours Per Day (ICD-10-PCS; 2019-02-14)
PROC: 5A1D70Z Performance of Urinary Filtration, Intermittent, Less than 6 Hours Per Day (ICD-10-PCS; 2019-02-16)
PROC: 5A1D70Z Performance of Urinary Filtration, Intermittent, Less than 6 Hours Per Day (ICD-10-PCS; 2019-02-19)
PROC: 5A1D70Z Performance of Urinary Filtration, Intermittent, Less than 6 Hours Per Day (ICD-10-PCS; 2019-02-21)
PROC: 5A1D70Z Performance of Urinary Filtration, Intermittent, Less than 6 Hours Per Day (ICD-10-PCS; 2019-02-23)
PROC: 5A1D70Z Performance of Urinary Filtration, Intermittent, Less than 6 Hours Per Day (ICD-10-PCS; 2019-02-26)
DX: I63.9 Cerebral infarction, unspecified (principal); A41.9 Sepsis, unspecified organism; E11.10 Type 2 diabetes mellitus with ketoacidosis without coma; N18.6 End stage renal disease; R65.21 Severe sepsis with septic shock; J96.02 Acute respiratory failure with hypercapnia; J96.01 Acute respiratory failure with hypoxia; N17.9 Acute kidney failure, unspecified; I12.0 Hypertensive chronic kidney disease with stage 5 chronic kidney disease or end stage renal disease; K94.23 Gastrostomy malfunction; K92.1 Melena; Z99.11 Dependence on respirator [ventilator] status; D62 Acute posthemorrhagic anemia; G93.1 Anoxic brain damage, not elsewhere classified; E11.22 Type 2 diabetes mellitus with diabetic chronic kidney disease; G89.29 Other chronic pain; K20.9 Esophagitis, unspecified; K29.70 Gastritis, unspecified, without bleeding; M54.9 Dorsalgia, unspecified; E78.00 Pure hypercholesterolemia, unspecified; E87.70 Fluid overload, unspecified; I25.10 Atherosclerotic heart disease of native coronary artery without angina pectoris; K94.21 Gastrostomy hemorrhage; I25.2 Old myocardial infarction; Z99.2 Dependence on renal dialysis; Z79.899 Other long term (current) drug therapy
CPT/HCPCS: 31645; 36415; 36558; 36569; 36600; 43235; 49440; 70450; 71045; 71260; 74018; 74176; 74177; 76700; 76775; 76937; 80048; 80053; 80069; 80202; 80305; 81001; 82140; 82247; 82330; 82550; 82570; 82800; 82803; 82810; 82948; 83036; 83605; 83615; 83721; 83735; 84100; 84132; 84134; 84145; 84300; 84443; 84478; 84484; 85018; 85025; 85027; 85379; 85384; 85610; 85730; 86022; 86885; 86900; 86901; 86920; 87040; 87070; 87077; 87081; 87186; 87207; 87340; 90935; 93005; 93306; 93880; 93970; 94002; 94003; 94640; 94760; 95816; 96361; 96365; 96376; 97110; 97162; 97530; 97535; 99152; 99291; B4087; C1713; C9113; E1594; G0257; G0378; J0171; J0282; J0692; J0696; J1250; J1610; J1644; J1650; J1720; J1815; J2060; J2212; J2250; J2270; J2370; J2405; J2543; J2597; J2704; J2765; J2997; J3010; J3370; J3430; J3475; J3480; J3490; J7040; J7050; J7060; J7070; P9016; P9035; P9045; P9047; Q2037; Q4081; Q9963; Q9967